=== PATIENT | male | born 1975 | race Caucasian/White ===

== ENCOUNTER 2021-01-15 10:34 | Emergency (ER) | payer MEDICAID, SELFPAY ==
--- NOTE | ~2021-01-15 | CT_ITS ---
EXAMINATION: CT ABDOMEN AND PELVIS WITH CONTRAST CLINICAL INFORMATION: Left lower quadrant abdominal pain. Bright red blood per rectum/medications he. COMPARISON: CT pelvis 08/19/2014 TECHNIQUE: Multidetector volumetric images were obtained from the superior aspect of the liver through the pubic symphysis following administration 85 mL of Omnipaque 350 intravenous contrast. Sagittal and coronal reformatted images were obtained on the technologist's workstation. Oral contrast: No This CT examination was performed using dose optimization techniques as appropriate, variously including the following: *Automated exposure control *Adjustment of mA and/or kV according to patient size (this includes techniques or standardized protocols for targeted exams where dose is matched to indication/reason for exam; i.e. extremities or head) *Use of iterative reconstruction technique DLP: 693 mGy-cm FINDINGS: LUNG BASES: Dependent atelectasis. A small subcentimeter juxtaphrenic node anteriorly on the right. LIVER, GALLBLADDER, AND BILIARY TREE: There is a subcentimeter low-density lesion in the right dome of the liver (series 3 image 8/103). This is too small to characterize further but likely represents a small cyst or hemangioma. Overall the liver is normal in size and attenuation. There is smooth minor uniform thickening of the gallbladder fundal wall. This most likely represents adenomyosis. No gallbladder wall edema. No pericholecystic fluid. Suggest nonemergent follow-up with right upper quadrant ultrasound. The intra and extra hepatic bile ducts are normal in caliber. PANCREAS: The pancreas enhances uniformly with no mass, ductal dilation or inflammation. SPLEEN: The spleen is normal in size. ADRENAL GLANDS: No adrenal mass. KIDNEYS AND URETERS: The kidneys are symmetrically functioning without mass, calculus or hydronephrosis. No perinephric collection. BLADDER: Fat infiltrates the bladder wall at the level of the ureteral insertion (image 82/103) and anatomic variant. GASTROINTESTINAL TRACT: No evidence of diverticulosis. No evidence of colitis. No bowel obstruction. No free air or free fluid. Normal appendix in the right lower quadrant. ABDOMINAL WALL: A tiny fat-containing umbilical hernia. No bowel involvement. LYMPH NODES: A 16 mm left inguinal lymph node (image 92/103) is mildly prominent with effacement of the fatty hilum. Correlation with respect to left lower quadrant symptoms is advised. Appearance is indeterminate. VASCULAR: Unremarkable. PELVIC VISCERA: Prostate and seminal vesicles are within normal limits. No pelvic free fluid OSSEOUS STRUCTURES: . Numerous pelvic bone islands. Spina bifida occulta versus prior trauma posterior elements S1 (image 62/103). No acute abnormality. CT/CT abdomen pelvis w con IMPRESSION: 1. An indeterminant mildly enlarged 16 mm left inguinal lymph node. 2. No bowel obstruction, free air or free fluid. 3. Smooth thickening of the gallbladder fundus without free fluid. Favor adenomyosis. Follow with nonurgent right upper quadrant ultrasound. Normal caliber bile ducts. 4. Indeterminate subcentimeter liver lesion in the right lobe, likely a cyst or small hemangioma in the absence of liver function abnormalities or history of malignancy. No follow-up indicated.
[2021-01-15 10:45] VITALS: BP 124/79; PULSE 93; RESP 18; TEMP 36.9; O2SAT 97; BMI 27.8
[2021-01-15 12:00] VITALS: BP 130/87; PULSE 82; RESP 18; TEMP 36.9; O2SAT 97
[2021-01-15 12:26] LABS: MANUAL DIFF FLAG NO
[2021-01-15 12:27] LABS: Basophils Percent Auto 0.4 % (0-2); Eosinophils Absolute Auto 0.1 X10*3/uL (0.0-0.4); Eosinophils Percent Auto 1.8 % (0-4); Hematocrit 47.3 % (42-52); Imm Gran Abs Auto 0.03 X10*3/uL (0.00-0.03); Imm Gran Pct Auto 0.4 % (0.0-0.4); Lymphocytes Absolute Auto 2.4 X10*3/uL (1.2-4.9); Lymphocytes Percent Auto 31.7 % (20-40); Mean Corpuscular HGB Conc 33.8 g/dl (31.0-36.0); Mean Corpuscular Hemoglobin 34.3 pg (27.0-33.0); Mean Corpuscular Volume 101.5 fL (80-98); Mean Platelet Volume 11.6 fL (9.4-12.4); Monocytes Percent Auto 12.8 % (2-11); Neutrophils Percent Auto 52.9 % (45-73); Platelet Count 163 X10*3/uL (160-400); Red Blood Count 4.66 X10*6/uL (4.60-5.80); Red Cell Distribution Width 12.8 % (11.0-16.0); White Blood Count 7.6 X10*3/uL (4.8-10.8)
[2021-01-15 12:47] LABS: Anion Gap 13 (12-20); Blood Urea Nitrogen 14 mg/dL (9-16); Calcium 9.6 mg/dL (8.4-10.2); Carbon Dioxide 20 mmol/L (22-29); Chloride 109 mmol/L (96-108); Creatinine Clr Calc Pharmacy 142.5; Estimated Glomerular Filt Rate > 60; Glucose Random 94 mg/dL (60-115); Potassium 4.3 mmol/L (3.3-5.1); Sodium 138 mmol/L (135-145)
[2021-01-15] MEDS: 0.9 % Sodium Chloride 1,000 ML 999 ML IVCONT (12:57)
[2021-01-15 12:59] LABS: Alanine Aminotransferase 158 U/L (0-40); Albumin Level 4.3 g/dL (3.5-5.0); Alkaline Phosphatase 83 U/L (39-117); Aspartate Amino Transferase 90 U/L (5-37); Bilirubin Direct 0.3 mg/dL (0.0-0.5); Lipase 32 U/L (8-78); Magnesium 2.1 mg/dL (1.6-2.6); Total Protein 8.5 g/dL (6.5-8.0)
[2021-01-15 13:03] LABS: Glucose Urine UA NEG (NEG); Leukocyte Esterase Urine NEG (NEG); Nitrite Urine NEG (NEG); Specific Gravity - Urine 1.025 (1.005-1.025); Urine Blood NEG (NEG); Urine Ketones NEG (NEG); Urine Protein NEG (NEG-TRACE)
[2021-01-15 13:04] LABS: Appearance Urine CLEAR; Color Urine YELLOW
[2021-01-15 13:04] LABS: OBS Int Ctl Valid YES; OBS1 NEGATIVE (NEGATIVE)
[2021-01-15 13:12] LABS: INTERNATIONAL NORM RATIO 1.1 (0.9-1.1); Prothrombin Time 12.3 SEC (9.9-13.0)
[2021-01-15 13:15] LABS: Partial Thromboplastin Time 35.5 SEC (24.1-38.0)
[2021-01-15 13:54] VITALS: BP 125/78; PULSE 75; RESP 17; TEMP 36.6; O2SAT 99
[2021-01-15] MEDS: iohexoL 350 MG/ML 100 ML INFUS..BTL IV (15:49)
--- NOTE | 2021-01-15 15:57 | ED_ITS ---
HPI - Abdominal Pain General Chief Complaint: Abdominal Pain Stated Complaint: BLOOD IN STOOLS DIARRHEA Time Seen by Provider: 01/15/21 12:06 Source: patient Mode of arrival: ambulatory History of Present Illness HPI narrative: 45-year-old male with no significant past medical history presenting to the ED complaining of lower abdominal pain and bright red bloody BMs x4 days. Denies taking anticoagulation. Denies nausea, vomiting, diarr hea/constipation, rectal pain, lightheadedness/dizziness, dysuria/hematuria MD elicited complaint: abdominal pain Related Data Allergies Allergy/AdvReac Type Severity Reaction Status Date / Time No Known Allergies Allergy Unverified 01/29/20 18:34 Review of Systems Review of Systems Constitutional:No Fever, No Chills, No Fatigue, No Malaise ENT/Mouth: No Ear Pain, No Nasal Congestion, No sore throat Eyes: No Eye Pain Cardiovascular: No Chest Pain, No SOB, No Palpitations Respiratory: No Cough, No Dyspnea Gastrointestinal: No Nausea, No Vomiting, No Diarrhea, No Constipation, + Abdominal pain, +bloody stools Genitourinary: No Dysuria, No Urinary Frequency, No Hematuria, No Flank Pain Musculoskeletal: No joint pain, No Myalgias, No Joint Swelling Skin: No Skin Lesions, No rash Neuro: No Weakness, No Numbness, No Dizziness, No Headache Yes all other systems are reviewed and are negative Physical Exam Vital Signs: Vital Signs: Last Vital Signs Temp 97.8 F 01/15/21 13:54 Pulse 75 01/15/21 13:54 Resp 17 01/15/21 13:54 BP 125/78 01/15/21 13:54 Pulse Ox 99 01/15/21 13:54 Body Mass Index 27.8 Const: General: cooperative and healthy appearing Orientation/consciousness: patient oriented x3 Limitations: no limitations HENMT: Head: Yes normal to inspection Ears: hearing grossly normal bilaterally General nose exam: Normal external nose present Face and sinus: Yes normal facial exam Eyes: General: appearance normal, both eyes and all related structures EOM: EOMs intact bilaterally Neck: Neck: Yes normal visual inspection Resp: Effort & Inspection: normal respiratory effort and no respiratory distress Cardio: Rate: regular rate GI: Inspection: Yes normal to inspection Palpation (GI): Soft to palpation, Tenderness to palpation present (GI) in the LLQ, no guarding and not rigid Re ctal Exam - Male: Yes visual inspection normal, Yes heme negative stool and No External hemorrhoid(s) present : General: Yes no CVA tenderness Back/Spine/Pelvis: Back: no CVA tenderness Skin: Rashes: no rashes Wounds: no wounds Neuro: General: patient oriented x3 Gait exam (Neuro): Normal gait present Extrem: General: Yes normal to inspection Course Course Course Narrative: -no leukocytosis, H&H is stable, AST/ALT elevated >> hepatitis panel added, labs otherwise unremarkable -occult stool negative, UA negative CT abdomen pelvis w con IMPRESSION: ? 1. An indeterminant mildly enlarged 16 mm left inguinal lymph node. 2. No bowel obstruction, free air or free fluid. 3. Smooth thickening of the gallbladder fundus without free fluid. Favor adenomyosis. Follow with nonurgent right upper quadrant ultrasound. Normal caliber bile ducts. 4. Indeterminate subcentimeter liver lesion in the right lobe, likely a cyst or small hemangioma in the absence of liver function abnormalities or history of malignancy. No follow-up indicated.? >> results discussed with Dr. Gooden, patient to follow up outpatient with GI. 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 He verbalized understanding feel safe for discharge home MDM - Abdominal Pain MDM Narrative Medical decision making narrative: 45-year-old male with no significant past medical history presenting to the ED complaining of lower abdominal pain and bright red bloody BMs x4 days. On exam VSS, NAD, well appearing, abdomen soft with LQ TTP, no rebound or guarding. Concern for diverticulitis/colitis vs GI bleed vs ?Hemorrhoids. Low concern for appendicitis/pancreatitis or cho lecystitis/lithiasis Plan: Labs, UA, CT, IVF, reassess, occult stool Medical Records Attestation: I reviewed the patient's medical records. Lab Data Attestation: I reviewed the patient's lab results. Result diagrams: 01/15/21 12:21 01/15/21 12:21 Labs: Lab Results 01/15/21 01/15/21 01/15/21 Range/Units 12:21 12:21 12:52 WBC 7.6 (4.8-10.8) X10*3/uL RBC 4.66 (4.60-5.80) X10*6/uL Hgb 16.0 (14.0-18.0) g/dl Hct 47.3 (42-52) % MCV 101.5 H (80-98) fL MCH 34.3 H (27.0-33.0) pg MCHC 33.8 (31.0-36.0) g/dl RDW 12.8 (11.0-16.0) % Plt Count 163 (160-400) X10*3/uL MPV 11.6 (9.4-12.4) fL Immature Gran % (Auto) 0.4 (0.0-0.4) % Neut % (Auto) 52.9 (45-73) % Lymph % (Auto) 31.7 (20-40) % Lawrence % (Auto) 12.8 H (2-11) % Eos % (Auto) 1.8 (0-4) % Baso % (Auto) 0.4 (0-2) % Lymph # (Auto) 2.4 (1.2-4.9) X10*3/uL Lawrence # (Auto) 1.0 (0.1-1.2) X10*3/uL Eos # (Auto) 0.1 (0.0-0.4) X10*3/uL Baso # (Auto) 0.0 (0.0-0.2) X10*3/uL Abs Immat Gran (auto) 0.03 (0.00-0.03) X10*3/uL Absolute Neuts (auto) 4.0 (2.0-8.3) X10*3/uL Absolute Nucleated RBC 0.000 (0.0-0.012) X10*3/uL Nucleated RBC % (auto) 0.0 (0.0-0.2) /100WBC PT 12.3 (9.9-13.0) SEC INR 1.1 (0.9-1.1) APTT 35.5 (24.1-38.0) SEC Sodium 138 (135-145) mmol/L Potassium 4.3 (3.3-5.1) mmol/L Chloride 109 H (96-108) mmol/L Carbon Dioxide 20 L (22-29) mmol/L Anion Gap 13 (12-20) BUN 14 (9-16) mg/dL Creatinine 0.77 (0.5-1.4) mg/dL Estim Creat Clear Calc 142.5 Estimated GFR > 60 Random Glucose 94 (60-115) mg/dL Calcium 9.6 (8.4-10.2) mg/dL Magnesium 2.1 (1.6-2.6) mg/dL Total Bilirubin 1.0 (0.0-1.0) mg/dL Direct Bilirubin 0.3 (0.0-0.5) mg/dL AST 90 H (5-37) U/L ALT 158 H (0-40) U/L Alkaline Phosphatase 83 (39-117) U/L Total Protein 8.5 H (6.5-8.0) g/dL Albumin 4.3 (3.5-5.0) g/dL Lipase 32 (8-78) U/L Urine Color Urine Appearance Urine pH (5.0-8.0) Ur Specific [place] (1.005-1.025) Urine Protein (NEG-TRACE) MG/DL Urine Glucose (UA) (NEG) MG/DL Urine Ketones (NEG) MG/DL Urine Blood (NEG) Urine Nitrite (NEG) Ur Leukocyte Esterase (NEG) Stool Occult Blood (NEGATIVE) 01/15/21 01/15/21 Range/Units 12:53 12:54 WBC (4.8-10.8) X10*3/uL RBC (4.60-5.80) X10*6/uL Hgb (14.0-18.0) g/dl Hct (42-52) % MCV (80-98) fL MCH (27.0-33.0) pg MCHC (31.0-36.0) g/dl RDW (11.0-16.0) % Plt Count (160-400) X10*3/uL MPV (9.4-12.4) fL Immature Gran % (Auto) (0.0-0.4) % Neut % (Auto) (45-73) % Lymph % (Auto) (20-40) % Lawrence % (Auto) (2-11) % Eos % (Auto) (0-4) % Baso % (Auto) (0-2) % Lymph # (Auto) (1.2-4.9) X10*3/uL Lawrence # (Auto) (0.1-1.2) X10*3/uL Eos # (Auto) (0.0-0.4) X10*3/uL Baso # (Auto) (0.0-0.2) X10*3/uL Abs Immat Gran (auto) (0.00-0.03) X10*3/uL Absolute Neuts (auto) (2.0-8.3) X10*3/uL Absolute Nucleated RBC (0.0-0.012) X10*3/uL Nucleated RBC % (auto) (0.0-0.2) /100WBC PT (9.9-13.0) SEC INR (0.9-1.1) APTT (24.1-38.0) SEC Sodium (135-145) mmol/L Potassium (3.3-5.1) mmol/L Chloride (96-108) mmol/L Carbon Dioxide (22-29) mmol/L Anion Gap (12-20) BUN (9-16) mg/dL Creatinine (0.5-1.4) mg/dL Estim Creat Clear Calc Estimated GFR Random Glucose (60-115) mg/dL Calcium (8.4-10.2) mg/dL Magnesium (1.6-2.6) mg/dL Total Bilirubin (0.0-1.0) mg/dL Direct Bilirubin (0.0-0.5) mg/dL AST (5-37) U/L ALT (0-40) U/L Alkaline Phosphatase (39-117) U/L Total Protein (6.5-8.0) g/dL Albumin (3.5-5.0) g/dL Lipase (8-78) U/L Urine Color YELLOW Urine Appearance CLEAR Urine pH 6.0 (5.0-8.0) Ur Specific [place] 1.025 (1.005-1.025) Urine Protein NEG (NEG-TRACE) MG/DL Urine Glucose (UA) NEG (NEG) MG/DL Urine Ketones NEG (NEG) MG/DL Urine Blood NEG (NEG) Urine Nitrite NEG (NEG) Ur Leukocyte Esterase NEG (NEG) Stool Occult Blood NEGATIVE (NEGATIVE) Discharge Plan Discharge Clinical Impression: Abnormal LFTs, History of rectal bleeding Patient Disposition: Home, Self-Care Instructions: Acute Liver Failure (DC), Rectal Bleeding (ED) Additional Instructions: Your LFTs are abnormal Your CT scan shows likely a cyst or small hemangioma in your liver. You also have a mildly enlarged left inguinal lymph node. You need to follow-up with a GI doctor Avoid alcohol, Tylenol, ibuprofen. If her bleeding persists or worsens, pain persist or worsen, you have fever, you are unable to eat or drink please return to the ED You need to follow-up with her PCP Tus LFT son anormales Espinoza tomograf?a computarizada muestra probablemente un quiste o un miles?o hemangioma en espinoza h?gado. Tambi?n tiene un ganglio linf?zaida inguinal brandy levemente agrandado. Necesita hacer un seguimiento con un m?dico gastrointestinal Evite el alcohol, Tylenol, ibuprofeno. Si el sangrado persiste o empeora, el dolor persiste o empeora, tiene fiebre, no puede comer ni beber, vuelva al servicio de urgencias. Necesita hacer un seguimiento con espinoza PCP Referrals: Jose Herrera [Physician] - 5 days Print Language: [place] [facility] Past Medical History Attestation statement: The following information was validated with the patient. Medical History (Updated 01/15/21 @ 17:24 by PERRI Montoya) No known health problems Social History Social History Alcohol intake: current Alcohol intake frequency: other Alcohol type: beer Patient Tobacco Use Status: Current everyday Tobacco user Use of substances other than those prescribed or required for medical reasons: Yes Substance Use Type: Marijuana Advance Directives: No Advance Directives Information Provided: No
[2021-01-15 16:00] VITALS: BP 119/70; PULSE 75; RESP 16; TEMP 36.6; O2SAT 99
[2021-01-18 04:15] LABS: HBc Num1 0.12 S/CO (0.00-0.79); HBsAGNum1 0.19 S/CO (0.00-0.99); Hepatitis B Core Antibody Nonreactive (Nonreactive); Hepatitis B Surface Antigen Negative (Negative); ~HepC Num1 9.09 S/CO (0.00-0.79); ~Hepatitis C Antibody Reactive (Nonreactive)
[2021-01-18 04:26] LABS: ~Hepatitis B Surface Antibody NONREACTIVE (Nonreactive)
[2021-01-19 08:33] LABS: HBS Num1 2.36 mIU/mL (0-7.99)
[2021-01-19 10:42] LABS: Hepatitis A Antibody IgM 0.28 Index (0-0.79); ~Hepatitis A Antibody IgM Nonreactive (Nonreactive)
== END 2021-01-15 17:45 | disposition home or self-care (01) ==
PROVIDERS: Physician Assistant; Emergency Provider Student in an Organized Health Care Education/Training Program
DX: R79.89 Other specified abnormal findings of blood chemistry (principal); K62.5 Hemorrhage of anus and rectum; R10.30 Lower abdominal pain, unspecified
CPT/HCPCS: 36415; 74177; 80048; 80076; 81003; 82272; 83690; 83735; 85025; 85610; 85730; 86704; 86706; 86709; 86803; 87340; 96360; 99284; Q9967

== ENCOUNTER 2021-03-08 20:02 | Emergency (ER) | payer MEDICAID, SELFPAY ==
[2021-03-08 21:27] VITALS: BP 128/86; PULSE 87; RESP 17; TEMP 36.4; O2SAT 98; BMI 30.7
--- NOTE | 2021-03-08 22:01 | ED.BACK ---
HPI - Back Pain/Injury General Chief Complaint: Back Pain/Injury Stated Complaint: lower back pain Time Seen by Provider: 03/08/21 21:44 Source: patient Mode of arrival: ambulatory Limitations: no limitations History of Present Illness MD elicited complaint: back pain and back injury Pertinent past history: prior back pain Onset (ago): minute(s) (Prior to arrival) Timing: constant and progressively worsening Severity: similar to previous episodes Similar Symptoms Previously: Yes Quality: aching Location: right lower back Radiation: right upper leg Exacerbating factors: movement Relieving factors: none 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), 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 Associated symptoms: denies other symptoms Work related injury: No Related Data Previous Rx's Medication Instructions Recorded acetaminophen 500 mg tablet 1,000 mg PO QID PRN #14 tab 03/08/21 (Tylenol Extra Strength) diazepam 5 mg tablet (Valium) 5 mg PO TID PRN #14 tab 03/08/21 ibuprofen 800 mg tablet 800 mg PO Q8H PRN #14 tab 03/08/21 oxycodone 5 mg tablet 5 mg PO Q6H PRN #14 tab 03/08/21 Allergies Allergy/AdvReac Type Severity Reaction Status Date / Time No Known Allergies Allergy Unverified 01/29/20 18:34 Review of Systems Review of Systems: Constitutional : No trauma, No Weight loss, No Fever, No Chills, ENT/Mouth : No Hearing loss, No Ear Pain, No Nasal Congestion, No Sinus Pain, No Hoarseness, No sore throat, No Rhinorrhea, No Swallowing Difficulty Cardiovascular : No Chest Pain, No SOB Respiratory : No Cough, No Dyspnea Gastrointestinal : No Nausea, No Vomiting, No Diarrhea, No abdominal Pain, No Hematochezia, No Melena Genitourinary : No Dysuria, No Urinary Frequency, No Hematuria, No Urinary or Bowel Incontinence/retention Musculoskeletal : + Back pain, No neck pain, No joint stiffness, No joint swelling Skin : No Skin Lesions, No rash or signs of infection Neuro : No Weakness, + radiation, No Numbness, No Paresthesias, No headache, no loss of bowel or bladder incontinence, no saddle anesthesia, Focal weakness, No radiation Denies history of IV drug usage. Yes all other systems are reviewed and are negative PMFSH Past Medical History Attestation statement: The following information was validated with the patient. Medical History No known health problems Social History Social History Alcohol intake: current Alcohol intake frequency: other Alcohol type: beer Patient Tobacco Use Status: Current everyday Tobacco user Substance Use Type: Marijuana Advance Directives: No Advance Directives Information Provided: Yes Physical Exam Vital Signs: Vital Signs: Last Vital Signs Temp 97.6 F 03/08/21 21: Pulse 87 03/08/21 21:27 Resp 17 03/08/21 21:27 BP 128/86 03/08/21 21: Pulse Ox 98 03/08/21 21: Body Mass Index 30.7 vital signs have been reviewed as normal and appeared to be correct. Blood pressure normal. Heart rate normal. Respiration rate normal. Temperature normal. Oxygen saturation normal. Appearance: Alert. Oriented X3. No acute distress. Head: Normal external exam. Normocephalic. Atraumatic. No Wild signs noted. No raccoon eyes noted Eyes: PERRLA. EOMI. Conjunctiva and sclera normal. Eyelids normal. ENT: EAC normal. TM's Normal. Pharynx normal. Uvula midline. Moist mucous membranes. No trismus noted. No drooling noted. No muffled voice noted. Neck: Normal inspection. Neck supple. FROM. No adenopathy. Thyroid Normal. No meningeal signs. No neck mass noted. CVS: Normal heart rate and rhythm. Heart sound normal. No murmurs noted. Pulses normal throughout. Respiratory: No respiratory distress. Painless inspiration. Breath sounds normal. No wheezes/rales/rhonchi noted. Chest nontender. No accessory muscle usage noted or decreased air movement noted. Abdomen: Soft and nontender. Bowel sounds normal in all 4 quadrants. No distention noted. No organomegaly noted. No visible injury noted. Back: No CVA tenderness. Full range of motion noted. No obvious deformities, or edema. Mild para-spinal muscular tenderness from lumbar region to coccyx. Full ROM in back and lower extremities. 5/5 strength hip extension/flexion, abduction, adduction. Mild Lumbar pain with hip flexion against resistance. Straight leg raise test negative on right; Straight leg raise test negative on left; Reflexes normal ankle and knee bilaterally; EHL motor strength normal bilaterally. No rashes/lesion/induration/fluctuance or signs infection noted. Skin: Skin warm and dry. Normal skin color. Normal skin turgor. No rashes/lesions/lacerations noted. Extremities: No lower extremity edema. Extremities exhibit normal range of motion. Extremities nontender. Neuro: Oriented X 3. No motor deficit. No sensory deficit. Reflexes normal. Patient has a normal steady gait. Course Course Course Narrative: Pt c likely muscular pain, but could be herniated disc. Neuro exam shows no deficits. Not c/w AAA/epidural abscess/dissection.No high risk Hx (Incont, fever, immunosupp, recent surgery/LP, coag, signif trauma, wt loss, puls mass, hx/o Ca, TB, or IVDU) to warrant MRI/CT today. Not c/w Pyelo/UTI/kidney stone/spinal fx. Not cauda equina syndrome. Imaging not currently indicated. DC c meds and f/u. MDM - Back Pain/Injury Medical Records Attestation: I reviewed the patient's medical records. Discharge Plan Discharge Clinical Impression: Strain of lumbar region Patient Disposition: Home, Self-Care Instructions: Low Back Strain (ED), Lower Back Exercises (ED) Prescriptions: New diazepam [Valium] 5 mg tablet 5 mg PO TID PRN (Reason: muscle spasm) Qty: 14 RF: 0 ibuprofen 800 mg tablet 800 mg PO Q8H PRN (Reason: pain) Qty: 14 RF: 0 acetaminophen [Tylenol Extra Strength] 500 mg tablet 1,000 mg PO QID PRN (Reason: fever or pain) Qty: 14 RF: 0 oxycodone 5 mg tablet 5 mg PO Q6H PRN (Reason: pain) Qty: 14 RF: 0 Referrals: Physician,None [Primary Care Provider] - 2 days (your pcp) Stand Alone Forms: Work/School Release Print Language: Welsh
[2021-03-08] MEDS: Ibuprofen 800 MG TABLET PO (22:10)
[2021-03-08] MEDS: oxyCODONE HCl Immed Release 5 MG TABLET PO (22:11)
[2021-03-08] MEDS: diazePAM 5 MG TABLET PO (22:11)
== END 2021-03-08 22:29 | disposition home or self-care (01) ==
PROVIDERS: Emergency Provider Internal Medicine
DX: S39.012A Strain of muscle, fascia and tendon of lower back, initial encounter (principal); X50.0XXA Overexertion from strenuous movement or load, initial encounter; Y93.9 Activity, unspecified; Y92.9 Unspecified place or not applicable; Y99.9 Unspecified external cause status
CPT/HCPCS: 99283

== ENCOUNTER 2021-03-10 17:52 | Emergency (ER) | payer MEDICAID, SELFPAY ==
[2021-03-10 18:09] VITALS: BP 119/72; PULSE 90; RESP 18; TEMP 36.8; O2SAT 98; BMI 30.7
[2021-03-10] MEDS: Ketorolac Tromethamine 15 MG/ML VIAL 30 MG IM (19:13)
[2021-03-10] MEDS: Lidocaine 4 % Patch ADH..PATCH 1 PATCH TRANSDERMA (19:13)
--- NOTE | 2021-03-10 19:19 | ED_ITS ---
HPI - Back Pain/Injury General Chief Complaint: Back Pain/Injury Stated Complaint: back pain Time Seen by Provider: 03/10/21 18:27 Source: patient Mode of arrival: ambulatory History of Present Illness HPI Narrative: 45-year-old male with past medical history of lumbar radiculopathy presenting to the ED complaining of right thigh cramping/tightness times a few days. Patient was seen and treated in the ED 2 days ago for back pain, reports back pain has resolved however now right thigh pain persists, has been taking medications without relief. Denies known injury/trauma or falls. Denies heavy lifting, numbness, tingling, weakness, urinary incontinence/retention, fever, chills MD elicited complaint: back pain Related Data Previous Rx's Medication Instructions Recorded acetaminophen 500 mg tablet 1,000 mg PO QID PRN #14 tab 03/08/21 (Tylenol Extra Strength) diazepam 5 mg tablet (Valium) 5 mg PO TID PRN #14 tab 03/08/21 ibuprofen 800 mg tablet 800 mg PO Q8H PRN #14 tab 03/08/21 oxycodone 5 mg tablet 5 mg PO Q6H PRN #14 tab 03/08/21 prednisone 20 mg tablet 40 mg PO DAILY 5 Days #10 tab 03/10/21 Allergies Allergy/AdvReac Type Severity Reaction Status Date / Time No Known Allergies Allergy Verified 03/10/21 18:08 Review of Systems Review of Systems: Constitutional: No Fever, No Chills ENT/Mouth: No Ear Pain, No Nasal Congestion, No Sinus Pain, No sore throat Cardiovascular: No Chest Pain, No SOB Respiratory: No Cough Gastrointestinal: No Nausea, No Vomiting, No Abdominal pain Genitourinary: No Dysuria, No Urinary Frequency, No Hematuria, No Urinary Incontinence/retention, No Flank Pain Musculoskeletal: + joint pain, No Myalgias, No Joint Swelling Skin: No Skin Lesions, No rash Neuro: No Weakness, No Numbness, No Paresthesias Yes all other systems are reviewed and are negative Neurologic: Denies Sensory deficit (Neuro) [facility] Past Medical History Attestation statement: The following information was validated with the patient. Medical History No known health problems Social History Social History Alcohol intake: current Alcohol intake frequency: other Alcohol type: beer Patient Tobacco Use Status: Current everyday Tobacco user Substance Use Type: Marijuana Advance Directives: No Advance Directives Information Provided: No Physical Exam Vital Signs: Vital Signs: Last Vital Signs Temp 98.2 F 03/10/21 18:09 Pulse 90 03/10/21 18:09 Resp 18 03/10/21 18:09 BP 119/72 03/10/21 18:09 Pulse Ox 98 03/10/21 18:09 Body Mass Index 30.7 Const: General: cooperative, healthy appearing and no acute distress Orientation/consciousness: patient oriented x3 Limitations: no limitations HENMT: Head: Yes normal to inspection and Yes atraumatic Ears: hearing lu ssly normal bilaterally General nose exam: Normal external nose present Face and sinus: Yes normal facial exam Eyes: General: appearance normal, both eyes and all related structures EOM: EOMs intact bilaterally Neck: Other: No midline cervical spinous tenderness Neck: Yes normal visual inspection Resp: Effort & Inspection: normal respiratory effort and no respiratory distress Cardio: Rate: regular rate Peripheral pulses: dorsalis pedis present GI: Inspection: Yes normal to inspection Palpation (GI): Soft to palpation, nontender, no guarding and not rigid Back/Spine/Pelvis: Other: No midline thoracic/lumbar spinous tenderness/step- off or deformity. Right-sided lumbar/buttock MSK tenderness Skin: Rashes: no rashes Wounds: no wounds Neuro: Other: No saddle anesthesia. Strength intact throughout. SILT General: patient oriented x3, gait normal, tone normal and moves all extremities Gait exam (Neuro): Normal gait present Motor exam (neuro): 5/5 motor strength present throughout Sensory Exam: No Sensory deficit (Neuro) Extrem: Other: Right thigh lateral aspect/IT band with tenderness to palpation, pain elicited with movement. Pelvis/hip nontender/stable. no calf tenderness or swelling, distal pulses intact, compartments soft, no cellulitis / ecchymosis General: Yes normal to inspection MDM - Back Pain/Injury MDM Narrative Medical decision making narrative: 45-year-old male with past medical history of lumbar radiculopathy presenting to the ED complaining of right thigh cramping/tightness x a few days. On exam vital signs stable, NAD, nontoxic appearing, no midline spinous tenderness throughout, right thigh tenderness, compartment soft. Likely MSK pain/strain or tendonitis. Low concern for compartment syndrome, cauda equina, cord compression, cellulitis Plan: Symptomatic treatment, PCP follow-up Medical Records Attestation: I reviewed the patient's medical records. Lab Data Attestation: I reviewed the patient's lab results. Discharge Plan Discharge Clinical Impression: Pain in right thigh Patient Disposition: Home, Self-Care Instructions: Musculoskeletal Pain (ED) Additional Instructions: Continue taking previously prescribed medications. In addition start taking prednisone which is an anti-inflammatory pain medication. Please follow-up with her doctor, and orthopedics as needed, call to make an appointment If her symptoms persist or worsen/, verbal return to the ED Apply heat area. Practice stretching techniques Contin?e tomando los medicamentos recetados anteriormente. Adem?s, comience a maddy prednisona, que es un analg?sico antiinflamatorio. Trevor un seguimiento con smart m?dico y ortopedia seg?n sea necesario, llame para programar timur neelam Si krupa s?ntomas persisten o empeoran /, retorno verbal al servicio de urgencias. Aplicar calor en la amari. Practica t?cnicas de estiramiento Prescriptions: New prednisone 20 mg tablet 40 mg PO DAILY 5 Days Qty: 10 RF: 0 No Action diazepam [Valium] 5 mg tablet 5 mg PO TID PRN (Reason: muscle spasm) Qty: 14 RF: 0 ibuprofen 800 mg tablet 800 mg PO Q8H PRN (Reason: pain) Qty: 14 RF: 0 acetaminophen [Tylenol Extra Strength] 500 mg tablet 1,000 mg PO QID PRN (Reason: fever or pain) Qty: 14 RF: 0 oxycodone 5 mg tablet 5 mg PO Q6H PRN (Reason: pain) Qty: 14 RF: 0 Referrals: Eddie Lund MD [Physician] - 2 days Shannon Melendrez MD [Physician] - 2 days Interventions: ED Discharge Assessment Last Done: 03/10/21 19:31 Discharge Date/Time: 03/10/21 19:35 Print Language: Bulgarian
== END 2021-03-10 19:35 | disposition home or self-care (01) ==
PROVIDERS: Emergency Provider Internal Medicine
DX: M79.651 Pain in right thigh (principal); M54.16 Radiculopathy, lumbar region; F17.200 Nicotine dependence, unspecified, uncomplicated
CPT/HCPCS: 96372; 99284; J1885

== ENCOUNTER 2021-05-26 09:16 | Outpatient (REF) | payer MEDICAID, SELFPAY ==
[2021-05-26 11:47] LABS: Binax Internal Control QC Valid; Binax Now Covid-19 Ag Negative (Negative)
== END 2021-05-26 09:17 | disposition home or self-care (01) ==
LOC: HO.LAB 09:16
PROVIDERS: Visit Provider Internal Medicine
DX: Z20.822 Contact with and (suspected) exposure to COVID-19 (principal)
CPT/HCPCS: C9803

== ENCOUNTER 2021-11-28 03:21 | Inpatient (IN) | payer MEDICAID, SELFPAY ==
[2021-11-28] VITALS (13 sets, daily range): BP systolic 115–155; BP diastolic 80–109; PULSE 91–129; RESP 11–32; TEMP 36.1–36.9; O2SAT 74–100; BMI 31.8
--- NOTE | ~2021-11-28 | IR_ITS ---
PROCEDURE: IR INSERTION OF TUNNEL CATHETER CLINICAL INFORMATION: Conversion of right temporary dialysis catheter to a tunneled Permacatheter. COMPARISON: None. TECHNIQUE: Following explaining fluoroscopy-guided conversion of right temporary dialysis catheter to a tunneled catheter procedure, benefits and risks and a written consent was obtained. Patient was placed supine on the fluoroscopy table and the right neck and the right anterior chest wall was cleaned and draped in the usual sterile manner with 2% chlorhexidine solution. 1% lidocaine was injected along the right anterior chest wall approximately 1 gauze length inferior to the right neck incision. A small incision was performed. A tunneler attached to the catheter was then bluntly tunneled subcutaneously from the anterior chest wall incision to the right neck incision. The right neck incision was widened. The dental catheter was then pulled through the right neck incision. The existent dialysis catheter was flushed with saline. A 0.035 J-wire was advanced through one of the catheter lumens and advanced under fluoroscopy into the IVC. The catheter was withdrawn and the tract dilated with 10 Malawian and 14 Malawian dilators. A dilator sheath was inserted over the guidewire and the dilator with the guidewire removed. The permacatheter free of tunneler was then inserted through the peel-away sheath. The catheter was held in position as the sheath was peeled away. Fluoroscopy confirmation was obtained with the tip of the catheter in the distal SVC. The Permacatheter was then flushed with simple saline and Heparin. Nonabsorbable sutures were placed along the anterior chest wall and the catheter was anchored to the skin. Absorbable 3-0 sutures were placed along the right anterior neck incision and this skin was sutured. Sterile dressing was applied postprocedure at both locations. Conscious sedation and patient monitoring was performed during the exam. Approximately 50 mcg of fentanyl and 2 mg of Versed was injected during the exam. Elements of maximal sterile barrier technique followed including use of cap, mask, sterile gown, sterile gloves, a sterile full body drape and hand hygiene. Also followed skin preparation with 2% chlorhexidine for cutaneous antisepsis, and sterile ultrasound preparation with sterile gel and probe cover when applicable. FINDINGS: A 14.5 Malawian, 23 cm long, tunneled, right-sided Permacatheter was placed with its tip in SVC. The temporal dialysis catheter was removed without any significant bleeding. Single image obtained reveals no abnormality involving the right hemithorax. IR/IR cvc insert central tunnel IMPRESSION: Successful conversion of right temporal dialysis catheter to a tunneled 14.5 Malawian and 23 cm long right permacatheter. The patient tolerated procedure well. The catheter is ready for use
--- NOTE | ~2021-11-28 | IR_ITS ---
EXAMINATION: REMOVAL OF TUNNEL CATHETER CLINICAL INFORMATION: Permacath no longer needed COMPARISON: None TECHNIQUE/FINDINGS: The existing permacath was removed. Manual pressure was held over the chest and hemostasis was achieved. IR/IR cvc remove any age IMPRESSION: Right internal jugular permacath removal.
--- NOTE | ~2021-11-28 | US_ITS ---
EXAMINATION: US VENOUS WITH DOPPLER UPPER EXTREMITY, RIGHT CLINICAL INFORMATION: Right arm swelling COMPARISON: None TECHNIQUE: Ultrasound of the upper extremity is performed using compression sonography and color and pulse Doppler flow with assessment of augmentation of flow. There is also imaging and Doppler assessment of the jugular and subclavian veins. Spectral analysis with color-flow imaging is performed. FINDINGS: Respiratory variation, normal compression, and augmented flow are noted throughout the upper extremity including the axillary, brachial, cubital, and radial and ulnar veins. There is normal flow in the internal jugular and subclavian veins. There is no visible deep or superficial thrombophlebitis. If the patient's symptoms progress, a followup ultrasound in 5 -7 days might be of value to exclude proximal propagation from a nonvisualized distal arm vein. US/US venous duplex UE RT IMPRESSION: No DVT demonstrated in the right upper extremity
--- NOTE | ~2021-11-28 | XR_ITS ---
EXAMINATION: XR FOREARM, RIGHT CLINICAL INFORMATION: Fall, pain COMPARISON: None TECHNIQUE: AP and lateral views of the right forearm were obtained. FINDINGS: Osseous alignment is anatomic. No acute fracture is seen. Chronic appearing calcification near the medial humeral epicondyle suggesting calcific rotator cuff tendinopathy. No significant focal soft tissue abnormality identified. XR/XR forearm RT 2V IMPRESSION: No acute findings identified.
--- NOTE | ~2021-11-28 | IR_ITS ---
PROCEDURE: IR INSERTION OF CENTRAL VENOUS CATHETER CLINICAL INFORMATION: Needs temporary dialysis. COMPARISON: None TECHNIQUE: Ultrasound and fluoroscopic guidance for right internal jugular dialysis catheter placement. All elements of maximal sterile barrier technique followed including use of cap, mask, sterile gown, sterile gloves, a sterile full body drape and hand hygiene. Also followed skin preparation with 2% chlorhexidine for cutaneous antisepsis, and sterile ultrasound preparation with sterile gel and probe cover when applicable. FINDINGS: Informed consent was obtained from the patient prior to the procedure. During this process, the procedure and potential alternatives were explained, along with the intended outcome and benefits. The risks of the procedure, as well as the risk of not doing the procedure, were discussed. The patient was given the opportunity to ask questions regarding the procedure and appeared competent to make medical decisions. A signed consent form which documents this discussion was placed in the medical record. Ultrasound examination of the neck was performed demonstrating patency of the right internal jugular vein. Hardcopy PACS image was obtained. Using ultrasound guidance the right internal jugular vein was punctured and guidewire directed into the inferior vena cava. Following this fascial dilatation was performed with dilators followed by placement of a 12 Mauritanian x 13 cm temporary dialysis catheter with its tip lying within the mid superior vena cava. Both ports aspirated and flushed freely. The ports were heparin-locked with 1 mL of heparin 1000 units of heparin to 1 mL. FLUOROSCOPY TIME: 0.3 minutes. IR/IR cvc insert non tunnel IMPRESSION: Right internal jugular central venous temporary dialysis catheter placement.
--- NOTE | ~2021-11-28 | US_ITS ---
EXAMINATION: US VENOUS WITH DOPPLER UPPER EXTREMITY, LEFT CLINICAL INFORMATION: Edema COMPARISON: None TECHNIQUE: Ultrasound of the upper extremity is performed using compression sonography and color and pulse Doppler flow with assessment of augmentation of flow. There is also imaging and Doppler assessment of the jugular and subclavian veins. Spectral analysis with color-flow imaging is performed. FINDINGS: Respiratory variation, normal compression, and augmented flow are noted throughout the upper extremity including the axillary, brachial, and radial and ulnar veins. There is normal flow in the internal jugular and subclavian veins. There is nonocclusive superficial venous thrombus in the basilic vein in the forearm with overlying soft tissue swelling. US/US venous duplex UE LT IMPRESSION: There is nonocclusive superficial venous thrombus in the basilic vein in the forearm with overlying soft tissue swelling. No deep venous thrombus demonstrated in the left upper extremity
--- NOTE | ~2021-11-28 | NM_ITS ---
EXAMINATION: NM LUNG IMAGE PERFUSION CLINICAL INDICATION: Shortness of breath. Elevated d-dimer. COMPARISON: CT chest performed earlier same date. PROCEDURE: Following the intravenous administration of 4.0 mCi technetium 99m MAA, images of the chest were again obtained in multiple projections using a gamma scintophoto camera. FINDINGS: Multiple perfusion present throughout both lungs, with generalized relative photopenia throughout the upper lobes bilaterally compared to the lower lobes. No segmental perfusion defects or other perfusion abnormalities are noted. These findings correspond to the patchy groundglass opacities present throughout both lungs on the nearly concurrent CT, with the parenchymal abnormalities most pronounced within the upper lobes. As such, these findings would classify as matched defects. NM/NM pul perfusion IMPRESSION: Pulmonary embolism absent.
--- NOTE | ~2021-11-28 | US_ITS ---
EXAMINATION: US RETROPERITONEAL LIMITED (RENAL ONLY) CLINICAL INFORMATION: NEHA. COMPARISON: None TECHNIQUE: Bilateral renal ultrasound utilizing high-frequency curvilinear transducer's. FINDINGS: RIGHT KIDNEY: 14 x 6 x 6 cm (SAG x AP x TRV). The kidney is normal in size, contour, and echogenicity. Renal cortical thickness is normal. No calculi or focal parenchymal lesions. No hydronephrosis. Trace amount of free fluid probably of no clinical significance. LEFT KIDNEY: 14 x 6 x 6 cm (SAG x AP x TRV). The kidney is normal in size, contour, and echogenicity. Renal cortical thickness is normal. No calculi or focal parenchymal lesions. No hydronephrosis. Trace amount of free fluid probably of no clinical significance. US/US renal BI IMPRESSION: Normal renal ultrasound, no evidence of obstruction, hydronephrosis or other image findings to explain patient's renal failure..
--- NOTE | ~2021-11-28 | CT_ITS ---
EXAMINATION: NONCONTRAST HEAD CT NONCONTRAST MAXILLOFACIAL CT NONCONTRAST CERVICAL SPINE CT INDICATION INFORMATION: Fall, overdose COMPARISON: 12/23/2012 TECHNIQUE: Separate noncontrast CT examinations of the head, maxillofacial bones, and cervical spine were performed. Coronal and sagittal images were created for each examination at the technologist workstation. DOSE LOWERING TECHNIQUES: This CT examination was performed using dose optimization techniques as appropriate, variously including the following: - Automated exposure control - Adjustment of mA and/or kV according to patient size (this includes techniques or standardized protocols for targeted exams were dose is matched to indication/reason for exam; i.e. extremities or head) - Use of iterative reconstruction technique DLP: 2060 mGy-cm FINDINGS: Head: Limited assessment in some regions due to motion artifact. There is no no appreciable evidence of acute intracranial hemorrhage or territorial infarction. No abnormal mass-effect or midline shift is seen. Brunner to white matter differentiation is well preserved. No extra-axial fluid collections are identified. The ventricles are normal in size. There is no abnormal attenuation within the brain parenchyma. The osseous structures and soft tissues are normal. The mastoid air cells are well aerated. Maxillofacial: No acute maxillofacial fractures are seen. Fluid level is present in the right maxillary sinus.. Mild mucosal thickening of the left maxillary sinus. There is mild mucosal thickening of the bilateral ethmoid air cells and right frontal sinus. There is mucosal thickening along the bilateral infundibula. There is leftward deviation of the nasal septum. The mandibular condyles are well-seated in the condylar fossa. The orbits demonstrate a normal appearance bilaterally. The globes are intact, and there are no suspicious findings to suggest retrobulbar hemorrhage. Cervical spine: Limited evaluation due to motion artifact. There is anatomic alignment of the vertebral bodies and posterior elements. Vertebral body heights are maintained. There is disc space narrowing at C5-C6 with associated endplate osteophytes. No evidence of acute fracture. No prevertebral soft tissue swelling. Visualized portions of the lung apices demonstrate opacities more fully assessed on accompanying chest CT. The thyroid gland is unremarkable. CT/CT cervical spine wo con IMPRESSION: 1. Head: Suboptimal assessment due to motion artifact. No acute intracranial findings identified. 2. Facial bones: No fracture identified. Paranasal sinus disease as noted above. 3. Cervical spine: Significantly limited assessment due to motion artifact. Grossly, no acute findings identified.
--- NOTE | ~2021-11-28 | XR_ITS ---
EXAMINATION: XR HIP, RIGHT CLINICAL INFORMATION: Pain, fall COMPARISON: 01/15/2021 TECHNIQUE: Two views of the right hip. FINDINGS: Alignment across the hips is anatomic, and joint spaces are maintained. No acute fracture is seen. Sacroiliac joints and pubic symphysis appear intact. Redemonstrated scattered sclerotic foci. XR/XR hip RT w [id number] IMPRESSION: No acute findings identified.
--- NOTE | ~2021-11-28 | CT_ITS ---
EXAMINATION: CT HUMERUS WITHOUT CONTRAST, RIGHT CLINICAL INFORMATION: Concern of compartment. Evaluate elbow as well. COMPARISON: None TECHNIQUE: CT scan of the left upper extremity extending from the shoulder through the elbow region. This CT examination was performed using dose optimization techniques as appropriate, variously including the following: *Automated exposure control *Adjustment of mA and/or kV according to patient size (this includes techniques or standardized protocols for targeted exams where dose is matched to indication/reason for exam; i.e. extremities or head) *Use of iterative reconstruction technique DLP: 220 mGy-cm FINDINGS: Subcutaneous soft tissues: Streaky density noted throughout the subcutaneous soft tissues throughout the upper arm. This could reflect edema, cellulitis, or combination of these. No focal fluid collection or mass. Muscles Bone There is mild arthrosis of the acromioclavicular joint. The glenohumeral joint appears normal. The elbow joint appears normal. CT/CT humerus RT wo con IMPRESSION: Findings in the subcutaneous soft tissues could reflect edema or cellulitis. No definite muscle or bone abnormality.
--- NOTE | ~2021-11-28 | CT_ITS ---
EXAMINATION: CT HIP WITHOUT CONTRAST, RIGHT CLINICAL INFORMATION: Worsening right hip pain with tenderness tenderness. COMPARISON: X-rays of the right hip October 29, 2021 TECHNIQUE: CT scan of the right hip is performed without contrast. Reconstruction imaging performed at the acquisition workstation. This CT examination was performed using dose optimization techniques as appropriate, variously including the following: *Automated exposure control *Adjustment of mA and/or kV according to patient size (this includes techniques or standardized protocols for targeted exams where dose is matched to indication/reason for exam; i.e. extremities or head) *Use of iterative reconstruction technique DLP: 292 mGy-cm FINDINGS: There is a joint effusion of the right hip joint. There is enlargement of the muscle surrounding the right hip including the obturator internus, gluteus medius and minimus, iliopsoas, and obturator internus. There is also fluid noted extending deep to the iliotibial band and juxtaposed between the tensor fascia al and the vastus muscles and deep to the gluteus vane. There is also streaky intrapelvic fluid density medial to the iliac vessels and anterior medial pelvic wall The bone and joints are intact. Mccall catheter noted. CT/CT hip RT wo con IMPRESSION: Multiple abnormalities about the right hip joint including right hip joint and enlargement of the surrounding muscles and fluid extending along multiple fascial planes as detailed above. This could reflect reactive inflammatory changes related to a right hip joint inflammatory process including early joint sepsis (no bone destruction or joint space narrowing.) Noninfectious inflammatory arthropathy could have this same appearance. Enlargement of the muscles could reflect myositis. The fluid surrounding the muscles could reflect reactive edema and/or cellulitis related to muscle infection. Alternatively this muscle appearance can be seen with intramuscular hematoma or muscle infarction with reactive surrounding inflammatory change Etiology of the small amount of intrapelvic fluid not determined but could reflect reactive inflammatory changes from the aforementioned right hip and surrounding muscle process
--- NOTE | ~2021-11-28 | CT_ITS ---
EXAMINATION: CT CHEST WITHOUT CONTRAST CLINICAL INFORMATION: Shortness of breath COMPARISON: None TECHNIQUE: Multidetector volumetric CT imaging of the chest was done. Axial MIP volume rendering provided. Sagittal and coronal reformatted images were obtained. This CT examination was performed using dose optimization techniques as appropriate, variously including the following: *Automated exposure control *Adjustment of mA and/or kV according to patient size (this includes techniques or standardized protocols for targeted exams where dose is matched to indication/reason for exam; i.e. extremities or head) *Use of iterative reconstruction technique DLP: 540 mGy-cm FINDINGS: LUNGS: Detailed parenchymal evaluation is limited due to respiratory motion artifact. There are symmetric, moderately extensive regions of consolidation and groundglass opacity with perihilar and upper lobe predominance. MEDIASTINUM: Visualized thyroid gland is unremarkable. Minimal residual thymic tissue is suspected in the anterior mediastinum. There are subcentimeter mediastinal lymph nodes within the range of normal variation. Cardiac size is within normal limits; no pericardial effusion. PLEURA: There is no pleural effusion. No pleural mass or thickening. AXILLA: No lymphadenopathy. UPPER ABDOMEN: Unremarkable. OSSEOUS STRUCTURES: Unremarkable. CT/CT chest wo con IMPRESSION: Moderately extensive, symmetric regions of consolidation and groundglass opacity bilaterally with perihilar predominance. Leading considerations include edema versus pneumonia in the proper clinical setting.
--- NOTE | ~2021-11-28 | CT_ITS ---
EXAMINATION: CT head/brain wo con CLINICAL INFORMATION: Reason for Exam headache and nosebleed COMPARISON: CT head without contrast 11/28/2021 TECHNIQUE: Contiguous axial imaging was performed from the skull base to vertex without intravenous contrast. Sagittal and coronal reformatted images were obtained. This CT examination was performed using dose optimization techniques as appropriate, variously including the following: * Automated exposure control * Adjustment of mA and/or kV according to patient size (this includes techniques or standardized protocols for targeted exams where dose is matched to indication/reason for exam; i.e. extremities or head) Use of iterative reconstruction technique DLP: 763 mGy-cm FINDINGS: No acute osseous or soft tissue abnormality. The mastoid air cells and visualized portions of the paranasal sinuses are well aerated. There is no evidence of acute intracranial hemorrhage or territorial infarction. No abnormal mass effect or midline shift is seen. Brunner to white matter differentiation is well preserved. No extra-axial fluid collections are identified. No hydrocephalus. No significant volume loss. There is no abnormal attenuation within the brain parenchyma. CT/CT head/brain wo con IMPRESSION: No acute intracranial abnormality including hemorrhage, mass effect, hydrocephalus, or acute territorial edematous infarction.
[2021-11-28 03:35] LABS: Glucose, Whole Blood 142 mg/dL (60-115)
[2021-11-28] MEDS: 0.9 % Sodium Chloride 2,000 ML 999 ML IV ×2 (04:14→07:43)
[2021-11-28 04:18] LABS: Basophils Absolute Auto 0.1 X10*3/uL (0.0-0.2); Basophils Percent Auto 0.2 % (0-2); Hemoglobin 18.6 g/dl (14.0-18.0); Imm Gran Abs Auto 0.23 X10*3/uL (0.00-0.03); Imm Gran Pct Auto 0.9 % (0.0-0.4); Lymphocytes Absolute Auto 0.8 X10*3/uL (1.2-4.9); MANUAL DIFF FLAG SCAN; Mean Corpuscular HGB Conc 33.4 g/dl (31.0-36.0); Mean Corpuscular Hemoglobin 34.1 pg (27.0-33.0); Mean Corpuscular Volume 102.2 fL (80.0-98.0); Mean Platelet Volume 11.6 fL (9.4-12.4); Monocytes Percent Auto 11.8 % (2-11); Neutrophils Absolute Auto 21.7 x10*3/uL (2.0-8.3); Neutrophils Percent Auto 84.1 % (45-73); Platelet Count 214 X10*3/uL (160-400); Red Blood Count 5.45 X10*6/uL (4.60-5.80); Red Cell Distribution Width 13.6 % (11.0-16.0); SCAN SMEAR FLAG 1; White Blood Count 25.8 X10*3/uL (4.8-10.8)
[2021-11-28 04:21] LABS: Hematocrit 55.7 % (42.0-52.0)
--- NOTE | 2021-11-28 04:25 | PC.NURSE ---
20G IV placed L AC, labs drawn, ivf running, pt O2 dropping to 74% on RA, provider notified, pt put on nasal cannula @ 4L O2, pt to CT.
[2021-11-28 04:27] LABS: Acetone, serum QL Negative (Negative)
[2021-11-28 04:35] LABS: SLIDE REVIEW VERIFIED
[2021-11-28] MEDS: Naloxone HCl Nasal 4 MG SPRAY NOSTRILALT ×2 (04:41→05:55)
[2021-11-28 04:45] LABS: Alanine Aminotransferase 256 U/L (0-40); Albumin Level 4.5 g/dL (3.5-5.0); Alkaline Phosphatase 118 U/L (39-117); Anion Gap 21 (12-20); Aspartate Amino Transferase 448 U/L (5-37); Bilirubin Total 0.5 mg/dL (0.0-1.0); Blood Urea Nitrogen 19 mg/dL (9-16); Calcium 9.3 mg/dL (8.4-10.2); Carbon Dioxide 20 mmol/L (22-29); Chloride 103 mmol/L (96-108); Creatinine Clr Calc Pharmacy 40.6; Estimated Glomerular Filt Rate 27; Ethanol < 10 mg/dL; Glucose Random 76 mg/dL (60-115); Potassium 4.2 mmol/L (3.3-5.1); Sodium 140 mmol/L (135-145); Total Protein 9.4 g/dL (6.5-8.0)
--- NOTE | 2021-11-28 04:53 | PC.NURSE ---
pt returned from CT, 4mg nasal narcan administered per provider order. monitor tech applied - sinus tach, hypertensive.
[2021-11-28 05:08] LABS: COVID-19 Test Negative (Negative)
--- NOTE | 2021-11-28 05:51 | ED_ITS ---
HPI - Overdose General Chief Complaint: Overdose Stated Complaint: od Time Seen by Provider: 11/28/21 03:52 Source: patient and EMS Mode of arrival: EMS History of Present Illness HPI Narrative: 46-year-old male brought in by EMS who states that he fell today in the shower after taking 1 bag of heroin, he was found unresponsive by EMS and was provided with 4 mg of Narcan and when patient awoke he was noted to be agitated and combative. Patient is complaining of right-sided leg pain arm pain, and right- sided facial abrasions. When patient is asked about the injuries he states that he does not know but endorses that he is in the hospital. Related Data Previous Rx's Medication Instructions Recorded acetaminophen 500 mg tablet 1,000 mg PO QID PRN fever or pain 03/08/21 (Tylenol Extra Strength) #14 tabs diazepam 5 mg tablet (Valium) 5 mg PO TID PRN muscle spasm #14 03/08/21 tabs ibuprofen 800 mg tablet 800 mg PO Q8H PRN pain #14 tabs 03/08/21 oxycodone 5 mg tablet 5 mg PO Q6H PRN pain #14 tabs 03/08/21 prednisone 20 mg tablet 40 mg PO DAILY 5 days #10 tabs 03/10/21 Allergies Allergy/AdvReac Type Severity Reaction Status Date / Time No Known Allergies Allergy Verified 11/28/21 04:16 Review of Systems Review of Systems: Pertinent positives and negatives as stated in HPI 10 point review of systems is otherwise negative. [facility] Past Medical History Source: nursing notes reviewed Medical History No known health problems Social History Social History Alcohol intake: current Alcohol intake frequency: other Alcohol type: beer Patient Tobacco Use Status: Current everyday Tobacco user Substance Use Type: Marijuana Advance Directives: No Advance Directives Information Provided: No Physical Exam Vital Signs: Vital Signs: Last Vital Signs Pulse 111 H 11/28/21 06:00 Resp 31 H 11/28/21 06:00 BP 151/109 H 11/28/21 06:00 Pulse Ox 100 11/28/21 06:00 O2 Del Method 11/28/21 06:00 O2 Flow Rate 2 11/28/21 06:00 BMI result Body Mass Index 31.8 VITAL SIGNS: Reviewed. GENERAL: Well developed, well nourished, in no acute distress. HEAD: Normocephalic/ Scalp contusion EYES: PERRLA, EOMI, bilateral pinpoint pupils EARS: Ext canals without abnormality, TMs non-bulging and non-erythematous NOSE: Nares patent bilateral OROPHARYNX: no oral lesions noted, posterior pharynx clear, dry mucosa NECK: Supple, no adenopathy LUNGS: Normal breath sounds. No adventitious sounds or accessory muscle use. SpO2<94> on 2 L via nasal cannula CARDIOVASCULAR: Regular rate and rhythm without noted murmurs, no JVD or lower extremity edema. ABDOMEN: Soft, tenderness to palpation at right flank, non-distended with bowel sounds. PELVIS: stable but tender on palpation on the right. MUSCULOSKELETAL: No tenderness, deformities, or effusions noted on gross inspection. EXTREMITIES: No cyanosis, clubbing or edema; RIGHT UPPER EXTREMITY: swelling and firmness noted at the right forearm with neurovascular intact distal but tender to palpation. SKIN: Inspection of the skin reveals no rashes NEUROLOGIC: Arousable and oriented x 3. Strength and sensation to light touch were grossly intact x 4. Course Course Course Narrative: 0551: I suspect infection, sepsis alert was called. 46-year-old male with history and clinical presentation consistent with fall, possible laying on the ground due to evidence to suggest dehydration, patient will be imaged and ended up being provided with a total of 8 mg of Narcan and requiring supplemental oxygen as well as being placed on capnography. Patient is noted be hypoxic on trial room air down to 88%. Review of all investigations consistent with likely dehydration, rhabdomyolysis with NEHA and suspect that this is all secondary to patient being down after heroin use. I discussed case with inpatient hospitalist who accepts admission. Patient is scheduled to have repeat lab work and a V/Q scan has been ordered for further investigation hypoxia with elevated D-dimer. MDM - Overdose Lab Data Result diagrams: 11/28/21 04:12 11/28/21 04:12 Labs: Lab Results 11/28/21 11/28/21 11/28/21 Range/Units 03:30 04:12 04:12 WBC 25.8 H (4.8-10.8) X10*3/uL RBC 5.45 (4.60-5.80) X10*6/uL Hgb 18.6 H (14.0-18.0) g/dl Hct 55.7 H (42.0-52.0) % MCV 102.2 H (80.0-98.0) fL MCH 34.1 H (27.0-33.0) pg MCHC 33.4 (31.0-36.0) g/dl RDW 13.6 (11.0-16.0) % Plt Count 214 (160-400) X10*3/uL MPV 11.6 (9.4-12.4) fL Immature Gran % (Auto) 0.9 H (0.0-0.4) % Neut % (Auto) 84.1 H (45-73) % Lymph % (Auto) 3.0 L (20-40) % [place] % (Auto) 11.8 H (2-11) % Eos % (Auto) 0.0 (0-4) % Baso % (Auto) 0.2 (0-2) % Lymph # (Auto) 0.8 L (1.2-4.9) X10*3/uL [place] # (Auto) 3.0 H (0.1-1.2) X10*3/uL Eos # (Auto) 0.0 (0.0-0.4) X10*3/uL Baso # (Auto) 0.1 (0.0-0.2) X10*3/uL Abs Immat Gran (auto) 0.23 H (0.00-0.03) X10*3/uL Absolute Neuts (auto) 21.7 H (2.0-8.3) x10*3/uL Absolute Nucleated RBC 0.000 (0.0-0.012) X10*3/uL Nucleated RBC % (auto) 0.0 (0.0-0.2) /100WBC Smear Tech's Comments VERIFIED PT (10.0-13.1) SEC INR (0.9-1.1) D-Dimer High Sensitivty NG/ML Sodium Cancelled Potassium Cancelled Chloride Cancelled Carbon Dioxide Cancelled Anion Gap Cancelled BUN Cancelled Creatinine Cancelled Estim Creat Clear Calc Cancelled Estimated GFR Cancelled POC Glucose 142 H (60-115) mg/dL Random Glucose Cancelled Lactic Acid (0.5-2.0) mmol/L Calcium Cancelled Total Bilirubin Cancelled AST Cancelled ALT Cancelled Alkaline Phosphatase Cancelled Total Creatine Kinase (38-174) U/L B-Natriuretic Peptide (<100) pg/mL Total Protein Cancelled Albumin Cancelled Ethyl Alcohol mg/dL Acetone, Qual Cancelled COVID-19 (TRACIE) (Negative) COVID-19 Clin Com 11/28/21 11/28/21 11/28/21 Range/Units 04:12 04:12 04:41 WBC (4.8-10.8) X10*3/uL RBC (4.60-5.80) X10*6/uL Hgb (14.0-18.0) g/dl Hct (42.0-52.0) % MCV (80.0-98.0) fL MCH (27.0-33.0) pg MCHC (31.0-36.0) g/dl RDW (11.0-16.0) % Plt Count (160-400) X10*3/uL MPV (9.4-12.4) fL Immature Gran % (Auto) (0.0-0.4) % Neut % (Auto) (45-73) % Lymph % (Auto) (20-40) % [place] % (Auto) (2-11) % Eos % (Auto) (0-4) % Baso % (Auto) (0-2) % Lymph # (Auto) (1.2-4.9) X10*3/uL [place] # (Auto) (0.1-1.2) X10*3/uL Eos # (Auto) (0.0-0.4) X10*3/uL Baso # (Auto) (0.0-0.2) X10*3/uL Abs Immat Gran (auto) (0.00-0.03) X10*3/uL Absolute Neuts (auto) (2.0-8.3) x10*3/uL Absolute Nucleated RBC (0.0-0.012) X10*3/uL Nucleated RBC % (auto) (0.0-0.2) /100WBC Smear Tech's Comments PT (10.0-13.1) SEC INR (0.9-1.1) D-Dimer High Sensitivty NG/ML Sodium 140 Potassium 4.2 Chloride 103 Carbon Dioxide 20 L Anion Gap 21 H BUN 19 H Creatinine 2.59 H Estim Creat Clear Calc 40.6 Estimated GFR 27 POC Glucose (60-115) mg/dL Random Glucose 76 Lactic Acid (0.5-2.0) mmol/L Calcium 9.3 Total Bilirubin 0.5 AST 448 H ALT 256 H Alkaline Phosphatase 118 H D Total Creatine Kinase 48254 H (38-174) U/L B-Natriuretic Peptide 66 (<100) pg/mL Total Protein 9.4 H Albumin 4.5 Ethyl Alcohol < 10 mg/dL Acetone, Qual Negative COVID-19 (TRACIE) Negative (Negative) COVID-19 Clin Com See Note 11/28/21 11/28/21 Range/Units 06:07 06:07 WBC (4.8-10.8) X10*3/uL RBC (4.60-5.80) X10*6/uL Hgb (14.0-18.0) g/dl Hct (42.0-52.0) % MCV (80.0-98.0) fL MCH (27.0-33.0) pg MCHC (31.0-36.0) g/dl RDW (11.0-16.0) % Plt Count (160-400) X10*3/uL MPV (9.4-12.4) fL Immature Gran % (Auto) (0.0-0.4) % Neut % (Auto) (45-73) % Lymph % (Auto) (20-40) % [place] % (Auto) (2-11) % Eos % (Auto) (0-4) % Baso % (Auto) (0-2) % Lymph # (Auto) (1.2-4.9) X10*3/uL [place] # (Auto) (0.1-1.2) X10*3/uL Eos # (Auto) (0.0-0.4) X10*3/uL Baso # (Auto) (0.0-0.2) X10*3/uL Abs Immat Gran (auto) (0.00-0.03) X10*3/uL Absolute Neuts (auto) (2.0-8.3) x10*3/uL Absolute Nucleated RBC (0.0-0.012) X10*3/uL Nucleated RBC % (auto) (0.0-0.2) /100WBC Smear Tech's Comments PT 13.0 (10.0-13.1) SEC INR 1.1 (0.9-1.1) D-Dimer High Sensitivty 2940 NG/ML Sodium Potassium Chloride Carbon Dioxide Anion Gap BUN Creatinine Estim Creat Clear Calc Estimated GFR POC Glucose (60-115) mg/dL Random Glucose Lactic Acid 1.8 (0.5-2.0) mmol/L Calcium Total Bilirubin AST ALT Alkaline Phosphatase Total Creatine Kinase (38-174) U/L B-Natriuretic Peptide (<100) pg/mL Total Protein Albumin Ethyl Alcohol mg/dL Acetone, Qual COVID-19 (TRACIE) (Negative) COVID-19 Clin Com Critical Care Time Critical Care Time Critical Care Time: Yes Total Critical Care Time: 30 Attestation: I personally attest to this time spent taking care of the patient. Discharge Plan Discharge Clinical Impression: Drug overdose, Pulmonary edema, Hypoxia, Rhabdomyolysis, NEHA (acute kidney injury), Elevated d-dimer Patient Disposition: Admitted As Inpatient Prescriptions: No Action diazepam [Valium] 5 mg tablet 5 mg PO TID PRN (Reason: muscle spasm) Qty: 14 0RF ibuprofen 800 mg tablet 800 mg PO Q8H PRN (Reason: pain) Qty: 14 0RF acetaminophen [Tylenol Extra Strength] 500 mg tablet 1,000 mg PO QID PRN (Reason: fever or pain) Qty: 14 0RF oxycodone 5 mg tablet 5 mg PO Q6H PRN (Reason: pain) Qty: 14 0RF prednisone 20 mg tablet 40 mg PO DAILY 5 Days Qty: 10 0RF
--- NOTE | 2021-11-28 05:56 | PC.NURSE ---
additional 4mg narcan given per provider order, increased respiratory effort.
[2021-11-28 06:04] LABS: B Type Natriuretic Peptide 66 pg/mL (<100)
[2021-11-28] MEDS: Piperacillin Sodium/Tazobactam 3.375 GM in 0.9 % Sodium Chloride 50 ML IV ×3 (06:06→18:08)
--- NOTE | 2021-11-28 06:07 | PC.NURSE ---
additional labs drawn by phlebotomy, medicated per provider order.
[2021-11-28 06:22] LABS: INTERNATIONAL NORM RATIO 1.1 (0.9-1.1)
[2021-11-28 06:24] LABS: D Dimer High Sensitivity 2940 NG/ML
[2021-11-28 06:42] LABS: Lactic Acid 1.8 mmol/L (0.5-2.0)
--- NOTE | 2021-11-28 07:34 | ECG_ITS ---
Test Reason : overdose Blood Pressure : / mmHG Vent. Rate : 111 BPM Atrial Rate : 111 BPM P-R Int : 114 ms QRS Dur : 096 ms QT Int : 352 ms P-R-T Axes : 064 058 062 degrees QTc Int : 478 ms Sinus tachycardia Otherwise normal ECG No previous ECGs available Referred By: Lillian May Electronically Signed By:Fox Larson
--- NOTE | 2021-11-28 07:37 | PC.NURSE ---
patient arousalable , alert to name and date of . lungs clear . patient breathing labored . skin pink warm and intact , patients c/o of pain 10/10 on right hip area swollen . provider aware . area has already been x-rayed . patient remains on cardiac and capnography monitoring . IV fluids continue per Sepsis protocol . patient is aware of plan of care .
--- NOTE | 2021-11-28 10:17 | PHA.MEDREC ---
Pharmacy Consult ? Medication Reconciliation Pharmacy has completed the medication reconciliation. Patient reports no medications accept PRN Advil. Patti Sun, RodrigoD
[2021-11-28 10:20] LABS: Hematocrit 48.1 % (42.0-52.0); Hemoglobin 16.2 g/dl (14.0-18.0); Mean Corpuscular HGB Conc 33.7 g/dl (31.0-36.0); Mean Corpuscular Hemoglobin 34.5 pg (27.0-33.0); Mean Corpuscular Volume 102.3 fL (80.0-98.0); Platelet Count 138 X10*3/uL (160-400); Red Cell Distribution Width 13.3 % (11.0-16.0); White Blood Count 24.6 X10*3/uL (4.8-10.8)
[2021-11-28 10:35] LABS: Alanine Aminotransferase 411 U/L (0-40); Alkaline Phosphatase 88 U/L (39-117); Anion Gap 14 (12-20); Aspartate Amino Transferase 921 U/L (5-37); Bilirubin Total 0.7 mg/dL (0.0-1.0); Blood Urea Nitrogen 26 mg/dL (9-16); Carbon Dioxide 17 mmol/L (22-29); Chloride 112 mmol/L (96-108); Creatinine Clr Calc Pharmacy 42.9; Estimated Glomerular Filt Rate 29; Glucose Random 113 mg/dL (60-115); Potassium 4.7 mmol/L (3.3-5.1); Sodium 138 mmol/L (135-145)
[2021-11-28 10:42] LABS: Albumin Level 3.4 g/dL (3.5-5.0); Calcium 7.7 mg/dL (8.4-10.2); Total Protein 6.8 g/dL (6.5-8.0)
[2021-11-28 10:51] LABS: Band Neutrophils Percent 12 % (3-5); Lymphocytes Percent Manual 8 % (20-40); Monocytes Absolute Manual 0.7 X10*3/uL (0.1-1.2); Monocytes Percent Manual 3 % (2-11); Neutrophils Absolute Manual 21.9 X10*3/uL (2.0-8.3); Neutrophils Percent Manual 77 % (45-73)
[2021-11-28 10:52] LABS: Burr Cells 1+ (0-2) /OIF; Large Platelet PRESENT; Platelet Estimate SLIGHTLY DECREASED (NORMAL); Platelet Morphology Comment NORMAL; RBC Morphology NOTED
--- NOTE | 2021-11-28 11:43 | P.HPHOSP_ITS ---
History of Present Illness Date of Service: 11/28/21 Chief Complaint: Fall, overdose A 46 years old male with PMH of smoking, alcoholism who presents to the hospital after being found altered in his shower after using heroin. The patient reports that he has been clean for almost 10 years but his daughter was killed recently and he was feeling sore about this we had to use. He does not recall much about holding but he remember that happening in his shower. Could not recall hitting the floor. When he was found by EMS he received Narcan and brought to the hospital in altered mentation and combative mood. He is reporting right hip and elbow pain. Images were negative for any acute fracture. Chest images concerning for possible aspiration, infection or CHF. He will be admitted for further evaluation and treatment. Review of Systems Review of Systems: No fever, chills but reporting feeling weak No chest pain, palpitation No shortness of breath or coughing No abdominal pain, nausea or vomiting No urinary symptoms Pain in his right hip and right elbow No any rash or wounds PMFSH Medical History No known health problems Social History Alcohol intake: current Alcohol intake frequency: other Alcohol type: beer Patient Tobacco Use Status: Current everyday Tobacco user Substance Use Type: Marijuana Advance Directives: No Advance Directives Information Provided: No Meds Allergies Allergy/AdvReac Type Severity Reaction Status Date / Time No Known Allergies Allergy Verified 11/28/21 04:16 Active Medications: Current Medications Pharmacy Consult (Consult Rx Perform Med Rec) 1 each MISCELLANE ONCE PRN PRN Reason: Consult order Home Medications Medication Instructions Recorded Confirmed Last Taken Type ibuprofen 200 mg tablet (Advil) 400 mg PO Q6H PRN Pain 11/28/21 11/28/21 Unknown History Physical Exam Vital Signs and Narrative: Vital Signs: Last Vital Signs Temp 98.2 F 11/28/21 10:16 Pulse 100 11/28/21 10:16 Resp 17 11/28/21 10:16 BP 149/100 H 11/28/21 10:16 Pulse Ox 92 11/28/21 10:16 O2 Del Method 11/28/21 10:16 O2 Flow Rate 2 07/18/22 10:16 BMI result Body Mass Index 31.8 Const: Other: Constitutional : Alert, interactive, pain with moving his leg Neck : Normal inspection, Supple Cardiovascular : RRR, no JVP, no lower extremity edema Respiratory : fair bilateral air entry, no crackles, wheezes or rhonchi Gastrointestinal: soft, lax, Normal bowel sounds, Non tender Skin : Warm, Dry Musculoskeletal: Stiffness in his right gluteal vane and right triceps muscle with tenderness, minimally decreased range of motion because of pain Neurological : Alert & oriented to self and place, No focal deficit , CN 2-12 within normal Results Labs CBC and Chem 7: 11/28/21 10:07 11/28/21 10:07 Labs: Laboratory Results - last 24 hr 11/28/21 11/28/21 11/28/21 03:30 04:12 04:12 MCV 102.2 H MCH 34.1 H MCHC 33.4 RDW 13.6 Plt Count 214 MPV 11.6 Immature Gran % (Auto) 0.9 H Neut % (Auto) 84.1 H Lymph % (Auto) 3.0 L [place] % (Auto) 11.8 H Eos % (Auto) 0.0 Baso % (Auto) 0.2 Lymph # (Auto) 0.8 L [place] # (Auto) 3.0 H Eos # (Auto) 0.0 Baso # (Auto) 0.1 Abs Immat Gran (auto) 0.23 H Absolute Neuts (auto) 21.7 H Absolute Nucleated RBC 0.000 Nucleated RBC % (auto) 0.0 Neutrophils % (Manual) Band Neutrophils % Lymphocytes % (Manual) Monocytes % (Manual) Abs Neuts (Manual) Lymphocytes # (Manual) Monocytes # (Manual) Platelet Estimate Large Platelets Plt Morphology Comment RBC Morphology [place] Cells Smear Tech's Comments VERIFIED PT INR D-Dimer High Sensitivty Anion Gap Cancelled Estim Creat Clear Calc Cancelled Estimated GFR Cancelled POC Glucose 142 H Random Glucose Cancelled Lactic Acid Calcium Cancelled Total Bilirubin Cancelled AST Cancelled ALT Cancelled Alkaline Phosphatase Cancelled Total Creatine Kinase B-Natriuretic Peptide Total Protein Cancelled Albumin Cancelled Ethyl Alcohol Acetone, Qual Cancelled COVID-19 (TRACIE) COVID-19 Clin Com 11/28/21 11/28/21 11/28/21 04:12 04:12 04:41 MCV MCH MCHC RDW Plt Count MPV Immature Gran % (Auto) Neut % (Auto) Lymph % (Auto) [place] % (Auto) Eos % (Auto) Baso % (Auto) Lymph # (Auto) [place] # (Auto) Eos # (Auto) Baso # (Auto) Abs Immat Gran (auto) Absolute Neuts (auto) Absolute Nucleated RBC Nucleated RBC % (auto) Neutrophils % (Manual) Band Neutrophils % Lymphocytes % (Manual) Monocytes % (Manual) Abs Neuts (Manual) Lymphocytes # (Manual) Monocytes # (Manual) Platelet Estimate Large Platelets Plt Morphology Comment RBC Morphology [place] Cells Smear Tech's Comments PT INR D-Dimer High Sensitivty Anion Gap 21 H Estim Creat Clear Calc 40.6 Estimated GFR 27 POC Glucose Random Glucose 76 Lactic Acid Calcium 9.3 Total Bilirubin 0.5 AST 448 H ALT 256 H Alkaline Phosphatase 118 H D Total Creatine Kinase 08661 H B-Natriuretic Peptide 66 Total Protein 9.4 H Albumin 4.5 Ethyl Alcohol < 10 Acetone, Qual Negative COVID-19 (TRACIE) Negative COVID-19 Clin Com See Note 11/28/21 11/28/21 11/28/21 06:07 06:07 10:07 MCV 102.3 H MCH 34.5 H MCHC 33.7 RDW 13.3 Plt Count 138 L D MPV 12.0 Immature Gran % (Auto) Cancelled Neut % (Auto) Cancelled Lymph % (Auto) Cancelled [place] % (Auto) Cancelled Eos % (Auto) Cancelled Baso % (Auto) Cancelled Lymph # (Auto) Cancelled [place] # (Auto) Cancelled Eos # (Auto) Cancelled Baso # (Auto) Cancelled Abs Immat Gran (auto) Cancelled Absolute Neuts (auto) Cancelled Absolute Nucleated RBC 0.000 Nucleated RBC % (auto) 0.0 Neutrophils % (Manual) 77 H Band Neutrophils % 12 H Lymphocytes % (Manual) 8 L Monocytes % (Manual) 3 Abs Neuts (Manual) 21.9 H Lymphocytes # (Manual) 2.0 Monocytes # (Manual) 0.7 Platelet Estimate SLIGHTLY DECREASED Large Platelets PRESENT Plt Morphology Comment NORMAL RBC Morphology NOTED [place] Cells 1+ (0-2) Smear Tech's Comments PT 13.0 INR 1.1 D-Dimer High Sensitivty 2940 Anion Gap Estim Creat Clear Calc Estimated GFR POC Glucose Random Glucose Lactic Acid 1.8 Calcium Total Bilirubin AST ALT Alkaline Phosphatase Total Creatine Kinase B-Natriuretic Peptide Total Protein Albumin Ethyl Alcohol Acetone, Qual COVID-19 (TRACIE) COVID-19 Pod Inns Com 11/28/21 10:07 MCV MCH MCHC RDW Plt Count MPV Immature Gran % (Auto) Neut % (Auto) Lymph % (Auto) [place] % (Auto) Eos % (Auto) Baso % (Auto) Lymph # (Auto) [place] # (Auto) Eos # (Auto) Baso # (Auto) Abs Immat Gran (auto) Absolute Neuts (auto) Absolute Nucleated RBC Nucleated RBC % (auto) Neutrophils % (Manual) Band Neutrophils % Lymphocytes % (Manual) Monocytes % (Manual) Abs Neuts (Manual) Lymphocytes # (Manual) Monocytes # (Manual) Platelet Estimate Large Platelets Plt Morphology Comment RBC Morphology [place] Cells Smear Tech's Comments PT INR D-Dimer High Sensitivty Anion Gap 14 Estim Creat Clear Calc 42.9 Estimated GFR 29 POC Glucose Random Glucose 113 D Lactic Acid Calcium 7.7 L D Total Bilirubin 0.7 AST 921 H ALT 411 H Alkaline Phosphatase 88 D Total Creatine Kinase B-Natriuretic Peptide Total Protein 6.8 D Albumin 3.4 L D Ethyl Alcohol Acetone, Qual COVID-19 (TRACIE) COVID-19 Clin Com Imaging Radiologist's Impressions: Impressions Chest CT 11/28/21 04:42 IMPRESSION: Moderately extensive, symmetric regions of consolidation and groundglass opacity bilaterally with perihilar predominance. Leading considerations include edema versus pneumonia in the proper clinical setting. Cervical Spine CT 11/28/21 04:50 IMPRESSION: 1. Head: Suboptimal assessment due to motion artifact. No acute intracranial findings identified. 2. Facial bones: No fracture identified. Paranasal sinus disease as noted above. 3. Cervical spine: Significantly limited assessment due to motion artifact. Grossly, no acute findings identified. Face CT 11/28/21 04:50 IMPRESSION: 1. Head: Suboptimal assessment due to motion artifact. No acute intracranial findings identified. 2. Facial bones: No fracture identified. Paranasal sinus disease as noted above. 3. Cervical spine: Significantly limited assessment due to motion artifact. Grossly, no acute findings identified. Head CT 11/28/21 04:50 IMPRESSION: 1. Head: Suboptimal assessment due to motion artifact. No acute intracranial findings identified. 2. Facial bones: No fracture identified. Paranasal sinus disease as noted above. 3. Cervical spine: Significantly limited assessment due to motion artifact. Grossly, no acute findings identified. Forearm X-Ray 11/28/21 05:15 IMPRESSION: No acute findings identified. Hip/Pelvis X-Ray 11/28/21 05:15 IMPRESSION: No acute findings identified. Assessment and Plan (1) Drug overdose: Status: Acute (2) Rhabdomyolysis: Status: Acute (3) NEHA (acute kidney injury): Status: Acute (4) Hypoxia: Status: Acute (5) Aspiration pneumonia: Status: Acute Plan A 46 years old male with PMH of smoking, alcoholism who presents to the hospital after being found altered in his shower after using heroin. Toxic metabolic encephalopathy, improved Secondary to heroin abuse Post Narcan Advised not to use again Addiction team to follow Acute kidney injury Secondary to rhabdomyolysis IV fluids Nephrology consult Hold nephrotoxic medications Monitor intake and output Repeat BMP and CPK Hypoxia 2/2 Aspiration pneumonia Not septic Question of possible fluid overload , low BNP Pending cultures Start IV Zosyn Wean oxygen down as tolerated Hip pain X-ray negative for any acute fracture Likely muscle injury from the fall Pain medication To start physical therapy once pain improves DVT PPX Heparin The patient will likely need 2 overnight hospital stay for treatment of acute kidney injury and hypoxia to prevent possible decompensation into renal failure or acute hypoxic respiratory failure. Quality Stroke Does the patient have a stroke diagnosis?: No VTE Prior VTE?: No VTE Risk Level:: Medical - moderate - high VTE Device Contraindication: Treatment Not Indicated VTE Drug Contraindication: N/A - Med Ordered
[2021-11-28] MEDS: Heparin Sodium,Porcine 5,000 UNIT/ML VIAL 5000 UNIT SUBCUT (14:07)
[2021-11-28] MEDS: 0.9 % Sodium Chloride Flush 3 ML SYRINGE IVFLUSH ×2 (14:09→20:08)
[2021-11-28] MEDS: 0.9 % Sodium Chloride 1,000 ML 150 ML IVCONT ×2 (14:12→21:16)
--- NOTE | 2021-11-28 14:43 | PC.NURSE ---
rossana roper ([facility]) at bedside, pt aware of plan of care for a byers cath placement.
--- NOTE | 2021-11-28 14:45 | PC.NURSE ---
Dr. White at bedside from [facility] for consult . need for catheter placement and continued monitor of kidney functions . patient aware of plan of care .
[2021-11-28] MEDS: Morphine Sulfate 4 MG/ML CARTRIDGE 2 MG IVPUSH (14:56)
[2021-11-28 15:48] LABS: Appearance Urine HAZY; Glucose Urine UA NEG (NEG); Leukocyte Esterase Urine NEG (NEG); Nitrite Urine NEG (NEG); PH 5.5 (5.0-8.0); Specific Gravity - Urine >= 1.030 (1.005-1.025); Urine Blood 3+ (NEG); Urine Ketones 5 MG/DL (NEG); Urine Protein 3+ MG/DL (NEG-TRACE)
[2021-11-28 15:50] LABS: Color Urine AMBER
[2021-11-28 15:55] LABS: Creatinine Urine 115.96 mg/dL
[2021-11-28 15:57] LABS: Amphetamine Screen Urine Not Detected (Not Detect); Barbiturates, Urine Not Detected (Not Detect); Benzodiazepines Screen Urine Not Detected (Not Detect); Cannabinoid Screen Urine POSITIVE (Not Detect); Cocaine Screen Urine POSITIVE (Not Detect); Fentanyl, urine POSITIVE (Not Detect); Opiate Screen Urine POSITIVE (Not Detect); Phencyclidine Screen Urine Not Detected (Not Detect)
[2021-11-28 16:06] LABS: Amorphous Sediment Urine 4+ /LPF; Mucus Urine TRACE /LPF; RBC Urine 0-2 /HPF (0); Renal Epithelial Cells Urine TRACE /LPF; Squamous Epithelial Cell Urine TRACE /LPF; WBC Urine 0 /HPF (0-4)
--- NOTE | 2021-11-28 17:32 | HO.ADDICTCON ---
History of Present Illness Date of Service: 11/28/2021 Chief Complaint: fall ams Reason for Consult: opioid overdose HPI Narrative: Patient seen briefly as he was in process of transferring from ED to medical floor. Medically admitted with rhabdo following opioid overdose. Patient reports he is not in any withdrawal and states his using was a one time occurrence due to depression of losing daughter one moth ago. will follow up and obtain more thorough history tomorrow morning. Review of Systems Constitutional: Reports as per HPI Diagnostics Vital Signs (24Hr): Vital Signs - 24 hr 11/28/21 04:17 11/28/21 04:55 11/28/21 05:51 Temperature Pulse Rate 129 H 119 H 119 H Respiratory Rate 30 H 30 H 32 H Blood Pressure 115/83 145/96 H 149/103 H Pulse Oximetry 74 L 94 93 Oxygen Delivery Method Room Air Nasal Cannula Room Air Oxygen Flow Rate 5 11/28/21 06:00 11/28/21 07:33 11/28/21 08:10 Temperature 98.4 F Pulse Rate 111 H 110 H 110 H Respiratory Rate 31 H 30 H 11 L Blood Pressure 151/109 H 147/102 H 153/105 H Pulse Oximetry 100 93 94 Oxygen Delivery Method Nasal Cannula Nasal Cannula Nasal Cannula Nasal Cannula with ETCO2 Oxygen Flow Rate 2 2 2 11/28/21 09:51 11/28/21 10:16 11/28/21 14:12 Temperature 98.3 F 98.2 F 97.7 F Pulse Rate 103 H 100 99 Respiratory Rate 12 17 24 H Blood Pressure 146/101 H 149/100 H 146/98 H Pulse Oximetry 94 92 95 Oxygen Delivery Method Nasal Cannula Nasal Cannula Nasal Cannula Oxygen Flow Rate 2 2 2 11/28/21 15:50 11/28/21 16:00 Temperature 98.0 F Pulse Rate 95 91 Respiratory Rate 22 H 18 Blood Pressure 155/96 H 155/102 H Pulse Oximetry 93 91 L Oxygen Delivery Method Nasal Cannula Room Air Oxygen Flow Rate 2 93 BMI result Body Mass Index 31.8 Labs Results: 11/28/21 10:07 11/28/21 10:07 Labs: Laboratory Results - last 48 hr 11/28/21 11/28/21 11/28/21 03:30 04:12 04:12 WBC 25.8 H RBC 5.45 Hgb 18.6 H Hct 55.7 H MCV 102.2 H MCH 34.1 H MCHC 33.4 RDW 13.6 Plt Count 214 MPV 11.6 Immature Gran % (Auto) 0.9 H Neut % (Auto) 84.1 H Lymph % (Auto) 3.0 L [place] % (Auto) 11.8 H Eos % (Auto) 0.0 Baso % (Auto) 0.2 Lymph # (Auto) 0.8 L [place] # (Auto) 3.0 H Eos # (Auto) 0.0 Baso # (Auto) 0.1 Abs Immat Gran (auto) 0.23 H Absolute Neuts (auto) 21.7 H Absolute Nucleated RBC 0.000 Nucleated RBC % (auto) 0.0 Neutrophils % (Manual) Band Neutrophils % Lymphocytes % (Manual) Monocytes % (Manual) Abs Neuts (Manual) Lymphocytes # (Manual) Monocytes # (Manual) Platelet Estimate Large Platelets Plt Morphology Comment RBC Morphology [place] Cells Smear Tech's Comments VERIFIED PT INR D-Dimer High Sensitivty Sodium Cancelled Potassium Cancelled Chloride Cancelled Carbon Dioxide Cancelled Anion Gap Cancelled BUN Cancelled Creatinine Cancelled Estim Creat Clear Calc Cancelled Estimated GFR Cancelled POC Glucose 142 H Random Glucose Cancelled Lactic Acid Calcium Cancelled Total Bilirubin Cancelled AST Cancelled ALT Cancelled Alkaline Phosphatase Cancelled Total Creatine Kinase B-Natriuretic Peptide Total Protein Cancelled Albumin Cancelled Urine Color Urine Appearance Urine pH Ur Specific [place] Urine Protein Urine Glucose (UA) Urine Ketones Urine Blood Urine Nitrite Ur Leukocyte Esterase Urine RBC Urine WBC Ur Squamous Epith Cells Ur Renal Epithelial Cell Amorphous Sediment Urine Bacteria Urine Mucus Ur Random Sodium Urine Creatinine Urine Opiates Screen Urine Fentanyl Screen Ur Barbiturates Screen Ur Phencyclidine Scrn Ur Amphetamines Screen U Benzodiazepines Scrn Urine Cocaine Screen U Marijuana (THC) Screen Ethyl Alcohol Acetone, Qual Cancelled COVID-19 (TRACIE) COVID-19 Clin Com 11/28/21 11/28/21 11/28/21 04:12 04:12 04:41 WBC RBC Hgb Hct MCV MCH MCHC RDW Plt Count MPV Immature Gran % (Auto) Neut % (Auto) Lymph % (Auto) [place] % (Auto) Eos % (Auto) Baso % (Auto) Lymph # (Auto) [place] # (Auto) Eos # (Auto) Baso # (Auto) Abs Immat Gran (auto) Absolute Neuts (auto) Absolute Nucleated RBC Nucleated RBC % (auto) Neutrophils % (Manual) Band Neutrophils % Lymphocytes % (Manual) Monocytes % (Manual) Abs Neuts (Manual) Lymphocytes # (Manual) Monocytes # (Manual) Platelet Estimate Large Platelets Plt Morphology Comment RBC Morphology [place] Cells Smear Tech's Comments PT INR D-Dimer High Sensitivty Sodium 140 Potassium 4.2 Chloride 103 Carbon Dioxide 20 L Anion Gap 21 H BUN 19 H Creatinine 2.59 H Estim Creat Clear Calc 40.6 Estimated GFR 27 POC Glucose Random Glucose 76 Lactic Acid Calcium 9.3 Total Bilirubin 0.5 AST 448 H ALT 256 H Alkaline Phosphatase 118 H D Total Creatine Kinase 34754 H B-Natriuretic Peptide 66 Total Protein 9.4 H Albumin 4.5 Urine Color Urine Appearance Urine pH Ur Specific [place] Urine Protein Urine Glucose (UA) Urine Ketones Urine Blood Urine Nitrite Ur Leukocyte Esterase Urine RBC Urine WBC Ur Squamous Epith Cells Ur Renal Epithelial Cell Amorphous Sediment Urine Bacteria Urine Mucus Ur Random Sodium Urine Creatinine Urine Opiates Screen Urine Fentanyl Screen Ur Barbiturates Screen Ur Phencyclidine Scrn Ur Amphetamines Screen U Benzodiazepines Scrn Urine Cocaine Screen U Marijuana (THC) Screen Ethyl Alcohol < 10 Acetone, Qual Negative COVID-19 (TRACIE) Negative COVID-19 Clin Com See Note 11/28/21 11/28/21 11/28/21 06:07 06:07 10:07 WBC 24.6 H RBC 4.70 Hgb 16.2 Hct 48.1 MCV 102.3 H MCH 34.5 H MCHC 33.7 RDW 13.3 Plt Count 138 L D MPV 12.0 Immature Gran % (Auto) Cancelled Neut % (Auto) Cancelled Lymph % (Auto) Cancelled [place] % (Auto) Cancelled Eos % (Auto) Cancelled Baso % (Auto) Cancelled Lymph # (Auto) Cancelled [place] # (Auto) Cancelled Eos # (Auto) Cancelled Baso # (Auto) Cancelled Abs Immat Gran (auto) Cancelled Absolute Neuts (auto) Cancelled Absolute Nucleated RBC 0.000 Nucleated RBC % (auto) 0.0 Neutrophils % (Manual) 77 H Band Neutrophils % 12 H Lymphocytes % (Manual) 8 L Monocytes % (Manual) 3 Abs Neuts (Manual) 21.9 H Lymphocytes # (Manual) 2.0 Monocytes # (Manual) 0.7 Platelet Estimate SLIGHTLY DECREASED Large Platelets PRESENT Plt Morphology Comment NORMAL RBC Morphology NOTED [place] Cells 1+ (0-2) Smear Tech's Comments PT 13.0 INR 1.1 D-Dimer High Sensitivty 2940 Sodium Potassium Chloride Carbon Dioxide Anion Gap BUN Creatinine Estim Creat Clear Calc Estimated GFR POC Glucose Random Glucose Lactic Acid 1.8 Calcium Total Bilirubin AST ALT Alkaline Phosphatase Total Creatine Kinase B-Natriuretic Peptide Total Protein Albumin Urine Color Urine Appearance Urine pH Ur Specific [place] Urine Protein Urine Glucose (UA) Urine Ketones Urine Blood Urine Nitrite Ur Leukocyte Esterase Urine RBC Urine WBC Ur Squamous Epith Cells Ur Renal Epithelial Cell Amorphous Sediment Urine Bacteria Urine Mucus Ur Random Sodium Urine Creatinine Urine Opiates Screen Urine Fentanyl Screen Ur Barbiturates Screen Ur Phencyclidine Scrn Ur Amphetamines Screen U Benzodiazepines Scrn Urine Cocaine Screen U Marijuana (THC) Screen Ethyl Alcohol Acetone, Qual COVID-19 (TRACIE) COVID-19 Clin Com 11/28/21 11/28/21 11/28/21 10:07 15:31 15:31 WBC RBC Hgb Hct MCV MCH MCHC RDW Plt Count MPV Immature Gran % (Auto) Neut % (Auto) Lymph % (Auto) [place] % (Auto) Eos % (Auto) Baso % (Auto) Lymph # (Auto) [place] # (Auto) Eos # (Auto) Baso # (Auto) Abs Immat Gran (auto) Absolute Neuts (auto) Absolute Nucleated RBC Nucleated RBC % (auto) Neutrophils % (Manual) Band Neutrophils % Lymphocytes % (Manual) Monocytes % (Manual) Abs Neuts (Manual) Lymphocytes # (Manual) Monocytes # (Manual) Platelet Estimate Large Platelets Plt Morphology Comment RBC Morphology [place] Cells Smear Tech's Comments PT INR D-Dimer High Sensitivty Sodium 138 Potassium 4.7 Chloride 112 H Carbon Dioxide 17 L Anion Gap 14 BUN 26 H Creatinine 2.45 H Estim Creat Clear Calc 42.9 Estimated GFR 29 POC Glucose Random Glucose 113 D Lactic Acid Calcium 7.7 L D Total Bilirubin 0.7 AST 921 H ALT 411 H Alkaline Phosphatase 88 D Total Creatine Kinase B-Natriuretic Peptide Total Protein 6.8 D Albumin 3.4 L D Urine Color LIZBETH Urine Appearance HAZY Urine pH 5.5 Ur Specific [place] >= 1.030 H Urine Protein 3+ H Urine Glucose (UA) NEG Urine Ketones 5 Urine Blood 3+ H Urine Nitrite NEG Ur Leukocyte Esterase NEG Urine RBC 0-2 Urine WBC 0 Ur Squamous Epith Cells TRACE Ur Renal Epithelial Cell TRACE Amorphous Sediment 4+ Urine Bacteria NONE Urine Mucus TRACE Ur Random Sodium 64.0 Urine Creatinine 115.96 Urine Opiates Screen Urine Fentanyl Screen Ur Barbiturates Screen Ur Phencyclidine Scrn Ur Amphetamines Screen U Benzodiazepines Scrn Urine Cocaine Screen U Marijuana (THC) Screen Ethyl Alcohol Acetone, Qual COVID-19 (TRACIE) COVID-19 Clin Com 11/28/21 15:31 WBC RBC Hgb Hct MCV MCH MCHC RDW Plt Count MPV Immature Gran % (Auto) Neut % (Auto) Lymph % (Auto) [place] % (Auto) Eos % (Auto) Baso % (Auto) Lymph # (Auto) [place] # (Auto) Eos # (Auto) Baso # (Auto) Abs Immat Gran (auto) Absolute Neuts (auto) Absolute Nucleated RBC Nucleated RBC % (auto) Neutrophils % (Manual) Band Neutrophils % Lymphocytes % (Manual) Monocytes % (Manual) Abs Neuts (Manual) Lymphocytes # (Manual) Monocytes # (Manual) Platelet Estimate Large Platelets Plt Morphology Comment RBC Morphology [place] Cells Smear Tech's Comments PT INR D-Dimer High Sensitivty Sodium Potassium Chloride Carbon Dioxide Anion Gap BUN Creatinine Estim Creat Clear Calc Estimated GFR POC Glucose Random Glucose Lactic Acid Calcium Total Bilirubin AST ALT Alkaline Phosphatase Total Creatine Kinase B-Natriuretic Peptide Total Protein Albumin Urine Color Urine Appearance Urine pH Ur Specific [place] Urine Protein Urine Glucose (UA) Urine Ketones Urine Blood Urine Nitrite Ur Leukocyte Esterase Urine RBC Urine WBC Ur Squamous Epith Cells Ur Renal Epithelial Cell Amorphous Sediment Urine Bacteria Urine Mucus Ur Random Sodium Urine Creatinine Urine Opiates Screen POSITIVE H Urine Fentanyl Screen POSITIVE H Ur Barbiturates Screen Not Detected Ur Phencyclidine Scrn Not Detected Ur Amphetamines Screen Not Detected U Benzodiazepines Scrn Not Detected Urine Cocaine Screen POSITIVE H U Marijuana (THC) Screen POSITIVE H Ethyl Alcohol Acetone, Qual COVID-19 (TRACIE) COVID-19 Clin Com Imaging Radiology Impressions: ITS Impressions Chest CT 11/28/21 04:42 IMPRESSION: Moderately extensive, symmetric regions of consolidation and groundglass opacity bilaterally with perihilar predominance. Leading considerations include edema versus pneumonia in the proper clinical setting. Cervical Spine CT 11/28/21 04:50 IMPRESSION: 1. Head: Suboptimal assessment due to motion artifact. No acute intracranial findings identified. 2. Facial bones: No fracture identified. Paranasal sinus disease as noted above. 3. Cervical spine: Significantly limited assessment due to motion artifact. Grossly, no acute findings identified. Face CT 11/28/21 04:50 IMPRESSION: 1. Head: Suboptimal assessment due to motion artifact. No acute intracranial findings identified. 2. Facial bones: No fracture identified. Paranasal sinus disease as noted above. 3. Cervical spine: Significantly limited assessment due to motion artifact. Grossly, no acute findings identified. Head CT 11/28/21 04:50 IMPRESSION: 1. Head: Suboptimal assessment due to motion artifact. No acute intracranial findings identified. 2. Facial bones: No fracture identified. Paranasal sinus disease as noted above. 3. Cervical spine: Significantly limited assessment due to motion artifact. Grossly, no acute findings identified. Forearm X-Ray 11/28/21 05:15 IMPRESSION: No acute findings identified. Hip/Pelvis X-Ray 11/28/21 05:15 IMPRESSION: No acute findings identified. Pulmonary Perfusion Imaging 11/28/21 13:20 IMPRESSION: Pulmonary embolism absent. Mental Status Exam Mental Status Exam Patient Appearance: Appropriate Level of Consciousness: Drowsy (but easily awaken to answer questions ) Medications Medications Current Medications Acetaminophen (Acetaminophen 325 Mg Tablet) 650 mg PO Q6H PRN PRN Reason: Pain, Mild (Pain Scale 1-3) Heparin Sodium (Porcine) (Heparin Sodium,Porcine 5,000 Unit/Ml Vial) 5,000 unit SUBCUT Q12H [facility] Last Admin: 11/28/21 14:07 Dose: 5,000 unit Sodium Chloride (Ns) 1,000 mls @ 150 mls/hr IVCONT .Q6H40M [facility] Last Admin: 11/28/21 14:12 Dose: 150 mls/hr Piperacillin Sod/Tazobactam (Sod 3.375 gm/ Sodium Chloride) 50 mls @ 100 mls/hr IV Q6H [facility] Last Infusion: 11/28/21 16:49 Dose: Infused Morphine Sulfate (Morphine Sulfate 4 Mg/Ml Cartridge) 2 mg IVPUSH Q4H PRN; Protocol PRN Reason: Pain, Severe (Pain Scale 7-10) Last Admin: 11/28/21 14:56 Dose: 2 mg Ondansetron HCl (Ondansetron Hcl 4 Mg/2 Ml Vial) 4 mg IVPUSH Q8H PRN PRN Reason: Nausea and Vomiting Pharmacy Consult (Consult Rx Perform Med Rec) 1 each MISCELLANE ONCE PRN PRN Reason: Consult order Sodium Chloride (0.9 % Sodium Chloride Flush 3 Ml Syringe) 3 ml IVFLUSH QSHIFT RICKY Last Admin: 11/28/21 14:09 Dose: 3 ml Allergies Allergies Allergy/AdvReac Type Severity Reaction Status Date / Time No Known Allergies Allergy Verified 11/28/21 04:16 Assessment & Plan Assessment & Plan (1) Drug overdose: Status: Acute Code(s): T50.901A - Poisoning by unspecified drugs, medicaments and biological substances, accidental (unintentional), initial encounter Assessment and Plan: will follow in AM to further assess current substance use (if any) and current supports in place I spent __15____ minutes with the patient and/or on the patient floor today, greater than?50% of which was spent counseling/coordinating care. PMFSH Past Medical History Medical History No known health problems Social History Social History Alcohol intake: current Alcohol intake frequency: other Alcohol type: beer Patient Tobacco Use Status: Current everyday Tobacco user Substance Use Type: Marijuana Advance Directives: No Advance Directives Information Provided: No
--- NOTE | 2021-11-28 19:35 | P.CONNP_ITS ---
History of Present Illness Reason for Consult Consult date: 11/28/21 Reason for consult: NEHA Chief Complaint Chief complaint: fall ams History of Present Illness Narrative: A 46 years old male with PMH of smoking, alcoholism who presents to the hospital after being found altered in his shower after using heroin. He does not recall much about holding but he remember that happening in his shower. Could not recall hitting the floor. When he was found by EMS he received Narcan and brought to the hospital in altered mentation and combative mood. Noted to have elevated CK on presentation along with NEHA, whereas he previously had normal renal function. Somnolent at time of my evaluation of ROS was otherwise difficult to ascertain. Review of Systems Constitutional: Reports as per [facility] Past Medical History Medical History No known health problems Social History Social History Household Members: Unknown / Unable to assess Housing: Unknown / Unable to assess Unable to assess alcohol history related to: Unknown Alcohol intake: current Alcohol intake frequency: other Alcohol type: beer Patient Tobacco Use Status: Tobacco use Unknown Use of substances other than those prescribed or required for medical reasons: Yes Substance Use Type: Unknown Other Past Substance Use Problem:: tox screen positive on arrival to ED Advance Directives: No Advance Directives Information Provided: No Meds Allergies Allergy/AdvReac Type Severity Reaction Status Date / Time No Known Allergies Allergy Verified 11/28/21 04:16 Active Medications: Current Medications Acetaminophen (Acetaminophen 325 Mg Tablet) 650 mg PO Q6H PRN PRN Reason: Pain, Mild (Pain Scale 1-3) Heparin Sodium (Porcine) (Heparin Sodium,Porcine 5,000 Unit/Ml Vial) 5,000 unit SUBCUT Q12H [facility] Last Admin: 11/28/21 14:07 Dose: 5,000 unit Sodium Chloride (Ns) 1,000 mls @ 150 mls/hr IVCONT .Q6H40M [facility] Last Admin: 11/28/21 18:08 Dose: Not Given Piperacillin Sod/Tazobactam (Sod 3.375 gm/ Sodium Chloride) 50 mls @ 100 mls/hr IV Q6H [facility] Last Infusion: 11/28/21 19:14 Dose: Infused Morphine Sulfate (Morphine Sulfate 4 Mg/Ml Cartridge) 2 mg IVPUSH Q4H PRN; Protocol PRN Reason: Pain, Severe (Pain Scale 7-10) Last Admin: 11/28/21 14:56 Dose: 2 mg Ondansetron HCl (Ondansetron Hcl 4 Mg/2 Ml Vial) 4 mg IVPUSH Q8H PRN PRN Reason: Nausea and Vomiting Pharmacy Consult (Consult Rx Perform Med Rec) 1 each MISCELLANE ONCE PRN PRN Reason: Consult order Sodium Chloride (0.9 % Sodium Chloride Flush 3 Ml Syringe) 3 ml IVFLUSH [facility] Last Admin: 11/28/21 14:09 Dose: 3 ml Home Medications Medication Instructions Recorded Confirmed Last Taken Type ibuprofen 200 mg tablet (Advil) 400 mg PO Q6H PRN Pain 11/28/21 11/28/21 Unknown History Physical Exam Vital Signs: Last Vital Signs Temp 98.0 F 11/28/21 16:00 Pulse 91 11/28/21 16:00 Resp 18 11/28/21 16:00 BP 155/102 H 11/28/21 16:00 Pulse Ox 91 L 11/28/21 16:00 O2 Del Method 11/28/21 16:00 O2 Flow Rate 93 11/28/21 16:00 BMI result Body Mass Index 31.8 HEENT Head: Yes normocephalic and Yes atraumatic Eyes General: appearance normal, both eyes and all related structures Resp Effort & Inspection: normal respiratory effort Cardio Jugular venous distension: no JVD Rate: regular rate Rhythm: regular rhythm GI Auscultation: normal bowel sounds Neuro General: no focal motor deficits Extrem General: Yes no clubbing, cyanosis or edema Results Lab Results Result Diagrams: 11/28/21 10:07 11/28/21 10:07 Lab results: Chemistry 11/28/21 11/28/21 11/28/21 04:12 04:12 10:07 Sodium Cancelled 140 138 Potassium Cancelled 4.2 4.7 Carbon Dioxide Cancelled 20 L 17 L BUN Cancelled 19 H 26 H Creatinine Cancelled 2.59 H 2.45 H Calcium Cancelled 9.3 7.7 L D Hematology 11/28/21 11/28/21 04:12 10:07 WBC 25.8 H 24.6 H Hgb 18.6 H 16.2 Plt Count 214 138 L D Urinalysis 11/28/21 15:31 Urine Color LIZBETH Urine Appearance HAZY Urine pH 5.5 Ur Specific [place] >= 1.030 H Urine Protein 3+ H Urine Glucose (UA) NEG Urine Ketones 5 Urine Blood 3+ H Urine Nitrite NEG Ur Leukocyte Esterase NEG Urine RBC 0-2 Urine WBC 0 Ur Squamous Epith Cells TRACE Urine Studies 11/28/21 15:31 Urine Creatinine 115.96 Assessment and Plan (1) NEHA (acute kidney injury): Status: Acute Plan #) NEHA suspected to be secondary to rhabdomyolysis UA with noted 3+ blood and few rbc's consistent with rhabdomyolysis Trend CK daily Continue with IVF's. Monitor for volume overload. Hold NS and siwtch to LR at 120 cc/hr as patient is becoming hyperchloremic. Monitor K, Phos, Ca along with renal panel I have added additional urine studies and serologies Please attain Utox Mccall catheter placed in ED for accurate I/O's 350 cc uop noted by nursing. Monitor I/O's avoidance of nsaids, acei/arb, IV contrast, renal dosing abx. Procedures Date of Service Date of Service: 11/28/21
[2021-11-29] VITALS: BP 139/73; PULSE 89; RESP 18; TEMP 37; O2SAT 95
[2021-11-29] MEDS: Heparin Sodium,Porcine 5,000 UNIT/ML VIAL 5000 UNIT SUBCUT ×2 (00:33→10:49)
[2021-11-29] MEDS: Piperacillin Sodium/Tazobactam 3.375 GM in 0.9 % Sodium Chloride 50 ML IV ×2 (00:37→06:30)
[2021-11-29 04:00] VITALS: BP 150/73; PULSE 83; RESP 17; TEMP 36.9; O2SAT 96
[2021-11-29] MEDS: 0.9 % Sodium Chloride 1,000 ML 150 ML IVCONT (04:01)
[2021-11-29] MEDS: Morphine Sulfate 4 MG/ML CARTRIDGE 2 MG IVPUSH ×2 (06:24→10:49)
[2021-11-29 07:19] LABS: Hematocrit 44.3 % (42.0-52.0); Mean Corpuscular HGB Conc 33.9 g/dl (31.0-36.0); Mean Corpuscular Hemoglobin 34.1 pg (27.0-33.0); Mean Corpuscular Volume 100.7 fL (80.0-98.0); Mean Platelet Volume 12.5 fL (9.4-12.4); Platelet Count 129 X10*3/uL (160-400); Red Cell Distribution Width 13.2 % (11.0-16.0); White Blood Count 21.3 X10*3/uL (4.8-10.8)
[2021-11-29 07:34] VITALS: BP 158/95; PULSE 92; RESP 20; TEMP 37.2; O2SAT 98
[2021-11-29 08:00] LABS: HBS Num1 1.81 mIU/mL (0-7.99); HBc Num1 0.12 S/CO (0.00-0.79); HBsAGNum1 0.18 S/CO (0.00-0.99); Hepatitis B Core Antibody Nonreactive (Nonreactive); Hepatitis B Surface Antigen Negative (Negative); ~HepC Num1 8.25 S/CO (0.00-0.79); ~Hepatitis B Surface Antibody NONREACTIVE (Nonreactive); ~Hepatitis C Antibody Reactive (Nonreactive)
[2021-11-29 09:22] LABS: Alanine Aminotransferase 448 U/L (0-40); Albumin Level 2.8 g/dL (3.5-5.0); Alkaline Phosphatase 74 U/L (39-117); Anion Gap 18 (12-20); Aspartate Amino Transferase 784 U/L (5-37); Bilirubin Direct 0.4 mg/dL (0.0-0.5); Bilirubin Total 0.8 mg/dL (0.0-1.0); Blood Urea Nitrogen 48 mg/dL (9-16); Calcium 8.1 mg/dL (8.4-10.2); Carbon Dioxide 14 mmol/L (22-29); Chloride 109 mmol/L (96-108); Creatinine Clr Calc Pharmacy 20.8; Estimated Glomerular Filt Rate 12; Glucose Random 88 mg/dL (60-115); Lactate Dehydrogenase 1144 U/L (118-273); Sodium 136 mmol/L (135-145); Total Protein 6.1 g/dL (6.5-8.0)
[2021-11-29 09:43] LABS: Creatinine Urine 38.85 mg/dL
[2021-11-29] MEDS: 0.9 % Sodium Chloride 1,000 ML 200 ML IVCONT (10:48)
[2021-11-29] MEDS: Sodium Zirconium Cyclosilicate 5 GM POWD.PACK PO (10:49)
[2021-11-29] MEDS: Sodium Bicarbonate 650 MG TABLET PO (10:50)
[2021-11-29 11:56] VITALS: BP 158/97; PULSE 83; RESP 20; TEMP 36.9; O2SAT 94
--- NOTE | 2021-11-29 12:54 | HO.PM.IMPN ---
Subjective Subjective Date of Service: 11/29/21 Interval History: Seen and evaluated this morning Complaining of worsening pain in his right elbow and right hip Denies any fever or chills Creatinine level increased to 5 Review of Systems No fever, chills but reporting feeling weak No chest pain, palpitation No shortness of breath or coughing No abdominal pain, nausea or vomiting No urinary symptoms Pain in his right hip and worsening right elbow swelling and pain No any rash or wounds Physical Exam Vital Signs: Vital Signs: Last Vital Signs Temp 98.4 F 11/29/21 11:56 Pulse 83 11/29/21 11:56 Resp 20 11/29/21 11:56 BP 158/97 H 11/29/21 11:56 Pulse Ox 94 11/29/21 11:56 O2 Del Method 11/29/21 11:56 O2 Flow Rate 2 11/29/21 04:00 BMI result Body Mass Index 31.8 Const: Other: Constitutional : Alert, interactive, pain with moving his leg Neck : Normal inspection, Supple Cardiovascular : RRR, no JVP, no lower extremity edema Respiratory : fair bilateral air entry, no crackles, wheezes or rhonchi Gastrointestinal: soft, lax, Normal bowel sounds, Non tender Skin : Warm, Dry Musculoskeletal: Stiffness in his right gluteal vane and worsening swelling in the right elbow with tenderness, minimally decreased range of motion because of pain Neurological : Alert & oriented to self and place, No focal deficit , CN 2-12 within normal, right and decreased light sensation Objective Data Active Medications Acetaminophen (Acetaminophen 325 Mg Tablet) 650 mg PO Q6H PRN PRN Reason: Pain, Mild (Pain Scale 1-3) Heparin Sodium (Porcine) (Heparin Sodium,Porcine 5,000 Unit/Ml Vial) 5,000 unit SUBCUT Q12H [facility] Last Admin: 11/29/21 10:49 Dose: 5,000 unit Documented By: OLENA Sodium Chloride (Ns) 1,000 mls @ 200 mls/hr IVCONT .Q5H [facility] Last Admin: 11/29/21 10:48 Dose: 200 mls/hr Documented By: OLENA Piperacillin Sod/Tazobactam (Sod 3.375 gm/ Sodium Chloride) 50 mls @ 100 mls/hr IV Q6H [facility] Last Infusion: 11/29/21 07:16 Dose: 0 mls/hr Documented By: OLENA Morphine Sulfate (Morphine Sulfate 4 Mg/Ml Cartridge) 2 mg IVPUSH Q4H PRN; Protocol PRN Reason: Pain, Severe (Pain Scale 7-10) Last Admin: 11/29/21 10:49 Dose: 2 mg Documented By: OLENA Ondansetron HCl (Ondansetron Hcl 4 Mg/2 Ml Vial) 4 mg IVPUSH Q8H PRN PRN Reason: Nausea and Vomiting Pharmacy Consult (Consult Rx Perform Med Rec) 1 each MISCELLANE ONCE PRN PRN Reason: Consult order Sodium Bicarbonate (Sodium Bicarbonate 650 Mg Tablet) 650 mg PO TID [facility] Last Admin: 11/29/21 10:50 Dose: 650 mg Documented By: OLENA Sodium Chloride (0.9 % Sodium Chloride Flush 3 Ml Syringe) 3 ml IVFLUSH QSHIFT [facility] Last Admin: 11/29/21 07:29 Dose: Not Given Documented By: OLENA Non-Admin Reason: IV Running Labs CBC & Chem 7: 11/29/21 07:06 11/29/21 07:06 Labs: Laboratory Results - last 24 hr 11/28/21 11/28/21 11/28/21 15:31 15:31 15:31 MCV MCH MCHC RDW Plt Count MPV Absolute Nucleated RBC Nucleated RBC % (auto) Anion Gap Estim Creat Clear Calc Estimated GFR Random Glucose Calcium Total Bilirubin Direct Bilirubin AST ALT Alkaline Phosphatase Lactate Dehydrogenase Total Creatine Kinase Total Protein Albumin Urine Color LIZBETH Urine Appearance HAZY Urine pH 5.5 Ur Specific [place] >= 1.030 H Urine Protein 3+ H Urine Glucose (UA) NEG Urine Ketones 5 Urine Blood 3+ H Urine Nitrite NEG Ur Leukocyte Esterase NEG Urine RBC 0-2 Urine WBC 0 Ur Squamous Epith Cells TRACE Ur Renal Epithelial Cell TRACE Amorphous Sediment 4+ Urine Bacteria NONE Urine Mucus TRACE Ur Random Sodium 64.0 Urine Creatinine 115.96 Urine Opiates Screen POSITIVE H Urine Fentanyl Screen POSITIVE H Ur Barbiturates Screen Not Detected Ur Phencyclidine Scrn Not Detected Ur Amphetamines Screen Not Detected U Benzodiazepines Scrn Not Detected Urine Cocaine Screen POSITIVE H U Marijuana (THC) Screen POSITIVE H Hep Bs Antigen Hep Bs Antibody Hep B Core Total Ab Hepatitis C Ab (EIA) 11/29/21 11/29/21 11/29/21 07:06 07:06 07:06 MCV 100.7 H MCH 34.1 H MCHC 33.9 RDW 13.2 Plt Count 129 L MPV 12.5 H Absolute Nucleated RBC 0.000 Nucleated RBC % (auto) 0.0 Anion Gap 18 Estim Creat Clear Calc 20.8 Estimated GFR 12 Random Glucose 88 Calcium 8.1 L Total Bilirubin 0.8 Direct Bilirubin 0.4 AST 784 H ALT 448 H Alkaline Phosphatase 74 Lactate Dehydrogenase 1144 H Total Creatine Kinase 48656 H D Total Protein 6.1 L Albumin 2.8 L Urine Color Urine Appearance Urine pH Ur Specific [place] Urine Protein Urine Glucose (UA) Urine Ketones Urine Blood Urine Nitrite Ur Leukocyte Esterase Urine RBC Urine WBC Ur Squamous Epith Cells Ur Renal Epithelial Cell Amorphous Sediment Urine Bacteria Urine Mucus Ur Random Sodium Urine Creatinine Urine Opiates Screen Urine Fentanyl Screen Ur Barbiturates Screen Ur Phencyclidine Scrn Ur Amphetamines Screen U Benzodiazepines Scrn Urine Cocaine Screen U Marijuana (THC) Screen Hep Bs Antigen Negative Hep Bs Antibody NONREACTIVE Hep B Core Total Ab Nonreactive Hepatitis C Ab (EIA) Reactive H 11/29/21 Unknown MCV MCH MCHC RDW Plt Count MPV Absolute Nucleated RBC Nucleated RBC % (auto) Anion Gap Estim Creat Clear Calc Estimated GFR Random Glucose Calcium Total Bilirubin Direct Bilirubin AST ALT Alkaline Phosphatase Lactate Dehydrogenase Total Creatine Kinase Total Protein Albumin Urine Color Urine Appearance Urine pH Ur Specific [place] Urine Protein Urine Glucose (UA) Urine Ketones Urine Blood Urine Nitrite Ur Leukocyte Esterase Urine RBC Urine WBC Ur Squamous Epith Cells Ur Renal Epithelial Cell Amorphous Sediment Urine Bacteria Urine Mucus Ur Random Sodium 88.0 Urine Creatinine 38.85 Urine Opiates Screen Urine Fentanyl Screen Ur Barbiturates Screen Ur Phencyclidine Scrn Ur Amphetamines Screen U Benzodiazepines Scrn Urine Cocaine Screen U Marijuana (THC) Screen Hep Bs Antigen Hep Bs Antibody Hep B Core Total Ab Hepatitis C Ab (EIA) Microbiology Microbiology Results: Microbiology 11/28/21 06:06 Blood Culture - Preliminary Blood - Venous No growth after 24 hours. 11/28/21 06:06 Blood Culture - Preliminary Blood - Venous No growth after 24 hours. Assessment and Plan (1) Aspiration pneumonia: Status: Acute (2) Drug overdose: Status: Acute (3) Rhabdomyolysis: Status: Acute (4) NEHA (acute kidney injury): Status: Acute (5) Hip pain, right: Status: Acute (6) Right upper limb pain: Status: Acute Plan A 46 years old male with PMH of smoking, alcoholism who presents to the hospital after being found altered in his shower after using heroin. Toxic metabolic encephalopathy, resolved Secondary to heroin abuse Post Narcan Advised not to use again Addiction team to follow RUE pain and swelling concern for possible underlying compartment syndrome Check CTHumerus and elbow Vascular, orthopedic surgery consult Acute kidney injury , metabolic acidosis Secondary to rhabdomyolysis creatinine worsened to 5 to give IV sodium bicarb, p.o. sodium bicarb increase IV fluids rate to 200 cc/hour Nephrology consult Hold nephrotoxic medications Monitor intake and output Repeat BMP and CPK Hypoxia 2/2 Aspiration pneumonia Not septic Question of possible fluid overload , low BNP Pending cultures continue IV Zosyn Wean oxygen down as tolerated Right Hip pain X-ray negative for any acute fracture Likely muscle injury from the fall check CT scan Pain medication To start physical therapy once pain improves DVT PPX Heparin The patient will likely need 2 overnight hospital stay for treatment of acute kidney injury and hypoxia to prevent possible decompensation into renal failure or acute hypoxic respiratory failure. Quality Stroke Does the patient have a stroke diagnosis?: No VTE Prior VTE?: No VTE Risk Level:: Medical - moderate - high VTE Device Contraindication: Treatment Not Indicated VTE Drug Contraindication: N/A - Med Ordered
--- NOTE | 2021-11-29 13:52 | PM.CNGS ---
History of Present Illness Consult details Consult date: 11/29/21 Reason for consult: other (Right upper extremity swelling) Narrative: 46-year-old gentleman was referred for right upper extremity pain and swelling. He was found down after use heroin. He reports that he had stopped using for while and restarted use after the of his daughter. He was found down in his shower. He has had a difficult time moving the right upper extremity and he now presents for vascular evaluation of the right upper extremity with concerns of compartment syndrome. I saw and examined this patient at 12:37 this afternoon after receiving the consult today. Review of Systems Review of Systems: Yes all other systems are reviewed and are negative Constitutional: Constitutional: Reports no additional constitutional complaints ENT: Reports Normal hearing present Cardiovascular: Cardiovascular: Denies chest pain, Denies chest pain at rest, Denies chest pain with activity and Denies pedal edema Respiratory: Respiratory: Denies cough Gastrointestinal: Gastrointestinal: Denies abdominal pain Musculoskeletal: Musculoskeletal: Denies abnormal gait, Denies muscle cramps and Denies radiating pain into limb Integumentary/Breasts: Skin/Breast: Denies skin ulcer and Denies wounds Neurologic: Reports Normal hearing present and Denies abnormal gait Psychiatric: Psychiatric: Reports no additional psychiatric complaints PMF Past Medical History Medical History No known health problems Social History Social History Household Members: Unknown / Unable to assess Housing: Unknown / Unable to assess Unable to assess alcohol history related to: Unknown Alcohol intake: current Alcohol intake frequency: other Alcohol type: beer Patient Tobacco Use Status: Tobacco use Unknown Use of substances other than those prescribed or required for medical reasons: Yes Substance Use Type: Unknown Other Past Substance Use Problem:: tox screen positive on arrival to ED Advance Directives: No Advance Directives Information Provided: No Meds Allergies Allergy/AdvReac Type Severity Reaction Status Date / Time No Known Allergies Allergy Verified 11/28/21 04:16 Active Medications: Current Medications Acetaminophen (Acetaminophen 325 Mg Tablet) 650 mg PO Q6H PRN PRN Reason: Pain, Mild (Pain Scale 1-3) Heparin Sodium (Porcine) (Heparin Sodium,Porcine 5,000 Unit/Ml Vial) 5,000 unit SUBCUT Q12H [facility] Last Admin: 11/29/21 10:49 Dose: 5,000 unit Piperacillin Sod/Tazobactam (Sod 2.25 gm/ Sodium Chloride) 50 mls @ 100 mls/hr IV Q8H [facility] Sodium Bicarbonate 150 meq/ (Dextrose) 1,000 mls @ 150 mls/hr IV .Q6H40M [facility] Morphine Sulfate (Morphine Sulfate 4 Mg/Ml Cartridge) 4 mg IVPUSH Q4H PRN; Protocol PRN Reason: Pain, Severe (Pain Scale 7-10) Ondansetron HCl (Ondansetron Hcl 4 Mg/2 Ml Vial) 4 mg IVPUSH Q8H PRN PRN Reason: Nausea and Vomiting Pharmacy Consult (Consult Rx Perform Med Rec) 1 each MISCELLANE ONCE PRN PRN Reason: Consult order Sodium Chloride (0.9 % Sodium Chloride Flush 3 Ml Syringe) 3 ml IVFLUSH QSHIFT [facility] Last Admin: 11/29/21 07:29 Dose: Not Given Home Medications Medication Instructions Recorded Confirmed Last Taken Type ibuprofen 200 mg tablet (Advil) 400 mg PO Q6H PRN Pain 11/28/21 11/28/21 Unknown History Physical Exam Vital Signs: Vital Signs: Last Vital Signs Temp 98.4 F 11/29/21 11:56 Pulse 83 11/29/21 11:56 Resp 20 11/29/21 11:56 BP 158/97 H 11/29/21 11:56 Pulse Ox 94 11/29/21 11:56 O2 Del Method 11/29/21 11:56 O2 Flow Rate 2 11/29/21 04:00 BMI result Body Mass Index 31.8 Const: General: cooperative, healthy appearing and comfortable Orientation/consciousness: oriented to person, oriented to place and oriented to time HEENT: Head: Yes normal to inspection Neck: Neck: Yes normal visual inspection Carotids: no bruits Chest: Chest palpation & inspection: normal inspection of the chest Resp: Effort & Inspection: normal respiratory effort and able to speak in complete sentences Auscultation: clear to auscultation bilaterally, no crackles, no rales, no rhonchi and no wheezes Cardio: Rate: regular rate Rhythm: regular rhythm Heart sounds: S1 normal heart sound present and S2 normal heart sound present Bruits: no carotid bruits Peripheral pulses: Peripheral pulses 2+ throughout GI: Inspection: Yes normal to inspection Skin: Wounds: no wounds Hair: normal Neuro: General: oriented to person, oriented to place and oriented to time Cranial nerves: Yes CN's II-XII intact bilaterally and Yes Normal hearing present Cognition (Neuro): normal cognition Motor exam (neuro): 5/5 motor strength present throughout Extrem: Other: Right upper extremity palpable radial and ulnar pulses motor is intact he does have some sensation at the hand. Swelling is noted at the forearm and elbow region. He does have edema of the hand as well. She he has a difficult time raising his shoulder as well. General: No clubbing, No cyanosis and No edema Psych: Appearance: grossly normal Mental Status: mental status grossly normal Speech and movement: Normal speech and movement present Results Labs Result diagrams: 11/29/21 07:06 11/29/21 07:06 Labs: Abnormal lab results 11/28/21 11/28/21 11/29/21 Range/Units 15:31 15:31 07:06 WBC (4.8-10.8) X10*3/uL RBC (4.60-5.80) X10*6/uL MCV (80.0-98.0) fL MCH (27.0-33.0) pg Plt Count (160-400) X10*3/uL MPV (9.4-12.4) fL Chloride (96-108) mmol/L Carbon Dioxide (22-29) mmol/L BUN (9-16) mg/dL Creatinine (0.5-1.4) mg/dL Calcium (8.4-10.2) mg/dL AST (5-37) U/L ALT (0-40) U/L Lactate Dehydrogenase (118-273) U/L Total Creatine Kinase (38-174) U/L Total Protein (6.5-8.0) g/dL Albumin (3.5-5.0) g/dL Ur Specific [place] >= 1.030 H (1.005-1.025) Urine Protein 3+ H (NEG-TRACE) MG/DL Urine Blood 3+ H (NEG) Urine Opiates Screen POSITIVE H (Not Detect) Urine Fentanyl Screen POSITIVE H (Not Detect) Urine Cocaine Screen POSITIVE H (Not Detect) U Marijuana (THC) Screen POSITIVE H (Not Detect) Hepatitis C Ab (EIA) Reactive H (Nonreactive) 11/29/21 11/29/21 Range/Units 07:06 07:06 WBC 21.3 H (4.8-10.8) X10*3/uL RBC 4.40 L (4.60-5.80) X10*6/uL MCV 100.7 H (80.0-98.0) fL MCH 34.1 H (27.0-33.0) pg Plt Count 129 L (160-400) X10*3/uL MPV 12.5 H (9.4-12.4) fL Chloride 109 H (96-108) mmol/L Carbon Dioxide 14 L (22-29) mmol/L BUN 48 H D (9-16) mg/dL Creatinine 5.06 H* (0.5-1.4) mg/dL Calcium 8.1 L (8.4-10.2) mg/dL AST 784 H (5-37) U/L ALT 448 H (0-40) U/L Lactate Dehydrogenase 1144 H (118-273) U/L Total Creatine Kinase 42282 H D (38-174) U/L Total Protein 6.1 L (6.5-8.0) g/dL Albumin 2.8 L (3.5-5.0) g/dL Ur Specific [place] (1.005-1.025) Urine Protein (NEG-TRACE) MG/DL Urine Blood (NEG) Urine Opiates Screen (Not Detect) Urine Fentanyl Screen (Not Detect) Urine Cocaine Screen (Not Detect) U Marijuana (THC) Screen (Not Detect) Hepatitis C Ab (EIA) (Nonreactive) Short CBC 11/29/21 Range/Units 07:06 WBC 21.3 H (4.8-10.8) X10*3/uL Hgb 15.0 (14.0-18.0) g/dl Hct 44.3 (42.0-52.0) % Plt Count 129 L (160-400) X10*3/uL BMP 11/29/21 07:06 Sodium 136 Potassium 5.0 Chloride 109 H Carbon Dioxide 14 L BUN 48 H D Creatinine 5.06 H* Calcium 8.1 L Cardiac Enzymes 11/29/21 Range/Units 07:06 Total Creatine Kinase 23479 H D (38-174) U/L Liver Function 07/19/22 Range/Units 07:06 Total Bilirubin 0.8 (0.0-1.0) mg/dL Direct Bilirubin 0.4 (0.0-0.5) mg/dL AST 784 H (5-37) U/L ALT 448 H (0-40) U/L Alkaline Phosphatase 74 (39-117) U/L Albumin 2.8 L (3.5-5.0) g/dL Urine 11/28/21 Range/Units 15:31 Urine Color LIZBETH Urine Appearance HAZY Urine pH 5.5 (5.0-8.0) Ur Specific [place] >= 1.030 H (1.005-1.025) Urine Protein 3+ H (NEG-TRACE) MG/DL Urine Glucose (UA) NEG (NEG) MG/DL All other labs normal. Assessment and Plan (1) Right upper limb pain: Status: Acute Plan In short there is concern about right upper extremity. It does not appear to be acute compartment syndrome as the compartments do feel soft although there was a fair amount of edema. He does have palpable radial and ulnar pulses. We will have to trend his CK levels. Unfortunately I do not do decompressions of the upper extremities and that would be better served by evaluation by Hand surgery. Would recommend a formal hand surgery consult. We will continue to monitor the status of this patient with you. Would trend serial CKs. Thank you for allowing us to participate in his care. Procedures Date of Service Date of Service: 11/29/21
--- NOTE | 2021-11-29 15:55 | P.CONOP_ITS ---
History of Present Illness HPI Consult date: 11/29/21 Chief complaint: fall ams Narrative: Patient reports the emergency department after being found down in his shower with altered mental status this past evening. Patient reports that he had recently done a bag of heroin after being clean for 10 years due to his daughter being killed recently. He has a past medical history significant for tobacco abuse and ETOH abuse. Patient was complaining of right upper extremity pain in which vascular was consulted for evaluation of compartment syndrome. Vascular ruled out compartment syndrome and referred to Orthopedics for further evaluation and treatment. Review of Systems Review of Systems: Yes all other systems are reviewed and are negative [facility] Past Medical History Medical History No known health problems Social History Social History Household Members: Unknown / Unable to assess Housing: Unknown / Unable to assess Unable to assess alcohol history related to: Unknown Alcohol intake: current Alcohol intake frequency: other Alcohol type: beer Patient Tobacco Use Status: Tobacco use Unknown Use of substances other than those prescribed or required for medical reasons: Yes Substance Use Type: Unknown Other Past Substance Use Problem:: tox screen positive on arrival to ED Advance Directives: No Advance Directives Information Provided: No Meds Allergies Allergy/AdvReac Type Severity Reaction Status Date / Time No Known Allergies Allergy Verified 11/28/21 04:16 Active Medications: Current Medications Acetaminophen (Acetaminophen 325 Mg Tablet) 650 mg PO Q6H PRN PRN Reason: Pain, Mild (Pain Scale 1-3) Heparin Sodium (Porcine) (Heparin Sodium,Porcine 5,000 Unit/Ml Vial) 5,000 unit SUBCUT Q12H [facility] Last Admin: 11/29/21 10:49 Dose: 5,000 unit Piperacillin Sod/Tazobactam (Sod 2.25 gm/ Sodium Chloride) 50 mls @ 100 mls/hr IV Q8H [facility] Sodium Bicarbonate 150 meq/ (Dextrose) 1,000 mls @ 150 mls/hr IV .Q6H40M [facility] Morphine Sulfate (Morphine Sulfate 4 Mg/Ml Cartridge) 4 mg IVPUSH Q4H PRN; Prot ocol PRN Reason: Pain, Severe (Pain Scale 7-10) Ondansetron HCl (Ondansetron Hcl 4 Mg/2 Ml Vial) 4 mg IVPUSH Q8H PRN PRN Reason: Nausea and Vomiting Pharmacy Consult (Consult Rx Perform Med Rec) 1 each MISCELLANE ONCE PRN PRN Reason: Consult order Sodium Chloride (0.9 % Sodium Chloride Flush 3 Ml Syringe) 3 ml IVFLUSH QSHIFT [facility] Last Admin: 11/29/21 07:29 Dose: Not Given Home Medications Medication Instructions Recorded Confirmed Last Taken Type ibuprofen 200 mg tablet (Advil) 400 mg PO Q6H PRN Pain 11/28/21 11/28/21 Unknown History Physical Exam Vital Signs: Vital Signs: Last Vital Signs Temp 98.4 F 11/29/21 11:56 Pulse 83 11/29/21 11:56 Resp 20 11/29/21 11:56 BP 158/97 H 11/29/21 11:56 Pulse Ox 94 11/29/21 11:56 O2 Del Method 11/29/21 11:56 O2 Flow Rate 2 11/29/21 04:00 BMI result Body Mass Index 31.8 Const: General: cooperative, healthy appearing and no acute distress Resp: Effort & Inspection: normal respiratory effort and able to speak in co mplete sentences Cardio: Rate: regular rate Peripheral pulses: Peripheral pulses 2+ throughout GI: Palpation (GI): Soft to palpation Skin: Lesions: no lesions Rashes: no rashes Extrem: Other: Right upper extremity normal to inspection. No lesions or abrasions. [id number] tenseness to the dorsal compartment of the right forearm. Patient is able to demonstrate wrist flexion and extension. With encouragement patient is able to bring fingers to a closed fist and full extension with pain. Reports pain has been improving. Reports sensation is not at baseline but again has been slowly improving. Biceps and triceps soft to palpation. Capillary refill is brisk. Results Labs Result Diagrams: 11/29/21 07:06 11/29/21 07:06 Labs: Abnormal lab results 11/28/21 11/29/21 11/29/21 Range/Units 15:31 07:06 07:06 WBC (4.8-10.8) X10*3/uL RBC (4.60-5.80) X10*6/uL MCV (80.0-98.0) fL MCH (27.0-33.0) pg Plt Count (160-400) X10*3/uL MPV (9.4-12.4) fL Chloride 109 H (96-108) mmol/L Carbon Dioxide 14 L (22-29) mmol/L BUN 48 H D (9-16) mg/dL Creatinine 5.06 H* (0.5-1.4) mg/dL Calcium 8.1 L (8.4-10.2) mg/dL AST 784 H (5-37) U/L ALT 448 H (0-40) U/L Lactate Dehydrogenase 1144 H (118-273) U/L Total Creatine Kinase 32259 H D (38-174) U/L Total Protein 6.1 L (6.5-8.0) g/dL Albumin 2.8 L (3.5-5.0) g/dL Urine Opiates Screen POSITIVE H (Not Detect) Urine Fentanyl Screen POSITIVE H (Not Detect) Urine Cocaine Screen POSITIVE H (Not Detect) U Marijuana (THC) Screen POSITIVE H (Not Detect) Hepatitis C Ab (EIA) Reactive H (Nonreactive) 11/29/21 Range/Units 07:06 WBC 21.3 H (4.8-10.8) X10*3/uL RBC 4.40 L (4.60-5.80) X10*6/uL MCV 100.7 H (80.0-98.0) fL MCH 34.1 H (27.0-33.0) pg Plt Count 129 L (160-400) X10*3/uL MPV 12.5 H (9.4-12.4) fL Chloride (96-108) mmol/L Carbon Dioxide (22-29) mmol/L BUN (9-16) mg/dL Creatinine (0.5-1.4) mg/dL Calcium (8.4-10.2) mg/dL AST (5-37) U/L ALT (0-40) U/L Lactate Dehydrogenase (118-273) U/L Total Creatine Kinase (38-174) U/L Total Protein (6.5-8.0) g/dL Albumin (3.5-5.0) g/dL Urine Opiates Screen (Not Detect) Urine Fentanyl Screen (Not Detect) Urine Cocaine Screen (Not Detect) U Marijuana (THC) Screen (Not Detect) Hepatitis C Ab (EIA) (Nonreactive) H & H 11/28/21 11/28/21 11/29/21 Range/Units 04:12 10:07 07:06 Hgb 18.6 H 16.2 15.0 (14.0-18.0) g/dl Hct 55.7 H 48.1 44.3 (42.0-52.0) % Coagulation 11/28/21 Range/Units 06:07 INR 1.1 (0.9-1.1) All other labs normal. Assessment and Plan (1) Rhabdomyolysis: Status: Acute (2) Right upper limb pain: Status: Acute (3) Drug overdose: Status: Acute Plan Mr. Leonel Castaneda is a 46-year-old male who presented to the emergency department after being found down in his shower with altered mental status. Upon presentation to the emergency department he had admitted to taking 1 bag of heroin as result of being in distress due to his daughter being killed recently. Patient was admitted to the medicine service with orthopedic consult for right upper extremity pain. Vascular was also consulted for evaluation of compartment syndrome which was ruled out. Patient was evaluated at bedside by Dr. Parker and myself. Patient should be continued to be monitored for possible compartment syndrome. Pain is likely due to reperfusion injury. No additional orthopedic intervention needed at this time. Procedures Date of Service Date of Service: 11/29/21
[2021-11-29 16:00] VITALS: BP 155/100; PULSE 82; RESP 18; TEMP 36.8; O2SAT 96
[2021-11-29] MEDS: Sodium Bicarbonate 8.4% 150 MEQ in Dextrose 5 % 850 ML IV (16:45)
[2021-11-29] MEDS: Piperacillin Sodium/Tazobactam 2.25 GM in 0.9 % Sodium Chloride 50 ML IV (16:45)
[2021-11-29 17:09] LABS: Anion Gap 16 (12-20); Blood Urea Nitrogen 54 mg/dL (9-16); Calcium 7.9 mg/dL (8.4-10.2); Carbon Dioxide 15 mmol/L (22-29); Chloride 109 mmol/L (96-108); Creatinine Clr Calc Pharmacy 17.7; Estimated Glomerular Filt Rate 10; Glucose Random 88 mg/dL (60-115); Sodium 135 mmol/L (135-145)
[2021-11-29] MEDS: Furosemide 100 MG/10 ML VIAL 60 MG IVPUSH (17:28)
--- NOTE | 2021-11-29 18:18 | P.PNNP_ITS ---
Subjective Subjective Date of Service: 11/29/21 Interval history: Chart Reviewed. Events noted. S-Cr continues to rise. oliguria noted. Physical Exam Vital Signs: Vital Signs: Last Vital Signs Temp 98.2 F 11/29/21 16:00 Pulse 82 11/29/21 16:00 Resp 18 11/29/21 16:00 BP 155/100 H 11/29/21 16:00 Pulse Ox 96 11/29/21 16:00 O2 Del Method 11/29/21 16:00 O2 Flow Rate 3 11/29/21 16:00 BMI result Body Mass Index 31.8 Const: General: no acute distress HEENT: Head: Yes normocephalic Neck: Neck: Yes no JVD Resp: Auscultation: clear to auscultation bilaterally Cardio: Jugular venous distension: no JVD Rate: regular rate Rhythm: regular rhythm GI: Auscultation: normal bowel sounds Neuro: General: moves all extremities Extrem: General: Yes no clubbing, cyanosis or edema Objective Data Labs CBC & Chem 7: 11/29/21 07:06 11/29/21 16:33 Labs: Laboratory Results - last 24 hr 11/29/21 11/29/21 11/29/21 07:06 07:06 07:06 WBC 21.3 H RBC 4.40 L Hgb 15.0 Hct 44.3 MCV 100.7 H MCH 34.1 H MCHC 33.9 RDW 13.2 Plt Count 129 L MPV 12.5 H Absolute Nucleated RBC 0.000 Nucleated RBC % (auto) 0.0 Sodium 136 Potassium 5.0 Chloride 109 H Carbon Dioxide 14 L Anion Gap 18 BUN 48 H D Creatinine 5.06 H* Estim Creat Clear Calc 20.8 Estimated GFR 12 Random Glucose 88 Calcium 8.1 L Total Bilirubin 0.8 Direct Bilirubin 0.4 AST 784 H ALT 448 H Alkaline Phosphatase 74 Lactate Dehydrogenase 1144 H Total Creatine Kinase 28549 H D Total Protein 6.1 L Albumin 2.8 L Ur Random Sodium Urine Creatinine Hep Bs Antigen Negative Hep Bs Antibody NONREACTIVE Hep B Core Total Ab Nonreactive Hepatitis C Ab (EIA) Reactive H 11/29/21 11/29/21 16:33 Unknown WBC RBC Hgb Hct MCV MCH MCHC RDW Plt Count MPV Absolute Nucleated RBC Nucleated RBC % (auto) Sodium 135 Potassium 5.0 Chloride 109 H Carbon Dioxide 15 L Anion Gap 16 BUN 54 H Creatinine 5.94 H* Estim Creat Clear Calc 17.7 Estimated GFR 10 Random Glucose 88 Calcium 7.9 L Total Bilirubin Direct Bilirubin AST ALT Alkaline Phosphatase Lactate Dehydrogenase Total Creatine Kinase Total Protein Albumin Ur Random Sodium 88.0 Urine Creatinine 38.85 Hep Bs Antigen Hep Bs Antibody Hep B Core Total Ab Hepatitis C Ab (EIA) Microbiology Microbiology Results: Microbiology 11/28/21 06:06 Blood - Venous Blood Culture - Preliminary No growth after 24 hours. 11/28/21 06:06 Blood - Venous Blood Culture - Preliminary No growth after 24 hours. Procedures Date of Service Date of Service: 11/29/21 Assessment & Plan Assessment and plan (1) Rhabdomyolysis: Status: Acute Assessment and Plan: Plan #) NEHA suspected to be secondary to rhabdomyolysis UA with noted 3+ blood and few rbc's consistent with rhabdomyolysis Trend CK daily Continue with IVF's. Changed to bicarbonate gtt given worsening acidosis Monitor for volume overload. Oliguric. renal US added. provide 1 x diuretic challenge with 60 mg iv lasix. Primary team help in coordinating IR temp dialysis line appreciated. If no improvement in uop/renal function by am will plan for DIGITAL MARKETING STRATEGIST via HD. Monitor K, Phos, Ca along with renal panel I have added additional urine studies and serologies Monitor I/O's avoidance of nsaids, acei/arb, IV contrast, renal dosing abx. (2) NEHA (acute kidney injury): Status: Acute Time Spent With Patient Time: Total time spent is greater than 50% in coordination of care (as documented) at patient's floor/unit and/or counseling patient: Progress Note: Quality Stroke Does the patient have a stroke diagnosis?: No
[2021-11-29 19:29] VITALS: BP 168/93; PULSE 90; RESP 18; TEMP 37.2; O2SAT 97
[2021-11-29] MEDS: Morphine Sulfate 4 MG/ML CARTRIDGE IVPUSH (22:35)
[2021-11-30] VITALS: BP 168/81; PULSE 83; RESP 17; TEMP 36.7; O2SAT 96
[2021-11-30] MEDS: Heparin Sodium,Porcine 5,000 UNIT/ML VIAL 5000 UNIT SUBCUT (01:00)
[2021-11-30] MEDS: Piperacillin Sodium/Tazobactam 2.25 GM in 0.9 % Sodium Chloride 50 ML IV ×2 (01:02→09:30)
[2021-11-30] MEDS: Sodium Bicarbonate 8.4% 150 MEQ in Dextrose 5 % 850 ML IV ×2 (01:11→09:29)
[2021-11-30 04:00] VITALS: BP 134/79; PULSE 81; RESP 18; TEMP 36.6; O2SAT 97
[2021-11-30 06:54] LABS: Hematocrit 38.2 % (42.0-52.0); Hemoglobin 13.2 g/dl (14.0-18.0); Mean Corpuscular HGB Conc 34.6 g/dl (31.0-36.0); Mean Corpuscular Volume 98.5 fL (80.0-98.0); Mean Platelet Volume 12.7 fL (9.4-12.4); Platelet Count 117 X10*3/uL (160-400); Red Blood Count 3.88 X10*6/uL (4.60-5.80); Red Cell Distribution Width 13.1 % (11.0-16.0); White Blood Count 17.1 X10*3/uL (4.8-10.8)
[2021-11-30 07:35] LABS: Anion Gap 18 (12-20); Blood Urea Nitrogen 63 mg/dL (9-16); Calcium 7.9 mg/dL (8.4-10.2); Carbon Dioxide 19 mmol/L (22-29); Chloride 104 mmol/L (96-108); Creatinine Clr Calc Pharmacy 14.6; Estimated Glomerular Filt Rate 8; Glucose Random 94 mg/dL (60-115); Potassium 4.5 mmol/L (3.3-5.1); Sodium 136 mmol/L (135-145)
[2021-11-30 07:57] VITALS: BP 184/86; PULSE 80; RESP 18; TEMP 36.7; O2SAT 97
--- NOTE | 2021-11-30 08:03 | P.PNOP_ITS ---
Subjective Subjective Date of Service: 11/30/21 Interval history: Patient resting in bed comfortably. No overnight events. Reports slow improvement of pain in the right upper extremity. No additioinal complaints. Physical Exam Vital Signs: Vital Signs: Last Vital Signs Temp 98.1 F 11/30/21 07:57 Pulse 80 11/30/21 07:57 Resp 18 11/30/21 07:57 BP 184/86 H 11/30/21 07:57 Pulse Ox 97 11/30/21 07:57 O2 Del Method 11/30/21 07:57 O2 Flow Rate 2 11/30/21 04:00 BMI result Body Mass Index 31.8 Const: General: cooperative, healthy appearing and no acute distress Resp: Effort & Inspection: normal respiratory effort and able to speak in c omplete sentences Cardio: Rate: regular rate Peripheral pulses: Peripheral pulses 2+ throughout GI: Palpation (GI): Soft to palpation Skin: Lesions: no lesions Rashes: no rashes Extrem: Other: Right upper extremity normal to inspection. No lesions or abrasions. [id number] tenseness to the dorsal compartment of the right forearm. Patient is able to demonstrate wrist flexion and extension. With encouragement patient is able to bring fingers to a closed fist and full extension with pain. Reports pain continues to improve slowly. Reports sensation is not at baseline but again has been slowly improving. Biceps and triceps soft to palpation. Capillary refill is brisk. Procedures Date of Service Date of Service: 11/30/21 Progress Note: A&P Assessment and plan (1) Right upper limb pain: Status: Acute (2) Drug overdose: Status: Acute (3) Rhabdomyolysis: Status: Acute Plan Continued to monitor for compartment syndrome. Pain is likely due to reperfusion injury and continues to imprve.? No additional orthopedic intervention needed at this time. Time Spent With Patient Time: Total time spent is greater than 50% in coordination of care (as documented) at patient's floor/unit and/or counseling patient: Quality Stroke Does the patient have a stroke diagnosis?: No VTE Prior VTE?: No VTE Risk Level:: Medical - moderate - high VTE Device Contraindication: Treatment Not Indicated VTE Drug Contraindication: N/A - Med Ordered
[2021-11-30 09:29] VITALS: RESP 18
[2021-11-30] MEDS: Morphine Sulfate 4 MG/ML CARTRIDGE IVPUSH ×3 (09:29→21:01)
--- NOTE | 2021-11-30 10:08 | MHC.CM.PN ---
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 Pt is employed, independent in community. Pt does not have a PCP, Is Not Covid vax'd. HCP completed with pt, original and copies to pt and copy uploaded to [facility] and in filed in chart. Friend (Miles) will provide transportation. D/C Plan: Community (self-care) vs STR
--- NOTE | 2021-11-30 10:55 | P.PNADD_ITS ---
Subjective Subjective Date of Service: 11/29/21 Reason For Visit: fall ams Interim History: Patient seen in follow up c/o pain in arm and leg. denies any regular substance use or alcohol use aside from overdose that brought him in Review of Systems Constitutional: Reports as per HPI Mental Status Exam Mental Status Exam Patient Appearance: Appropriate Level of Consciousness: Awake and Appropriate Patient Behavior: Cooperative Judgement: Good Diagnostics Vital Signs (24Hr): Vital Signs - 24 hr 11/29/21 11:56 11/29/21 16:00 11/29/21 19:29 Temperature 98.4 F 98.2 F 98.9 F Pulse Rate 83 82 90 Respiratory Rate 20 18 18 Blood Pressure 158/97 H 155/100 H 168/93 H Pulse Oximetry 94 96 97 Oxygen Delivery Method Room Air Nasal Cannula Nasal Cannula Oxygen Flow Rate 3 3 11/30/21 00:00 11/30/21 04:00 11/30/21 07:57 Temperature 98.1 F 97.9 F 98.1 F Pulse Rate 83 81 80 Respiratory Rate 17 18 18 Blood Pressure 168/81 H 134/79 184/86 H Pulse Oximetry 96 97 97 Oxygen Delivery Method Nasal Cannula Nasal Cannula Room Air Oxygen Flow Rate 2 2 11/30/21 09:29 Temperature Pulse Rate Respiratory Rate 18 Blood Pressure Pulse Oximetry Oxygen Delivery Method Oxygen Flow Rate BMI result Body Mass Index 31.8 Labs Results: 11/30/21 05:59 11/30/21 05:59 Labs: Laboratory Results - last 48 hr 11/28/21 11/28/21 11/28/21 15:31 15:31 15:31 WBC RBC Hgb Hct MCV MCH MCHC RDW Plt Count MPV Absolute Nucleated RBC Nucleated RBC % (auto) Sodium Potassium Chloride Carbon Dioxide Anion Gap BUN Creatinine Estim Creat Clear Calc Estimated GFR Random Glucose Calcium Total Bilirubin Direct Bilirubin AST ALT Alkaline Phosphatase Lactate Dehydrogenase Total Creatine Kinase Total Protein Albumin Urine Color LIZBETH Urine Appearance HAZY Urine pH 5.5 Ur Specific [place] >= 1.030 H Urine Protein 3+ H Urine Glucose (UA) NEG Urine Ketones 5 Urine Blood 3+ H Urine Nitrite NEG Ur Leukocyte Esterase NEG Urine RBC 0-2 Urine WBC 0 Ur Squamous Epith Cells TRACE Ur Renal Epithelial Cell TRACE Amorphous Sediment 4+ Urine Bacteria NONE Urine Mucus TRACE Ur Random Sodium 64.0 Urine Creatinine 115.96 Urine Opiates Screen POSITIVE H Urine Fentanyl Screen POSITIVE H Ur Barbiturates Screen Not Detected Ur Phencyclidine Scrn Not Detected Ur Amphetamines Screen Not Detected U Benzodiazepines Scrn Not Detected Urine Cocaine Screen POSITIVE H U Marijuana (THC) Screen POSITIVE H Hep Bs Antigen Hep Bs Antibody Hep B Core Total Ab Hepatitis C Ab (EIA) 11/29/21 11/29/21 11/29/21 07:06 07:06 07:06 WBC 21.3 H RBC 4.40 L Hgb 15.0 Hct 44.3 MCV 100.7 H MCH 34.1 H MCHC 33.9 RDW 13.2 Plt Count 129 L MPV 12.5 H Absolute Nucleated RBC 0.000 Nucleated RBC % (auto) 0.0 Sodium 136 Potassium 5.0 Chloride 109 H Carbon Dioxide 14 L Anion Gap 18 BUN 48 H D Creatinine 5.06 H* Estim Creat Clear Calc 20.8 Estimated GFR 12 Random Glucose 88 Calcium 8.1 L Total Bilirubin 0.8 Direct Bilirubin 0.4 AST 784 H ALT 448 H Alkaline Phosphatase 74 Lactate Dehydrogenase 1144 H Total Creatine Kinase 21225 H D Total Protein 6.1 L Albumin 2.8 L Urine Color Urine Appearance Urine pH Ur Specific [place] Urine Protein Urine Glucose (UA) Urine Ketones Urine Blood Urine Nitrite Ur Leukocyte Esterase Urine RBC Urine WBC Ur Squamous Epith Cells Ur Renal Epithelial Cell Amorphous Sediment Urine Bacteria Urine Mucus Ur Random Sodium Urine Creatinine Urine Opiates Screen Urine Fentanyl Screen Ur Barbiturates Screen Ur Phencyclidine Scrn Ur Amphetamines Screen U Benzodiazepines Scrn Urine Cocaine Screen U Marijuana (THC) Screen Hep Bs Antigen Negative Hep Bs Antibody NONREACTIVE Hep B Core Total Ab Nonreactive Hepatitis C Ab (EIA) Reactive H 11/29/21 11/29/21 11/30/21 16:33 Unknown 05:59 WBC 17.1 H RBC 3.88 L Hgb 13.2 L Hct 38.2 L MCV 98.5 H MCH 34.0 H MCHC 34.6 RDW 13.1 Plt Count 117 L MPV 12.7 H Absolute Nucleated RBC 0.000 Nucleated RBC % (auto) 0.0 Sodium 135 Potassium 5.0 Chloride 109 H Carbon Dioxide 15 L Anion Gap 16 BUN 54 H Creatinine 5.94 H* Estim Creat Clear Calc 17.7 Estimated GFR 10 Random Glucose 88 Calcium 7.9 L Total Bilirubin Direct Bilirubin AST ALT Alkaline Phosphatase Lactate Dehydrogenase Total Creatine Kinase Total Protein Albumin Urine Color Urine Appearance Urine pH Ur Specific [place] Urine Protein Urine Glucose (UA) Urine Ketones Urine Blood Urine Nitrite Ur Leukocyte Esterase Urine RBC Urine WBC Ur Squamous Epith Cells Ur Renal Epithelial Cell Amorphous Sediment Urine Bacteria Urine Mucus Ur Random Sodium 88.0 Urine Creatinine 38.85 Urine Opiates Screen Urine Fentanyl Screen Ur Barbiturates Screen Ur Phencyclidine Scrn Ur Amphetamines Screen U Benzodiazepines Scrn Urine Cocaine Screen U Marijuana (THC) Screen Hep Bs Antigen Hep Bs Antibody Hep B Core Total Ab Hepatitis C Ab (EIA) 11/30/21 11/30/21 05:59 05:59 WBC RBC Hgb Hct MCV MCH MCHC RDW Plt Count MPV Absolute Nucleated RBC Nucleated RBC % (auto) Sodium 136 Potassium 4.5 Chloride 104 Carbon Dioxide 19 L Anion Gap 18 BUN 63 H Creatinine 7.20 H* Estim Creat Clear Calc 14.6 Estimated GFR 8 Random Glucose 94 Calcium 7.9 L Total Bilirubin Direct Bilirubin AST ALT Alkaline Phosphatase Lactate Dehydrogenase Total Creatine Kinase 6011 H D Total Protein Albumin Urine Color Urine Appearance Urine pH Ur Specific [place] Urine Protein Urine Glucose (UA) Urine Ketones Urine Blood Urine Nitrite Ur Leukocyte Esterase Urine RBC Urine WBC Ur Squamous Epith Cells Ur Renal Epithelial Cell Amorphous Sediment Urine Bacteria Urine Mucus Ur Random Sodium Urine Creatinine Urine Opiates Screen Urine Fentanyl Screen Ur Barbiturates Screen Ur Phencyclidine Scrn Ur Amphetamines Screen U Benzodiazepines Scrn Urine Cocaine Screen U Marijuana (THC) Screen Hep Bs Antigen Hep Bs Antibody Hep B Core Total Ab Hepatitis C Ab (EIA) Imaging Radiology Impressions: ITS Impressions Chest CT 11/28/21 04:42 IMPRESSION: Moderately extensive, symmetric regions of consolidation and groundglass opacity bilaterally with perihilar predominance. Leading considerations include edema versus pneumonia in the proper clinical setting. Cervical Spine CT 11/28/21 04:50 IMPRESSION: 1. Head: Suboptimal assessment due to motion artifact. No acute intracranial findings identified. 2. Facial bones: No fracture identified. Paranasal sinus disease as noted above. 3. Cervical spine: Significantly limited assessment due to motion artifact. Grossly, no acute findings identified. Face CT 11/28/21 04:50 IMPRESSION: 1. Head: Suboptimal assessment due to motion artifact. No acute intracranial findings identified. 2. Facial bones: No fracture identified. Paranasal sinus disease as noted above. 3. Cervical spine: Significantly limited assessment due to motion artifact. Grossly, no acute findings identified. Head CT 11/28/21 04:50 IMPRESSION: 1. Head: Suboptimal assessment due to motion artifact. No acute intracranial findings identified. 2. Facial bones: No fracture identified. Paranasal sinus disease as noted above. 3. Cervical spine: Significantly limited assessment due to motion artifact. Grossly, no acute findings identified. Forearm X-Ray 11/28/21 05:15 IMPRESSION: No acute findings identified. Hip/Pelvis X-Ray 11/28/21 05:15 IMPRESSION: No acute findings identified. Pulmonary Perfusion Imaging 11/28/21 13:20 IMPRESSION: Pulmonary embolism absent. Humerus CT 11/29/21 15:09 IMPRESSION: Findings in the subcutaneous soft tissues could reflect edema or cellulitis. No definite muscle or bone abnormality. Hip CT 11/29/21 15:15 IMPRESSION: Multiple abnormalities about the right hip joint including right hip joint and enlargement of the surrounding muscles and fluid extending along multiple fascial planes as detailed above. This could reflect reactive inflammatory changes related to a right hip joint inflammatory process including early joint sepsis (no bone destruction or joint space narrowing.) Noninfectious inflammatory arthropathy could have this same appearance. Enlargement of the muscles could reflect myositis. The fluid surrounding the muscles could reflect reactive edema and/or cellulitis related to muscle infection. Alternatively this muscle appearance can be seen with intramuscular hematoma or muscle infarction with reactive surrounding inflammatory change Etiology of the small amount of intrapelvic fluid not determined but could reflect reactive inflammatory changes from the aforementioned right hip and surrounding muscle process Insertion Non-Tunneled Catheter 11/29/21 15:55 IMPRESSION: Right internal jugular central venous temporary dialysis catheter placement. Renal Ultrasound 11/29/21 16:09 IMPRESSION: Normal renal ultrasound, no evidence of obstruction, hydronephrosis or other image findings to explain patient's renal failure.. Medications Medications Current Medications Acetaminophen (Acetaminophen 325 Mg Tablet) 650 mg PO Q6H PRN PRN Reason: Pain, Mild (Pain Scale 1-3) Heparin Sodium (Porcine) (Heparin Sodium,Porcine 5,000 Unit/Ml Vial) 5,000 unit SUBCUT Q12H [facility] Last Admin: 11/30/21 01:00 Dose: 5,000 unit Sodium Bicarbonate 150 meq/ (Dextrose) 1,000 mls @ 150 mls/hr IV .Q6H40M [facility] Last Infusion: 11/30/21 10:25 Dose: 0 mls/hr Piperacillin Sod/Tazobactam (Sod 2.25 gm/ Sodium Chloride) 50 mls @ 100 mls/hr IV Q8H [facility] Last Infusion: 11/30/21 10:21 Dose: Infused Morphine Sulfate (Morphine Sulfate 4 Mg/Ml Cartridge) 4 mg IVPUSH Q4H PRN; Protocol PRN Reason: Pain, Severe (Pain Scale 7-10) Last Admin: 11/30/21 09:29 Dose: 4 mg Ondansetron HCl (Ondansetron Hcl 4 Mg/2 Ml Vial) 4 mg IVPUSH Q8H PRN PRN Reason: Nausea and Vomiting Pharmacy Consult (Consult Rx Perform Med Rec) 1 each MISCELLANE ONCE PRN PRN Reason: Consult order Sodium Chloride (0.9 % Sodium Chloride Flush 3 Ml Syringe) 3 ml IVFLUSH QSHIFT [facility] Last Admin: 11/30/21 07:22 Dose: Not Given Allergies Allergies Allergy/AdvReac Type Severity Reaction Status Date / Time No Known Allergies Allergy Verified 11/28/21 04:16 Assessment & Plan Assessment & Plan (1) Drug overdose: Status: Acute Code(s): T50.901A - Poisoning by unspecified drugs, medicaments and biological substances, accidental (unintentional), initial encounter Plan * Will follow-up prior to discharge and ensure resources are provided should he need them * Take home Narcan at discharge I spent __15____ minutes with the patient and/or on the patient floor today, greater than?50% of which was spent counseling/coordinating care.
[2021-11-30 11:36] LABS: Complement C3 86 mg/dL (82-185)
[2021-11-30] MEDS: ondansetron HCL 4 MG/2 ML VIAL IVPUSH (11:43)
--- NOTE | 2021-11-30 12:31 | HO.PM.IMPN ---
Subjective Subjective Date of Service: 11/30/21 Interval History: Seen and evaluated this morning Complaining of worsening pain in his right elbow and right hip Images showing abnormalities in the hip and arm Denies any fever or chills Creatinine level increased to 7.2, made 750cc of urine overnight Review of Systems No fever, chills but reporting feeling weak No chest pain, palpitation No shortness of breath or coughing No abdominal pain, nausea or vomiting No urinary symptoms Pain in his right hip and right elbow swelling and pain No any rash or wounds Physical Exam Vital Signs: Vital Signs: Last Vital Signs Temp 98.1 F 11/30/21 07:57 Pulse 80 11/30/21 07:57 Resp 18 11/30/21 09:29 BP 184/86 H 11/30/21 07:57 Pulse Ox 97 11/30/21 07:57 O2 Del Method 11/30/21 07:57 O2 Flow Rate 2 11/30/21 04:00 BMI result Body Mass Index 31.8 Const: Other: Constitutional : Alert, interactive, pain with moving his leg Neck : Normal inspection, Supple Cardiovascular : RRR, no JVP, no lower extremity edema Respiratory : fair bilateral air entry, no crackles, wheezes or rhonchi Gastrointestinal: soft, lax, Normal bowel sounds, Non tender Skin : Warm, Dry Musculoskeletal: Stiffness in his right gluteal vane with tenderness on exam and significant swelling in the right elbow with tenderness, minimally decreased range of motion because of pain Neurological : Alert & oriented to self and place, No focal deficit , CN 2-12 within normal, right and decreased light sensation, right lower extremity decreased sensation as well Vascular: has good pulses in right upper and right lower extremities Objective Data Active Medications Acetaminophen (Acetaminophen 325 Mg Tablet) 650 mg PO Q6H PRN PRN Reason: Pain, Mild (Pain Scale 1-3) Heparin Sodium (Porcine) (Heparin Sodium,Porcine 5,000 Unit/Ml Vial) 5,000 unit SUBCUT Q12H [facility] Last Admin: 11/30/21 11:35 Dose: Not Given Documented By: MALOU Non-Admin Reason: Off unit: Dialysis Piperacillin Sod/Tazobactam (Sod 2.25 gm/ Sodium Chloride) 50 mls @ 100 mls/hr IV Q8H [facility] Last Infusion: 11/30/21 10:21 Dose: 0 mls/hr Documented By: MALOU Morphine Sulfate (Morphine Sulfate 4 Mg/Ml Cartridge) 4 mg IVPUSH Q4H PRN; Protocol PRN Reason: Pain, Severe (Pain Scale 7-10) Last Admin: 11/30/21 09:29 Dose: 4 mg Documented By: MALOU Ondansetron HCl (Ondansetron Hcl 4 Mg/2 Ml Vial) 4 mg IVPUSH Q8H PRN PRN Reason: Nausea and Vomiting Last Admin: 11/30/21 11:43 Dose: 4 mg Documented By: MALOU Pharmacy Consult (Consult Rx Perform Med Rec) 1 each MISCELLANE ONCE PRN PRN Reason: Consult order Sodium Chloride (0.9 % Sodium Chloride Flush 3 Ml Syringe) 3 ml IVFLUSH QSHIFT [facility] Last Admin: 11/30/21 07:22 Dose: Not Given Documented By: MALOU Non-Admin Reason: IV Running Labs CBC & Chem 7: 11/30/21 05:59 11/30/21 05:59 Labs: Laboratory Results - last 24 hr 11/29/21 11/29/21 11/30/21 07:06 16:33 05:59 MCV 98.5 H MCH 34.0 H MCHC 34.6 RDW 13.1 Plt Count 117 L MPV 12.7 H Absolute Nucleated RBC 0.000 Nucleated RBC % (auto) 0.0 Anion Gap 16 Estim Creat Clear Calc 17.7 Estimated GFR 10 Random Glucose 88 Calcium 7.9 L Total Creatine Kinase Complement C3 86 Complement C4 15 11/30/21 11/30/21 05:59 05:59 MCV MCH MCHC RDW Plt Count MPV Absolute Nucleated RBC Nucleated RBC % (auto) Anion Gap 18 Estim Creat Clear Calc 14.6 Estimated GFR 8 Random Glucose 94 Calcium 7.9 L Total Creatine Kinase 6011 H D Complement C3 Complement C4 Microbiology Microbiology Results: Microbiology 11/28/21 06:06 Blood Culture - Preliminary Blood - Venous No growth after 48 hours. 11/28/21 06:06 Blood Culture - Preliminary Blood - Venous No growth after 48 hours. Assessment and Plan (1) Right upper limb pain: Status: Acute (2) Hip pain, right: Status: Acute (3) Aspiration pneumonia: Status: Acute (4) Drug overdose: Status: Acute (5) Rhabdomyolysis: Status: Acute (6) NEHA (acute kidney injury): Status: Acute Plan A 46 years old male with PMH of smoking, alcoholism who presents to the hospital after being found altered in his shower after using heroin. Acute kidney injury , metabolic acidosis Secondary to rhabdomyolysis creatinine worsened to 7 point normal renal ultrasound discontinue IVF To start dialysis today Nephrology following Monitor intake and output Repeat BMP and CPK RUE pain and swelling less likely compartment syndrome after vascular an orthopedic evaluation CT showing an evidence of subcutaneous swelling concerning for muscle injury or infection vascular and orthopedic team following Right Hip pain CT scan showing multiple abnormalities with enlargement of surrounding tissue and fluids along multiple facial plansConcerning for possible myositis, joint infection orthopedic to evaluate Get ID eval Pain medication To start physical therapy once pain improves Hypoxia 2/2 Aspiration pneumonia Not septic Question of possible fluid overload , low BNP Pending cultures continue IV Zosyn Wean oxygen down as tolerated Toxic metabolic encephalopathy, resolved Secondary to heroin abuse Post Narcan Advised not to use again Addiction team to follow DVT PPX Heparin The patient will likely need 2 overnight hospital stay for treatment of acute kidney injury and hypoxia to prevent possible decompensation into renal failure or acute hypoxic respiratory failure. Quality Stroke Does the patient have a stroke diagnosis?: No VTE Prior VTE?: No VTE Risk Level:: Medical - moderate - high VTE Device Contraindication: Treatment Not Indicated VTE Drug Contraindication: N/A - Med Ordered
--- NOTE | 2021-11-30 15:10 | PM.PNNEP ---
Subjective Subjective Date of Service: 11/30/21 Interval history: chart reviewed. Events noted. S/P HD today with 500 cc uf removal at low bfr. 750 cc uop in last 24 hours which appears to be clear yellow. Will plan on an additional HD session in am and then monitor on day-to-day basis. Remains somnolent but able to provide ROS in [place]. Physical Exam Vital Signs: Vital Signs: Last Vital Signs Temp 98.1 F 11/30/21 07:57 Pulse 80 11/30/21 07:57 Resp 18 11/30/21 09:29 BP 184/86 H 11/30/21 07:57 Pulse Ox 97 11/30/21 07:57 O2 Del Method 11/30/21 07:57 O2 Flow Rate 2 11/30/21 04:00 BMI result Body Mass Index 31.8 Const: General: no acute distress HEENT: Head: Yes normocephalic and Yes atraumatic Neck: Neck: Yes no JVD Resp: Auscultation: clear to auscultation bilaterally Cardio: Jugular venous distension: no JVD Rate: regular rate Rhythm: regular rhythm Heart sounds: S1 normal heart sound present and S2 normal heart sound present GI: Auscultation: normal bowel sounds Neuro: General: moves all extremities Extrem: Other: RUE firm on palpation but radial pulse appreciated. Patient able to move RUE and digits. General: Yes no pedal edema Objective Data Labs CBC & Chem 7: 11/30/21 05:59 11/30/21 05:59 Labs: Laboratory Results - last 24 hr 11/29/21 11/29/21 11/30/21 07:06 16:33 05:59 WBC 17.1 H RBC 3.88 L Hgb 13.2 L Hct 38.2 L MCV 98.5 H MCH 34.0 H MCHC 34.6 RDW 13.1 Plt Count 117 L MPV 12.7 H Absolute Nucleated RBC 0.000 Nucleated RBC % (auto) 0.0 Sodium 135 Potassium 5.0 Chloride 109 H Carbon Dioxide 15 L Anion Gap 16 BUN 54 H Creatinine 5.94 H* Estim Creat Clear Calc 17.7 Estimated GFR 10 Random Glucose 88 Calcium 7.9 L Total Creatine Kinase Complement C3 86 Complement C4 15 11/30/21 11/30/21 05:59 05:59 WBC RBC Hgb Hct MCV MCH MCHC RDW Plt Count MPV Absolute Nucleated RBC Nucleated RBC % (auto) Sodium 136 Potassium 4.5 Chloride 104 Carbon Dioxide 19 L Anion Gap 18 BUN 63 H Creatinine 7.20 H* Estim Creat Clear Calc 14.6 Estimated GFR 8 Random Glucose 94 Calcium 7.9 L Total Creatine Kinase 6011 H D Complement C3 Complement C4 Microbiology Microbiology Results: Microbiology 11/28/21 06:06 Blood - Venous Blood Culture - Preliminary No growth after 48 hours. 11/28/21 06:06 Blood - Venous Blood Culture - Preliminary No growth after 48 hours. Procedures Date of Service Date of Service: 11/30/21 Assessment & Plan Assessment and plan (1) NEHA (acute kidney injury): Status: Acute Assessment and Plan: #) NEHA suspected to be secondary to rhabdomyolysis UA with noted 3+ blood and few rbc's consistent with rhabdomyolysis Trend CK daily HD today and will plan on repeating again tomorrow Monitor UOP which appear to now be improving. Monitor K, Phos, Ca along with renal panel I have added additional urine studies and serologies-pending avoidance of nsaids, acei/arb, IV contrast, renal dosing abx. (2) Rhabdomyolysis: Status: Acute Time Spent With Patient Time: Total time spent is greater than 50% in coordination of care (as documented) at patient's floor/unit and/or counseling patient: Progress Note: Quality Stroke Does the patient have a stroke diagnosis?: No
--- NOTE | 2021-11-30 15:22 | HO.VASCPN ---
Subjective Subjective Date of Service: 11/30/21 Patient reports: no new complaints and feels better Interval history: 46-year-old gentleman seen examined for right upper extremity rule out compartment syndrome. He reports that his arm is doing better overnight. Some of the edema and discomfort have decreased. He has better motor and sensation of that arm. He now presents for routine follow-up. Physical Exam Vital Signs: Vital Signs: Last Vital Signs Temp 98.1 F 11/30/21 07:57 Pulse 80 11/30/21 07:57 Resp 18 11/30/21 09:29 BP 184/86 H 11/30/21 07:57 Pulse Ox 97 11/30/21 07:57 O2 Del Method 11/30/21 07:57 O2 Flow Rate 2 11/30/21 04:00 BMI result Body Mass Index 31.8 Const: General: cooperative, healthy appearing and no acute distress Orientation/consciousness: oriented to person, oriented to place and oriented to time HEENT: Head: Yes normal to inspection Neck: Carotids: no bruits Chest: Chest palpation & inspection: normal inspection of the chest Resp: Effort & Inspection: normal respiratory effort and able to speak in complete sentences Auscultation: clear to auscultation bilaterally Cardio: Rate: regular rate Heart sounds: S1 normal heart sound present and S2 normal heart sound present GI: Inspection: Yes normal to inspection Skin: General skin exam: no rashes or lesions noted Wounds: no wounds Neuro: General: oriented to person, oriented to place, oriented to time and CN's II-XI intact bilaterally Extrem: Other: Right upper extremity +1 edema better range of motion of the arm. General: Yes normal to inspection, Yes full ROM and Yes edema Psych: Appearance: grossly normal and well kempt Speech and movement: Normal speech and movement present Affect: normal affect Progress Note: A&P Assessment and plan (1) Right upper limb pain: Status: Acute Assessment and Plan: In short patient has right upper extremity appears to be doing better. Compartments appear soft today. His CK is trending down 6000. Motor and sensation have improved. Orthopedic input appreciated. Would recommend trending his right upper extremity for an additional day to see how that goes. We will continue to monitor this patient's arm with you. Thank you for allowing us to assist in his care. Time Spent With Patient Time: Total time spent is greater than 50% in coordination of care (as documented) at patient's floor/unit and/or counseling patient: Procedures Date of Service Date of Service: 11/30/21 Quality Stroke Does the patient have a stroke diagnosis?: No VTE Prior VTE?: No VTE Risk Level:: Medical - moderate - high VTE Device Contraindication: Treatment Not Indicated VTE Drug Contraindication: N/A - Med Ordered
[2021-11-30] MEDS: 0.9 % Sodium Chloride Flush 3 ML SYRINGE IVFLUSH ×2 (15:34→21:02)
--- NOTE | 2021-11-30 15:41 | W.PM.IDCN ---
History of Present Illness Data of Consult Service Date: 11/30/21 Requesting physician: Jason Razo Primary Care Provider: Unknown Physician HPI Reason for consult: leukocytosis,abnormal findings on CT right hip He presents after taking opioids and cocaine and falling in the shower. He fell on right hip and has pain. His CT scan shows myositis right hip as well as small amount fluid Review of Systems Review of Systems: Yes all other systems are reviewed and are negative [facility] Past Medical History Medical History (Updated 11/30/21 @ 15:50 by Nicole Puckett MD) Leukocytosis No known health problems Family History Family history: reviewed and not pertinent Social History Social History Household Members: Unknown / Unable to assess Housing: Unknown / Unable to assess Unable to assess alcohol history related to: Unknown Alcohol intake: current Alcohol intake frequency: other Alcohol type: beer Patient Tobacco Use Status: Tobacco use Unknown Use of substances other than those prescribed or required for medical reasons: Yes Substance Use Type: Unknown Currently Displaying Signs/Symptoms of Drug Intoxication Withdrawal: No Other Past Substance Use Problem:: tox screen positive on arrival to ED Advance Directives: No Advance Directives Information Provided: No service: No Current occupational status: employed Meds Allergies Allergy/AdvReac Type Severity Reaction Status Date / Time No Known Allergies Allergy Verified 11/28/21 04:16 Active Medications: Current Medications Acetaminophen (Acetaminophen 325 Mg Tablet) 650 mg PO Q6H PRN PRN Reason: Pain, Mild (Pain Scale 1-3) Heparin Sodium (Porcine) (Heparin Sodium,Porcine 5,000 Unit/Ml Vial) 5,000 unit SUBCUT Q12H RICKY Last Admin: 11/30/21 11:35 Dose: Not Given Piperacillin Sod/Tazobactam (Sod 2.25 gm/ Sodium Chloride) 50 mls @ 100 mls/hr IV Q8H RICKY Last Infusion: 11/30/21 10:21 Dose: Infused Morphine Sulfate (Morphine Sulfate 4 Mg/Ml Cartridge) 4 mg IVPUSH Q4H PRN; Protocol PRN Reason: Pain, Severe (Pain Scale 7-10) Last Admin: 11/30/21 15:33 Dose: 4 mg Ondansetron HCl (Ondansetron Hcl 4 Mg/2 Ml Vial) 4 mg IVPUSH Q8H PRN PRN Reason: Nausea and Vomiting Last Admin: 11/30/21 11:43 Dose: 4 mg Pharmacy Consult (Consult Rx Perform Med Rec) 1 each MISCELLANE ONCE PRN PRN Reason: Consult order Sodium Chloride (0.9 % Sodium Chloride Flush 3 Ml Syringe) 3 ml IVFLUSH QSHIFT [facility] Last Admin: 11/30/21 15:34 Dose: 3 ml Home Medications Medication Instructions Recorded Confirmed Last Taken Type ibuprofen 200 mg tablet (Advil) 400 mg PO Q6H PRN Pain 11/28/21 11/28/21 Unknown History Physical Exam Vital Signs: Vital Signs: Last Vital Signs Temp 98.1 F 11/30/21 07:57 Pulse 80 11/30/21 07:57 Resp 18 11/30/21 09:29 BP 184/86 H 11/30/21 07:57 Pulse Ox 97 11/30/21 07:57 O2 Del Method 11/30/21 07:57 O2 Flow Rate 2 11/30/21 04:00 BMI result Body Mass Index 31.8 Const: General: cooperative HEENT: Head: Yes normal to inspection Face and sinus: Yes normal facial exam Mouth: Normal oral and palatal mucosa present Teeth and gingiva: dentition normal Eyes: General: appearance normal, both eyes and all related structures Pupils: Equal, round and reactive pupils present Resp: Effort & Inspection: normal respiratory effort Cardio: Rate: regular rate Rhythm: regular rhythm GI: Palpation (GI): Soft to palpation and nontender Back/Spine/Pelvis: Other: pain right hip and leg area some swelling right arm Skin: General skin exam: no rashes or lesions noted Neuro: General: moves all extremities Cranial nerves: Yes Equal, round and reactive pupils present Extrem: General: Yes normal to inspection Psych: Appearance: grossly normal Results Labs CBC & Chem 7: 11/30/21 05:59 11/30/21 05:59 Labs: Short CBC 11/30/21 Range/Units 05:59 WBC 17.1 H (4.8-10.8) X10*3/uL Hgb 13.2 L (14.0-18.0) g/dl Hct 38.2 L (42.0-52.0) % Plt Count 117 L (160-400) X10*3/uL BMP 11/29/21 11/30/21 16:33 05:59 Sodium 135 136 Potassium 5.0 4.5 Chloride 109 H 104 Carbon Dioxide 15 L 19 L BUN 54 H 63 H Creatinine 5.94 H* 7.20 H* Calcium 7.9 L 7.9 L Cardiac Enzymes 11/30/21 Range/Units 05:59 Total Creatine Kinase 6011 H D (38-174) U/L Microbiology Microbiology Results: Microbiology 11/28/21 06:06 Blood - Venous Blood Culture - Preliminary No growth after 48 hours. 11/28/21 06:06 Blood - Venous Blood Culture - Preliminary No growth after 48 hours. Assessment and Plan (1) Rhabdomyolysis: Status: Acute (2) Right upper limb pain: Status: Acute (3) Hip pain, right: Status: Acute (4) Leukocytosis: Status: Acute Leukocytosis likely due to rhabdomyolysis He has negative blood cultures He has injury to right hip with fall as well as cocaine use leading to leukocytosis There is no fever or bacteremia so at this time cant see infection to treat ,but need to watch as can get superinfection Plan Would hold piperacillin/tazobactam and any other antibiotics for now. Recheck blood cultures if fever
[2021-11-30 15:58] VITALS: BP 150/89; PULSE 91; RESP 20; TEMP 36; O2SAT 92
[2021-11-30 16:12] LABS: Glucose, Whole Blood 103 mg/dL (60-115)
[2021-11-30 19:29] VITALS: BP 165/95; PULSE 89; RESP 20; TEMP 36.8; O2SAT 92
[2021-12-01] MEDS: ondansetron HCL 4 MG/2 ML VIAL IVPUSH (00:24)
[2021-12-01] MEDS: Heparin Sodium,Porcine 5,000 UNIT/ML VIAL 5000 UNIT SUBCUT ×3 (00:45→22:55)
[2021-12-01 04:00] VITALS: BP 160/72; PULSE 96; RESP 17; TEMP 36.4; O2SAT 96
[2021-12-01 06:55] LABS: Hematocrit 37.1 % (42.0-52.0); Hemoglobin 12.7 g/dl (14.0-18.0); Mean Corpuscular HGB Conc 34.2 g/dl (31.0-36.0); Mean Corpuscular Hemoglobin 33.9 pg (27.0-33.0); Mean Corpuscular Volume 98.9 fL (80.0-98.0); Red Blood Count 3.75 X10*6/uL (4.60-5.80); Red Cell Distribution Width 13.1 % (11.0-16.0); White Blood Count 14.9 X10*3/uL (4.8-10.8)
[2021-12-01 07:22] LABS: Anion Gap 17 (12-20); Blood Urea Nitrogen 64 mg/dL (9-16); Calcium 7.9 mg/dL (8.4-10.2); Carbon Dioxide 19 mmol/L (22-29); Chloride 104 mmol/L (96-108); Glucose Random 77 mg/dL (60-115); Potassium 4.4 mmol/L (3.3-5.1); Sodium 136 mmol/L (135-145)
[2021-12-01 07:23] LABS: Platelet Count 97 X10*3/uL (160-400)
[2021-12-01 07:24] LABS: Mean Platelet Volume 12.6 fL (9.4-12.4)
[2021-12-01 07:34] LABS: Creatinine Clr Calc Pharmacy 12.8; Estimated Glomerular Filt Rate 7
[2021-12-01 07:42] VITALS: BP 141/79; PULSE 81; RESP 16; TEMP 37.4; O2SAT 97
--- NOTE | 2021-12-01 10:01 | P.PNVS_ITS ---
Subjective Subjective Date of Service: 12/01/21 Patient reports: no new complaints and feels better Interval history: Pleasant 46-year-old gentleman presents for follow-up regarding right upper extremity swelling and concern for compartment syndrome. He reports that his arm in general appears to be doing significantly better. He does have some shoulder discomfort and difficulty raising it. 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 He does have improved motor and sensation. Swelling of the arm has decreased significantly. Physical Exam Vital Signs: Vital Signs: Last Vital Signs Temp 99.3 F 12/01/21 07:42 Pulse 81 12/01/21 07:42 Resp 16 12/01/21 07:42 BP 141/79 H 12/01/21 07:42 Pulse Ox 97 12/01/21 07:42 O2 Del Method 12/01/21 07:42 O2 Flow Rate 2 12/01/21 04:00 BMI result Body Mass Index 31.8 Const: General: cooperative, healthy appearing and no acute distress Orientation/consciousness: oriented to person, oriented to place and oriented to time HEENT: Head: Yes normal to inspection Neck: Carotids: no bruits Chest: Chest palpation & inspection: normal inspection of the chest Resp: Effort & Inspection: normal respiratory effort and able to speak in complete sentences Auscultation: clear to auscultation bilaterally Cardio: Other: Right arm has palpable DP and PT pulses. He has improved motor and sensation. Rate: regular rate Heart sounds: S1 normal heart sound present and S2 normal heart sound present GI: Inspection: Yes normal to inspection Skin: General skin exam: no rashes or lesions noted Wounds: no wounds Neuro: General: oriented to person, oriented to place, oriented to time and CN's II-XI intact bilaterally Extrem: General: Yes normal to inspection, Yes full ROM and Yes no clubbing, cyanosis or edema Psych: Appearance: grossly normal and well kempt Speech and movement: Normal speech and movement present Affect: normal affect Progress Note: A&P Assessment and plan (1) Right upper limb pain: Status: Acute Assessment and Plan: In short the patient's right upper extremity continues to improve. He CK levels continued [place] [id number] most recent study today is down to 3500. His foot arm functionally has improved throughout the last few days. I do think he is doing better and continued follow-up with orthopedics hand we will follow on an as-needed basis. Thank you for allowing us to participate in his care. (2) Rhabdomyolysis: Status: Acute Assessment and Plan: Renal function continues to deteriorate due to rhabdomyolysis. He does have Nephrology follow-up. Will need continued care regarding that. Once again arm does appear to be stable from my perspective and we will follow-up on an as- needed basis. Time Spent With Patient Time: Total time spent is greater than 50% in coordination of care (as documented) at patient's floor/unit and/or counseling patient: Procedures Date of Service Date of Service: 12/01/21 Quality Stroke Does the patient have a stroke diagnosis?: No VTE Prior VTE?: No VTE Risk Level:: Medical - moderate - high VTE Device Contraindication: Treatment Not Indicated VTE Drug Contraindication: N/A - Med Ordered
--- NOTE | 2021-12-01 13:01 | P.PNIM_ITS ---
Subjective Subjective Date of Service: 12/01/21 Interval History: seen and examined this morning while in dialysis, history obtained with the assistance of a hide dropper follow up for NEHA, rhabdo, right arm pain still having pain right hip and right arm; both pain and swelling of right arm improving reports difficulty ambulating to do right hip giving out Review of Systems Review of Systems: Yes all other systems are reviewed and are negative Constitutional Constitutional: Denies chills and Denies fever(s) Cardiovascular Cardiovascular: Denies chest pain, Denies palpitations and Denies dyspnea Respiratory Respiratory: Denies cough and Denies dyspnea Gastrointestinal Gastrointestinal: Denies abdominal pain, Denies nausea and Denies vomiting Endocrine Endocrine: Denies palpitations Physical Exam Vital Signs: Vital Signs: Last Vital Signs Temp 99.3 F 12/01/21 07:42 Pulse 81 12/01/21 07:42 Resp 16 12/01/21 07:42 BP 141/79 H 12/01/21 07:42 Pulse Ox 97 12/01/21 07:42 O2 Del Method 12/01/21 07:42 O2 Flow Rate 2 12/01/21 04:00 BMI result Body Mass Index 31.8 Const: General: cooperative, comfortable, no acute distress, alert and awake Nutritional Appearance: overweight Orientation/consciousness: patient oriented x3 Resp: Effort & Inspection: normal respiratory effort and able to speak in complete sentences Auscultation: clear to auscultation bilaterally Cardio: Rate: regular rate Heart sounds: S1 normal heart sound present and S2 normal heart sound present GI: Inspection: No distended Palpation (GI): not soft and nontender Neuro: General: patient oriented x3 Extrem: Other: right arm swelling, not tense; able to fully extend and flex wrist and fingers. able to make fist; reports pain with movements Objective Data Active Medications Acetaminophen (Acetaminophen 325 Mg Tablet) 650 mg PO Q6H PRN PRN Reason: Pain, Mild (Pain Scale 1-3) Heparin Sodium (Porcine) (Heparin Sodium,Porcine 5,000 Unit/Ml Vial) 5,000 unit SUBCUT Q12H [facility] Last Admin: 12/01/21 00:45 Dose: 5,000 unit Documented By: MELVIN Morphine Sulfate (Morphine Sulfate 4 Mg/Ml Cartridge) 4 mg IVPUSH Q4H PRN; Protocol PRN Reason: Pain, Severe (Pain Scale 7-10) Last Admin: 11/30/21 21:01 Dose: 4 mg Documented By: MELVIN Ondansetron HCl (Ondansetron Hcl 4 Mg/2 Ml Vial) 4 mg IVPUSH Q8H PRN PRN Reason: Nausea and Vomiting Last Admin: 12/01/21 00:24 Dose: 4 mg Documented By: MELVIN Pharmacy Consult (Consult Rx Perform Med Rec) 1 each MISCELLANE ONCE PRN PRN Reason: Consult order Sodium Chloride (0.9 % Sodium Chloride Flush 3 Ml Syringe) 3 ml IVFLUSH QSHIFT [facility] Last Admin: 12/01/21 09:03 Dose: Not Given Documented By: MELVIN Non-Admin Reason: Previously Administered Labs CBC & Chem 7: 12/01/21 05:50 12/01/21 05:50 Labs: Laboratory Results - last 24 hr 11/30/21 12/01/21 12/01/21 16:03 05:50 05:50 MCV 98.9 H MCH 33.9 H MCHC 34.2 RDW 13.1 Plt Count 97 L MPV 12.6 H Absolute Nucleated RBC 0.000 Nucleated RBC % (auto) 0.0 Anion Gap 17 Estim Creat Clear Calc 12.8 Estimated GFR 7 POC Glucose 103 Random Glucose 77 Calcium 7.9 L Total Creatine Kinase 3519 H D Assessment and Plan (1) NEHA (acute kidney injury): Status: Acute (2) Rhabdomyolysis: Status: Acute (3) Hip pain, right: Status: Acute Plan A 46 years old male with PMH of smoking, alcoholism who presents to the hospital after being found altered in his shower after using heroin. Acute kidney injury, metabolic acidosis Secondary to rhabdomyolysis creatinine still trending up, received HD 11/30, again today (temporary dialysis catheter placed 11/29) normal renal ultrasound Monitor intake and output CPK trending down from 33,103 to 3519 today Bicarb 19 Nephrology following Follow BMP RUE pain and swelling less likely compartment syndrome after vascular and orthopedic evaluation CT showing subcutaneous swelling concerning for muscle injury or infection pain likely from reperfusion injury per Ortho vascular and orthopedic team following Right Hip pain CT scan showing multiple abnormalities with enlargement of surrounding tissue and fluids along multiple facial planes Concerning for possible myositis, joint infection orthopedics to evaluate seen by ID, no fever to indicate infection and blood cultures negative - rec to d/c abx Pain medication physical therapy eval Hypoxia 2/2 Aspiration pneumonia Not septic Question of possible fluid overload , low BNP Blood cultures negative to date initially treated with IV zosyn Wean oxygen down as tolerated Toxic metabolic encephalopathy, resolved Secondary to heroin abuse Post Narcan Advised not to use again Addiction team to follow DVT PPX-Heparin attendin - dr. leigh patient requires ongoing inpatient hospitalization due to need for ongoing hemodialysis, close monitoring of renal function, right arm swelling/ left hip pain Quality Stroke Does the patient have a stroke diagnosis?: No VTE Prior VTE?: No VTE Risk Level:: Medical - moderate - high VTE Device Contraindication: Treatment Not Indicated VTE Drug Contraindication: N/A - Med Ordered
[2021-12-01] MEDS: Acetaminophen 325 MG TABLET 650 MG PO (13:10)
[2021-12-01 13:33] VITALS: BP 141/79; PULSE 81; O2SAT 97
--- NOTE | 2021-12-01 14:23 | MHC.CM.PN ---
PT recommending rehab. Met with patient. He reports he has been clean for 10 years. His daughter was murdered last month and he gave up his apartment to pay for costs. He moved in with his girlfriend, who has kicked him out after fight. Patient reports he had one slip, used heroin one time, which lead to hospitalization. 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 He is agreeable to rehab, prefers to stay in [place] but agreeable to any rehab who can accept him. Informed patient it is likely he will only be accepted in facility in [place], he is agreeable. Referrals with bed request sent.
--- NOTE | 2021-12-01 14:42 | PM.PNNEP ---
Subjective Subjective Date of Service: 12/01/21 Interval history: Chart Reviewed. Events noted. HD this am. Physical Exam Vital Signs: Vital Signs: Last Vital Signs Temp 99.3 F 12/01/21 07:42 Pulse 81 12/01/21 13:33 Resp 16 12/01/21 07:42 BP 141/79 H 12/01/21 13:33 Pulse Ox 97 12/01/21 13:33 O2 Del Method 12/01/21 07:42 O2 Flow Rate 2 12/01/21 04:00 BMI result Body Mass Index 31.8 Const: General: no acute distress HEENT: Head: Yes normocephalic and Yes atraumatic Neck: Neck: Yes no JVD Resp: Auscultation: clear to auscultation bilaterally Cardio: Jugular venous distension: no JVD Rate: regular rate Rhythm: regular rhythm Heart sounds: S1 normal heart sound present and S2 normal heart sound present GI: Auscultation: normal bowel sounds Neuro: General: moves all extremities Extrem: General: Yes no clubbing, cyanosis or edema Objective Data Labs CBC & Chem 7: 12/01/21 05:50 12/01/21 05:50 Labs: Laboratory Results - last 24 hr 11/30/21 12/01/21 12/01/21 16:03 05:50 05:50 WBC 14.9 H RBC 3.75 L Hgb 12.7 L Hct 37.1 L MCV 98.9 H MCH 33.9 H MCHC 34.2 RDW 13.1 Plt Count 97 L MPV 12.6 H Absolute Nucleated RBC 0.000 Nucleated RBC % (auto) 0.0 Sodium 136 Potassium 4.4 Chloride 104 Carbon Dioxide 19 L Anion Gap 17 BUN 64 H Creatinine 8.18 H* Estim Creat Clear Calc 12.8 Estimated GFR 7 POC Glucose 103 Random Glucose 77 Calcium 7.9 L Total Creatine Kinase 3519 H D Microbiology Microbiology Results: Microbiology 11/28/21 06:06 Blood - Venous Blood Culture - Preliminary No growth after 48 hours. 11/28/21 06:06 Blood - Venous Blood Culture - Preliminary No growth after 48 hours. Procedures Date of Service Date of Service: 12/01/21 Assessment & Plan Assessment and plan (1) NEHA (acute kidney injury): Status: Acute Assessment and Plan: #) NEHA suspected to be secondary to rhabdomyolysis UA with noted 3+ blood and few rbc's consistent with rhabdomyolysis Trend CK daily. Continues to downtrend. HD today and will plan on repeating again tomorrow. Continue MWF schedule. Currently has temp catheter. If no renal recovery over weekend would benefit from placement of permcath on Sunday. He has some improvement in uop however consistent with ATN. Continue to follow uop Monitor K, Phos, Ca along with renal panel I have added additional urine studies and serologies-pending avoidance of nsaids, acei/arb, IV contrast, renal dosing abx. (2) Rhabdomyolysis: Status: Acute Time Spent With Patient Time: Total time spent is greater than 50% in coordination of care (as documented) at patient's floor/unit and/or counseling patient: Progress Note: Quality Stroke Does the patient have a stroke diagnosis?: No
[2021-12-01 14:46] LABS: Haptoglobin 117 mg/dL (43-212)
[2021-12-01 15:35] VITALS: BP 153/94; PULSE 74; RESP 20; TEMP 37.3; O2SAT 100
[2021-12-01] MEDS: Morphine Sulfate 4 MG/ML CARTRIDGE IVPUSH ×2 (17:24→21:29)
[2021-12-01 17:32] LABS: Anti Glomerular Basement Memb <1.0 AI; Myeloperoxidase Antibody <1.0 AI; Proteinase 3 PR3 Antibodies <1.0 AI
[2021-12-01 19:41] VITALS: BP 152/84; PULSE 85; RESP 20; TEMP 37.8; O2SAT 98
[2021-12-01] MEDS: 0.9 % Sodium Chloride Flush 3 ML SYRINGE IVFLUSH (21:32)
[2021-12-01 23:44] VITALS: BP 165/93; PULSE 83; RESP 20; TEMP 36.4; O2SAT 97
[2021-12-02] MEDS: Acetaminophen 325 MG TABLET 650 MG PO (03:09)
[2021-12-02 03:33] VITALS: BP 159/95; PULSE 78; RESP 19; TEMP 36.7; O2SAT 97
[2021-12-02 07:53] VITALS: BP 164/97; PULSE 67; RESP 19; TEMP 36.9; O2SAT 98
[2021-12-02] MEDS: 0.9 % Sodium Chloride Flush 3 ML SYRINGE IVFLUSH ×3 (08:32→19:45)
[2021-12-02] MEDS: Morphine Sulfate 4 MG/ML CARTRIDGE IVPUSH ×3 (08:32→21:06)
[2021-12-02 09:09] LABS: Hematocrit 38.5 % (42.0-52.0); Hemoglobin 13.4 g/dl (14.0-18.0); Mean Corpuscular HGB Conc 34.8 g/dl (31.0-36.0); Mean Corpuscular Hemoglobin 34.6 pg (27.0-33.0); Mean Corpuscular Volume 99.5 fL (80.0-98.0); Mean Platelet Volume 12.3 fL (9.4-12.4); Red Blood Count 3.87 X10*6/uL (4.60-5.80); Red Cell Distribution Width 13.1 % (11.0-16.0); White Blood Count 14.6 X10*3/uL (4.8-10.8)
[2021-12-02 09:11] LABS: Platelet Count 99 X10*3/uL (160-400)
[2021-12-02 09:30] LABS: Anion Gap 17 (12-20); Blood Urea Nitrogen 64 mg/dL (9-16); Calcium 8.1 mg/dL (8.4-10.2); Carbon Dioxide 17 mmol/L (22-29); Chloride 104 mmol/L (96-108); Creatinine Clr Calc Pharmacy 11.8; Estimated Glomerular Filt Rate 7; Glucose Random 90 mg/dL (60-115); Phosphorus 6.8 mg/dL (2.7-4.5); Potassium 4.4 mmol/L (3.3-5.1); Sodium 134 mmol/L (135-145)
[2021-12-02 09:33] VITALS: BP 164/97; PULSE 67; O2SAT 98
[2021-12-02 09:33] LABS: Calcium 8.2 mg/dL (8.4-10.2)
--- NOTE | 2021-12-02 11:40 | P.PNIM_ITS ---
Subjective Subjective Date of Service: 12/02/21 Interval History: seen and examined this morning history obtained with the assistance of a paraprofessional interpreter Follow-up for NEHA, rhabdomyolysis Patient reports right hip pain and right arm pain are both improving. Still with swelling of the right upper extremity. Sensation improving, range of motion improving Review of Systems Review of Systems: Yes all other systems are reviewed and are negative Constitutional Constitutional: Denies chills and Denies fever(s) Cardiovascular Cardiovascular: Denies chest pain, Denies palpitations and Denies dyspnea Respiratory Respiratory: Denies cough and Denies dyspnea Gastrointestinal Gastrointestinal: Denies abdominal pain, Denies diarrhea, Denies nausea and Denies vomiting Endocrine Endocrine: Denies palpitations Physical Exam Vital Signs: Vital Signs: Last Vital Signs Temp 98.5 F 12/02/21 07:53 Pulse 67 12/02/21 09:33 Resp 19 12/02/21 07:53 BP 164/97 H 12/02/21 09:33 Pulse Ox 98 12/02/21 09:33 O2 Del Method 12/02/21 07:53 O2 Flow Rate 2 12/02/21 03:33 BMI result Body Mass Index 31.8 Const: General: cooperative, comfortable, no acute distress, alert and awake Nutritional Appearance: overweight Orientation/consciousness: patient o riented x3 Resp: Effort & Inspection: normal respiratory effort and able to speak in complete sentences Auscultation: clear to auscultation bilaterally Cardio: Rate: regular rate Heart sounds: S1 normal heart sound present and S2 normal heart sound present GI: Inspection: No distended Palpation (GI): not soft and nontender Neuro: General: patient oriented x3 Extrem: Other: right arm swelling, not tense; able to extend and flex wrist and fingers. able to make fist; reports pain with movement. good peripheral pulses. Objective Data Active Medications Acetaminophen (Acetaminophen 325 Mg Tablet) 650 mg PO Q6H PRN PRN Reason: Pain, Mild (Pain Scale 1-3) Last Admin: 12/02/21 03:09 Dose: 650 mg Documented By: SATHISH Heparin Sodium (Porcine) (Heparin Sodium,Porcine 5,000 Unit/Ml Vial) 5,000 unit SUBCUT Q12H RICKY Last Admin: 12/01/21 22:55 Dose: 5,000 unit Documented By: SATHISH Morphine Sulfate (Morphine Sulfate 4 Mg/Ml Cartridge) 4 mg IVPUSH Q4H PRN; Protocol PRN Reason: Pain, Severe (Pain Scale 7-10) Last Admin: 12/02/21 08:32 Dose: 4 mg Documented By: ARYAN Ondansetron HCl (Ondansetron Hcl 4 Mg/2 Ml Vial) 4 mg IVPUSH Q8H PRN PRN Reason: Nausea and Vomiting Last Admin: 12/01/21 00:24 Dose: 4 mg Documented By: MELVIN Pharmacy Consult (Consult Rx Perform Med Rec) 1 each MISCELLANE ONCE PRN PRN Reason: Consult order Sodium Chloride (0.9 % Sodium Chloride Flush 3 Ml Syringe) 3 ml IVFLUSH QSHIFT [facility] Last Admin: 12/02/21 08:32 Dose: 3 ml Documented By: ARYAN Labs CBC & Chem 7: 12/02/21 08:34 12/02/21 08:34 Labs: Laboratory Results - last 24 hr 11/29/21 11/29/21 12/02/21 07:06 07:06 08:34 MCV 99.5 H MCH 34.6 H MCHC 34.8 RDW 13.1 Plt Count 99 L MPV 12.3 Absolute Nucleated RBC 0.000 Nucleated RBC % (auto) 0.0 Haptoglobin 117 Anion Gap Estim Creat Clear Calc Estimated GFR Random Glucose Calcium Phosphorus Total Creatine Kinase Proteinase 3 (PR3) Ab <1.0 Myeloperoxidase Ab <1.0 Glomerular Base Memb Ab <1.0 12/02/21 12/02/21 08:34 08:34 MCV MCH MCHC RDW Plt Count MPV Absolute Nucleated RBC Nucleated RBC % (auto) Haptoglobin Anion Gap 17 Estim Creat Clear Calc 11.8 Estimated GFR 7 Random Glucose 90 Calcium 8.1 L 8.2 L Phosphorus 6.8 H Total Creatine Kinase 2144 H D Proteinase 3 (PR3) Ab Myeloperoxidase Ab Glomerular Base Memb Ab Assessment and Plan (1) Leukocytosis: Status: Acute (2) Right upper limb pain: Status: Acute (3) Rhabdomyolysis: Status: Acute (4) NEHA (acute kidney injury): Status: Acute Plan A 46 years old male with PMH of smoking, alcoholism who presents to the hospital after being found altered in his shower after using heroin. Acute kidney injury, metabolic acidosis Secondary to ATN/rhabdomyolysis creatinine continues to trend up, received HD 11/30, 12/01 (temporary dialysis catheter placed 11/29) - will likely need permcath Sunday normal renal ultrasound Monitor intake and output CPK trending down from 33,103 to 2144 today Bicarb down to 17 Nephrology following - making urine but not appropriately clearing urea, consistent with ATN Follow BMP RUE pain and swelling less likely compartment syndrome after vascular and orthopedic evaluation CT showing subcutaneous swelling concerning for muscle injury or infection pain likely from reperfusion injury per Ortho vascular and orthopedic team following will check US to rule out DVT although les Right Hip pain CT scan showing multiple abnormalities with enlargement of surrounding tissue and fluids along multiple facial planes Concerning for possible myositis, joint infection seen by orthopedics - could be deep contusion/ bruising from fall or possible swelling secondary to reperfusion seen by ID, no fever to indicate infection and blood cultures negative - rec to d/c abx Pain control - pain improving physical therapy eval thrombocytopenia follow CBC Hypoxia 2/2 Aspiration pneumonia Not septic Question of possible fluid overload , low BNP Blood cultures negative to date initially treated with IV zosyn Wean oxygen down as tolerated Toxic metabolic encephalopathy, resolved Secondary to heroin abuse Post Narcan Advised not to use again Addiction team to follow DVT PPX-Heparin attendin - dr. leigh patient requires ongoing inpatient hospitalization due to need for ongoing hemodialysis, close monitoring of renal function, right arm swelling/ left hip pain Quality Stroke Does the patient have a stroke diagnosis?: No VTE Prior VTE?: No VTE Risk Level:: Medical - moderate - high VTE Device Contraindication: Treatment Not Indicated VTE Drug Contraindication: N/A - Med Ordered
[2021-12-02 14:16] LABS: Anti Nuclear Antibody Screen NEGATIVE (NEGATIVE)
--- NOTE | 2021-12-02 14:17 | PM.PNNEP ---
Subjective Subjective Date of Service: 12/02/21 Interval history: seen and examined this morning on HD Making Urine Follow-up for NEHA, rhabdomyolysis Physical Exam Vital Signs: Vital Signs: Last Vital Signs Temp 98.5 F 12/02/21 07:53 Pulse 67 12/02/21 09:33 Resp 19 12/02/21 07:53 BP 164/97 H 12/02/21 09:33 Pulse Ox 98 12/02/21 09:33 O2 Del Method 12/02/21 07:53 O2 Flow Rate 2 12/02/21 03:33 BMI result Body Mass Index 31.8 Const: General: cooperative, comfortable, no acute distress, alert and awake Nutritional Appearance: overweight Orientation/consciousness: patient oriented x3 Resp: Effort & Inspection: normal respiratory effort and able to speak in complete sentences Auscultation: clear to auscultation bilaterally Cardio: Rate: regular rate Heart sounds: S1 normal heart sound present and S2 normal heart sound present GI: Inspection: No distended Palpation (GI): not soft and nontender Neuro: General: patient oriented x3 Extrem: Other: right arm swelling, not tense; able to extend and flex wrist and fingers. able to make fist; reports pain with movement. good peripheral pulses. Objective Data Labs CBC & Chem 7: 12/02/21 08:34 12/02/21 08:34 Labs: Laboratory Results - last 24 hr 11/29/21 11/29/21 11/29/21 07:06 07:06 07:06 WBC RBC Hgb Hct MCV MCH MCHC RDW Plt Count MPV Absolute Nucleated RBC Nucleated RBC % (auto) Haptoglobin 117 Sodium Potassium Chloride Carbon Dioxide Anion Gap BUN Creatinine Estim Creat Clear Calc Estimated GFR Random Glucose Calcium Phosphorus Total Creatine Kinase RUDDY Screen NEGATIVE Proteinase 3 (PR3) Ab <1.0 Myeloperoxidase Ab <1.0 Glomerular Base Memb Ab <1.0 12/02/21 12/02/21 12/02/21 08:34 08:34 08:34 WBC 14.6 H RBC 3.87 L Hgb 13.4 L Hct 38.5 L MCV 99.5 H MCH 34.6 H MCHC 34.8 RDW 13.1 Plt Count 99 L MPV 12.3 Absolute Nucleated RBC 0.000 Nucleated RBC % (auto) 0.0 Haptoglobin Sodium 134 L Potassium 4.4 Chloride 104 Carbon Dioxide 17 L Anion Gap 17 BUN 64 H Creatinine 8.87 H* Estim Creat Clear Calc 11.8 Estimated GFR 7 Random Glucose 90 Calcium 8.1 L 8.2 L Phosphorus 6.8 H Total Creatine Kinase 2144 H D RUDDY Screen Proteinase 3 (PR3) Ab Myeloperoxidase Ab Glomerular Base Memb Ab Microbiology Microbiology Results: Microbiology 11/28/21 06:06 Blood - Venous Blood Culture - Preliminary No growth after 48 hours. 11/28/21 06:06 Blood - Venous Blood Culture - Preliminary No growth after 48 hours. Procedures Date of Service Date of Service: 12/02/21 Assessment & Plan Assessment and plan (1) NEHA (acute kidney injury): Status: Acute Assessment and Plan: #) NEHA suspected to be secondary to rhabdomyolysis UA with noted 3+ blood and few rbc's consistent with rhabdomyolysis Trend CK daily. Continues to downtrend. HD today Next HDon Sunday basedon renal recovery If no renal recovery over weekend would benefit from placement of permcath on Sunday. Continue to follow uop Monitor K, Phos, Ca along with renal panel avoidance of nsaids, acei/arb, IV contrast, renal dosing abx. (2) Rhabdomyolysis: Status: Acute Time Spent With Patient Time: Total time spent is greater than 50% in coordination of care (as documented) at patient's floor/unit and/or counseling patient: Progress Note: Quality Stroke Does the patient have a stroke diagnosis?: No
--- NOTE | 2021-12-02 14:37 | MHC.CM.PN ---
NO SNF BED OFFERS REFERRAL TO [facility]
[2021-12-02 16:00] VITALS: BP 144/73; PULSE 86; RESP 18; TEMP 36.5; O2SAT 98
[2021-12-02 20:00] VITALS: BP 140/100; PULSE 78; RESP 18; TEMP 37; O2SAT 94
[2021-12-02] MEDS: Heparin Sodium,Porcine 5,000 UNIT/ML VIAL 5000 UNIT SUBCUT (23:57)
[2021-12-03] VITALS (8 sets, daily range): BP systolic 164–180; BP diastolic 75–132; PULSE 71–83; RESP 15–18; TEMP 36.3–37.4; O2SAT 95–100
[2021-12-03] MEDS: Acetaminophen 325 MG TABLET 650 MG PO ×2 (00:11→12:48)
[2021-12-03] MEDS: Morphine Sulfate 4 MG/ML CARTRIDGE IVPUSH ×3 (09:22→23:42)
[2021-12-03] MEDS: 0.9 % Sodium Chloride Flush 3 ML SYRINGE IVFLUSH ×3 (09:23→19:35)
--- NOTE | 2021-12-03 10:54 | HO.PM.IMPN ---
Subjective Subjective Date of Service: 12/03/21 <Corina Castaneda NP - Last Filed: 12/03/21 11:05> 12/14/21 <Kenton Larose MD - Last Filed: 12/14/21 18:55> Review of Systems follow-up NEHA, rhabdomyolysis, hemodialysis Feeling mildly better Still having right hip and right arm pain from fall <Corina Castaneda NP - Last Filed: 12/03/21 11:05> Physical Exam Vital Signs: Vital Signs: Last Vital Signs Temp 98.3 F 12/03/21 08:00 Pulse 82 12/03/21 08:00 Resp 15 12/03/21 08:00 BP 178/95 H 12/03/21 08:00 Pulse Ox 95 12/03/21 08:00 O2 Del Method 12/03/21 08:00 O2 Flow Rate 2 12/03/21 04:00 BMI result Body Mass Index 31.8 <Corina Castaneda NP - Last Filed: 12/03/21 11:05> Appearing in no acute distress lung sounds are clear to auscultation heart regular rate rhythm, clear S1, S2 positive bowel sounds, abdomen is soft, nontender neuro patient is alert x3, no focal deficits Right forearm edema noted <Corina Castaneda NP - Last Filed: 12/03/21 11:05> Objective Data Active Medications Acetaminophen (Acetaminophen 325 Mg Tablet) 650 mg PO Q6H PRN PRN Reason: Pain, Mild (Pain Scale 1-3) Last Admin: 12/03/21 00:11 Dose: 650 mg Documented By: MILLIE Heparin Sodium (Porcine) (Heparin Sodium,Porcine 5,000 Unit/Ml Vial) 5,000 unit SUBCUT Q12H RICKY Last Admin: 12/02/21 23:57 Dose: 5,000 unit Documented By: MILLIE Morphine Sulfate (Morphine Sulfate 4 Mg/Ml Cartridge) 4 mg IVPUSH Q4H PRN; Protocol PRN Reason: Pain, Severe (Pain Scale 7-10) Last Admin: 12/03/21 09:22 Dose: 4 mg Documented By: ALETHEA Ondansetron HCl (Ondansetron Hcl 4 Mg/2 Ml Vial) 4 mg IVPUSH Q8H PRN PRN Reason: Nausea and Vomiting Last Admin: 12/01/21 00:24 Dose: 4 mg Documented By: MELVIN Pharmacy Consult (Consult Rx Perform Med Rec) 1 each MISCELLANE ONCE PRN PRN Reason: Consult order Sodium Chloride (0.9 % Sodium Chloride Flush 3 Ml Syringe) 3 ml IVFLUSH QSHIFT [facility] Last Admin: 12/03/21 09:23 Dose: 3 ml Documented By: ALETHEA <Corina Castaneda NP - Last Filed: 12/03/21 11:05> Labs CBC & Chem 7: : 12/14/21 06:20 12/14/21 06:20 <Corina Castaneda NP - Last Filed: 12/03/21 11:05> Labs: Laboratory Results - last 24 hr 11/29/21 07:06 RUDDY Screen NEGATIVE <Corina Castaneda NP - Last Filed: 12/03/21 11:05> Microbiology Microbiology Results: Microbiology 11/28/21 06:06 Blood Culture - Final Blood - Venous No growth after 5 days. 11/28/21 06:06 Blood Culture - Final Blood - Venous No growth after 5 days. <Corina Castaneda NP - Last Filed: 12/03/21 11:05> Assessment and Plan (1) Leukocytosis: Status: Acute <Corina Castaneda NP - Last Filed: 12/03/21 11:05> (2) Right upper limb pain: Status: Acute <Corina Castaneda NP - Last Filed: 12/03/21 11:05> (3) Rhabdomyolysis: Status: Acute <Corina Castaneda NP - Last Filed: 12/03/21 11:05> (4) NEHA (acute kidney injury): Status: Acute <Corina Castaneda NP - Last Filed: 12/03/21 11:05> Assessment and Plan: 46 years old male with PMH of smoking, alcoholism who presents to the hospital after being found altered in his shower after using heroin. Acute kidney injury, metabolic acidosis Secondary to ATN/rhabdomyolysis creatinine continues to trend up, received HD 11/30, 12/01 (temporary dialysis catheter placed 11/29) - will likely need permcath Sunday normal renal ultrasound Monitor intake and output CPK trending down Bicarb down to 17 Nephrology following>making urine but not appropriately clearing urea, consistent with ATN Follow BMP RUE pain and swelling less likely compartment syndrome after vascular and orthopedic evaluation CT showing subcutaneous swelling concerning for muscle injury or infection pain likely from reperfusion injury per Ortho vascular and orthopedic team following will check US to rule out DVT although les Right Hip pain CT scan showing multiple abnormalities with enlargement of surrounding tissue and fluids along multiple facial planes Concerning for possible myositis, joint infection seen by orthopedics - could be deep contusion/ bruising from fall or possible swelling secondary to reperfusion seen by ID, no fever to indicate infection and blood cultures negative - rec to d/c abx Pain control - pain improving physical therapy eval thrombocytopenia follow CBC Hypoxia 2/2 Aspiration pneumonia Not septic Question of possible fluid overload , low BNP Blood cultures negative to date initially treated with IV zosyn Wean oxygen down as tolerated Toxic metabolic encephalopathy, resolved Secondary to heroin abuse Post Narcan Advised not to use again Addiction team to follow DVT PPX-Heparin attendin - Dr. Larose patient requires ongoing inpatient hospitalization due to need for ongoing hemodialysis, close monitoring of renal function, right arm swelling/ left hip pain <Corina Castaneda NP - Last Filed: 12/03/21 11:05> Quality Stroke Does the patient have a stroke diagnosis?: No <Corina Castaneda NP - Last Filed: 12/03/21 11:05> VTE Prior VTE?: No <Corina Castaneda NP - Last Filed: 12/03/21 11:05> VTE Risk Level:: Medical - moderate - high <Corina Castaneda NP - Last Filed: 12/03/21 11:05> VTE Device Contraindication: Treatment Not Indicated <Corina Castaneda NP - Last Filed: 12/03/21 11:05> VTE Drug Contraindication: N/A - Med Ordered <Corina Castaneda NP - Last Filed: 12/03/21 11:05>
[2021-12-03 11:09] LABS: Anion Gap 18 (12-20); Blood Urea Nitrogen 69 mg/dL (9-16); Calcium 8.3 mg/dL (8.4-10.2); Carbon Dioxide 18 mmol/L (22-29); Chloride 100 mmol/L (96-108); Creatinine Clr Calc Pharmacy 11.4; Estimated Glomerular Filt Rate 6; Glucose Random 140 mg/dL (60-115); Potassium 4.4 mmol/L (3.3-5.1); Sodium 132 mmol/L (135-145)
[2021-12-03] MEDS: Heparin Sodium,Porcine 5,000 UNIT/ML VIAL 5000 UNIT SUBCUT ×2 (12:46→23:41)
[2021-12-03] MEDS: ondansetron HCL 4 MG/2 ML VIAL IVPUSH (19:34)
--- NOTE | 2021-12-03 22:52 | PM.PNNEP ---
Subjective Subjective Date of Service: 12/03/21 Interval history: seen and examined this morning Making Urine Follow-up for NEHA, rhabdomyolysis Physical Exam Vital Signs: Vital Signs: Last Vital Signs Temp 98.5 F 12/03/21 19:15 Pulse 80 12/03/21 19:15 Resp 18 12/03/21 19:15 BP 180/98 H 12/03/21 19:15 Pulse Ox 97 12/03/21 19:15 O2 Del Method 12/03/21 19:15 O2 Flow Rate 2 12/03/21 04:00 BMI result Body Mass Index 31.8 Appearing in no acute distress lung sounds are clear to auscultation heart regular rate rhythm, clear S1, S2 positive bowel sounds, abdomen is soft, nontender neuro patient is alert x3, no focal deficits Right forearm edema noted Objective Data Labs CBC & Chem 7: 12/02/21 08:34 12/03/21 09:51 Labs: Laboratory Results - last 24 hr 11/29/21 12/03/21 07:06 09:51 Sodium 132 L Potassium 4.4 Chloride 100 Carbon Dioxide 18 L Anion Gap 18 BUN 69 H Creatinine 9.21 H* Estim Creat Clear Calc 11.4 Estimated GFR 6 Random Glucose 140 H D Calcium 8.3 L Total Creatine Kinase 1546 H RUDDY Titer TNP RUDDY Titer 2 TNP RUDDY Titer 3 TNP RUDDY Pattern TNP RUDDY Pattern 2 TNP RUDDY Pattern 3 TNP Microbiology Microbiology Results: Microbiology 11/28/21 06:06 Blood - Venous Blood Culture - Final No growth after 5 days. 11/28/21 06:06 Blood - Venous Blood Culture - Final No growth after 5 days. Procedures Date of Service Date of Service: 12/03/21 Assessment & Plan Assessment and plan (1) NEHA (acute kidney injury): Status: Acute Assessment and Plan: #) NEHA suspected to be secondary to rhabdomyolysis UA with noted 3+ blood and few rbc's consistent with rhabdomyolysis Trend CK daily. Continues to downtrend. Next HDon Sunday basedon renal recovery - no recovery yet If no renal recovery over weekend would benefit from placement of permcath on Sunday. Continue to follow uop Monitor K, Phos, Ca along with renal panel Added Amlodipien 5 mg daily avoidance of nsaids, acei/arb, IV contrast, renal dosing abx. (2) Rhabdomyolysis: Status: Acute Time Spent With Patient Time: Total time spent is greater than 50% in coordination of care (as documented) at patient's floor/unit and/or counseling patient: Progress Note: Quality Stroke Does the patient have a stroke diagnosis?: No
--- NOTE | 2021-12-04 | ECG_ITS ---
Test Reason : cp Blood Pressure : / mmHG Vent. Rate : 081 BPM Atrial Rate : 081 BPM P-R Int : 114 ms QRS Dur : 086 ms QT Int : 370 ms P-R-T Axes : 056 049 049 degrees QTc Int : 429 ms Normal sinus rhythm Normal ECG When compared with ECG of 28-NOV-2021 08:08, Change in QRS polarity anteroseptal leads Referred By: Mickey Barragan Electronically Signed By:SHAHZAD NIX
[2021-12-04 04:00] VITALS: BP 176/91; PULSE 79; RESP 18; TEMP 36.3; O2SAT 97
[2021-12-04] MEDS: Morphine Sulfate 4 MG/ML CARTRIDGE IVPUSH (04:24)
--- NOTE | 2021-12-04 04:29 | ECG_ITS ---
Test Reason : cp Blood Pressure : / mmHG Vent. Rate : 078 BPM Atrial Rate : 078 BPM P-R Int : 112 ms QRS Dur : 088 ms QT Int : 360 ms P-R-T Axes : 056 052 047 degrees QTc Int : 410 ms Normal sinus rhythm Normal EKG When compared with ECG of 04-DEC-2021 04:32, No significant change was found Referred By: Mickey Barragan Electronically Signed By:SHAHZAD NIX
[2021-12-04 05:10] LABS: Troponin-I High Sensitivity 39.4 ng/L (<3.5-35.0)
[2021-12-04 05:13] LABS: Anion Gap 19 (12-20); Blood Urea Nitrogen 90 mg/dL (9-16); Calcium 8.3 mg/dL (8.4-10.2); Carbon Dioxide 16 mmol/L (22-29); Chloride 100 mmol/L (96-108); Estimated Glomerular Filt Rate 5; Glucose Random 96 mg/dL (60-115); Potassium 4.9 mmol/L (3.3-5.1); Sodium 130 mmol/L (135-145)
--- NOTE | 2021-12-04 05:20 | PC.NURSE ---
0400 pt c/o of mid sternal chest pain 11/20 . notified.ordered stat EKG and troponin.also ordered to give morphine 4mg iv given at 0425.troponin 39.4 to have repeat drawn at 0700.pt is sound asleep at present time.
--- NOTE | 2021-12-04 05:46 | PM.EVENT ---
Event Note Date of Service: 12/04/21 Event Note: Chest pain: EKG non ischemic Initiali trop 39, repeat at 7AM. Pain improved.
[2021-12-04 08:00] VITALS: BP 160/108; PULSE 87; RESP 15; TEMP 36.7; O2SAT 97
[2021-12-04 08:39] LABS: Troponin-I High Sensitivity 39.5 ng/L (<3.5-35.0)
[2021-12-04] MEDS: amLODIPine Besylate 5 MG TABLET PO (08:39)
[2021-12-04] MEDS: 0.9 % Sodium Chloride Flush 3 ML SYRINGE IVFLUSH ×4 (08:40→23:10)
--- NOTE | 2021-12-04 09:36 | P.PNIM_ITS ---
Subjective Subjective Date of Service: 12/04/21 <Corina Castaneda NP - Last Filed: 12/04/21 09:46> 12/14/21 <Kenton Larose MD - Last Filed: 12/14/21 18:55> Review of Systems Follow-up NEHA, rhabdomyolysis, hemodialysis Feeling mildly better Still having right hip and right arm pain from fall <Corina Castaneda NP - Last Filed: 12/04/21 09:46> Physical Exam Vital Signs: Vital Signs: Last Vital Signs Temp 98.1 F 12/04/21 08:00 Pulse 87 12/04/21 08:00 Resp 15 12/04/21 08:00 BP 160/108 H 12/04/21 08:00 Pulse Ox 97 12/04/21 08:00 O2 Del Method 12/04/21 08:00 O2 Flow Rate 2 12/04/21 04:00 BMI result Body Mass Index 31.8 <Corina Castaneda NP - Last Filed: 12/04/21 09:46> Appearing in no acute distress lung sounds are clear to auscultation heart regular rate rhythm, clear S1, S2 positive bowel sounds, abdomen is soft, nontender neuro patient is alert x3, no focal deficits <Corina Castaneda NP - Last Filed: 12/04/21 09:46> Objective Data Active Medications Acetaminophen (Acetaminophen 325 Mg Tablet) 650 mg PO Q6H PRN PRN Reason: Pain, Mild (Pain Scale 1-3) Last Admin: 12/03/21 12:48 Dose: 650 mg Documented By: ALETHEA Amlodipine Besylate (Amlodipine Besylate 5 Mg Tablet) 5 mg PO DAILY [facility]; Protocol Last Admin: 12/04/21 08:39 Dose: 5 mg Documented By: ALETHEA Heparin Sodium (Porcine) (Heparin Sodium,Porcine 5,000 Unit/Ml Vial) 5,000 unit SUBCUT Q12H RICKY Last Admin: 12/03/21 23:41 Dose: 5,000 unit Documented By: MILLIE Morphine Sulfate (Morphine Sulfate 4 Mg/Ml Cartridge) 4 mg IVPUSH Q4H PRN; Protocol PRN Reason: Pain, Severe (Pain Scale 7-10) Last Admin: 12/04/21 04:24 Dose: 4 mg Documented By: MILLIE Ondansetron HCl (Ondansetron Hcl 4 Mg/2 Ml Vial) 4 mg IVPUSH Q8H PRN PRN Reason: Nausea and Vomiting Last Admin: 12/03/21 19:34 Dose: 4 mg Documented By: MILLIE Pharmacy Consult (Consult Rx Perform Med Rec) 1 each MISCELLANE ONCE PRN PRN Reason: Consult order Sodium Chloride (0.9 % Sodium Chloride Flush 3 Ml Syringe) 3 ml IVFLUSH Q[facility] Last Admin: 12/04/21 08:40 Dose: 3 ml Documented By: ALETHEA <Corina Castaneda NP - Last Filed: 12/04/21 09:46> Labs CBC & Chem 7: : 12/14/21 06:20 12/14/21 06:20 <Corina Castaneda NP - Last Filed: 12/04/21 09:46> Labs: Laboratory Results - last 24 hr 11/29/21 12/03/21 12/04/21 07:06 09:51 04:43 Anion Gap 18 19 Estim Creat Clear Calc 11.4 10.0 Estimated GFR 6 5 Random Glucose 140 H D 96 Calcium 8.3 L 8.3 L Total Creatine Kinase 1546 H Troponin I High Sens RUDDY Titer TNP RUDDY Titer 2 TNP RUDDY Titer 3 TNP RUDDY Pattern TNP RUDDY Pattern 2 TNP RUDDY Pattern 3 TNP 12/04/21 12/04/21 04:43 07:58 Anion Gap Estim Creat Clear Calc Estimated GFR Random Glucose Calcium Total Creatine Kinase Troponin I High Sens 39.4 H 39.5 H RUDDY Titer RUDDY Titer 2 RUDDY Titer 3 RUDDY Pattern RUDDY Pattern 2 RUDDY Pattern 3 <Corina Castaneda NP - Last Filed: 12/04/21 09:46> Microbiology Microbiology Results: Microbiology 11/28/21 06:06 Blood Culture - Final Blood - Venous No growth after 5 days. 11/28/21 06:06 Blood Culture - Final Blood - Venous No growth after 5 days. <Corina Castaneda NP - Last Filed: 12/04/21 09:46> Assessment and Plan (1) Leukocytosis: Status: Acute <Corina Castaneda NP - Last Filed: 12/04/21 09:46> (2) Right upper limb pain: Status: Acute <Corina Castaneda NP - Last Filed: 12/04/21 09:46> (3) Rhabdomyolysis: Status: Acute <Corina Castaenda NP - Last Filed: 12/04/21 09:46> (4) NEHA (acute kidney injury): Status: Acute <Corina Castaneda NP - Last Filed: 12/04/21 09:46> Assessment and Plan: 46 years old male with PMH of smoking, alcoholism who presents to the hospital after being found altered in his shower after using heroin. Acute kidney injury, metabolic acidosis Secondary to ATN/rhabdomyolysis normal renal ultrasound CPK trending down Nephrology following>making urine but not appropriately clearing urea, consi stent with ATN permacath ordered for am Follow BMP RUE pain and swelling No compartment syndrome after vascular and orthopedic evaluation CT showing subcutaneous swelling concerning for muscle injury or infection pain likely from reperfusion injury per Ortho vascular and orthopedic team following US neg for DVT Right Hip pain CT scan showing multiple abnormalities with enlargement of surrounding tissue and fluids along multiple facial planes Concerning for possible myositis, joint infection seen by orthopedics - could be deep contusion/ bruising from fall or possible swelling secondary to reperfusion seen by ID, no fever to indicate infection and blood cultures negative - rec to d/c abx Pain control - pain improving physical therapy eval thrombocytopenia follow CBC Hypoxia 2/2 Aspiration pneumonia Not septic Question of possible fluid overload , low BNP Blood cultures negative to date initially treated with IV zosyn Wean oxygen down as tolerated Toxic metabolic encephalopathy, resolved Secondary to heroin abuse Post Narcan Advised not to use again Addiction team to follow DVT PPX-Heparin attendin - Dr. Larose patient requires ongoing inpatient hospitalization due to need for ongoing hemodialysis, close monitoring of renal function, right arm swelling/ left hip pain <Corina Castaneda NP - Last Filed: 12/04/21 09:46> Quality Stroke Does the patient have a stroke diagnosis?: No <Corina Castaneda NP - Last Filed: 12/04/21 09:46> VTE Prior VTE?: No <Corina Castaneda NP - Last Filed: 12/04/21 09:46> VTE Risk Level:: Medical - moderate - high <Corina Castaneda NP - Last Filed: 12/04/21 09:46> VTE Device Contraindication: Treatment Not Indicated <MAXINE Oleary Last Filed: 12/04/21 09:46> VTE Drug Contraindication: N/A - Med Ordered <Corina Castaneda NP - Last Filed: 12/04/21 09:46>
[2021-12-04 11:41] VITALS: BP 188/86; PULSE 88; RESP 16; TEMP 36.8; O2SAT 98
[2021-12-04] MEDS: Heparin Sodium,Porcine 5,000 UNIT/ML VIAL 5000 UNIT SUBCUT ×2 (11:43→23:09)
[2021-12-04 15:28] VITALS: BP 173/98; PULSE 82; RESP 14; TEMP 37.7; O2SAT 99
[2021-12-04] MEDS: Acetaminophen 325 MG TABLET 650 MG PO (15:45)
[2021-12-04] MEDS: hydrALAZINE HCl 25 MG TABLET PO ×2 (15:45→21:36)
[2021-12-04] MEDS: Morphine Sulfate 2 MG/ML CARTRIDGE IVPUSH ×2 (15:59→21:36)
--- NOTE | 2021-12-04 16:31 | PC.NURSE ---
pt complaining of 7/10 pain in chest. Corina Castaneda made aware. IV morphine 2mg given. EKG ordered. Vitals BP 173/98 Pulse 82 Resp 14 and O2 sat 99 on room air. Will continue to monitor.
[2021-12-04 19:38] VITALS: BP 184/101; PULSE 84; RESP 14; TEMP 37.4; O2SAT 99
--- NOTE | 2021-12-04 21:14 | PM.PNNEP ---
Subjective Subjective Date of Service: 12/04/21 Interval history: seen and examined this morning Making Urine Follow-up for NEHA, rhabdomyolysis Physical Exam Vital Signs: Vital Signs: Last Vital Signs Temp 99.4 F 12/04/21 19:38 Pulse 84 12/04/21 19:38 Resp 14 12/04/21 19:38 BP 184/101 H 12/04/21 19:38 Pulse Ox 99 12/04/21 19:38 O2 Del Method 12/04/21 19:38 O2 Flow Rate 2 12/04/21 04:00 BMI result Body Mass Index 31.8 Appearing in no acute distress lung sounds are clear to auscultation heart regular rate rhythm, clear S1, S2 positive bowel sounds, abdomen is soft, nontender neuro patient is alert x3, no focal deficits Objective Data Labs CBC & Chem 7: 12/02/21 08:34 12/04/21 04:43 Labs: Laboratory Results - last 24 hr 12/04/21 12/04/21 12/04/21 04:43 04:43 07:58 Sodium 130 L Potassium 4.9 Chloride 100 Carbon Dioxide 16 L Anion Gap 19 BUN 90 H D Creatinine 10.52 H* Estim Creat Clear Calc 10.0 Estimated GFR 5 Random Glucose 96 Calcium 8.3 L Troponin I High Sens 39.4 H 39.5 H Microbiology Microbiology Results: Microbiology 11/28/21 06:06 Blood - Venous Blood Culture - Final No growth after 5 days. 11/28/21 06:06 Blood - Venous Blood Culture - Final No growth after 5 days. Procedures Date of Service Date of Service: 12/04/21 Assessment & Plan Assessment and plan (1) NEHA (acute kidney injury): Status: Acute Assessment and Plan: #) NEHA suspected to be secondary to rhabdomyolysis UA with noted 3+ blood and few rbc's consistent with rhabdomyolysis Trend CK daily. Continues to downtrend. Next HD on Sunday- no recovery yet Keep pt NPO for placement of permcath on Sunday. Arranged by the medical team Continue to follow uop Monitor K, Phos, Ca along with renal panel Added Hydralazine for HTN Contineu Amlodipien 5 mg daily avoidance of nsaids, acei/arb, IV contrast, renal dosing abx. (2) Rhabdomyolysis: Status: Acute Time Spent With Patient Time: Total time spent is greater than 50% in coordination of care (as documented) at patient's floor/unit and/or counseling patient: Progress Note: Quality Stroke Does the patient have a stroke diagnosis?: No
[2021-12-05] VITALS (11 sets, daily range): BP systolic 131–197; BP diastolic 98–110; PULSE 80–128; RESP 17–20; TEMP 36.1–37.2; O2SAT 96–100
--- NOTE | 2021-12-05 | ECG_ITS ---
Test Reason : cp Blood Pressure : / mmHG Vent. Rate : 088 BPM Atrial Rate : 088 BPM P-R Int : 106 ms QRS Dur : 078 ms QT Int : 362 ms P-R-T Axes : 051 045 043 degrees QTc Int : 438 ms Artifact in tracing Sinus rhythm with short CO Otherwise normal ECG No significant changes when compared with the previous EKG of 04 december 2021 Referred By: Mickey Barragan Electronically Signed By:SHAHZAD NIX
[2021-12-05] MEDS: Nitroglycerin 0.4 MG TAB.SUBL SUBLINGUAL (00:47)
[2021-12-05] MEDS: Acetaminophen 325 MG TABLET 650 MG PO ×3 (00:56→18:17)
[2021-12-05] MEDS: Morphine Sulfate 2 MG/ML CARTRIDGE IVPUSH ×4 (00:56→20:49)
--- NOTE | 2021-12-05 01:11 | MHC.PIE ---
p; pt c/o ch pain. note this is the 3rd c/o ch pain in the last few days i; dr shah notified; ekg, trop, give prn morphine early now, give nitr now e; ekg wnl, pt now c/o h/a, prn tylenol given will cont to lexie
[2021-12-05 01:45] LABS: Troponin-I High Sensitivity 47.2 ng/L (<3.5-35.0)
[2021-12-05 06:54] LABS: Troponin-I High Sensitivity 44.1 ng/L (<3.5-35.0)
--- NOTE | 2021-12-05 07:06 | PC.NURSE ---
Patient blood pressure 178/107- Per Floor BERNARD Butler that has been patient's baseline during hospital stay. Cindi Osborn aware of BP & than no BP meds are due until 9am. AC IV dressing changed - was partially removed & soiled. R temp dialysis cath dressing coming loose, CINDI Osborn aware.
[2021-12-05 08:12] LABS: Anion Gap 22 (12-20); Blood Urea Nitrogen 117 mg/dL (9-16); Calcium 8.1 mg/dL (8.4-10.2); Carbon Dioxide 14 mmol/L (22-29); Chloride 96 mmol/L (96-108); Creatinine Clr Calc Pharmacy 8.6; Estimated Glomerular Filt Rate 5; Glucose Random 93 mg/dL (60-115); Potassium 5.4 mmol/L (3.3-5.1); Sodium 127 mmol/L (135-145)
--- NOTE | 2021-12-05 08:38 | P.PNIM_ITS ---
Subjective Subjective Date of Service: 12/05/21 Review of Systems Follow-up NEHA, rhabdomyolysis, hemodialysis Feeling mildly better Still having right hip and right arm pain from fall Physical Exam Vital Signs: Vital Signs: Last Vital Signs Temp 98.4 F 12/05/21 04:00 Pulse 84 12/05/21 04:00 Resp 18 12/05/21 04:00 BP 181/101 H 12/05/21 04:00 Pulse Ox 97 12/05/21 04:00 O2 Del Method 12/05/21 08:00 O2 Flow Rate 2 12/04/21 04:00 BMI result Body Mass Index 31.8 Appearing in no acute distress lung sounds are clear to auscultation heart regular rate rhythm, clear S1, S2 positive bowel sounds, abdomen is soft, nontender neuro patient is alert x3, no focal deficits Objective Data Active Medications Acetaminophen (Acetaminophen 325 Mg Tablet) 650 mg PO Q6H PRN PRN Reason: Pain, Mild (Pain Scale 1-3) Last Admin: 12/05/21 00:56 Dose: 650 mg Documented By: SATHISH Amlodipine Besylate (Amlodipine Besylate 5 Mg Tablet) 5 mg PO DAILY [facility]; Protocol Last Admin: 12/04/21 08:39 Dose: 5 mg Documented By: ALETHEA Heparin Sodium (Porcine) (Heparin Sodium,Porcine 5,000 Unit/Ml Vial) 5,000 unit SUBCUT Q12H [facility] Last Admin: 12/04/21 23:09 Dose: 5,000 unit Documented By: SATHISH Hydralazine HCl (Hydralazine Hcl 25 Mg Tablet) 25 mg PO TID [facility]; Protocol Last Admin: 12/04/21 21:36 Dose: 25 mg Documented By: SATHISH Morphine Sulfate (Morphine Sulfate 2 Mg/Ml Cartridge) 2 mg IVPUSH Q4H PRN; Protocol PRN Reason: Pain, Mild (Pain Scale 1-3) Last Admin: 12/05/21 00:56 Dose: 2 mg Documented By: SATHISH Comments: early dose md order Nitroglycerin (Nitroglycerin 0.4 Mg Tab.Subl) 0.4 mg SUBLINGUAL Q5MX3 PRN PRN Reason: Chest Pain Last Admin: 12/05/21 00:47 Dose: 0.4 mg Documented By: SATHISH Comments: ch pain Ondansetron HCl (Ondansetron Hcl 4 Mg/2 Ml Vial) 4 mg IVPUSH Q8H PRN PRN Reason: Nausea and Vomiting Last Admin: 12/03/21 19:34 Dose: 4 mg Documented By: MILLIE Pharmacy Consult (Consult Rx Perform Med Rec) 1 each MISCELLANE ONCE PRN PRN Reason: Consult order Sodium Chloride (0.9 % Sodium Chloride Flush 3 Ml Syringe) 3 ml IVFLUSH QSHIFT RICKY Last Admin: 12/04/21 21:37 Dose: 3 ml Documented By: SATHISH Labs CBC & Chem 7: 12/02/21 08:34 12/05/21 05:34 Labs: Laboratory Results - last 24 hr 12/04/21 12/05/21 12/05/21 07:58 01:03 05:34 Anion Gap Estim Creat Clear Calc Estimated GFR Random Glucose Calcium Troponin I High Sens 39.5 H 47.2 H 44.1 H 12/05/21 05:34 Anion Gap 22 H Estim Creat Clear Calc 8.6 Estimated GFR 5 Random Glucose 93 Calcium 8.1 L Troponin I High Sens Assessment and Plan (1) Leukocytosis: Status: Acute (2) Right upper limb pain: Status: Acute (3) Rhabdomyolysis: Status: Acute (4) NEHA (acute kidney injury): Status: Acute Plan 46 years old male with PMH of smoking, alcoholism who presents to the hospital after being found altered in his shower after using heroin. Acute kidney injury, metabolic acidosis Secondary to ATN/rhabdomyolysis normal renal ultrasound CPK trending down, but creat trending up Nephrology following>making urine but not appropriately clearing urea, consistent with ATN permacath placed Follow BMP HYponatremia likely from fluid, dialysis today follow BMP Hyperkalemia Lokelema follow BMP RUE pain and swelling. Improving No compartment syndrome after vascular and orthopedic evaluation CT showing subcutaneous swelling concerning for muscle injury or infection pain likely from reperfusion injury per Ortho vascular and orthopedic team following US neg for DVT Right Hip pain. Improving CT scan showing multiple abnormalities with enlargement of surrounding tissue and fluids along multiple facial planes Concerning for possible myositis, joint infection seen by orthopedics seen by ID, no fever to indicate infection and blood cultures negative - rec to d/c abx Pain control - pain improving physical therapy following thrombocytopenia follow CBC Hypoxia 2/2 Aspiration pneumonia Not septic Question of possible fluid overload , low BNP Blood cultures negative to date initially treated with IV zosyn Wean oxygen down as tolerated Toxic metabolic encephalopathy, resolved Secondary to heroin abuse Post Narcan Advised not to use again Addiction team to follow DVT PPX-Heparin attendin - Dr. Vickers patient requires ongoing inpatient hospitalization due to need for ongoing hemodialysis, close monitoring of renal function, right arm swelling/ left hip pain Quality Stroke Does the patient have a stroke diagnosis?: No VTE Prior VTE?: No VTE Risk Level:: Medical - moderate - high VTE Device Contraindication: Treatment Not Indicated VTE Drug Contraindication: N/A - Med Ordered
[2021-12-05] MEDS: Lidocaine HCl 1 % MPF 5 ML VIAL SUBCUT (09:14)
[2021-12-05] MEDS: 0.9 % Sodium Chloride Flush 3 ML SYRINGE IVFLUSH ×4 (09:40→23:24)
--- NOTE | 2021-12-05 10:32 | MHC.CLN ---
NUTRITION PERMACATH PLACED 12/05 FOR HEMODIALYSIS. CURRENTLY NPO. WHEN DIET RESUMES, RECOMMEND DIET PER DIALYSIS PARAMETERS: 2 GRAM SODIUM, LOW POTASSIUM, LOW PHOSPHOROUS.
--- NOTE | 2021-12-05 14:50 | PC.NURSE ---
Addendum entered by Lanette Partida, RN 12/05/21 16:10: Per Corina Castaneda, BP meds given Original Note: Pt c/o headache and muscle pain while in dialysis. Tylenol and morphine IV given with some effect\. Returned to unit c/o mild headache and dizziness BP 131/110. Corina Thomas notified and instructed this RN to hold BP meds for now. Will monitor pt
[2021-12-05] MEDS: Sodium Zirconium Cyclosilicate 5 GM POWD.PACK PO (15:58)
[2021-12-05] MEDS: amLODIPine Besylate 5 MG TABLET PO ×2 (15:58→16:49)
[2021-12-05] MEDS: hydrALAZINE HCl 25 MG TABLET PO ×2 (15:58→20:49)
--- NOTE | 2021-12-05 16:19 | PM.PNNEP ---
Subjective Subjective Date of Service: 12/05/21 Interval history: Seen and examined, events noted Physical Exam Vital Signs: Vital Signs: Last Vital Signs Temp 98 F 12/05/21 15:23 Pulse 107 H 12/05/21 15:23 Resp 20 12/05/21 15:23 BP 176/106 H 12/05/21 15:23 Pulse Ox 97 12/05/21 15:23 O2 Del Method 12/05/21 15:23 O2 Flow Rate 2 12/04/21 04:00 BMI result Body Mass Index 31.8 Const: General: cooperative, comfortable, no acute distress, alert and awake Nutritional Appearance: overweight Orientation/consciousness: patient oriented x3 HEENT: Head: Yes normocephalic and Yes atraumatic Eyes: General: appearance normal, both eyes and all related structures Neck: Neck: Yes no JVD Resp: Effort & Inspection: normal respiratory effort and able to speak in complete sentences Auscultation: clear to auscultation bilaterally Cardio: Jugular venous distension: no JVD Rate: regular rate Rhythm: regular rhythm Heart sounds: S1 normal heart sound present and S2 normal heart sound present GI: Inspection: No distended Palpation (GI): not soft and nontender Auscultation: normal bowel sounds Neuro: General: patient oriented x3, moves all extremities and no focal motor deficits Extrem: Other: right arm swelling, not tense; able to extend and flex wrist and fingers. able to make fist; reports pain with movement. good peripheral pulses. General: Yes no clubbing, cyanosis or edema and Yes no pedal edema Objective Data Labs CBC & Chem 7: 12/02/21 08:34 12/05/21 05:34 Labs: Laboratory Results - last 24 hr 12/05/21 12/05/21 12/05/21 01:03 05:34 05:34 Sodium 127 L Potassium 5.4 H Chloride 96 Carbon Dioxide 14 L Anion Gap 22 H BUN 117 H D Creatinine 12.20 H* Estim Creat Clear Calc 8.6 Estimated GFR 5 Random Glucose 93 Calcium 8.1 L Troponin I High Sens 47.2 H 44.1 H Microbiology Microbiology Results: Microbiology 11/28/21 06:06 Blood - Venous Blood Culture - Final No growth after 5 days. 11/28/21 06:06 Blood - Venous Blood Culture - Final No growth after 5 days. Procedures Date of Service Date of Service: 12/05/21 Assessment & Plan Assessment and plan (1) NEHA (acute kidney injury): Status: Acute Assessment and Plan: 1. NEHA: c/wrhabdo and dense ATN and delayed recovery and remains HD dependent for now 2. Hemoaccess: Pcath placed 3. HTN Still remain hopful that he will ultimatley revoery renal func as is oftne the case in rhabdo ATN REC incr norvasc 10 qd; track BP; protect non-dominat arm; check PTH/phos level; outpt HD spot being arranged (2) Rhabdomyolysis: Status: Acute Time Spent With Patient Time: Total time spent is greater than 50% in coordination of care (as documented) at patient's floor/unit and/or counseling patient: Progress Note: Quality Stroke Does the patient have a stroke diagnosis?: No
[2021-12-05] MEDS: Heparin Sodium,Porcine 5,000 UNIT/ML VIAL 5000 UNIT SUBCUT (23:22)
[2021-12-06] VITALS (7 sets, daily range): BP systolic 141–176; BP diastolic 84–104; PULSE 62–106; RESP 18–20; TEMP 36.4–37.2; O2SAT 98–99
[2021-12-06 07:12] LABS: Anion Gap 23 (12-20); Blood Urea Nitrogen 84 mg/dL (9-16); Calcium 8.4 mg/dL (8.4-10.2); Carbon Dioxide 15 mmol/L (22-29); Chloride 98 mmol/L (96-108); Creatinine Clr Calc Pharmacy 11.1; Estimated Glomerular Filt Rate 6; Glucose Random 102 mg/dL (60-115); Potassium 5.8 mmol/L (3.3-5.1); Sodium 130 mmol/L (135-145)
[2021-12-06] MEDS: amLODIPine Besylate 10 MG TABLET PO (07:57)
[2021-12-06] MEDS: hydrALAZINE HCl 25 MG TABLET PO ×3 (07:57→20:07)
[2021-12-06] MEDS: 0.9 % Sodium Chloride Flush 3 ML SYRINGE IVFLUSH ×2 (07:58→15:59)
[2021-12-06] MEDS: Sodium Zirconium Cyclosilicate 10 GM POWD.PACK PO ×2 (07:58→18:18)
[2021-12-06] MEDS: Morphine Sulfate 2 MG/ML CARTRIDGE IVPUSH ×3 (07:58→20:07)
--- NOTE | 2021-12-06 08:19 | P.PNIM_ITS ---
Subjective Subjective Date of Service: 12/06/21 Review of Systems Follow-up NEHA, rhabdomyolysis, hemodialysis Feeling mildly better Still having right hip and right arm pain from fall Physical Exam Vital Signs: Vital Signs: Last Vital Signs Temp 98.1 F 12/06/21 07:31 Pulse 90 12/06/21 07:31 Resp 20 12/06/21 07:31 BP 176/104 H 12/06/21 07:31 Pulse Ox 99 12/06/21 07:31 O2 Del Method 12/06/21 07:31 O2 Flow Rate 2 12/04/21 04:00 BMI result Body Mass Index 31.8 Appearing in no acute distress lung sounds are clear to auscultation heart regular rate rhythm, clear S1, S2 positive bowel sounds, abdomen is soft, nontender neuro patient is alert x3, no focal deficits Right chest permacath Objective Data Active Medications Acetaminophen (Acetaminophen 325 Mg Tablet) 650 mg PO Q6H PRN PRN Reason: Pain, Mild (Pain Scale 1-3) Last Admin: 12/05/21 18:17 Dose: 650 mg Documented By: DAMIAN Amlodipine Besylate (Amlodipine Besylate 10 Mg Tablet) 10 mg PO DAILY [facility]; Protocol Last Admin: 12/06/21 07:57 Dose: 10 mg Documented By: OSVALDO Heparin Sodium (Porcine) (Heparin Sodium,Porcine 5,000 Unit/Ml Vial) 5,000 unit SUBCUT Q12H [facility] Last Admin: 12/05/21 23:22 Dose: 5,000 unit Documented By: SATHISH Hydralazine HCl (Hydralazine Hcl 25 Mg Tablet) 25 mg PO TID [facility]; Protocol Last Admin: 12/06/21 07:57 Dose: 25 mg Documented By: OSVALDO Morphine Sulfate (Morphine Sulfate 2 Mg/Ml Cartridge) 2 mg IVPUSH Q4H PRN; Protocol PRN Reason: Pain, Mild (Pain Scale 1-3) Last Admin: 12/06/21 07:58 Dose: 2 mg Documented By: OSVALDO Nitroglycerin (Nitroglycerin 0.4 Mg Tab.Subl) 0.4 mg SUBLINGUAL Q5MX3 PRN PRN Reason: Chest Pain Last Admin: 12/05/21 00:47 Dose: 0.4 mg Documented By: SATHISH Comments: ch pain Ondansetron HCl (Ondansetron Hcl 4 Mg/2 Ml Vial) 4 mg IVPUSH Q8H PRN PRN Reason: Nausea and Vomiting Last Admin: 12/03/21 19:34 Dose: 4 mg Documented By: MILLIE Pharmacy Consult (Consult Rx Perform Med Rec) 1 each MISCELLANE ONCE PRN PRN Reason: Consult order Sodium Chloride (0.9 % Sodium Chloride Flush 3 Ml Syringe) 3 ml IVFLUSH QSHIFT [facility] Last Admin: 12/06/21 07:58 Dose: 3 ml Documented By: OSVALDO Sodium Zirconium Cyclosilicate (Sodium Zirconium Cyclosilicate 10 Gm Powd.Pack) 10 gm PO DAILY [facility] Last Admin: 12/06/21 07:58 Dose: 10 gm Documented By: OSVALDO Labs CBC & Chem 7: 12/02/21 08:34 12/06/21 06:06 Labs: Laboratory Results - last 24 hr 12/06/21 06:06 Anion Gap 23 H Estim Creat Clear Calc 11.1 Estimated GFR 6 Random Glucose 102 Calcium 8.4 Assessment and Plan (1) Leukocytosis: Status: Acute (2) Right upper limb pain: Status: Acute (3) Rhabdomyolysis: Status: Acute (4) NEHA (acute kidney injury): Status: Acute Plan 46 years old male with PMH of smoking, alcoholism who presents to the hospital after being found altered in his shower after using heroin. Acute kidney injury, metabolic acidosis Secondary to ATN/rhabdomyolysis normal renal ultrasound CPK trending down, but creat trending up>better after dialysis Nephrology following>making urine but not appropriately clearing urea, consistent with ATN permacath placed Follow BMP HYponatremia likely from fluid,better after dialysis follow BMP Hyperkalemia Lokelema follow BMP RUE pain and swelling. Improving No compartment syndrome after vascular and orthopedic evaluation CT showing subcutaneous swelling concerning for muscle injury or infection pain likely from reperfusion injury per Ortho vascular and orthopedic team following US neg for DVT Right Hip pain. Improving CT scan showing multiple abnormalities with enlargement of surrounding tissue and fluids along multiple facial planes Concerning for possible myositis, joint infection seen by orthopedics seen by ID, no fever to indicate infection and blood cultures negative - rec to d/c abx Pain control - pain improving physical therapy following thrombocytopenia follow CBC Hypoxia 2/2 Aspiration pneumonia Not septic Question of possible fluid overload , low BNP Blood cultures negative to date initially treated with IV zosyn Wean oxygen down as tolerated Toxic metabolic encephalopathy, resolved Secondary to heroin abuse Post Narcan Advised not to use again Addiction team to follow DVT PPX-Heparin attendin - Dr. Vickers DISPO plan for rehab with dialysis patient requires ongoing inpatient hospitalization due to need for ongoing hemodialysis, close monitoring of renal function, right arm swelling/ left hip pain, pending safe rehab placement Quality Stroke Does the patient have a stroke diagnosis?: No VTE Prior VTE?: No VTE Risk Level:: Medical - moderate - high VTE Device Contraindication: Treatment Not Indicated VTE Drug Contraindication: N/A - Med Ordered
[2021-12-06] MEDS: Heparin Sodium,Porcine 5,000 UNIT/ML VIAL 5000 UNIT SUBCUT ×2 (12:03→23:50)
--- NOTE | 2021-12-06 15:32 | PC.NURSE ---
byers cath removed at 113o 100mls
--- NOTE | 2021-12-06 17:23 | PM.PNNEP ---
Subjective Subjective Date of Service: 12/06/21 Interval history: Seen and examined, events noted Banana and OJon bedisde table!! K this am 5.8 despite HD yesterday Physical Exam Vital Signs: Vital Signs: Last Vital Signs Temp 98.4 F 12/06/21 16:00 Pulse 62 12/06/21 16:00 Resp 18 12/06/21 16:00 BP 170/90 H 12/06/21 16:00 Pulse Ox 98 12/06/21 16:00 O2 Del Method 12/06/21 16:00 O2 Flow Rate 2 12/04/21 04:00 BMI result Body Mass Index 31.8 Const: General: cooperative, comfortable, no acute distress, alert and awake Nutritional Appearance: overweight Orientation/consciousness: patient oriented x3 HEENT: Head: Yes normocephalic and Yes atraumatic Eyes: General: appearance normal, both eyes and all related structures Neck: Neck: Yes no JVD Resp: Effort & Inspection: normal respiratory effort and able to speak in complete sentences Auscultation: clear to auscultation bilaterally Cardio: Jugular venous distension: no JVD Rate: regular rate Rhythm: regular rhythm Heart sounds: S1 normal heart sound present and S2 normal heart sound present GI: Inspection: No distended Palpation (GI): not soft and nontender Auscultation: normal bowel sounds Neuro: General: patient oriented x3, moves all extremities and no focal motor deficits Extrem: Other: right arm swelling, not tense; able to extend and flex wrist and fingers. able to make fist; reports pain with movement. good peripheral pulses. General: Yes no clubbing, cyanosis or edema and Yes no pedal edema Objective Data Labs CBC & Chem 7: 12/02/21 08:34 12/06/21 06:06 Labs: Laboratory Results - last 24 hr 12/06/21 06:06 Sodium 130 L Potassium 5.8 H Chloride 98 Carbon Dioxide 15 L Anion Gap 23 H BUN 84 H D Creatinine 9.42 H* Estim Creat Clear Calc 11.1 Estimated GFR 6 Random Glucose 102 Calcium 8.4 Microbiology Microbiology Results: Microbiology 11/28/21 06:06 Blood - Venous Blood Culture - Final No growth after 5 days. 11/28/21 06:06 Blood - Venous Blood Culture - Final No growth after 5 days. Procedures Date of Service Date of Service: 12/06/21 Assessment & Plan Assessment and plan (1) NEHA (acute kidney injury): Status: Acute Assessment and Plan: 1. NEHA: c/wrhabdo and dense ATN and delayed recovery and remains HD dependent for now 2. Hemoaccess: Pcath placed 3. HTN 4. HyperK 5.NAGMA Still remain hopful that he will ultimatley revoery renal func as is oftne the case in rhabdo ATN RE: enforce 2 gm K restriction --no bananas, OJ, poatotoes; lokelma q 6 hrs x 3; NaHCO3 650 tid; HD in am; add clonidine 0.1bid; d/c planning protect non-dominat arm; check PTH/phos level; outpt HD spot being arrangedbut may be snafu d/t insurance issues (2) Rhabdomyolysis: Status: Acute Time Spent With Patient Time: Total time spent is greater than 50% in coordination of care (as documented) at patient's floor/unit and/or counseling patient: Progress Note: Quality Stroke Does the patient have a stroke diagnosis?: No
[2021-12-06] MEDS: Sodium Bicarbonate 650 MG TABLET PO ×2 (18:18→20:07)
[2021-12-06 21:43] LABS: Anion Gap 20 (12-20); Carbon Dioxide 16 mmol/L (22-29); Chloride 98 mmol/L (96-108); Potassium 5.3 mmol/L (3.3-5.1); Sodium 129 mmol/L (135-145)
[2021-12-07] VITALS (7 sets, daily range): BP systolic 145–185; BP diastolic 75–100; PULSE 88–104; RESP 12–20; TEMP 36.5–38.4; O2SAT 98–100
[2021-12-07] MEDS: 0.9 % Sodium Chloride Flush 3 ML SYRINGE IVFLUSH ×4 (01:14→20:02)
[2021-12-07] MEDS: Acetaminophen 325 MG TABLET 650 MG PO ×2 (03:40→23:36)
[2021-12-07] MEDS: Sodium Bicarbonate 650 MG TABLET PO ×4 (08:07→20:02)
[2021-12-07] MEDS: Sodium Zirconium Cyclosilicate 10 GM POWD.PACK PO (08:08)
[2021-12-07] MEDS: hydrALAZINE HCl 25 MG TABLET PO ×3 (08:08→20:02)
[2021-12-07] MEDS: amLODIPine Besylate 10 MG TABLET PO (08:08)
[2021-12-07 09:24] LABS: Anion Gap 22 (12-20); Blood Urea Nitrogen 114 mg/dL (9-16); Carbon Dioxide 15 mmol/L (22-29); Chloride 99 mmol/L (96-108); Creatinine Clr Calc Pharmacy 9.3; Estimated Glomerular Filt Rate 5; Glucose Random 95 mg/dL (60-115); Potassium 5.8 mmol/L (3.3-5.1); Sodium 130 mmol/L (135-145)
[2021-12-07] MEDS: Morphine Sulfate 2 MG/ML CARTRIDGE IVPUSH ×2 (12:42→20:02)
--- NOTE | 2021-12-07 13:42 | MHC.CM.PN ---
[facility] DENIED A BED OFFER [facility] REFERRAL EXTENDED TO [facility], [facility], AND [facility].
--- NOTE | 2021-12-07 14:05 | HO.PM.IMPN ---
Subjective Subjective Date of Service: 12/07/21 Interval History: Seen and evaluated in the assess unit this morning Swelling and pain decreased in his right upper extremity and hip Potassium still elevated at 5.8 No reported other complaints Review of Systems No fever, chills but has generalized weakness No chest pain, palpitation No shortness of breath or coughing No abdominal pain, nausea or vomiting No urinary symptoms No any rash or wounds Having pain his right elbow which has improved, improved pain in the right hip Physical Exam Vital Signs: Vital Signs: Last Vital Signs Temp 98.7 F 12/07/21 07:41 Pulse 88 12/07/21 07:41 Resp 14 12/07/21 07:41 BP 145/89 H 12/07/21 07:41 Pulse Ox 98 12/07/21 07:41 O2 Del Method 12/07/21 07:41 O2 Flow Rate 2 12/04/21 04:00 BMI result Body Mass Index 31.8 Const: Other: Constitutional : Alert, interactive Neck : Normal inspection, Supple Cardiovascular : RRR, no JVP, no lower extremity edema Respiratory : fair bilateral air entry, no crackles, wheezes or rhonchi Gastrointestinal: soft, lax, Normal bowel sounds, Non tender Skin : Warm, Dry, PermCath in place Musculoskeletal: Decreased Stiffness and pain in right hip with improved swelling in the right elbow with mild tenderness, significantly improved range of motion Neurological : Alert & oriented to self and place, No focal deficit , CN 2-12 within normal Vascular: has good pulses in right upper and right lower extremities Objective Data Active Medications Acetaminophen (Acetaminophen 325 Mg Tablet) 650 mg PO Q6H PRN PRN Reason: Pain, Mild (Pain Scale 1-3) Last Admin: 12/07/21 03:40 Dose: 650 mg Documented By: BENJAMIN Amlodipine Besylate (Amlodipine Besylate 10 Mg Tablet) 10 mg PO DAILY [facility]; Protocol Last Admin: 12/07/21 08:08 Dose: 10 mg Documented By: HILARY Heparin Sodium (Porcine) (Heparin Sodium,Porcine 5,000 Unit/Ml Vial) 5,000 unit SUBCUT Q12H [facility] Last Admin: 12/07/21 10:41 Dose: Not Given Documented By: MEDARDO Non-Admin Reason: Off unit: Dialysis Hydralazine HCl (Hydralazine Hcl 25 Mg Tablet) 25 mg PO TID [facility]; Protocol Last Admin: 12/07/21 08:08 Dose: 25 mg Documented By: HILARY Morphine Sulfate (Morphine Sulfate 2 Mg/Ml Cartridge) 2 mg IVPUSH Q4H PRN; Protocol PRN Reason: Pain, Mild (Pain Scale 1-3) Last Admin: 12/07/21 12:42 Dose: 2 mg Documented By: HILARY Nitroglycerin (Nitroglycerin 0.4 Mg Tab.Subl) 0.4 mg SUBLINGUAL Q5MX3 PRN PRN Reason: Chest Pain Last Admin: 12/05/21 00:47 Dose: 0.4 mg Documented By: SATHISH Comments: ch pain Ondansetron HCl (Ondansetron Hcl 4 Mg/2 Ml Vial) 4 mg IVPUSH Q8H PRN PRN Reason: Nausea and Vomiting Last Admin: 12/03/21 19:34 Dose: 4 mg Documented By: MILLIE Pharmacy Consult (Consult Rx Perform Med Rec) 1 each MISCELLANE ONCE PRN PRN Reason: Consult order Sodium Bicarbonate (Sodium Bicarbonate 650 Mg Tablet) 650 mg PO QID [facility] Last Admin: 12/07/21 12:42 Dose: 650 mg Documented By: HILARY Sodium Chloride (0.9 % Sodium Chloride Flush 3 Ml Syringe) 3 ml IVFLUSH QSHIFT [facility] Last Admin: 12/07/21 08:11 Dose: 3 ml Documented By: HILARY Sodium Zirconium Cyclosilicate (Sodium Zirconium Cyclosilicate 10 Gm Powd.Pack) 10 gm PO DAILY [facility] Last Admin: 12/07/21 08:08 Dose: 10 gm Documented By: HILARY Labs CBC & Chem 7: 12/02/21 08:34 12/07/21 08:24 Labs: Laboratory Results - last 24 hr 12/06/21 12/07/21 21:25 08:24 Anion Gap 20 22 H Estim Creat Clear Calc 9.3 Estimated GFR 5 Random Glucose 95 Calcium 8.0 L Assessment and Plan (1) Right upper limb pain: Status: Acute (2) Hip pain, right: Status: Acute (3) NEHA (acute kidney injury): Status: Acute (4) Rhabdomyolysis: Status: Acute Plan 46 years old male with PMH of smoking, alcoholism who presents to the hospital after being found altered in his shower after using heroin. Acute renal failure requiring dialysis, metabolic acidosis Secondary to ATN/rhabdomyolysis normal renal ultrasound CPK trending down, but creat trending up>better after dialysis Nephrology following> not appropriately clearing urea, consistent with ATN Continue sodium bicarb permacath placed , Continue with dialysis Follow BMP HYponatremia likely from fluid,better after dialysis follow BMP Hyperkalemia Potassium 5.8 Lokelema, Kayexalate follow BMP RUE pain and swelling. Improving No compartment syndrome after vascular and orthopedic evaluation CT showing subcutaneous swelling concerning for muscle injury or infection pain likely from reperfusion injury per Ortho vascular and orthopedic team following US neg for DVT Right Hip pain. Improving CT scan showing multiple abnormalities with enlargement of surrounding tissue and fluids along multiple facial planes Concerning for possible myositis, joint infection seen by orthopedics seen by ID, no fever to indicate infection and blood cultures negative - rec to d/c abx Pain control - pain improving physical therapy following thrombocytopenia follow CBC Hypertension Started on amlodipine and hydralazine Monitor response Hypoxia 2/2 Aspiration pneumonia Not septic Question of possible fluid overload , low BNP Blood cultures negative to date initially treated with IV zosyn Wean oxygen down as tolerated Toxic metabolic encephalopathy, resolved Secondary to heroin abuse Post Narcan Advised not to use again Addiction team to follow DVT PPX-Heparin attendin - Dr. Vikcers DISPO plan for rehab with dialysis patient requires ongoing inpatient hospitalization due to need for ongoing hemodialysis, close monitoring of renal function, right arm swelling/ left hip pain, pending safe rehab placement Quality Stroke Does the patient have a stroke diagnosis?: No VTE Prior VTE?: No VTE Risk Level:: Medical - moderate - high VTE Device Contraindication: Treatment Not Indicated VTE Drug Contraindication: N/A - Med Ordered
[2021-12-07] MEDS: Sodium Polystyrene Sulfon/Sorb 15 GM/60 ML ORAL.SUSP 30 GM PO (14:22)
--- NOTE | 2021-12-07 17:52 | PM.PNNEP ---
Subjective Subjective Date of Service: 12/07/21 Interval history: Seen and examined Currenlty on HD Physical Exam Vital Signs: Vital Signs: Last Vital Signs Temp 98.8 F 12/07/21 15:36 Pulse 94 12/07/21 15:36 Resp 20 12/07/21 15:36 BP 184/91 H 12/07/21 15:36 Pulse Ox 100 12/07/21 15:36 O2 Del Method 12/07/21 15:36 O2 Flow Rate 2 12/04/21 04:00 BMI result Body Mass Index 31.8 Const: General: cooperative, comfortable, no acute distress, alert and awake Nutritional Appearance: overweight Orientation/consciousness: patient oriented x3 HEENT: Head: Yes normocephalic and Yes atraumatic Eyes: General: appearance normal, both eyes and all related structures Neck: Neck: Yes no JVD Resp: Effort & Inspection: normal respiratory effort and able to speak in complete sentences Auscultation: clear to auscultation bilaterally Cardio: Jugular venous distension: no JVD Rate: regular rate Rhythm: regular rhythm Heart sounds: S1 normal heart sound present and S2 normal heart sound present GI: Inspection: No distended Palpation (GI): not soft and nontender Auscultation: normal bowel sounds Neuro: General: patient oriented x3, moves all extremities and no focal motor deficits Extrem: Other: right arm swelling, not tense; able to extend and flex wrist and fingers. able to make fist; reports pain with movement. good peripheral pulses. General: Yes no clubbing, cyanosis or edema and Yes no pedal edema Objective Data Labs CBC & Chem 7: 12/02/21 08:34 12/07/21 08:24 Labs: Laboratory Results - last 24 hr 12/06/21 12/07/21 21:25 08:24 Sodium 129 L 130 L Potassium 5.3 H 5.8 H Chloride 98 99 Carbon Dioxide 16 L 15 L Anion Gap 20 22 H BUN 114 H D Creatinine 11.30 H* Estim Creat Clear Calc 9.3 Estimated GFR 5 Random Glucose 95 Calcium 8.0 L Microbiology Microbiology Results: Microbiology 11/28/21 06:06 Blood - Venous Blood Culture - Final No growth after 5 days. 11/28/21 06:06 Blood - Venous Blood Culture - Final No growth after 5 days. Procedures Date of Service Date of Service: 12/07/21 Assessment & Plan Assessment and plan (1) NEHA (acute kidney injury): Status: Acute Assessment and Plan: 1. NEHA: c/wrhabdo and dense ATN and delayed recovery and remains HD dependent for now 2. Hemoaccess: Pcath placed 3. HTN 4. HyperK 5.NAGMA Still remain hopful that he will ultimatley revoery renal func as is oftne the case in rhabdo ATN RE: enforce 2 gm K restriction --no bananas, OJ, poatotoes; lokelma as needed; NaHCO3 650 tid; HD mwf; add clonidine 0.1bid; d/c planning protect non-dominat arm; check PTH/phos level; outpt HD spot being arranged but a snafu d/t insurance issues--exploring all options (2) Rhabdomyolysis: Status: Acute Time Spent With Patient Time: Total time spent is greater than 50% in coordination of care (as documented) at patient's floor/unit and/or counseling patient: Progress Note: Quality Stroke Does the patient have a stroke diagnosis?: No
[2021-12-07 20:26] LABS: Anion Gap 15 (12-20); Blood Urea Nitrogen 53 mg/dL (9-16); Calcium 7.6 mg/dL (8.4-10.2); Carbon Dioxide 22 mmol/L (22-29); Chloride 101 mmol/L (96-108); Creatinine Clr Calc Pharmacy 15.5; Estimated Glomerular Filt Rate 9; Glucose Random 136 mg/dL (60-115); Potassium 4.2 mmol/L (3.3-5.1); Sodium 134 mmol/L (135-145)
[2021-12-07] MEDS: Heparin Sodium,Porcine 5,000 UNIT/ML VIAL 5000 UNIT SUBCUT (23:36)
[2021-12-08 04:00] VITALS: BP 163/96; PULSE 92; RESP 17; TEMP 36.6; O2SAT 91
[2021-12-08 05:40] LABS: Hematocrit 29.5 % (42.0-52.0); Hemoglobin 10.3 g/dl (14.0-18.0); Mean Corpuscular HGB Conc 34.9 g/dl (31.0-36.0); Mean Corpuscular Hemoglobin 33.9 pg (27.0-33.0); Mean Platelet Volume 10.9 fL (9.4-12.4); Platelet Count 209 X10*3/uL (160-400); Red Blood Count 3.04 X10*6/uL (4.60-5.80); Red Cell Distribution Width 13.1 % (11.0-16.0)
[2021-12-08 06:16] LABS: Anion Gap 17 (12-20); Blood Urea Nitrogen 61 mg/dL (9-16); Calcium 7.9 mg/dL (8.4-10.2); Carbon Dioxide 20 mmol/L (22-29); Chloride 99 mmol/L (96-108); Estimated Glomerular Filt Rate 8; Glucose Random 90 mg/dL (60-115); Potassium 4.3 mmol/L (3.3-5.1); Sodium 132 mmol/L (135-145)
[2021-12-08 07:43] VITALS: BP 169/95; PULSE 93; RESP 17; TEMP 37; O2SAT 97
[2021-12-08] MEDS: Sodium Bicarbonate 650 MG TABLET PO ×4 (07:52→20:42)
[2021-12-08] MEDS: hydrALAZINE HCl 25 MG TABLET PO ×3 (07:52→20:43)
[2021-12-08] MEDS: amLODIPine Besylate 10 MG TABLET PO (07:52)
[2021-12-08] MEDS: Sodium Zirconium Cyclosilicate 10 GM POWD.PACK PO (07:52)
[2021-12-08] MEDS: 0.9 % Sodium Chloride Flush 3 ML SYRINGE IVFLUSH ×3 (07:53→20:43)
[2021-12-08 07:58] LABS: Iron 73 mcg/dL (45-160); Percent Iron Saturation 26 % (15-50); Total Iron Binding Capacity 282 mcg/dL (228-428); Unsaturated Iron Binding 209 ug/dL
--- NOTE | 2021-12-08 11:01 | P.PNIM_ITS ---
Subjective Subjective Date of Service: 12/08/21 Interval History: Seen and evaluated in the assess unit this morning Swelling and pain decreased in his right upper extremity and hip Potassium improved to 4.3 No reported other complaints Review of Systems No fever, chills but has generalized weakness No chest pain, palpitation No shortness of breath or coughing No abdominal pain, nausea or vomiting No urinary symptoms No any rash or wounds Having pain his right elbow which has improved, improved pain in the right hip Physical Exam Vital Signs: Vital Signs: Last Vital Signs Temp 98.6 F 12/08/21 07:43 Pulse 93 12/08/21 07:43 Resp 17 12/08/21 07:43 BP 169/95 H 12/08/21 07:43 Pulse Ox 97 12/08/21 07:43 O2 Del Method 12/08/21 07:43 O2 Flow Rate 2 12/04/21 04:00 BMI result Body Mass Index 31.8 Const: Other: Constitutional : Alert, interactive Neck : Normal inspection, Supple Cardiovascular : RRR, no JVP, no lower extremity edema Respiratory : fair bilateral air entry, no crackles, wheezes or rhonchi Gastrointestinal: soft, lax, Normal bowel sounds, Non tender Skin : Warm, Dry, PermCath in place Musculoskeletal: Decreased Stiffness and pain in right hip with improved swelling in the right elbow with mild tenderness, significantly improved range of motion Neurological : Alert & oriented to self and place, No focal deficit , CN 2-12 within normal Vascular: has good pulses in right upper and right lower extremities Objective Data Active Medications Acetaminophen (Acetaminophen 325 Mg Tablet) 650 mg PO Q6H PRN PRN Reason: Pain, Mild (Pain Scale 1-3) Last Admin: 12/07/21 23:36 Dose: 650 mg Documented By: XIOMARA Amlodipine Besylate (Amlodipine Besylate 10 Mg Tablet) 10 mg PO DAILY [facility]; Protocol Last Admin: 12/08/21 07:52 Dose: 10 mg Documented By: HILARY Heparin Sodium (Porcine) (Heparin Sodium,Porcine 5,000 Unit/Ml Vial) 5,000 unit SUBCUT Q12H [facility] Last Admin: 12/07/21 23:36 Dose: 5,000 unit Documented By: XIOMARA Hydralazine HCl (Hydralazine Hcl 25 Mg Tablet) 25 mg PO TID [facility]; Protocol Last Admin: 12/08/21 07:52 Dose: 25 mg Documented By: HILARY Morphine Sulfate (Morphine Sulfate 2 Mg/Ml Cartridge) 2 mg IVPUSH Q4H PRN; Protocol PRN Reason: Pain, Mild (Pain Scale 1-3) Last Admin: 12/07/21 20:02 Dose: 2 mg Documented By: XIOMARA Nitroglycerin (Nitroglycerin 0.4 Mg Tab.Subl) 0.4 mg SUBLINGUAL Q5MX3 PRN PRN Reason: Chest Pain Last Admin: 12/05/21 00:47 Dose: 0.4 mg Documented By: SATHISH Comments: ch pain Ondansetron HCl (Ondansetron Hcl 4 Mg/2 Ml Vial) 4 mg IVPUSH Q8H PRN PRN Reason: Nausea and Vomiting Last Admin: 12/03/21 19:34 Dose: 4 mg Documented By: MILLIE Pharmacy Consult (Consult Rx Perform Med Rec) 1 each MISCELLANE ONCE PRN PRN Reason: Consult order Sodium Bicarbonate (Sodium Bicarbonate 650 Mg Tablet) 650 mg PO QID [facility] Last Admin: 12/08/21 07:52 Dose: 650 mg Documented By: HILARY Sodium Chloride (0.9 % Sodium Chloride Flush 3 Ml Syringe) 3 ml IVFLUSH QSHIFT [facility] Last Admin: 12/08/21 07:53 Dose: 3 ml Documented By: HILARY Sodium Zirconium Cyclosilicate (Sodium Zirconium Cyclosilicate 10 Gm Powd.Pack) 10 gm PO DAILY [facility] Last Admin: 12/08/21 07:52 Dose: 10 gm Documented By: HILARY Labs CBC & Chem 7: 12/08/21 05:21 12/08/21 05:21 Labs: Laboratory Results - last 24 hr 12/07/21 12/08/21 12/08/21 20:04 05:21 05:21 MCV 97.0 MCH 33.9 H MCHC 34.9 RDW 13.1 Plt Count 209 D MPV 10.9 Absolute Nucleated RBC 0.000 Nucleated RBC % (auto) 0.0 Anion Gap 15 17 Estim Creat Clear Calc 15.5 14.0 Estimated GFR 9 8 Random Glucose 136 H D 90 Calcium 7.6 L 7.9 L Iron 73 TIBC 282 % Saturation 26 Unsat Iron Binding 209 Assessment and Plan (1) NEHA (acute kidney injury): Status: Acute (2) Rhabdomyolysis: Status: Acute Plan 46 years old male with PMH of smoking, alcoholism who presents to the hospital after being found altered in his shower after using heroin. Acute renal failure requiring dialysis, metabolic acidosis Secondary to ATN/rhabdomyolysis normal renal ultrasound Nephrology following> not appropriately clearing urea, consistent with ATN, continue dialysis Continue sodium bicarb permacath placed , Continue with dialysis Follow BMP Unable to find an outpatient dialysis center yet to accept him, will continue dialysis during inpatient stay HYponatremia likely from fluid,better after dialysis follow BMP Hyperkalemia Improved Lokelema follow BMP RUE pain and swelling. Improving No compartment syndrome after vascular and orthopedic evaluation CT showing subcutaneous swelling concerning for muscle injury or infection pain likely from reperfusion injury per Ortho vascular and orthopedic team following US neg for DVT Right Hip pain. Improving CT scan showing multiple abnormalities with enlargement of surrounding tissue and fluids along multiple facial planes Concerning for possible myositis, joint infection seen by orthopedics seen by ID, no fever to indicate infection and blood cultures negative - rec to d/c abx Pain control - pain improving physical therapy following thrombocytopenia follow CBC Hypertension Started on amlodipine and hydralazine Monitor response Hypoxia 2/2 Aspiration pneumonia Not septic Question of possible fluid overload , low BNP Blood cultures negative to date initially treated with IV zosyn Wean oxygen down as tolerated Toxic metabolic encephalopathy, resolved Secondary to heroin abuse Post Narcan Advised not to use again Addiction team to follow DVT PPX-Heparin attendin - Dr. Vickers DISPO plan for rehab with dialysis patient requires ongoing inpatient hospitalization due to need for ongoing hemodialysis, close monitoring of renal function, right arm swelling/ left hip pain, pending safe rehab placement Quality Stroke Does the patient have a stroke diagnosis?: No VTE Prior VTE?: No VTE Risk Level:: Medical - moderate - high VTE Device Contraindication: Treatment Not Indicated VTE Drug Contraindication: N/A - Med Ordered
[2021-12-08 11:04] LABS: OBS Int Ctl Valid YES; OBS1 NEGATIVE (NEGATIVE)
[2021-12-08 11:12] VITALS: BP 169/95; PULSE 93; O2SAT 97
[2021-12-08 11:30] VITALS: BP 170/93; PULSE 107; RESP 16; TEMP 37.8; O2SAT 98
[2021-12-08] MEDS: Heparin Sodium,Porcine 5,000 UNIT/ML VIAL 5000 UNIT SUBCUT (13:25)
[2021-12-08] MEDS: Morphine Sulfate 2 MG/ML CARTRIDGE IVPUSH ×2 (14:50→20:42)
[2021-12-08 15:32] VITALS: BP 157/77; PULSE 106; RESP 19; TEMP 37.5; O2SAT 99
[2021-12-08 16:47] LABS: Cryoglobulin, Qual NONE DETECTED ((NDT))
--- NOTE | 2021-12-08 18:41 | PM.PNNEP ---
Subjective Subjective Date of Service: 12/08/21 Interval history: Seen and examined, events note Physical Exam Vital Signs: Vital Signs: Last Vital Signs Temp 99.5 F 12/08/21 15:32 Pulse 106 H 12/08/21 15:32 Resp 19 12/08/21 15:32 BP 157/77 H 12/08/21 15:32 Pulse Ox 99 12/08/21 15:32 O2 Del Method 12/08/21 15:32 O2 Flow Rate 2 12/04/21 04:00 BMI result Body Mass Index 31.8 Const: General: cooperative, comfortable, no acute distress, alert and awake Nutritional Appearance: overweight Orientation/consciousness: patient oriented x3 HEENT: Head: Yes normocephalic and Yes atraumatic Eyes: General: appearance normal, both eyes and all related structures Neck: Neck: Yes no JVD Resp: Effort & Inspection: normal respiratory effort and able to speak in complete sentences Auscultation: clear to auscultation bilaterally Cardio: Jugular venous distension: no JVD Rate: regular rate Rhythm: regular rhythm Heart sounds: S1 normal heart sound present and S2 normal heart sound present GI: Inspection: No distended Palpation (GI): not soft and nontender Auscultation: normal bowel sounds Neuro: General: patient oriented x3, moves all extremities and no focal motor deficits Extrem: Other: right arm swelling, not tense; able to extend and flex wrist and fingers. able to make fist; reports pain with movement. good peripheral pulses. General: Yes no clubbing, cyanosis or edema and Yes no pedal edema Objective Data Labs CBC & Chem 7: 12/08/21 05:21 12/08/21 05:21 Labs: Laboratory Results - last 24 hr 11/29/21 12/07/21 12/08/21 07:06 20:04 05:21 WBC 16.0 H RBC 3.04 L D Hgb 10.3 L D Hct 29.5 L D MCV 97.0 MCH 33.9 H MCHC 34.9 RDW 13.1 Plt Count 209 D MPV 10.9 Absolute Nucleated RBC 0.000 Nucleated RBC % (auto) 0.0 Sodium 134 L Potassium 4.2 D Chloride 101 Carbon Dioxide 22 Anion Gap 15 BUN 53 H D Creatinine 6.77 H* Estim Creat Clear Calc 15.5 Estimated GFR 9 Random Glucose 136 H D Calcium 7.6 L Iron TIBC % Saturation Unsat Iron Binding Stool Occult Blood Cryoglobulin NONE DETECTED 12/08/21 12/08/21 05:21 10:50 WBC RBC Hgb Hct MCV MCH MCHC RDW Plt Count MPV Absolute Nucleated RBC Nucleated RBC % (auto) Sodium 132 L Potassium 4.3 Chloride 99 Carbon Dioxide 20 L Anion Gap 17 BUN 61 H Creatinine 7.49 H* Estim Creat Clear Calc 14.0 Estimated GFR 8 Random Glucose 90 Calcium 7.9 L Iron 73 TIBC 282 % Saturation 26 Unsat Iron Binding 209 Stool Occult Blood NEGATIVE Cryoglobulin Microbiology Microbiology Results: Microbiology 11/28/21 06:06 Blood - Venous Blood Culture - Final No growth after 5 days. 11/28/21 06:06 Blood - Venous Blood Culture - Final No growth after 5 days. Procedures Date of Service Date of Service: 12/08/21 Assessment & Plan Assessment and plan (1) NEHA (acute kidney injury): Status: Acute Assessment and Plan: 1. NEHA: c/wrhabdo and dense ATN and delayed recovery and remains HD dependent for now 2. Hemoaccess: Pcath placed 3. HTN 4. HyperK 5.NAGMA Still remain hopful that he will ultimatley revoery renal func as is oftne the case in rhabdo ATN; UOP trending up RE: enforce 2 gm K restriction --no bananas, OJ, poatotoes; lokelma as needed; NaHCO3 650 tid; HD mwf; cont clonidine 0.1bid; d/c planning protect non-dominat arm; check PTH/phos level; outpt HD spot being arranged but a snafu d/t insurance issues--exploring all options (2) Rhabdomyolysis: Status: Acute Time Spent With Patient Time: Total time spent is greater than 50% in coordination of care (as documented) at patient's floor/unit and/or counseling patient: Progress Note: Quality Stroke Does the patient have a stroke diagnosis?: No
[2021-12-08 19:35] VITALS: BP 167/98; PULSE 100; RESP 18; TEMP 37.2; O2SAT 100
[2021-12-09] VITALS: BP 145/88; PULSE 103; RESP 18; TEMP 37.4; O2SAT 97
[2021-12-09] MEDS: Morphine Sulfate 2 MG/ML CARTRIDGE IVPUSH (00:41)
[2021-12-09] MEDS: Heparin Sodium,Porcine 5,000 UNIT/ML VIAL 5000 UNIT SUBCUT ×2 (00:42→22:55)
[2021-12-09 04:00] VITALS: BP 161/90; PULSE 103; RESP 18; TEMP 37.2; O2SAT 97
[2021-12-09 06:18] LABS: Hematocrit 27.6 % (42.0-52.0); Hemoglobin 9.7 g/dl (14.0-18.0); Mean Corpuscular HGB Conc 35.1 g/dl (31.0-36.0); Mean Corpuscular Hemoglobin 33.9 pg (27.0-33.0); Mean Corpuscular Volume 96.5 fL (80.0-98.0); Mean Platelet Volume 10.3 fL (9.4-12.4); Platelet Count 230 X10*3/uL (160-400); Red Blood Count 2.86 X10*6/uL (4.60-5.80); Red Cell Distribution Width 12.8 % (11.0-16.0); White Blood Count 19.1 X10*3/uL (4.8-10.8)
[2021-12-09 07:36] VITALS: BP 158/93; PULSE 100; RESP 20; TEMP 37.4; O2SAT 99
[2021-12-09 08:21] LABS: Immature Retic Fraction 15.9 % (2.3-13.4); Retic HGB Equivalent 37.8 pg (30.0-35.0); Reticulocyte Percent 2.8 % (0.5-1.8); Reticulocytes Absolute 0.078 X10*6/uL (0.026-0.095)
[2021-12-09 08:40] LABS: Bilirubin Direct 0.3 mg/dL (0.0-0.5); Bilirubin Total 0.5 mg/dL (0.0-1.0); Lactate Dehydrogenase 403 U/L (118-273)
[2021-12-09] MEDS: 0.9 % Sodium Chloride Flush 3 ML SYRINGE IVFLUSH ×2 (08:49→17:25)
[2021-12-09] MEDS: Acetaminophen 325 MG TABLET 650 MG PO ×2 (09:14→14:27)
--- NOTE | 2021-12-09 11:04 | P.PNNP_ITS ---
Subjective Subjective Date of Service: 12/09/21 Interval history: Seen on HD this morning, Events noted. D/W HD RN Physical Exam Vital Signs: Vital Signs: Last Vital Signs Temp 99.3 F 12/09/21 07:36 Pulse 100 12/09/21 07:36 Resp 20 12/09/21 07:36 BP 158/93 H 12/09/21 07:36 Pulse Ox 99 12/09/21 07:36 O2 Del Method 12/09/21 07:36 O2 Flow Rate 2 12/04/21 04:00 BMI result Body Mass Index 31.8 Const: General: no acute distress Orientation/consciousness: patient o riented x3 Eyes: EOM: EOMs intact bilaterally Resp: Auscultation: diminished lung sounds Cardio: Rate: regular rate GI: Palpation (GI): Soft to palpation Neuro: General: patient oriented x3 and moves all extremities Objective Data Labs CBC & Chem 7: 12/09/21 06:06 12/08/21 05:21 Labs: Laboratory Results - last 24 hr 11/29/21 12/08/21 12/08/21 07:06 05:21 10:50 WBC RBC Hgb Hct MCV MCH MCHC RDW Plt Count MPV Absolute Nucleated RBC Nucleated RBC % (auto) Smear Path Review Absolute Retic Percent Retic Immature Retic Fraction Retic Hgb Equivalent Total Bilirubin 0.5 Direct Bilirubin 0.3 Lactate Dehydrogenase 403 H Stool Occult Blood NEGATIVE Cryoglobulin NONE DETECTED Cryoglobulin Cryocrit TNP 12/09/21 06:06 WBC 19.1 H RBC 2.86 L Hgb 9.7 L Hct 27.6 L MCV 96.5 MCH 33.9 H MCHC 35.1 RDW 12.8 Plt Count 230 MPV 10.3 Absolute Nucleated RBC 0.000 Nucleated RBC % (auto) 0.0 Smear Path Review SEE NOTE Absolute Retic 0.078 Percent Retic 2.8 H Immature Retic Fraction 15.9 H Retic Hgb Equivalent 37.8 H Total Bilirubin Direct Bilirubin Lactate Dehydrogenase Stool Occult Blood Cryoglobulin Cryoglobulin Cryocrit Microbiology Microbiology Results: Microbiology 11/28/21 06:06 Blood - Venous Blood Culture - Final No growth after 5 days. 11/28/21 06:06 Blood - Venous Blood Culture - Final No growth after 5 days. Procedures Date of Service Date of Service: 12/09/21 Assessment & Plan Assessment and plan (1) NEHA (acute kidney injury): Status: Acute Assessment and Plan: Acute Kidney Injury consistent with rhabdomyolysis and dense ATN with delayed r ecovery Remains HD dependent for now; Seen on HD this AM. Tolerating HD; Hemodynamics stable on HD Has a Pcath which is functioning well; Feels UO is marginally better Blood pressure needs to be maintained at goal; C/W rest of current management Time Spent With Patient Time: Total time spent is greater than 50% in coordination of care (as documented) at patient's floor/unit and/or counseling patient: Progress Note: Quality Stroke Does the patient have a stroke diagnosis?: No
--- NOTE | 2021-12-09 13:14 | P.PNIM_ITS ---
Subjective Subjective Date of Service: 12/09/21 Interval History: Seen and evaluated in the assess unit this morning Swelling and pain decreased in his right upper extremity and hip Plan for dialysis today No reported other complaints Review of Systems No fever, chills but has generalized weakness No chest pain, palpitation No shortness of breath or coughing No abdominal pain, nausea or vomiting No urinary symptoms No any rash or wounds Having pain his right elbow which has improved, improved pain in the right hip Physical Exam Vital Signs: Vital Signs: Last Vital Signs Temp 99.3 F 12/09/21 07:36 Pulse 100 12/09/21 07:36 Resp 20 12/09/21 07:36 BP 158/93 H 12/09/21 07:36 Pulse Ox 99 12/09/21 07:36 O2 Del Method 12/09/21 07:36 O2 Flow Rate 2 12/04/21 04:00 BMI result Body Mass Index 31.8 Const: Other: Constitutional : Alert, interactive Neck : Normal inspection, Supple Cardiovascular : RRR, no JVP, no lower extremity edema Respiratory : fair bilateral air entry, no crackles, wheezes or rhonchi Gastrointestinal: soft, lax, Normal bowel sounds, Non tender Skin : Warm, Dry, PermCath in place Musculoskeletal: Decreased Stiffness and pain in right hip with improved swelling in the right elbow with mild tenderness, significantly improved range of motion Neurological : Alert & oriented to self and place, No focal deficit , CN 2-12 within normal Vascular: has good pulses in right upper and right lower extremities Objective Data Active Medications Acetaminophen (Acetaminophen 325 Mg Tablet) 650 mg PO Q6H PRN PRN Reason: Pain, Mild (Pain Scale 1-3) Last Admin: 12/09/21 09:14 Dose: 650 mg Documented By: AMINTA Amlodipine Besylate (Amlodipine Besylate 10 Mg Tablet) 10 mg PO DAILY [facility]; Protocol Last Admin: 12/08/21 07:52 Dose: 10 mg Documented By: HILARY Heparin Sodium (Porcine) (Heparin Sodium,Porcine 5,000 Unit/Ml Vial) 5,000 unit SUBCUT Q12H [facility] Last Admin: 12/09/21 00:42 Dose: 5,000 unit Documented By: NOEMY Hydralazine HCl (Hydralazine Hcl 25 Mg Tablet) 25 mg PO TID [facility]; Protocol Last Admin: 12/08/21 20:43 Dose: 25 mg Documented By: SRINIVAS Morphine Sulfate (Morphine Sulfate 2 Mg/Ml Cartridge) 2 mg IVPUSH Q4H PRN; Protocol PRN Reason: Pain, Mild (Pain Scale 1-3) Last Admin: 12/09/21 00:41 Dose: 2 mg Documented By: NOEMY Nitroglycerin (Nitroglycerin 0.4 Mg Tab.Subl) 0.4 mg SUBLINGUAL Q5MX3 PRN PRN Reason: Chest Pain Last Admin: 12/05/21 00:47 Dose: 0.4 mg Documented By: SATHISH Comments: ch pain Ondansetron HCl (Ondansetron Hcl 4 Mg/2 Ml Vial) 4 mg IVPUSH Q8H PRN PRN Reason: Nausea and Vomiting Last Admin: 12/03/21 19:34 Dose: 4 mg Documented By: MILLIE Pharmacy Consult (Consult Rx Perform Med Rec) 1 each MISCELLANE ONCE PRN PRN Reason: Consult order Sodium Bicarbonate (Sodium Bicarbonate 650 Mg Tablet) 650 mg PO QID [facility] Last Admin: 12/08/21 20:42 Dose: 650 mg Documented By: SRINIVAS Sodium Chloride (0.9 % Sodium Chloride Flush 3 Ml Syringe) 3 ml IVFLUSH QSHIFT [facility] Last Admin: 12/09/21 08:49 Dose: 3 ml Documented By: AMINTA Sodium Zirconium Cyclosilicate (Sodium Zirconium Cyclosilicate 10 Gm Powd.Pack) 10 gm PO DAILY [facility] Last Admin: 12/08/21 07:52 Dose: 10 gm Documented By: HILARY Labs CBC & Chem 7: 12/09/21 06:06 12/08/21 05:21 Labs: Laboratory Results - last 24 hr 11/29/21 12/08/21 12/09/21 07:06 05:21 06:06 MCV 96.5 MCH 33.9 H MCHC 35.1 RDW 12.8 Plt Count 230 MPV 10.3 Absolute Nucleated RBC 0.000 Nucleated RBC % (auto) 0.0 Smear Path Review SEE NOTE Absolute Retic 0.078 Percent Retic 2.8 H Immature Retic Fraction 15.9 H Retic Hgb Equivalent 37.8 H Total Bilirubin 0.5 Direct Bilirubin 0.3 Lactate Dehydrogenase 403 H Cryoglobulin NONE DETECTED Cryoglobulin Cryocrit TNP Assessment and Plan (1) NEHA (acute kidney injury): Status: Acute (2) Rhabdomyolysis: Status: Acute Plan 46 years old male with PMH of smoking, alcoholism who presents to the hospital after being found altered in his shower after using heroin. Acute renal failure requiring dialysis, metabolic acidosis Secondary to ATN/rhabdomyolysis normal renal ultrasound Nephrology following> not appropriately clearing urea, consistent with dense ATN, continue dialysis Continue sodium bicarb permacath placed , Continue with dialysis Follow BMP Unable to find an outpatient dialysis center yet to accept him, will continue dialysis during inpatient stay Acute on chronic anemia Hemoglobin dropped to 9.7 No clear source of bleeding identified It LDH trended down from previously but still elevated at 400 As elevated retic count, could be secondary to EPO Check occult blood Iron stores within normal Monitor CBC HYponatremia likely from fluid,better after dialysis follow BMP Hyperkalemia Improved Lokelema follow BMP RUE pain and swelling. Improving CT showing subcutaneous swelling concerning for muscle injury or infection pain likely from reperfusion injury per Ortho US neg for DVT Right Hip pain. Improving CT scan showing multiple abnormalities with enlargement of surrounding tissue and fluids along multiple facial planes Concerning for possible myositis, joint infection seen by orthopedics seen by ID, no fever to indicate infection and blood cultures negative - rec to d/c abx Pain control - pain improving physical therapy following Hypertension Started on amlodipine and hydralazine Monitor response Aspiration pneumonia Finish treatment with IV zosyn On room air Toxic metabolic encephalopathy, resolved Secondary to heroin abuse Addiction team following DVT PPX-Heparin DISPO plan for rehab with dialysis patient requires ongoing inpatient hospitalization due to need for ongoing hemodialysis, close monitoring of renal function, right arm swelling/ left hip pain, pending safe rehab placement Quality Stroke Does the patient have a stroke diagnosis?: No VTE Prior VTE?: No VTE Risk Level:: Medical - moderate - high VTE Device Contraindication: Treatment Not Indicated VTE Drug Contraindication: N/A - Med Ordered
[2021-12-09] MEDS: amLODIPine Besylate 10 MG TABLET PO (14:26)
[2021-12-09] MEDS: hydrALAZINE HCl 25 MG TABLET PO ×2 (14:27→20:04)
[2021-12-09] MEDS: Sodium Bicarbonate 650 MG TABLET PO ×3 (14:27→20:04)
[2021-12-09 16:00] VITALS: BP 158/85; PULSE 90; RESP 18; TEMP 37.1; O2SAT 100
[2021-12-09 18:08] LABS: OBS Int Ctl Valid YES; OBS1 POSITIVE (NEGATIVE)
[2021-12-09 19:13] VITALS: BP 166/91; PULSE 102; RESP 18; TEMP 37.6; O2SAT 100
[2021-12-09] MEDS: oxyCODONE HCl Immed Release 5 MG TABLET PO (22:54)
[2021-12-09 23:42] VITALS: BP 160/85; PULSE 91; RESP 17; TEMP 37.2; O2SAT 98
[2021-12-10] VITALS (7 sets, daily range): BP systolic 154–179; BP diastolic 87–95; PULSE 100–114; RESP 16–20; TEMP 36.1–38; O2SAT 93–99
[2021-12-10] MEDS: 0.9 % Sodium Chloride Flush 3 ML SYRINGE IVFLUSH ×4 (01:22→20:47)
[2021-12-10 05:30] LABS: Hematocrit 29.5 % (42.0-52.0); Hemoglobin 10.3 g/dl (14.0-18.0); Mean Corpuscular HGB Conc 34.9 g/dl (31.0-36.0); Mean Corpuscular Hemoglobin 34.3 pg (27.0-33.0); Mean Corpuscular Volume 98.3 fL (80.0-98.0); Mean Platelet Volume 10.7 fL (9.4-12.4); Platelet Count 296 X10*3/uL (160-400); Red Cell Distribution Width 13.1 % (11.0-16.0); White Blood Count 17.6 X10*3/uL (4.8-10.8)
[2021-12-10 05:56] LABS: Anion Gap 20 (12-20); Blood Urea Nitrogen 54 mg/dL (9-16); Calcium 8.5 mg/dL (8.4-10.2); Carbon Dioxide 22 mmol/L (22-29); Chloride 99 mmol/L (96-108); Estimated Glomerular Filt Rate 9; Glucose Random 93 mg/dL (60-115); Potassium 4.7 mmol/L (3.3-5.1); Sodium 136 mmol/L (135-145)
[2021-12-10] MEDS: Sodium Bicarbonate 650 MG TABLET PO ×4 (08:34→20:47)
[2021-12-10] MEDS: amLODIPine Besylate 10 MG TABLET PO (08:34)
[2021-12-10] MEDS: Sodium Zirconium Cyclosilicate 10 GM POWD.PACK PO (08:34)
[2021-12-10] MEDS: hydrALAZINE HCl 25 MG TABLET PO ×3 (08:34→20:47)
[2021-12-10] MEDS: Heparin Sodium,Porcine 5,000 UNIT/ML VIAL 5000 UNIT SUBCUT ×2 (10:43→23:54)
[2021-12-10] MEDS: Cyclobenzaprine HCl 5 MG TABLET PO (10:43)
--- NOTE | 2021-12-10 14:52 | P.PNIM_ITS ---
Subjective Subjective Date of Service: 12/10/21 Interval History: Seen and evaluated in the assess unit this morning Swelling and pain improving in his right upper extremity and hip Dialysis per Nephrology team Having muscle stiffness No reported other complaints Review of Systems No fever, chills but has generalized weakness No chest pain, palpitation No shortness of breath or coughing No abdominal pain, nausea or vomiting No urinary symptoms No any rash or wounds Having pain his right elbow which has improved, improved pain in the right hip Physical Exam Vital Signs: Vital Signs: Last Vital Signs Temp 98.6 F 12/10/21 12:00 Pulse 112 H 12/10/21 14:43 Resp 16 12/10/21 12:00 BP 164/94 H 12/10/21 14:43 Pulse Ox 98 12/10/21 14:43 O2 Del Method 12/10/21 14:43 O2 Flow Rate 2 12/04/21 04:00 BMI result Body Mass Index 31.8 Const: Other: Constitutional : Alert, interactive Neck : Normal inspection, Supple Cardiovascular : RRR, no JVP, no lower extremity edema Respiratory : fair bilateral air entry, no crackles, wheezes or rhonchi Gastrointestinal: soft, lax, Normal bowel sounds, Non tender Skin : Warm, Dry, PermCath in place Musculoskeletal: Decreased Stiffness and pain in right hip with improved swelling in the right elbow with mild tenderness, significantly improved range of motion Neurological : Alert & oriented to self and place, No focal deficit , CN 2-12 within normal Vascular: has good pulses in right upper and right lower extremities Objective Data Active Medications Acetaminophen (Acetaminophen 325 Mg Tablet) 650 mg PO Q6H PRN PRN Reason: Pain, Mild (Pain Scale 1-3) Last Admin: 12/09/21 14:27 Dose: 650 mg Documented By: AMINTA Amlodipine Besylate (Amlodipine Besylate 10 Mg Tablet) 10 mg PO DAILY [facility]; Protocol Last Admin: 12/10/21 08:34 Dose: 10 mg Documented By: RAMONE Heparin Sodium (Porcine) (Heparin Sodium,Porcine 5,000 Unit/Ml Vial) 5,000 unit SUBCUT Q12H [facility] Last Admin: 12/10/21 10:43 Dose: 5,000 unit Documented By: RAMONE Hydralazine HCl (Hydralazine Hcl 25 Mg Tablet) 25 mg PO TID [facility]; Protocol Last Admin: 12/10/21 13:36 Dose: 25 mg Documented By: RAMONE Nitroglycerin (Nitroglycerin 0.4 Mg Tab.Subl) 0.4 mg SUBLINGUAL Q5MX3 PRN PRN Reason: Chest Pain Last Admin: 12/05/21 00:47 Dose: 0.4 mg Documented By: SATHISH Comments: ch pain Ondansetron HCl (Ondansetron Hcl 4 Mg/2 Ml Vial) 4 mg IVPUSH Q8H PRN PRN Reason: Nausea and Vomiting Last Admin: 12/03/21 19:34 Dose: 4 mg Documented By: MILLIE Pharmacy Consult (Consult Rx Perform Med Rec) 1 each MISCELLANE ONCE PRN PRN Reason: Consult order Sodium Bicarbonate (Sodium Bicarbonate 650 Mg Tablet) 650 mg PO QID [facility] Last Admin: 12/10/21 13:36 Dose: 650 mg Documented By: RAMONE Sodium Chloride (0.9 % Sodium Chloride Flush 3 Ml Syringe) 3 ml IVFLUSH QSHIFT [facility] Last Admin: 12/10/21 08:35 Dose: 3 ml Documented By: RAMONE Sodium Zirconium Cyclosilicate (Sodium Zirconium Cyclosilicate 10 Gm Powd.Pack) 10 gm PO DAILY [facility] Last Admin: 12/10/21 08:34 Dose: 10 gm Documented By: RAMONE Labs CBC & Chem 7: 12/10/21 05:13 12/10/21 05:13 Labs: Laboratory Results - last 24 hr 12/09/21 12/10/21 12/10/21 17:33 05:13 05:13 MCV 98.3 H MCH 34.3 H MCHC 34.9 RDW 13.1 Plt Count 296 D MPV 10.7 Absolute Nucleated RBC 0.000 Nucleated RBC % (auto) 0.0 Anion Gap 20 Estim Creat Clear Calc 16.0 Estimated GFR 9 Random Glucose 93 Calcium 8.5 D Stool Occult Blood POSITIVE Assessment and Plan (1) Leukocytosis: Status: Acute (2) Right upper limb pain: Status: Acute (3) Hip pain, right: Status: Acute (4) NEHA (acute kidney injury): Status: Acute Plan 46 years old male with PMH of smoking, alcoholism who presents to the hospital after being found altered in his shower after using heroin. Acute renal failure requiring dialysis, metabolic acidosis Secondary to ATN/rhabdomyolysis normal renal ultrasound Nephrology following> not appropriately clearing urea, consistent with dense ATN, continue dialysis Continue sodium bicarb permacath placed , Continue with dialysis Follow BMP Unable to find an outpatient dialysis center yet to accept him, will continue dialysis during inpatient stay Acute on chronic anemia Hemoglobin stable at 10.3 No clear source of bleeding identified LDH trended down from previously but still elevated at 400 elevated retic count, could be secondary to EPO Iron stores within normal Less likely to be hemolysis Monitor CBC HYponatremia Resolved follow BMP Hyperkalemia Improved Lokelema follow BMP RUE pain and swelling. Improving CT showing subcutaneous swelling concerning for muscle injury or infection pain likely from reperfusion injury per Ortho US neg for DVT Right Hip pain. Improving CT scan showing multiple abnormalities with enlargement of surrounding tissue and fluids along multiple facial planes Concerning for possible myositis, joint infection seen by orthopedics seen by ID, no fever to indicate infection and blood cultures negative - rec to d/c abx Pain control - pain improving physical therapy following Hypertension Started on amlodipine and hydralazine Monitor response Aspiration pneumonia Finish treatment with IV zosyn On room air Toxic metabolic encephalopathy, resolved Secondary to heroin abuse Addiction team following DVT PPX-Heparin DISPO plan for rehab with dialysis patient requires ongoing inpatient hospitalization due to need for ongoing hemodialysis, close monitoring of renal function, right arm swelling/ left hip pain, pending safe rehab placement Quality Stroke Does the patient have a stroke diagnosis?: No VTE Prior VTE?: No VTE Risk Level:: Medical - moderate - high VTE Device Contraindication: Treatment Not Indicated VTE Drug Contraindication: N/A - Med Ordered
--- NOTE | 2021-12-10 15:44 | PM.PNNEP ---
Subjective Subjective Date of Service: 12/10/21 Interval history: Events noted. All recent data reviewed Physical Exam Vital Signs: Vital Signs: Last Vital Signs Temp 100.4 F 12/10/21 15:38 Pulse 114 H 12/10/21 15:38 Resp 20 12/10/21 15:38 BP 168/95 H 12/10/21 15:38 Pulse Ox 98 12/10/21 15:38 O2 Del Method 12/10/21 15:38 O2 Flow Rate 2 12/04/21 04:00 BMI result Body Mass Index 31.8 Const: General: no acute distress Orientation/consciousness: patient oriented x3 Eyes: EOM: EOMs intact bilaterally Neck: Neck: Yes supple Resp: Auscultation: diminished lung sounds Cardio: Rate: regular rate GI: Palpation (GI): Soft to palpation Neuro: General: patient oriented x3 and moves all extremities Objective Data Labs CBC & Chem 7: 12/10/21 05:13 12/10/21 05:13 Labs: Laboratory Results - last 24 hr 12/09/21 12/10/21 12/10/21 17:33 05:13 05:13 WBC 17.6 H RBC 3.00 L Hgb 10.3 L Hct 29.5 L MCV 98.3 H MCH 34.3 H MCHC 34.9 RDW 13.1 Plt Count 296 D MPV 10.7 Absolute Nucleated RBC 0.000 Nucleated RBC % (auto) 0.0 Sodium 136 Potassium 4.7 Chloride 99 Carbon Dioxide 22 Anion Gap 20 BUN 54 H Creatinine 6.56 H* Estim Creat Clear Calc 16.0 Estimated GFR 9 Random Glucose 93 Calcium 8.5 D Stool Occult Blood POSITIVE Microbiology Microbiology Results: Microbiology 11/28/21 06:06 Blood - Venous Blood Culture - Final No growth after 5 days. 11/28/21 06:06 Blood - Venous Blood Culture - Final No growth after 5 days. Procedures Date of Service Date of Service: 12/10/21 Assessment & Plan Assessment and plan (1) NEHA (acute kidney injury): Status: Acute Assessment and Plan: Acute Kidney Injury consistent with rhabdomyolysis and dense ATN with delayed recovery Remains HD dependent for now; Tolerating HD; Hemodynamics stable on HD Has a Pcath which is functioning well; Feels UO is marginally better Blood pressure needs to be maintained at goal; C/W rest of current management Time Spent With Patient Time: Total time spent is greater than 50% in coordination of care (as documented) at patient's floor/unit and/or counseling patient: Progress Note: Quality Stroke Does the patient have a stroke diagnosis?: No
[2021-12-10] MEDS: oxyCODONE HCl Immed Release 5 MG TABLET PO (23:53)
[2021-12-11 03:20] VITALS: BP 160/92; PULSE 100; RESP 18; TEMP 37.2; O2SAT 94
[2021-12-11 06:59] VITALS: BP 155/92; PULSE 105; RESP 20; TEMP 36.9; O2SAT 100
[2021-12-11] MEDS: amLODIPine Besylate 10 MG TABLET PO (07:18)
[2021-12-11] MEDS: Sodium Bicarbonate 650 MG TABLET PO ×4 (07:18→20:40)
[2021-12-11] MEDS: 0.9 % Sodium Chloride Flush 3 ML SYRINGE IVFLUSH ×3 (07:19→20:40)
[2021-12-11] MEDS: hydrALAZINE HCl 25 MG TABLET PO ×3 (07:19→20:39)
[2021-12-11] MEDS: Sodium Zirconium Cyclosilicate 10 GM POWD.PACK PO (07:19)
[2021-12-11] MEDS: Acetaminophen 325 MG TABLET 650 MG PO ×2 (07:25→20:40)
[2021-12-11 07:27] LABS: Anion Gap 19 (12-20); Blood Urea Nitrogen 68 mg/dL (9-16); Calcium 8.4 mg/dL (8.4-10.2); Carbon Dioxide 20 mmol/L (22-29); Chloride 99 mmol/L (96-108); Creatinine Clr Calc Pharmacy 13.5; Estimated Glomerular Filt Rate 8; Glucose Random 85 mg/dL (60-115); Potassium 4.3 mmol/L (3.3-5.1); Sodium 134 mmol/L (135-145)
[2021-12-11 11:15] VITALS: BP 142/74; PULSE 68; RESP 18; TEMP 36.6; O2SAT 96
--- NOTE | 2021-12-11 11:46 | P.PNIM_ITS ---
Subjective Subjective Date of Service: 12/11/21 Interval History: Seen and evaluated this morning Feels better, making more urine Having muscle stiffness No reported other complaints Review of Systems No fever, chills but has generalized weakness No chest pain, palpitation No shortness of breath or coughing No abdominal pain, nausea or vomiting No urinary symptoms No any rash or wounds Having pain his right elbow which has improved, improved pain in the right hip Physical Exam Vital Signs: Vital Signs: Last Vital Signs Temp 98 F 12/11/21 11:15 Pulse 68 12/11/21 11:15 Resp 18 12/11/21 11:15 BP 142/74 H 12/11/21 11:15 Pulse Ox 96 12/11/21 11:15 O2 Del Method 12/11/21 11:15 O2 Flow Rate 2 12/04/21 04:00 BMI result Body Mass Index 31.8 Const: Other: Constitutional : Alert, interactive Neck : Normal inspection, Supple Cardiovascular : RRR, no JVP, no lower extremity edema Respiratory : fair bilateral air entry, no crackles, wheezes or rhonchi Gastrointestinal: soft, lax, Normal bowel sounds, Non tender Skin : Warm, Dry, PermCath in place Musculoskeletal: Decreased Stiffness and pain in right hip with improved swelling in the right elbow with mild tenderness, significantly improved range of motion Neurological : Alert & oriented to self and place, No focal deficit , CN 2-12 within normal Vascular: has good pulses in right upper and right lower extremities Objective Data Active Medications Acetaminophen (Acetaminophen 325 Mg Tablet) 650 mg PO Q6H PRN PRN Reason: Pain, Mild (Pain Scale 1-3) Last Admin: 12/11/21 07:25 Dose: 650 mg Documented By: RAMONE Amlodipine Besylate (Amlodipine Besylate 10 Mg Tablet) 10 mg PO DAILY [facility]; Protocol Last Admin: 12/11/21 07:18 Dose: 10 mg Documented By: RAMONE Heparin Sodium (Porcine) (Heparin Sodium,Porcine 5,000 Unit/Ml Vial) 5,000 unit SUBCUT Q12H [facility] Last Admin: 12/10/21 23:54 Dose: 5,000 unit Documented By: ANNI Hydralazine HCl (Hydralazine Hcl 25 Mg Tablet) 25 mg PO TID [facility]; Protocol Last Admin: 12/11/21 07:19 Dose: 25 mg Documented By: RAMONE Nitroglycerin (Nitroglycerin 0.4 Mg Tab.Subl) 0.4 mg SUBLINGUAL Q5MX3 PRN PRN Reason: Chest Pain Last Admin: 12/05/21 00:47 Dose: 0.4 mg Documented By: SATHISH Comments: ch pain Ondansetron HCl (Ondansetron Hcl 4 Mg/2 Ml Vial) 4 mg IVPUSH Q8H PRN PRN Reason: Nausea and Vomiting Last Admin: 12/03/21 19:34 Dose: 4 mg Documented By: MILLIE Pharmacy Consult (Consult Rx Perform Med Rec) 1 each MISCELLANE ONCE PRN PRN Reason: Consult order Sodium Bicarbonate (Sodium Bicarbonate 650 Mg Tablet) 650 mg PO QID [facility] Last Admin: 12/11/21 07:18 Dose: 650 mg Documented By: RAMONE Sodium Chloride (0.9 % Sodium Chloride Flush 3 Ml Syringe) 3 ml IVFLUSH QSHIFT [facility] Last Admin: 12/11/21 07:19 Dose: 3 ml Documented By: RAMONE Sodium Zirconium Cyclosilicate (Sodium Zirconium Cyclosilicate 10 Gm Powd.Pack) 10 gm PO DAILY [facility] Last Admin: 12/11/21 07:19 Dose: 10 gm Documented By: RAMONE Labs CBC & Chem 7: 12/10/21 05:13 12/11/21 05:50 Labs: Laboratory Results - last 24 hr 12/11/21 05:50 Anion Gap 19 Estim Creat Clear Calc 13.5 Estimated GFR 8 Random Glucose 85 Calcium 8.4 Assessment and Plan (1) NEHA (acute kidney injury): Status: Acute Plan 46 years old male with PMH of smoking, alcoholism who presents to the hospital after being found altered in his shower after using heroin. Acute renal failure requiring dialysis, metabolic acidosis Secondary to ATN/rhabdomyolysis normal renal ultrasound Nephrology following, consistent with dense ATN, continue dialysis Continue sodium bicarb permacath placed , Continue with dialysis Follow BMP Unable to find an outpatient dialysis center yet to accept him, will continue dialysis during inpatient stay Acute on chronic anemia Hemoglobin stable No clear source of bleeding identified , likely from renal failure LDH trended down from previously but still elevated at 400 elevated retic count, could be secondary to EPO Iron stores within normal Less likely to be hemolysis Monitor CBC HYponatremia Resolved follow BMP Hyperkalemia Improved Lokelema follow BMP RUE pain and swelling. Improving CT showing subcutaneous swelling concerning for muscle injury or infection pain likely from reperfusion injury per Ortho US neg for DVT Right Hip pain. Improving CT scan showing multiple abnormalities with enlargement of surrounding tissue and fluids along multiple facial planes Concerning for possible myositis, joint infection seen by orthopedics seen by ID, no fever to indicate infection and blood cultures negative - rec to d/c abx Pain control - pain improving physical therapy following Hypertension Started on amlodipine and hydralazine Monitor response Aspiration pneumonia Finish treatment with IV zosyn On room air Toxic metabolic encephalopathy, resolved Secondary to heroin abuse Addiction team following DVT PPX-Heparin DISPO plan for rehab with dialysis patient requires ongoing inpatient hospitalization due to need for ongoing hemodialysis, close monitoring of renal function, pending safe rehab placement Quality Stroke Does the patient have a stroke diagnosis?: No VTE Prior VTE?: No VTE Risk Level:: Medical - moderate - high VTE Device Contraindication: Treatment Not Indicated VTE Drug Contraindication: N/A - Med Ordered
[2021-12-11] MEDS: Heparin Sodium,Porcine 5,000 UNIT/ML VIAL 5000 UNIT SUBCUT (13:38)
--- NOTE | 2021-12-11 15:21 | PM.PNNEP ---
Subjective Subjective Date of Service: 12/11/21 Interval history: Feels better, making more urine Physical Exam Vital Signs: Vital Signs: Last Vital Signs Temp 98 F 12/11/21 11:15 Pulse 68 12/11/21 11:15 Resp 18 12/11/21 11:15 BP 142/74 H 12/11/21 11:15 Pulse Ox 96 12/11/21 11:15 O2 Del Method 12/11/21 11:15 O2 Flow Rate 2 12/04/21 04:00 BMI result Body Mass Index 31.8 Const: General: no acute distress Orientation/consciousness: patient oriented x3 Eyes: EOM: EOMs intact bilaterally Neck: Neck: Yes supple Resp: Auscultation: diminished lung sounds Cardio: Rate: regular rate GI: Palpation (GI): Soft to palpation Neuro: General: patient oriented x3 and moves all extremities Objective Data Labs CBC & Chem 7: 12/10/21 05:13 12/11/21 05:50 Labs: Laboratory Results - last 24 hr 12/11/21 05:50 Sodium 134 L Potassium 4.3 Chloride 99 Carbon Dioxide 20 L Anion Gap 19 BUN 68 H Creatinine 7.78 H* Estim Creat Clear Calc 13.5 Estimated GFR 8 Random Glucose 85 Calcium 8.4 Microbiology Microbiology Results: Microbiology 11/28/21 06:06 Blood - Venous Blood Culture - Final No growth after 5 days. 11/28/21 06:06 Blood - Venous Blood Culture - Final No growth after 5 days. Procedures Date of Service Date of Service: 12/11/21 Assessment & Plan Assessment and plan (1) NEHA (acute kidney injury): Status: Acute Assessment and Plan: Acute Kidney Injury consistent with rhabdomyolysis and dense ATN with delayed recovery Remains HD dependent for now; Tolerating HD; Hemodynamics stable on HD Has a Pcath which is functioning well; Feels UO is marginally better Blood pressure needs to be maintained at goal; C/W rest of current management Time Spent With Patient Time: Total time spent is greater than 50% in coordination of care (as documented) at patient's floor/unit and/or counseling patient: Progress Note: Quality Stroke Does the patient have a stroke diagnosis?: No
[2021-12-11 16:00] VITALS: BP 175/98; RESP 18; TEMP 37.2; O2SAT 104
[2021-12-11 20:37] VITALS: BP 173/101; PULSE 107; RESP 16; TEMP 36.8; O2SAT 98
[2021-12-11 23:05] VITALS: BP 139/79; PULSE 105; RESP 18; TEMP 36.9; O2SAT 96
[2021-12-12] MEDS: Heparin Sodium,Porcine 5,000 UNIT/ML VIAL 5000 UNIT SUBCUT (00:08)
[2021-12-12 03:56] VITALS: BP 144/94; PULSE 103; RESP 16; TEMP 36.8; O2SAT 93
[2021-12-12 06:11] LABS: Anion Gap 23 (12-20); Blood Urea Nitrogen 85 mg/dL (9-16); Calcium 8.6 mg/dL (8.4-10.2); Carbon Dioxide 20 mmol/L (22-29); Chloride 98 mmol/L (96-108); Creatinine Clr Calc Pharmacy 12.3; Estimated Glomerular Filt Rate 7; Glucose Random 89 mg/dL (60-115); Potassium 4.5 mmol/L (3.3-5.1); Sodium 136 mmol/L (135-145)
[2021-12-12] MEDS: hydrALAZINE HCl 25 MG TABLET PO ×3 (07:37→20:16)
[2021-12-12] MEDS: Sodium Bicarbonate 650 MG TABLET PO ×4 (07:37→20:16)
[2021-12-12] MEDS: amLODIPine Besylate 10 MG TABLET PO (07:37)
[2021-12-12] MEDS: Sodium Zirconium Cyclosilicate 10 GM POWD.PACK PO (07:38)
[2021-12-12] MEDS: 0.9 % Sodium Chloride Flush 3 ML SYRINGE IVFLUSH ×3 (07:38→20:16)
[2021-12-12 07:43] VITALS: BP 161/98; PULSE 104; RESP 16; TEMP 36.6; O2SAT 98
[2021-12-12 09:25] VITALS: BP 161/98; PULSE 104; O2SAT 98
--- NOTE | 2021-12-12 11:49 | MHC.CM.PN ---
PT is recommending STR. Patient continues to require HD QD to QOD, which appears to be the barrier to dc. CM will continue to follow.
--- NOTE | 2021-12-12 12:08 | P.PNIM_ITS ---
Subjective Subjective Date of Service: 12/12/21 Interval History: Seen and evaluated this morning Feels better, making more urine No reported other complaints Review of Systems No fever, chills but has generalized weakness No chest pain, palpitation No shortness of breath or coughing No abdominal pain, nausea or vomiting No urinary symptoms No any rash or wounds Pain in right elbow which has improved, improved pain in the right hip Physical Exam Vital Signs: Vital Signs: Last Vital Signs Temp 97.9 F 12/12/21 07:43 Pulse 104 H 12/12/21 09:25 Resp 16 12/12/21 07:43 BP 161/98 H 12/12/21 09:25 Pulse Ox 98 12/12/21 09:25 O2 Del Method 12/12/21 07:43 O2 Flow Rate 2 12/04/21 04:00 BMI result Body Mass Index 31.8 Const: Other: Constitutional : Alert, interactive Neck : Normal inspection, Supple Cardiovascular : RRR, no JVP, no lower extremity edema Respiratory : fair bilateral air entry, no crackles, wheezes or rhonchi Gastrointestinal: soft, lax, Normal bowel sounds, Non tender Skin : Warm, Dry, PermCath in place Musculoskeletal: Decreased Stiffness and pain in right hip with improved swelling in the right elbow with mild tenderness, significantly improved range of motion Neurological : Alert & oriented to self and place, No focal deficit , CN 2-12 within normal Vascular: has good pulses in right upper and right lower extremities Objective Data Active Medications Acetaminophen (Acetaminophen 325 Mg Tablet) 650 mg PO Q6H PRN PRN Reason: Pain, Mild (Pain Scale 1-3) Last Admin: 12/11/21 20:40 Dose: 650 mg Documented By: MELVIN Amlodipine Besylate (Amlodipine Besylate 10 Mg Tablet) 10 mg PO DAILY [facility]; Protocol Last Admin: 12/12/21 07:37 Dose: 10 mg Documented By: RAMONE Hydralazine HCl (Hydralazine Hcl 25 Mg Tablet) 25 mg PO TID [facility]; Protocol Last Admin: 12/12/21 07:37 Dose: 25 mg Documented By: RAMONE Nitroglycerin (Nitroglycerin 0.4 Mg Tab.Subl) 0.4 mg SUBLINGUAL Q5MX3 PRN PRN Reason: Chest Pain Last Admin: 12/05/21 00:47 Dose: 0.4 mg Documented By: SATHISH Comments: ch pain Ondansetron HCl (Ondansetron Hcl 4 Mg/2 Ml Vial) 4 mg IVPUSH Q8H PRN PRN Reason: Nausea and Vomiting Last Admin: 12/03/21 19:34 Dose: 4 mg Documented By: MILLIE Pharmacy Consult (Consult Rx Perform Med Rec) 1 each MISCELLANE ONCE PRN PRN Reason: Consult order Sodium Bicarbonate (Sodium Bicarbonate 650 Mg Tablet) 650 mg PO QID [facility] Last Admin: 12/12/21 07:37 Dose: 650 mg Documented By: RAMONE Sodium Chloride (0.9 % Sodium Chloride Flush 3 Ml Syringe) 3 ml IVFLUSH QSHIFT [facility] Last Admin: 12/12/21 07:38 Dose: 3 ml Documented By: RAMONE Sodium Zirconium Cyclosilicate (Sodium Zirconium Cyclosilicate 10 Gm Powd.Pack) 10 gm PO DAILY [facility] Last Admin: 12/12/21 07:38 Dose: 10 gm Documented By: RAMONE Labs CBC & Chem 7: 12/10/21 05:13 12/12/21 05:35 Labs: Laboratory Results - last 24 hr 12/12/21 05:35 Anion Gap 23 H Estim Creat Clear Calc 12.3 Estimated GFR 7 Random Glucose 89 Calcium 8.6 Assessment and Plan (1) NEHA (acute kidney injury): Status: Acute Plan 46 years old male with PMH of smoking, alcoholism who presents to the hospital after being found altered in his shower after using heroin. Acute renal failure requiring dialysis, metabolic acidosis Secondary to ATN/rhabdomyolysis Nephrology following, consistent with dense ATN, continue dialysis Continue sodium bicarb Continue with dialysis while id patient Follow BMP Unable to find an outpatient dialysis center yet to accept him, will continue dialysis during inpatient stay Acute on chronic anemia Hemoglobin stable positive occult blood LDH trended down from previously but still elevated at 400 elevated retic count Iron stores within normal pending GI evaluation Monitor CBC HYponatremia Resolved follow BMP Hyperkalemia Improved Lokelema follow BMP RUE pain and swelling. Improving CT showing subcutaneous swelling concerning for muscle injury or infection pain likely from reperfusion injury per Ortho US neg for DVT Right Hip pain. Improving CT scan showing multiple abnormalities with enlargement of surrounding tissue and fluids along multiple facial planes Concerning for possible myositis, joint infection seen by orthopedics seen by ID, no fever to indicate infection and blood cultures negative - rec to d/c abx Pain control - pain improving physical therapy following Hypertension Started on amlodipine and hydralazine Monitor response Aspiration pneumonia Finish treatment with IV zosyn On room air Toxic metabolic encephalopathy, resolved Secondary to heroin abuse Addiction team following DVT PPX-Heparin DISPO plan for rehab with dialysis patient requires ongoing inpatient hospitalization due to need for ongoing hemodialysis, close monitoring of renal function, pending safe rehab placement Quality Stroke Does the patient have a stroke diagnosis?: No VTE Prior VTE?: No VTE Risk Level:: Medical - moderate - high VTE Device Contraindication: Treatment Not Indicated VTE Drug Contraindication: N/A - Med Ordered
[2021-12-12] MEDS: Acetaminophen 325 MG TABLET 650 MG PO ×2 (14:10→20:16)
[2021-12-12 15:46] VITALS: BP 169/98; PULSE 107; RESP 18; TEMP 36.9; O2SAT 99
--- NOTE | 2021-12-12 18:09 | PM.PNNEP ---
Subjective Subjective Date of Service: 12/12/21 Interval history: Seen and examined, events noted Physical Exam Vital Signs: Vital Signs: Last Vital Signs Temp 98.4 F 12/12/21 15:46 Pulse 107 H 12/12/21 15:46 Resp 18 12/12/21 15:46 BP 169/98 H 12/12/21 15:46 Pulse Ox 99 12/12/21 15:46 O2 Del Method 12/12/21 15:46 O2 Flow Rate 2 12/04/21 04:00 BMI result Body Mass Index 31.8 Const: General: cooperative, comfortable, no acute distress, alert and awake Nutritional Appearance: overweight Orientation/consciousness: patient oriented x3 HEENT: Head: Yes normocephalic and Yes atraumatic Eyes: General: appearance normal, both eyes and all related structures Neck: Neck: Yes no JVD Resp: Effort & Inspection: normal respiratory effort and able to speak in complete sentences Auscultation: clear to auscultation bilaterally Cardio: Jugular venous distension: no JVD Rate: regular rate Rhythm: regular rhythm Heart sounds: S1 normal heart sound present and S2 normal heart sound present GI: Inspection: No distended Palpation (GI): not soft and nontender Auscultation: normal bowel sounds Neuro: General: patient oriented x3, moves all extremities and no focal motor deficits Extrem: Other: right arm swelling, not tense; able to extend and flex wrist and fingers. able to make fist; reports pain with movement. good peripheral pulses. General: Yes no clubbing, cyanosis or edema and Yes no pedal edema Objective Data Labs CBC & Chem 7: 12/10/21 05:13 12/12/21 05:35 Labs: Laboratory Results - last 24 hr 12/12/21 05:35 Sodium 136 Potassium 4.5 Chloride 98 Carbon Dioxide 20 L Anion Gap 23 H BUN 85 H D Creatinine 8.55 H* Estim Creat Clear Calc 12.3 Estimated GFR 7 Random Glucose 89 Calcium 8.6 Microbiology Microbiology Results: Microbiology 11/28/21 06:06 Blood - Venous Blood Culture - Final No growth after 5 days. 11/28/21 06:06 Blood - Venous Blood Culture - Final No growth after 5 days. Procedures Date of Service Date of Service: 12/12/21 Assessment & Plan Assessment and plan (1) NEHA (acute kidney injury): Status: Acute Assessment and Plan: 1. NEHA: c/wrhabdo and dense ATN and delayed recovery and remains HD dependent for now 2. Hemoaccess: Pcath placed 3. HTN 4. HyperK 5.NAGMA Still remain hopeful that he will ultimatley revoery renal func as is oftne the case in rhabdo ATN; UOP trending up RE: cont enforce 2 gm K restriction --no bananas, OJ, poatotoes; lokelma as needed; NaHCO3 650 tid; HD mwf; cont clonidine 0.1bid; d/c planning protect non-dominat arm; check PTH/phos level; outpt HD spot being arranged but a snafu d/t insurance issues--exploring all options (2) Rhabdomyolysis: Status: Acute Time Spent With Patient Time: Total time spent is greater than 50% in coordination of care (as documented) at patient's floor/unit and/or counseling patient: Progress Note: Quality Stroke Does the patient have a stroke diagnosis?: No
[2021-12-12 20:00] VITALS: BP 163/94; PULSE 107; RESP 18; TEMP 37.8; O2SAT 98
[2021-12-12 23:50] VITALS: BP 166/93; PULSE 109; RESP 18; TEMP 37.4; O2SAT 96
[2021-12-13] VITALS (7 sets, daily range): BP systolic 144–171; BP diastolic 90–99; PULSE 100–114; RESP 16–20; TEMP 36.7–37.3; O2SAT 94–99
--- NOTE | 2021-12-13 02:53 | CONS_ITS ---
DATE OF SERVICE: 12/12/2021 REFERRING PHYSICIAN: Jason Razo MD REASON FOR CONSULTATION: Anemia and hemoccult-positive stools. HISTORY OF PRESENT ILLNESS: The patient is a 46-year-old man, who was admitted to the hospital on November 28 with altered mental status after using heroin. He has developed kidney failure and is currently on dialysis. During this hospitalization, he was noted to have anemia with a hematocrit today of 29.5 and stool occult blood testing is positive. The patient states he has had previous episodes of hematochezia and was evaluated in the Emergency Department in January, but has not had any bleeding since. He has never undergone colonoscopy. He has had no signs of GI bleeding in the hospital during this admission. PAST MEDICAL HISTORY: 1. Substance abuse. 2. Rhabdomyolysis with kidney failure as above. CURRENT MEDICATIONS: List reviewed in the chart. ALLERGIES: THERE ARE NONE REPORTED. FAMILY HISTORY: This is reviewed with the patient and is negative for GI malignancy. SOCIAL HISTORY: He does smoke and does have a history of substance abuse. REVIEW OF SYSTEMS: SKIN: No pruritus. HEENT: Negative. CARDIOPULMONARY: No shortness of breath or chest pain. GASTROINTESTINAL: As above. GENITOURINARY: Negative. NEUROPSYCHIATRIC: Negative. PHYSICAL EXAMINATION: GENERAL: Shows a pleasant male, lying comfortably in bed. VITAL SIGNS: Reviewed in electronic medical record and are stable SKIN: Anicteric. HEENT: Shows no scleral icterus. NECK: Without lymphadenopathy or thyromegaly. LUNGS: Clear. HEART: Shows regular rate and rhythm. S1, S2. No murmur. ABDOMEN: Soft without focal masses or tenderness. Bowel sounds are present. No organomegaly is noted. EXTREMITIES: Without edema. LABORATORY DATA: Reviewed. IMPRESSION: Anemia with hemoccult-positive stools. At this time, he does not show any signs of acute gastrointestinal bleeding and it is likely that his anemia is related to dilutional issues from his IV fluids and his acute kidney failure. I did recommend outpatient elective colonoscopy at some point after his renal issues have resolved. Thanks for asking me to see him. I will follow him in the hospital with you. MD ANA Dash/ANTONIO / [id number]
[2021-12-13 08:00] LABS: Anion Gap 21 (12-20); Blood Urea Nitrogen 53 mg/dL (9-16); Calcium 8.5 mg/dL (8.4-10.2); Carbon Dioxide 17 mmol/L (22-29); Chloride 103 mmol/L (96-108); Creatinine Clr Calc Pharmacy 18.5; Estimated Glomerular Filt Rate 11; Glucose Random 99 mg/dL (60-115); Potassium 4.5 mmol/L (3.3-5.1); Sodium 136 mmol/L (135-145)
[2021-12-13] MEDS: hydrALAZINE HCl 25 MG TABLET PO ×3 (08:43→20:08)
[2021-12-13] MEDS: Sodium Bicarbonate 650 MG TABLET PO ×4 (08:43→20:08)
[2021-12-13] MEDS: amLODIPine Besylate 10 MG TABLET PO (08:44)
[2021-12-13] MEDS: 0.9 % Sodium Chloride Flush 3 ML SYRINGE IVFLUSH ×2 (08:44→14:36)
[2021-12-13] MEDS: Sodium Zirconium Cyclosilicate 10 GM POWD.PACK PO (08:44)
[2021-12-13] MEDS: Acetaminophen 325 MG TABLET 650 MG PO ×2 (08:53→19:42)
--- NOTE | 2021-12-13 13:34 | HO.PM.IMPN ---
Subjective Subjective Date of Service: 12/13/21 Interval History: Seen and evaluated this morning Feels better, no reported urine output for the last 24 hours but he sing his making good amount of urine No reported other complaints Review of Systems No fever, chills but has generalized weakness No chest pain, palpitation No shortness of breath or coughing No abdominal pain, nausea or vomiting No urinary symptoms No any rash or wounds improved pain in the right hip and right elbow Physical Exam Vital Signs: Vital Signs: Last Vital Signs Temp 99.2 F 12/13/21 11:17 Pulse 105 H 12/13/21 11:17 Resp 16 12/13/21 11:17 BP 160/91 H 12/13/21 11:17 Pulse Ox 99 12/13/21 11:17 O2 Del Method 12/13/21 11:17 O2 Flow Rate 2 12/04/21 04:00 BMI result Body Mass Index 31.8 Const: Other: Constitutional : Alert, interactive Neck : Normal inspection, Supple Cardiovascular : RRR, no JVP, no lower extremity edema Respiratory : fair bilateral air entry, no crackles, wheezes or rhonchi Gastrointestinal: soft, lax, Normal bowel sounds, Non tender Skin : Warm, Dry, PermCath in place Musculoskeletal: Decreased Stiffness and pain in right hip with improved swelling in the right elbow with mild tenderness, significantly improved range of motion Neurological : Alert & oriented to self and place, No focal deficit , CN 2-12 within normal Vascular: has good pulses in right upper and right lower extremities Objective Data Active Medications Acetaminophen (Acetaminophen 325 Mg Tablet) 650 mg PO Q6H PRN PRN Reason: Pain, Mild (Pain Scale 1-3) Last Admin: 12/13/21 08:53 Dose: 650 mg Documented By: SRINIVAS Amlodipine Besylate (Amlodipine Besylate 10 Mg Tablet) 10 mg PO DAILY [facility]; Protocol Last Admin: 12/13/21 08:44 Dose: 10 mg Documented By: SRINIVAS Hydralazine HCl (Hydralazine Hcl 25 Mg Tablet) 25 mg PO TID [facility]; Protocol Last Admin: 12/13/21 08:43 Dose: 25 mg Documented By: SRINIVAS Neomycin/Polymyxin/Bacitracin (Neomy/Polymyx/Bacit/Ointment 14 Gm Tube) 1 gm TOPICAL DAILY [facility]; Protocol Last Admin: 12/13/21 10:52 Dose: Not Given Documented By: SRINIVAS Non-Admin Reason: for dialysis Nitroglycerin (Nitroglycerin 0.4 Mg Tab.Subl) 0.4 mg SUBLINGUAL Q5MX3 PRN PRN Reason: Chest Pain Last Admin: 12/05/21 00:47 Dose: 0.4 mg Documented By: SATHISH Comments: ch pain Ondansetron HCl (Ondansetron Hcl 4 Mg/2 Ml Vial) 4 mg IVPUSH Q8H PRN PRN Reason: Nausea and Vomiting Last Admin: 12/03/21 19:34 Dose: 4 mg Documented By: MILLIE Pharmacy Consult (Consult Rx Perform Med Rec) 1 each MISCELLANE ONCE PRN PRN Reason: Consult order Sodium Bicarbonate (Sodium Bicarbonate 650 Mg Tablet) 650 mg PO QID [facility] Last Admin: 12/13/21 08:43 Dose: 650 mg Documented By: SRINIVAS Sodium Chloride (0.9 % Sodium Chloride Flush 3 Ml Syringe) 3 ml IVFLUSH QSHIFT [facility] Last Admin: 12/13/21 08:44 Dose: 3 ml Documented By: SRINIVAS Sodium Zirconium Cyclosilicate (Sodium Zirconium Cyclosilicate 10 Gm Powd.Pack) 10 gm PO DAILY [facility] Last Admin: 12/13/21 08:44 Dose: 10 gm Documented By: SRINIVAS Labs CBC & Chem 7: 12/10/21 05:13 12/13/21 06:00 Labs: Laboratory Results - last 24 hr 12/13/21 06:00 Anion Gap 21 H Estim Creat Clear Calc 18.5 Estimated GFR 11 Random Glucose 99 Calcium 8.5 Assessment and Plan (1) Acute renal failure due to rhabdomyolysis: Status: Acute Plan 46 years old male with PMH of smoking, alcoholism who presents to the hospital after being found altered in his shower after using heroin. Acute renal failure requiring dialysis, metabolic acidosis Secondary to ATN/rhabdomyolysis Nephrology following, consistent with dense ATN, continue dialysis MWF Continue sodium bicarb Continue with dialysis while id patient Follow BMP Unable to find an outpatient dialysis center yet to accept him, will continue dialysis during inpatient stay Acute on chronic anemia Hemoglobin stable positive occult blood LDH trended down from previously but still elevated at 400 elevated retic count Iron stores within normal GI input appreciated, no need for intervention at this point, can be followed as outpatient elective colonoscopy Monitor CBC HYponatremia Resolved follow BMP Hyperkalemia Lokelema follow BMP RUE pain and swelling. Improving CT showing subcutaneous swelling concerning for muscle injury or infection pain likely from reperfusion injury per Ortho US neg for DVT Right Hip pain. Improving CT scan showing multiple abnormalities with enlargement of surrounding tissue and fluids along multiple facial planes Concerning for possible myositis, joint infection seen by orthopedics seen by ID, no fever to indicate infection and blood cultures negative - rec to d/c abx Pain control - pain improving physical therapy following Hypertension Started on amlodipine and hydralazine Monitor response Aspiration pneumonia Finish treatment with IV zosyn On room air Toxic metabolic encephalopathy, resolved Secondary to heroin abuse Addiction team following DVT PPX-Heparin DISPO plan for rehab with dialysis patient requires ongoing inpatient hospitalization due to need for ongoing hemodialysis, close monitoring of renal function, pending safe rehab placement Quality Stroke Does the patient have a stroke diagnosis?: No VTE Prior VTE?: No VTE Risk Level:: Medical - moderate - high VTE Device Contraindication: Treatment Not Indicated VTE Drug Contraindication: N/A - Med Ordered
--- NOTE | 2021-12-13 19:22 | PM.PNNEP ---
Subjective Subjective Date of Service: 12/13/21 Interval history: No reported other complaints Physical Exam Vital Signs: Vital Signs: Last Vital Signs Temp 99.2 F 12/13/21 15:16 Pulse 111 H 12/13/21 15:16 Resp 20 12/13/21 15:16 BP 171/99 H 12/13/21 15:16 Pulse Ox 98 12/13/21 15:16 O2 Del Method 12/13/21 15:16 O2 Flow Rate 2 12/04/21 04:00 BMI result Body Mass Index 31.8 Const: General: comfortable Orientation/consciousness: patient oriented x3 Eyes: EOM: EOMs intact bilaterally Neck: Neck: Yes supple Resp: Auscultation: diminished lung sounds Cardio: Rate: regular rate GI: Palpation (GI): Soft to palpation Neuro: General: patient oriented x3 and moves all extremities Objective Data Labs CBC & Chem 7: 12/10/21 05:13 12/13/21 06:00 Labs: Laboratory Results - last 24 hr 12/13/21 06:00 Sodium 136 Potassium 4.5 Chloride 103 Carbon Dioxide 17 L Anion Gap 21 H BUN 53 H Creatinine 5.67 H* Estim Creat Clear Calc 18.5 Estimated GFR 11 Random Glucose 99 Calcium 8.5 Microbiology Microbiology Results: Microbiology 11/28/21 06:06 Blood - Venous Blood Culture - Final No growth after 5 days. 11/28/21 06:06 Blood - Venous Blood Culture - Final No growth after 5 days. Procedures Date of Service Date of Service: 12/13/21 Assessment & Plan Assessment and plan (1) NEHA (acute kidney injury): Status: Acute Assessment and Plan: Acute Kidney Injury consistent with rhabdomyolysis and dense ATN with delayed recovery Remains HD dependent for now; Tolerating HD; Hemodynamics stable on HD Has a Pcath which is functioning well;Will need a renal biopsy for prognostication if not recovering Blood pressure needs to be maintained at goal; C/W rest of current management Time Spent With Patient Time: Total time spent is greater than 50% in coordination of care (as documented) at patient's floor/unit and/or counseling patient: Progress Note: Quality Stroke Does the patient have a stroke diagnosis?: No
[2021-12-14] MEDS: 0.9 % Sodium Chloride Flush 3 ML SYRINGE IVFLUSH ×3 (00:50→14:36)
[2021-12-14 03:38] VITALS: BP 145/93; PULSE 109; RESP 18; TEMP 37.1; O2SAT 98
[2021-12-14] MEDS: ondansetron HCL 4 MG/2 ML VIAL IVPUSH (06:37)
[2021-12-14 06:44] LABS: Basophils Absolute Auto 0.1 X10*3/uL (0.0-0.2); Basophils Percent Auto 0.4 % (0-2); Eosinophils Absolute Auto 0.2 X10*3/uL (0.0-0.4); Eosinophils Percent Auto 1.6 % (0-4); Hematocrit 28.8 % (42.0-52.0); Hemoglobin 9.7 g/dl (14.0-18.0); Imm Gran Pct Auto 0.7 % (0.0-0.4); Lymphocytes Absolute Auto 2.3 X10*3/uL (1.2-4.9); Lymphocytes Percent Auto 16.7 % (20-40); Mean Corpuscular HGB Conc 33.7 g/dl (31.0-36.0); Mean Corpuscular Hemoglobin 33.3 pg (27.0-33.0); Mean Platelet Volume 10.2 fL (9.4-12.4); Monocytes Absolute Auto 1.9 X10*3/uL (0.1-1.2); Monocytes Percent Auto 13.9 % (2-11); Neutrophils Absolute Auto 9.1 x10*3/uL (2.0-8.3); Neutrophils Percent Auto 66.7 % (45-73); Platelet Count 300 X10*3/uL (160-400); Red Blood Count 2.91 X10*6/uL (4.60-5.80); Red Cell Distribution Width 12.8 % (11.0-16.0); SCAN SMEAR FLAG 1; White Blood Count 13.6 X10*3/uL (4.8-10.8)
[2021-12-14 06:50] LABS: MANUAL DIFF FLAG SCAN
[2021-12-14 07:05] LABS: SLIDE REVIEW VERIFIED
[2021-12-14 07:21] LABS: Anion Gap 18 (12-20); Blood Urea Nitrogen 68 mg/dL (9-16); Calcium 8.7 mg/dL (8.4-10.2); Carbon Dioxide 17 mmol/L (22-29); Chloride 105 mmol/L (96-108); Creatinine Clr Calc Pharmacy 18.1; Estimated Glomerular Filt Rate 11; Glucose Random 83 mg/dL (60-115); Potassium 4.4 mmol/L (3.3-5.1); Sodium 136 mmol/L (135-145)
[2021-12-14 07:31] VITALS: BP 166/109; PULSE 104; RESP 14; TEMP 37.4; O2SAT 96
[2021-12-14] MEDS: Sodium Bicarbonate 650 MG TABLET PO ×4 (08:17→21:49)
[2021-12-14] MEDS: Acetaminophen 325 MG TABLET 650 MG PO ×2 (08:17→12:42)
--- NOTE | 2021-12-14 12:10 | P.PNIM_ITS ---
Subjective Subjective Date of Service: 12/14/21 Interval History: Seen and evaluated this morning making more wound urine Reported epistaxis this morning and mild headache No reported other complaints Review of Systems No fever, chills but has generalized weakness No chest pain, palpitation No shortness of breath or coughing No abdominal pain, nausea or vomiting No urinary symptoms No any rash or wounds improved pain in the right hip and right elbow Physical Exam Vital Signs: Vital Signs: Last Vital Signs Temp 99.4 F 12/14/21 07:31 Pulse 104 H 12/14/21 07:31 Resp 14 12/14/21 07:31 BP 166/109 H 12/14/21 07:31 Pulse Ox 96 12/14/21 07:31 O2 Del Method 12/14/21 07:31 O2 Flow Rate 2 12/04/21 04:00 BMI result Body Mass Index 31.8 Const: Other: Constitutional : Alert, interactive Neck : Normal inspection, Supple Cardiovascular : RRR, no JVP, no lower extremity edema Respiratory : fair bilateral air entry, no crackles, wheezes or rhonchi Gastrointestinal: soft, lax, Normal bowel sounds, Non tender Skin : Warm, Dry, PermCath in place Musculoskeletal: Decreased Stiffness and pain in right hip with improved swelling in the right elbow with mild tenderness, significantly improved range of motion Neurological : Alert & oriented to self and place, No focal deficit , CN 2-12 within normal Vascular: has good pulses in right upper and right lower extremities Objective Data Active Medications Acetaminophen (Acetaminophen 325 Mg Tablet) 650 mg PO Q6H PRN PRN Reason: Pain, Mild (Pain Scale 1-3) Last Admin: 12/14/21 08:17 Dose: 650 mg Documented By: SRINIVAS Amlodipine Besylate (Amlodipine Besylate 10 Mg Tablet) 10 mg PO DAILY [facility]; Protocol Last Admin: 12/14/21 10:59 Dose: Not Given Documented By: SRINIVAS Non-Admin Reason: Off unit: Dialysis Hydralazine HCl (Hydralazine Hcl 25 Mg Tablet) 25 mg PO TID [facility]; Protocol Last Admin: 12/14/21 10:59 Dose: Not Given Documented By: SRINIVAS Non-Admin Reason: Off Unit: Surgery Neomycin/Polymyxin/Bacitracin (Neomy/Polymyx/Bacit/Ointment 14 Gm Tube) 1 gm TOPICAL DAILY [facility]; Protocol Last Admin: 12/14/21 10:57 Dose: Not Given Documented By: SRINIVAS Non-Admin Reason: Given in Dialysis Nitroglycerin (Nitroglycerin 0.4 Mg Tab.Subl) 0.4 mg SUBLINGUAL Q5MX3 PRN PRN Reason: Chest Pain Last Admin: 12/05/21 00:47 Dose: 0.4 mg Documented By: SATHISH Comments: ch pain Ondansetron HCl (Ondansetron Hcl 4 Mg/2 Ml Vial) 4 mg IVPUSH Q8H PRN PRN Reason: Nausea and Vomiting Last Admin: 12/14/21 06:37 Dose: 4 mg Documented By: BRUCE Pharmacy Consult (Consult Rx Perform Med Rec) 1 each MISCELLANE ONCE PRN PRN Reason: Consult order Sodium Bicarbonate (Sodium Bicarbonate 650 Mg Tablet) 650 mg PO QID [facility] Last Admin: 12/14/21 08:17 Dose: 650 mg Documented By: SRINIVAS Sodium Chloride (0.9 % Sodium Chloride Flush 3 Ml Syringe) 3 ml IVFLUSH QSHIFT [facility] Last Admin: 12/14/21 08:17 Dose: 3 ml Documented By: SRINIVAS Sodium Zirconium Cyclosilicate (Sodium Zirconium Cyclosilicate 10 Gm Powd.Pack) 10 gm PO DAILY [facility] Last Admin: 12/14/21 10:59 Dose: Not Given Documented By: SRINIVAS Non-Admin Reason: Off Unit: Surgery Labs CBC & Chem 7: 12/14/21 06:20 12/14/21 06:20 Labs: Laboratory Results - last 24 hr 12/14/21 12/14/21 06:20 06:20 MCV 99.0 H MCH 33.3 H MCHC 33.7 RDW 12.8 Plt Count 300 MPV 10.2 Immature Gran % (Auto) 0.7 H Neut % (Auto) 66.7 Lymph % (Auto) 16.7 L [place] % (Auto) 13.9 H Eos % (Auto) 1.6 Baso % (Auto) 0.4 Lymph # (Auto) 2.3 [place] # (Auto) 1.9 H Eos # (Auto) 0.2 Baso # (Auto) 0.1 Abs Immat Gran (auto) 0.10 H Absolute Neuts (auto) 9.1 H Absolute Nucleated RBC 0.000 Nucleated RBC % (auto) 0.0 Smear Tech's Comments VERIFIED Anion Gap 18 Estim Creat Clear Calc 18.1 Estimated GFR 11 Random Glucose 83 Calcium 8.7 Assessment and Plan (1) Acute renal failure due to rhabdomyolysis: Status: Acute Plan 46 years old male with PMH of smoking, alcoholism who presents to the hospital after being found altered in his shower after using heroin. Acute renal failure requiring dialysis, metabolic acidosis Secondary to ATN/rhabdomyolysis Nephrology following, consistent with dense ATN, continue dialysis MWF Continue sodium bicarb Continue with dialysis while id patient Follow BMP Unable to find an outpatient dialysis center yet to accept him, will continue dialysis during inpatient stay Acute on chronic anemia Hemoglobin stable positive occult blood Iron stores within normal GI input appreciated, no need for intervention at this point, can be followed as outpatient elective colonoscopy Monitor CBC HYponatremia Resolved follow BMP Hyperkalemia Lokelema follow BMP RUE pain and swelling. Improving CT showing subcutaneous swelling concerning for muscle injury or infection pain likely from reperfusion injury per Ortho US neg for DVT Right Hip pain. Improving CT scan showing multiple abnormalities with enlargement of surrounding tissue and fluids along multiple facial planes Concerning for possible myositis, joint infection seen by orthopedics seen by ID, no fever to indicate infection and blood cultures negative - rec to d/c abx Pain control - pain improving physical therapy following Hypertension Started on amlodipine and hydralazine Monitor response Aspiration pneumonia Finish treatment with IV zosyn On room air Toxic metabolic encephalopathy, resolved Secondary to heroin abuse Addiction team following DVT PPX SCDs for drop in hemoglobin and epistaxis DISPO plan for rehab with dialysis patient requires ongoing inpatient hospitalization due to need for ongoing h emodialysis, close monitoring of renal function, pending safe rehab placement Quality Stroke Does the patient have a stroke diagnosis?: No VTE Prior VTE?: No VTE Risk Level:: Medical - moderate - high VTE Device Contraindication: Treatment Not Indicated VTE Drug Contraindication: N/A - Med Ordered
[2021-12-14 13:24] VITALS: BP 162/103; PULSE 100; RESP 20; TEMP 36.2; O2SAT 98
[2021-12-14] MEDS: hydrALAZINE HCl 25 MG TABLET PO ×2 (13:56→21:49)
[2021-12-14] MEDS: Morphine Sulfate 2 MG/ML CARTRIDGE IVPUSH (14:32)
[2021-12-14] MEDS: Butalb/Acetamin/Caff 50/325/40 TABLET 1 TAB PO (14:33)
--- NOTE | 2021-12-14 15:34 | PM.PNNEP ---
Subjective Subjective Date of Service: 12/14/21 Interval history: Seen and evaluated this morning UOP improved. Physical Exam Vital Signs: Vital Signs: Last Vital Signs Temp 97.2 F 12/14/21 13:24 Pulse 100 12/14/21 13:24 Resp 20 12/14/21 13:24 BP 162/103 H 12/14/21 13:24 Pulse Ox 98 12/14/21 13:24 O2 Del Method 12/14/21 13:24 O2 Flow Rate 2 12/04/21 04:00 BMI result Body Mass Index 31.8 Const: General: no acute distress HEENT: Head: Yes normocephalic and Yes atraumatic Neck: Neck: Yes no JVD Resp: Auscultation: clear to auscultation bilaterally Cardio: Jugular venous distension: no JVD Rate: regular rate Rhythm: regular rhythm Heart sounds: S1 normal heart sound present and S2 normal heart sound present GI: Auscultation: normal bowel sounds Neuro: General: moves all extremities Extrem: General: Yes no clubbing, cyanosis or edema Objective Data Labs CBC & Chem 7: 12/14/21 06:20 12/14/21 06:20 Labs: Laboratory Results - last 24 hr 12/14/21 12/14/21 06:20 06:20 WBC 13.6 H RBC 2.91 L Hgb 9.7 L Hct 28.8 L MCV 99.0 H MCH 33.3 H MCHC 33.7 RDW 12.8 Plt Count 300 MPV 10.2 Immature Gran % (Auto) 0.7 H Neut % (Auto) 66.7 Lymph % (Auto) 16.7 L Collier % (Auto) 13.9 H Eos % (Auto) 1.6 Baso % (Auto) 0.4 Lymph # (Auto) 2.3 Collier # (Auto) 1.9 H Eos # (Auto) 0.2 Baso # (Auto) 0.1 Abs Immat Gran (auto) 0.10 H Absolute Neuts (auto) 9.1 H Absolute Nucleated RBC 0.000 Nucleated RBC % (auto) 0.0 Smear Tech's Comments VERIFIED Sodium 136 Potassium 4.4 Chloride 105 Carbon Dioxide 17 L Anion Gap 18 BUN 68 H Creatinine 5.81 H* Estim Creat Clear Calc 18.1 Estimated GFR 11 Random Glucose 83 Calcium 8.7 Microbiology Microbiology Results: Microbiology 11/28/21 06:06 Blood - Venous Blood Culture - Final No growth after 5 days. 11/28/21 06:06 Blood - Venous Blood Culture - Final No growth after 5 days. Procedures Date of Service Date of Service: 12/14/21 Assessment & Plan Assessment and plan (1) NEHA (acute kidney injury): Status: Acute Plan #) NEHA, with anuria now non-oliguric Acute Kidney Injury consistent with rhabdomyolysis and dense ATN with delayed recovery Remains HD dependent for now; Tolerating HD; Hemodynamics stable on HD Has a Pcath which is functioning well; Will continue to revisit need for renal biopsy if not recovering Blood pressure needs to be maintained at goal; Can consider increasing hydralazine to 50 mg tid for now. C/W rest of current management Time Spent With Patient Time: Total time spent is greater than 50% in coordination of care (as documented) at patient's floor/unit and/or counseling patient: Progress Note: Quality Stroke Does the patient have a stroke diagnosis?: No
[2021-12-14 15:45] VITALS: BP 142/92; PULSE 100; RESP 16; TEMP 36.6; O2SAT 98
[2021-12-14] MEDS: amLODIPine Besylate 10 MG TABLET PO (18:28)
--- NOTE | 2021-12-14 18:54 | PM.EVENT ---
Event Note Date of Service: 12/14/21 Event Note: mild nose bleed after blowing nose. PISANO, elevatged BP after dialysis didn't take norvasc today, no bleeding when I saw him, will get head CT to get Norvasc now and if BP persistently high IV Labetalol
[2021-12-14 20:00] VITALS: BP 145/91; PULSE 98; RESP 16; TEMP 36.5; O2SAT 98
[2021-12-15] VITALS (8 sets, daily range): BP systolic 130–160; BP diastolic 85–100; PULSE 93–115; RESP 16–18; TEMP 36.5–37.1; O2SAT 96–99
[2021-12-15] MEDS: 0.9 % Sodium Chloride Flush 3 ML SYRINGE IVFLUSH ×4 (00:55→20:30)
[2021-12-15 06:13] LABS: Anion Gap 18 (12-20); Blood Urea Nitrogen 44 mg/dL (9-16); Carbon Dioxide 21 mmol/L (22-29); Chloride 103 mmol/L (96-108); Creatinine Clr Calc Pharmacy 26.5; Estimated Glomerular Filt Rate 17; Glucose Random 87 mg/dL (60-115); Potassium 4.6 mmol/L (3.3-5.1); Sodium 137 mmol/L (135-145)
--- NOTE | 2021-12-15 09:52 | HO.PM.IMPN ---
Subjective Subjective Date of Service: 12/15/21 Interval History: seen and examined this morning. history obtained with the assistance of a animal laboratory helper Follow-up for NEHA, still requiring hemodialysis No further epistaxis Reporting headache. States he has a history of migraines but cannot recall what medication he used to take Review of Systems Review of Systems: Yes all other systems are reviewed and are negative Constitutional Constitutional: Denies chills and Denies fever(s) Cardiovascular Cardiovascular: Denies chest pain, Denies palpitations and Denies dyspnea Respiratory Respiratory: Denies cough and Denies dyspnea Gastrointestinal Gastrointestinal: Denies abdominal pain Endocrine Endocrine: Denies palpitations Physical Exam Vital Signs: Vital Signs: Last Vital Signs Temp 98.6 F 12/15/21 07:12 Pulse 100 12/15/21 07:12 Resp 18 12/15/21 07:12 BP 156/96 H 12/15/21 07:12 Pulse Ox 96 12/15/21 07:12 O2 Del Method 12/15/21 07:12 O2 Flow Rate 2 12/04/21 04:00 BMI result Body Mass Index 31.8 Const: General: cooperative, comfortable, no acute distress, alert and awake Nutritional Appearance: average body habitus Orientation/consciousness: patient oriented x3 Resp: Effort & Inspection: normal respiratory effort and able to speak in complete sentences Auscultation: clear to auscultation bilaterally Cardio: Rate: regular rate Heart sounds: S1 normal heart sound present and S2 normal heart sound present GI: Inspection: No distended Palpation (GI): Soft to palpation and nontender Neuro: General: patient oriented x3 and CN's II-XI intact bilaterally Extrem: General: Yes no pedal edema Objective Data Active Medications Acetaminophen (Acetaminophen 325 Mg Tablet) 650 mg PO Q6H PRN PRN Reason: Pain, Mild (Pain Scale 1-3) Last Admin: 12/14/21 12:42 Dose: 650 mg Documented By: SRINIVAS Amlodipine Besylate (Amlodipine Besylate 10 Mg Tablet) 10 mg PO DAILY [facility]; Protocol Last Admin: 12/14/21 18:28 Dose: 10 mg Documented By: SRINIVAS Hydralazine HCl (Hydralazine Hcl 25 Mg Tablet) 25 mg PO TID [facility]; Protocol Last Admin: 12/14/21 21:49 Dose: 25 mg Documented By: TREASURE Neomycin/Polymyxin/Bacitracin (Neomy/Polymyx/Bacit/Ointment 14 Gm Tube) 1 gm TOPICAL DAILY [facility]; Protocol Last Admin: 12/14/21 10:57 Dose: Not Given Documented By: SRINIVAS Non-Admin Reason: Given in Dialysis Nitroglycerin (Nitroglycerin 0.4 Mg Tab.Subl) 0.4 mg SUBLINGUAL Q5MX3 PRN PRN Reason: Chest Pain Last Admin: 12/05/21 00:47 Dose: 0.4 mg Documented By: SATHISH Comments: ch pain Ondansetron HCl (Ondansetron Hcl 4 Mg/2 Ml Vial) 4 mg IVPUSH Q8H PRN PRN Reason: Nausea and Vomiting Last Admin: 12/14/21 06:37 Dose: 4 mg Documented By: BRUCE Pharmacy Consult (Consult Rx Perform Med Rec) 1 each MISCELLANE ONCE PRN PRN Reason: Consult order Sodium Bicarbonate (Sodium Bicarbonate 650 Mg Tablet) 650 mg PO QID [facility] Last Admin: 12/14/21 21:49 Dose: 650 mg Documented By: TREASURE Sodium Chloride (0.9 % Sodium Chloride Flush 3 Ml Syringe) 3 ml IVFLUSH QSHIFT [facility] Last Admin: 12/15/21 00:55 Dose: 3 ml Documented By: BRUCE Sodium Zirconium Cyclosilicate (Sodium Zirconium Cyclosilicate 10 Gm Powd.Pack) 10 gm PO DAILY [facility] Last Admin: 12/14/21 10:59 Dose: Not Given Documented By: SRINIVAS Non-Admin Reason: Off Unit: Surgery Labs CBC & Chem 7: 12/14/21 06:20 12/15/21 05:21 Labs: Laboratory Results - last 24 hr 12/15/21 05:21 Anion Gap 18 Estim Creat Clear Calc 26.5 Estimated GFR 17 Random Glucose 87 Calcium 9.0 Assessment and Plan (1) Acute renal failure due to rhabdomyolysis: Status: Acute Plan 46 years old male with PMH of smoking, alcoholism who presents to the hospital after being found altered in his shower after using heroin.? Acute renal failure requiring dialysis, metabolic acidosis Secondary to ATN/rhabdomyolysis Nephrology following, consistent with dense ATN, continue dialysis MWF Continue sodium bicarb Has been getting dialysis while inpatient- if creatinine improved in a.m. may take a break from dialysis tomorrow ?Follow BMP Unable to find an outpatient dialysis center yet to accept him, will continue dialysis during inpatient stay Migraine prn fioricet Acute on chronic anemia Hemoglobin stable ?positive occult blood Iron stores within normal ?GI input appreciated, no need for intervention at this point, can be followed as outpatient elective colonoscopy Monitor CBC HYponatremia Resolved follow BMP Hyperkalemia Daily Lokelema ?follow BMP RUE pain and swelling. Improving CT showing subcutaneous swelling concerning for muscle injury or infection pain likely from reperfusion injury per Ortho US neg for DVT Right Hip pain. Improving CT scan showing multiple abnormalities with enlargement of surrounding tissue and fluids along multiple facial planes Concerning for possible myositis, joint infection seen by orthopedics seen by ID, no fever to indicate infection and blood cultures negative - rec to d/c abx Pain control - pain improving physical therapy following Hypertension Started on amlodipine and hydralazine Monitor response Aspiration pneumonia Finished treatment with IV zosyn On room air Toxic metabolic encephalopathy, resolved Secondary to heroin abuse Addiction team following DVT PPX ?SCDs for drop in hemoglobin and epistaxis DISPO plan for rehab with dialysis ?patient requires ongoing inpatient hospitalization due to need for ongoing hemodialysis, close monitoring of renal function, pending safe rehab placement Quality Stroke Does the patient have a stroke diagnosis?: No VTE Prior VTE?: No VTE Risk Level:: Medical - moderate - high VTE Device Contraindication: Treatment Not Indicated VTE Drug Contraindication: N/A - Med Ordered
[2021-12-15] MEDS: Sodium Zirconium Cyclosilicate 10 GM POWD.PACK PO (11:11)
[2021-12-15] MEDS: Sodium Bicarbonate 650 MG TABLET PO ×4 (11:11→20:27)
[2021-12-15] MEDS: hydrALAZINE HCl 25 MG TABLET PO ×3 (11:11→20:27)
[2021-12-15] MEDS: amLODIPine Besylate 10 MG TABLET PO (11:11)
[2021-12-15] MEDS: Butalb/Acetamin/Caff 50/325/40 TABLET 1 TAB PO ×2 (11:14→20:27)
--- NOTE | 2021-12-15 11:33 | MHC.CM.PN ---
PER PHYSICIAN ROUNDS, POSSIBLE HD BREAK ON Sunday12/16/21 IF CREATININE IS WDL.
--- NOTE | 2021-12-15 12:38 | P.PNNP_ITS ---
Subjective Subjective Date of Service: 12/15/21 Interval history: Chart Reviewed. Events noted. Physical Exam Vital Signs: Vital Signs: Last Vital Signs Temp 98.3 F 12/15/21 11:24 Pulse 97 12/15/21 11:24 Resp 18 12/15/21 11:24 BP 160/100 H 12/15/21 11:24 Pulse Ox 98 12/15/21 11:24 O2 Del Method 12/15/21 11:24 O2 Flow Rate 2 12/04/21 04:00 BMI result Body Mass Index 31.8 Const: General: comfortable and no acute distress HEENT: Head: Yes normocephalic and Yes atraumatic Neck: Neck: Yes no JVD Resp: Effort & Inspection: normal respiratory effort Auscultation: clear to auscultation bilaterally Cardio: Jugular venous distension: no JVD Rate: regular rate Rhythm: regular rhythm Heart sounds: S1 normal heart sound present and S2 normal heart sound present GI: Auscultation: normal bowel sounds Neuro: General: moves all extremities Extrem: General: Yes no clubbing, cyanosis or edema Objective Data Labs CBC & Chem 7: 12/14/21 06:20 12/15/21 05:21 Labs: Laboratory Results - last 24 hr 12/15/21 05:21 Sodium 137 Potassium 4.6 Chloride 103 Carbon Dioxide 21 L Anion Gap 18 BUN 44 H Creatinine 3.97 H Estim Creat Clear Calc 26.5 Estimated GFR 17 Random Glucose 87 Calcium 9.0 Microbiology Microbiology Results: Microbiology 11/28/21 06:06 Blood - Venous Blood Culture - Final No growth after 5 days. 11/28/21 06:06 Blood - Venous Blood Culture - Final No growth after 5 days. Procedures Date of Service Date of Service: 12/15/21 Assessment & Plan Assessment and plan (1) Acute renal failure due to rhabdomyolysis: Status: Acute Plan #) NEHA, with anuria now non-oliguric Acute Kidney Injury consistent with rhabdomyolysis and dense ATN with delayed recovery Remains HD dependent for now; Currently on HD per MWF schedule. 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 Review labs and assess for renal recovery. If improving with preserved uop we may hold off on HD. Avoid hypotension on HD as this may induce a superimposed neha. Has a Pcath which is functioning well; Will continue to revisit need for renal biopsy if not recovering Blood pressure needs to be maintained at goal; Can consider increasing hydralazine to 50 mg tid for now. C/W rest of current management Time Spent With Patient Time: Total time spent is greater than 50% in coordination of care (as documented) at patient's floor/unit and/or counseling patient: Progress Note: Quality Stroke Does the patient have a stroke diagnosis?: No
[2021-12-16 03:57] VITALS: BP 144/85; PULSE 95; RESP 17; TEMP 36.6; O2SAT 99
[2021-12-16 06:52] LABS: Hematocrit 30.2 % (42.0-52.0); Hemoglobin 10.2 g/dl (14.0-18.0); Mean Corpuscular HGB Conc 33.8 g/dl (31.0-36.0); Mean Corpuscular Hemoglobin 33.3 pg (27.0-33.0); Mean Corpuscular Volume 98.7 fL (80.0-98.0); Platelet Count 291 X10*3/uL (160-400); Red Blood Count 3.06 X10*6/uL (4.60-5.80); Red Cell Distribution Width 12.7 % (11.0-16.0); White Blood Count 13.2 X10*3/uL (4.8-10.8)
[2021-12-16 07:38] VITALS: BP 135/88; PULSE 101; RESP 18; TEMP 36.1; O2SAT 98
[2021-12-16 07:42] LABS: Anion Gap 18 (12-20); Blood Urea Nitrogen 63 mg/dL (9-16); Calcium 9.1 mg/dL (8.4-10.2); Carbon Dioxide 20 mmol/L (22-29); Chloride 105 mmol/L (96-108); Glucose Random 77 mg/dL (60-115); Potassium 4.4 mmol/L (3.3-5.1); Sodium 139 mmol/L (135-145)
[2021-12-16 07:51] LABS: Estimated Glomerular Filt Rate 15
[2021-12-16] MEDS: 0.9 % Sodium Chloride Flush 3 ML SYRINGE IVFLUSH ×3 (07:53→22:02)
--- NOTE | 2021-12-16 10:16 | PM.PNNEP ---
Subjective Subjective Date of Service: 12/16/21 Interval history: Chart Reviewed. Events noted. Physical Exam Vital Signs: Vital Signs: Last Vital Signs Temp 97 F 12/16/21 07:38 Pulse 101 H 12/16/21 07:38 Resp 18 12/16/21 07:38 BP 135/88 12/16/21 07:38 Pulse Ox 98 12/16/21 07:38 O2 Del Method 12/16/21 07:38 O2 Flow Rate 2 12/16/21 03:57 BMI result Body Mass Index 31.8 Const: General: comfortable and no acute distress HEENT: Head: Yes normocephalic and Yes atraumatic Neck: Neck: Yes no JVD Resp: Auscultation: clear to auscultation bilaterally Cardio: Jugular venous distension: no JVD Rate: regular rate Rhythm: regular rhythm Heart sounds: S1 normal heart sound present and S2 normal heart sound present GI: Auscultation: normal bowel sounds Neuro: General: moves all extremities Extrem: General: Yes no clubbing, cyanosis or edema Objective Data Labs CBC & Chem 7: 12/16/21 06:02 12/16/21 06:02 Labs: Laboratory Results - last 24 hr 12/16/21 12/16/21 06:02 06:02 WBC 13.2 H RBC 3.06 L Hgb 10.2 L Hct 30.2 L MCV 98.7 H MCH 33.3 H MCHC 33.8 RDW 12.7 Plt Count 291 MPV 10.0 Absolute Nucleated RBC 0.000 Nucleated RBC % (auto) 0.0 Sodium 139 Potassium 4.4 Chloride 105 Carbon Dioxide 20 L Anion Gap 18 BUN 63 H Creatinine 4.20 H* Estim Creat Clear Calc 25.0 Estimated GFR 15 Random Glucose 77 Calcium 9.1 Microbiology Microbiology Results: Microbiology 11/28/21 06:06 Blood - Venous Blood Culture - Final No growth after 5 days. 11/28/21 06:06 Blood - Venous Blood Culture - Final No growth after 5 days. Procedures Date of Service Date of Service: 12/16/21 Assessment & Plan Assessment and plan (1) Acute renal failure due to rhabdomyolysis: Status: Acute Assessment and Plan: #) NEHA, with anuria now non-oliguric Acute Kidney Injury consistent with rhabdomyolysis and dense ATN with delayed recovery Remains HD dependent for now; Currently on HD per MWF schedule. Low K diet Monitor over weekend for renal recovery. Avoid hypotension on HD as this may induce a superimposed neha. Has a Pcath which is functioning well; Will continue to revisit need for renal biopsy if not recovering Blood pressure needs to be maintained at goal;? C/W rest of current management (2) Rhabdomyolysis: Status: Acute Time Spent With Patient Time: Total time spent is greater than 50% in coordination of care (as documented) at patient's floor/unit and/or counseling patient: Progress Note: Quality Stroke Does the patient have a stroke diagnosis?: No
--- NOTE | 2021-12-16 11:07 | MHC.CM.PN ---
PT STILL REQUIRING HD. STILL UNABLE TO BE SET UP WITH OUTPATIENT HD DUE TO INSURANCE PLAN CONTINUES TO BE HOME ONCE CLEARED FROM HD NEEDS OR SET UP WITH OP HD
[2021-12-16 12:00] VITALS: BP 148/98; PULSE 105; RESP 18; TEMP 36.6; O2SAT 96
--- NOTE | 2021-12-16 14:03 | P.PNIM_ITS ---
Subjective Subjective Date of Service: 12/16/21 Interval History: seen and examined this morning, history obtained through the use of a chief security and safety officer patient reports feeling sad and depressed this morning, not only about hospitalization but he also states that his daughter 1 month ago. He denies SI No chest pain, SOB or abdominal pain Review of Systems Review of Systems: Yes all other systems are reviewed and are negative Constitutional Constitutional: Denies chills and Denies fever(s) Cardiovascular Cardiovascular: Denies chest pain, Denies palpitations and Denies dyspnea Respiratory Respiratory: Denies cough and Denies dyspnea Gastrointestinal Gastrointestinal: Denies abdominal pain Endocrine Endocrine: Denies palpitations Physical Exam Vital Signs: Vital Signs: Last Vital Signs Temp 97 F 12/16/21 07:38 Pulse 101 H 12/16/21 07:38 Resp 18 12/16/21 07:38 BP 135/88 12/16/21 07:38 Pulse Ox 98 12/16/21 07:38 O2 Del Method 12/16/21 07:38 O2 Flow Rate 2 12/16/21 03:57 BMI result Body Mass Index 31.8 Const: General: cooperative, comfortable, no acute distress, alert and awake Nutritional Appearance: average body habitus Orientation/consciousness: patient oriented x3 Resp: Effort & Inspection: normal respiratory effort and able to speak in complete sentences Auscultation: clear to auscultation bilaterally Cardio: Rate: regular rate Heart sounds: S1 normal heart sound present and S2 normal heart sound present GI: Inspection: No distended Palpation (GI): Soft to palpation and nontender Neuro: General: patient oriented x3 and CN's II-XI intact bilaterally Objective Data Active Medications Acetaminophen (Acetaminophen 325 Mg Tablet) 650 mg PO Q8H PRN PRN Reason: Pain, Mild (Pain Scale 1-3) Acetaminophen/Butalbital/Caffeine (Butalb/Acetamin/Caff 50/325/40 Tablet) 1 tab PO BID PRN PRN Reason: Headache Last Admin: 12/15/21 20:27 Dose: 1 tab Documented By: SATHISH Amlodipine Besylate (Amlodipine Besylate 10 Mg Tablet) 10 mg PO DAILY [facility]; Protocol Last Admin: 12/16/21 07:54 Dose: Not Given Documented By: OLENA Non-Admin Reason: Off unit: Dialysis Hydralazine HCl (Hydralazine Hcl 25 Mg Tablet) 25 mg PO TID [facility]; Protocol Last Admin: 12/16/21 07:54 Dose: Not Given Documented By: OLENA Non-Admin Reason: Off unit: Dialysis Neomycin/Polymyxin/Bacitracin (Neomy/Polymyx/Bacit/Ointment 14 Gm Tube) 1 gm TOPICAL DAILY [facility]; Protocol Last Admin: 12/16/21 07:55 Dose: Not Given Documented By: OLENA Non-Admin Reason: Off unit: Dialysis Nitroglycerin (Nitroglycerin 0.4 Mg Tab.Subl) 0.4 mg SUBLINGUAL Q5MX3 PRN PRN Reason: Chest Pain Last Admin: 12/05/21 00:47 Dose: 0.4 mg Documented By: SATHISH Comments: ch pain Ondansetron HCl (Ondansetron Hcl 4 Mg/2 Ml Vial) 4 mg IVPUSH Q8H PRN PRN Reason: Nausea and Vomiting Last Admin: 12/14/21 06:37 Dose: 4 mg Documented By: BRUCE Pharmacy Consult (Consult Rx Perform Med Rec) 1 each MISCELLANE ONCE PRN PRN Reason: Consult order Sodium Bicarbonate (Sodium Bicarbonate 650 Mg Tablet) 650 mg PO QID [facility] Last Admin: 12/16/21 07:55 Dose: Not Given Documented By: OLENA Non-Admin Reason: Off unit: Dialysis Sodium Chloride (0.9 % Sodium Chloride Flush 3 Ml Syringe) 3 ml IVFLUSH QSHIFT [facility] Last Admin: 12/16/21 07:53 Dose: 3 ml Documented By: OLENA Sodium Zirconium Cyclosilicate (Sodium Zirconium Cyclosilicate 10 Gm Powd.Pack) 10 gm PO DAILY [facility] Last Admin: 12/16/21 07:55 Dose: Not Given Documented By: OLENA Non-Admin Reason: Off unit: Dialysis Labs CBC & Chem 7: 12/16/21 06:02 12/16/21 06:02 Labs: Laboratory Results - last 24 hr 12/16/21 12/16/21 06:02 06:02 MCV 98.7 H MCH 33.3 H MCHC 33.8 RDW 12.7 Plt Count 291 MPV 10.0 Absolute Nucleated RBC 0.000 Nucleated RBC % (auto) 0.0 Anion Gap 18 Estim Creat Clear Calc 25.0 Estimated GFR 15 Random Glucose 77 Calcium 9.1 Assessment and Plan (1) Acute renal failure due to rhabdomyolysis: Status: Acute Plan 46 years old male with PMH of smoking, alcoholism who presents to the hospital after being found altered in his shower after using heroin.? Acute renal failure requiring dialysis, metabolic acidosis Secondary to ATN/rhabdomyolysis with delayed recovery Nephrology following, continue dialysis MWF Continue sodium bicarb Follow BMP Unable to find an outpatient dialysis center yet to accept him, will continue dialysis during inpatient stay Migraine prn fioricet Depression psych consult pending Acute on chronic anemia Hemoglobin stable positive occult blood Iron stores within normal GI input appreciated, no need for intervention at this point, can be followed as outpatient elective colonoscopy Monitor CBC Epistaxis resolved Hyponatremia Resolved follow BMP Hyperkalemia Resolved Daily Lokelema follow BMP RUE pain and swelling. Improved CT showing subcutaneous swelling concerning for muscle injury or infection pain likely from reperfusion injury per Ortho US neg for DVT Right Hip pain. Improving CT scan showing multiple abnormalities with enlargement of surrounding tissue and fluids along multiple facial planes Concerning for possible myositis, joint infection seen by orthopedics seen by ID, no fever to indicate infection and blood cultures negative - rec to d/c abx Pain control - pain improving physical therapy following Hypertension Started on amlodipine and hydralazine Monitor response Aspiration pneumonia Finished treatment with IV zosyn On room air Toxic metabolic encephalopathy, resolved Secondary to heroin abuse Addiction team following DVT PPX - SCDs for drop in hemoglobin and epistaxis DISPO plan for rehab with dialysis Attending - Dr. Vickers patient requires ongoing inpatient hospitalization due to need for ongoing hemodialysis, close monitoring of renal function, pending safe rehab placement Quality Stroke Does the patient have a stroke diagnosis?: No VTE Prior VTE?: No VTE Risk Level:: Medical - moderate - high VTE Device Contraindication: Treatment Not Indicated VTE Drug Contraindication: N/A - Med Ordered
[2021-12-16] MEDS: Sodium Bicarbonate 650 MG TABLET PO ×3 (14:37→20:47)
[2021-12-16] MEDS: hydrALAZINE HCl 25 MG TABLET PO ×2 (14:37→20:47)
[2021-12-16] MEDS: Butalb/Acetamin/Caff 50/325/40 TABLET 1 TAB PO (14:40)
[2021-12-16 15:58] VITALS: BP 155/70; PULSE 103; RESP 18; TEMP 37.1; O2SAT 98
--- NOTE | 2021-12-16 17:13 | P.CNPS_ITS ---
History of Present Illness Date of Service: 12/16/2021 Chief Complaint: fall ams Reason for Consult: Medication and Dispo Requesting physician: Hazel Morfin Discussed with referring provider: Yes Sources of Information: patient interviewed, chart reviewed and crisis/core team assessment reviewed HPI Narrative: Ángel is a 46 y.o. male with PMH of smoking, alcoholism who arrived to [facility] ED on 11/28/2021 after falling in his shower after using heroin. Pt sober x 10 years but relapsed after his finding out his 20 y.o. daughter was killed by her bf in [place]. Pt was found by EMS and received Narcan, once in the ED he presented with AMS and combative mood. He was [place] [facility] [place], as his chest CT was concerning for aspiration pneumonia, and found to have toxic metabolic encephalopathy. Pt was found to be in acute renal failure requiring dialysis, in metabolic acidosis. Followed by nephrology. Awaiting referral for OP dialysis center, will continue dialysis during inpatient stay. Pt has chronic anemia, HTN.? I evaluated the pt this evening with title clerk and upon interview he acknowledges that he is ?depressed.? He denies hx of taking medication for depression. Denies hx of depressive episodes. Says since his daughter , he hasnt been able to sleep well, he is tearful, and dysphoric. He is grieving. Has anxiety prior to sleep. Appetite is low. Says he spoke to her on the phone the day she . Denies A/VH, however has perceptual disturbance as he hears his daughter?s voice calling him. Protective factors include he has two more kids and a grandson. Denies SI/SIB/HI.? [facility] Medical History (Updated 12/18/21 @ 21:14 by Yi Antonio NP) Leukocytosis No known health problems Diagnostics Vital Signs (24Hr): Vital Signs - 24 hr 12/15/21 19:52 12/15/21 23:56 12/16/21 03:57 Temperature 98.7 F 97.7 F 97.9 F Pulse Rate 115 H 95 95 Respiratory Rate 16 17 17 Blood Pressure 157/98 H 142/85 H 144/85 H Pulse Oximetry 98 99 99 Oxygen Delivery Method Room Air Nasal Cannula Nasal Cannula Oxygen Flow Rate 2 2 12/16/21 07:38 12/16/21 12:00 12/16/21 15:58 Temperature 97 F 98 F 98.7 F Pulse Rate 101 H 105 H 103 H Respiratory Rate 18 18 18 Blood Pressure 135/88 148/98 H 155/70 H Pulse Oximetry 98 96 98 Oxygen Delivery Method Room Air Room Air Room Air Oxygen Flow Rate BMI result Body Mass Index 31.8 Labs Results: 12/16/21 06:02 12/16/21 06:02 Labs: Laboratory Results - last 48 hr 12/15/21 12/16/21 12/16/21 05:21 06:02 06:02 WBC 13.2 H RBC 3.06 L Hgb 10.2 L Hct 30.2 L MCV 98.7 H MCH 33.3 H MCHC 33.8 RDW 12.7 Plt Count 291 MPV 10.0 Absolute Nucleated RBC 0.000 Nucleated RBC % (auto) 0.0 Sodium 137 139 Potassium 4.6 4.4 Chloride 103 105 Carbon Dioxide 21 L 20 L Anion Gap 18 18 BUN 44 H 63 H Creatinine 3.97 H 4.20 H* Estim Creat Clear Calc 26.5 25.0 Estimated GFR 17 15 Random Glucose 87 77 Calcium 9.0 9.1 Imaging Radiology Impressions: ITS Impressions Chest CT 11/28/21 04:42 IMPRESSION: Moderately extensive, symmetric regions of consolidation and groundglass opacity bilaterally with perihilar predominance. Leading considerations include edema versus pneumonia in the proper clinical setting. Cervical Spine CT 11/28/21 04:50 IMPRESSION: 1. Head: Suboptimal assessment due to motion artifact. No acute intracranial findings identified. 2. Facial bones: No fracture identified. Paranasal sinus disease as noted above. 3. Cervical spine: Significantly limited assessment due to motion artifact. Grossly, no acute findings identified. Face CT 11/28/21 04:50 IMPRESSION: 1. Head: Suboptimal assessment due to motion artifact. No acute intracranial findings identified. 2. Facial bones: No fracture identified. Paranasal sinus disease as noted above. 3. Cervical spine: Significantly limited assessment due to motion artifact. Grossly, no acute findings identified. Head CT 11/28/21 04:50 IMPRESSION: 1. Head: Suboptimal assessment due to motion artifact. No acute intracranial findings identified. 2. Facial bones: No fracture identified. Paranasal sinus disease as noted above. 3. Cervical spine: Significantly limited assessment due to motion artifact. Grossly, no acute findings identified. Forearm X-Ray 11/28/21 05:15 IMPRESSION: No acute findings identified. Hip/Pelvis X-Ray 11/28/21 05:15 IMPRESSION: No acute findings identified. Pulmonary Perfusion Imaging 11/28/21 13:20 IMPRESSION: Pulmonary embolism absent. Humerus CT 11/29/21 15:09 IMPRESSION: Findings in the subcutaneous soft tissues could reflect edema or cellulitis. No definite muscle or bone abnormality. Hip CT 11/29/21 15:15 IMPRESSION: Multiple abnormalities about the right hip joint including right hip joint and enlargement of the surrounding muscles and fluid extending along multiple fascial planes as detailed above. This could reflect reactive inflammatory changes related to a right hip joint inflammatory process including early joint sepsis (no bone destruction or joint space narrowing.) Noninfectious inflammatory arthropathy could have this same appearance. Enlargement of the muscles could reflect myositis. The fluid surrounding the muscles could reflect reactive edema and/or cellulitis related to muscle infection. Alternatively this muscle appearance can be seen with intramuscular hematoma or muscle infarction with reactive surrounding inflammatory change Etiology of the small amount of intrapelvic fluid not determined but could reflect reactive inflammatory changes from the aforementioned right hip and surrounding muscle process Insertion Non-Tunneled Catheter 11/29/21 15:55 IMPRESSION: Right internal jugular central venous temporary dialysis catheter placement. Renal Ultrasound 11/29/21 16:09 IMPRESSION: Normal renal ultrasound, no evidence of obstruction, hydronephrosis or other image findings to explain patient's renal failure.. Venous Duplex 12/02/21 20:55 IMPRESSION: No DVT demonstrated in the right upper extremity Insertion Tunneled Catheter 12/05/21 09:18 IMPRESSION: Successful conversion of right temporal dialysis catheter to a tunneled 14.5 Wolof and 23 cm long right permacatheter. The patient tolerated procedure well. The catheter is ready for use Head CT 12/14/21 20:09 IMPRESSION: No acute intracranial abnormality including hemorrhage, mass effect, hydrocephalus, or acute territorial edematous infarction. Mental Status Exam Mental Status Exam Narrative: A&O. In hospital attire, in his room, lights off, dark in daytime, overweight. Poor eye contact, attentive. No Tics or Tremors. No abnormal involuntary movements. Cooperative but not overly engaged. Non-pressured speech, spontaneous with regular rate and rhythm, normal volume and prosody. No prolonged speech latency or dysarthria. Mood is ?depressed,? affect is tearful, dysphoric. Denies SI/SIB/HI upon inquiry. Denies A/VH or delusional thought content. Thoughts are ruminative. No known cognitive or memory impairment. Insight/ Judgment fair and adequate. Medications Medications Current Medications Acetaminophen (Acetaminophen 325 Mg Tablet) 650 mg PO Q8H PRN PRN Reason: Pain, Mild (Pain Scale 1-3) Acetaminophen/Butalbital/Caffeine (Butalb/Acetamin/Caff 50/325/40 Tablet) 1 tab PO BID PRN PRN Reason: Headache Last Admin: 12/16/21 14:40 Dose: 1 tab Amlodipine Besylate (Amlodipine Besylate 10 Mg Tablet) 10 mg PO DAILY [facility]; Protocol Last Admin: 12/16/21 07:54 Dose: Not Given Hydralazine HCl (Hydralazine Hcl 25 Mg Tablet) 25 mg PO TID [facility]; Protocol Last Admin: 12/16/21 14:37 Dose: 25 mg Neomycin/Polymyxin/Bacitracin (Neomy/Polymyx/Bacit/Ointment 14 Gm Tube) 1 gm TOPICAL DAILY [facility]; Protocol Last Admin: 12/16/21 07:55 Dose: Not Given Nitroglycerin (Nitroglycerin 0.4 Mg Tab.Subl) 0.4 mg SUBLINGUAL Q5MX3 PRN PRN Reason: Chest Pain Last Admin: 12/05/21 00:47 Dose: 0.4 mg Ondansetron HCl (Ondansetron Hcl 4 Mg/2 Ml Vial) 4 mg IVPUSH Q8H PRN PRN Reason: Nausea and Vomiting Last Admin: 12/14/21 06:37 Dose: 4 mg Pharmacy Consult (Consult Rx Perform Med Rec) 1 each MISCELLANE ONCE PRN PRN Reason: Consult order Sodium Bicarbonate (Sodium Bicarbonate 650 Mg Tablet) 650 mg PO QID [facility] Last Admin: 12/16/21 14:37 Dose: 650 mg Sodium Chloride (0.9 % Sodium Chloride Flush 3 Ml Syringe) 3 ml IVFLUSH QSHIFT [facility] Last Admin: 12/16/21 14:37 Dose: 3 ml Sodium Zirconium Cyclosilicate (Sodium Zirconium Cyclosilicate 10 Gm Powd.Pack) 10 gm PO DAILY [facility] Last Admin: 12/16/21 07:55 Dose: Not Given Allergies Allergies Allergy/AdvReac Type Severity Reaction Status Date / Time No Known Allergies Allergy Verified 11/28/21 04:16 Assessment & Plan Assessment & Plan (1) Acute renal failure due to rhabdomyolysis: Status: Acute Code(s): N17.9 - Acute kidney failure, unspecified; M62.82 - Rhabdomyolysis (2) Aspiration pneumonia: Status: Acute Code(s): J69.0 - Pneumonitis due to inhalation of food and vomit (3) NEHA (acute kidney injury): Status: Acute Code(s): N17.9 - Acute kidney failure, unspecified (4) MDD (major depressive disorder), recurrent episode, moderate: Status: Acute Code(s): F33.1 - Major depressive disorder, recurrent, moderate (5) Complicated bereavement: Status: Acute Code(s): F43.21 - Adjustment disorder with depressed mood Plan Ángel is a 46 y.o. male with PMH of smoking, alcoholism who arrived to [facility] ED on 11/28/2021 after falling in his shower after using heroin. He carries a dx of severe depressed episode in context of complicated bereavement, opiate use disorder. Plan: -Will start remeron 15 mg QHS for poor sleep, depression, and anxiety -Consult to CARE team upon medical clearance for dispo, as pt is severely depressed and although he denies SI/SIB, he says he does not feel safe and he would benefit from re-evaluation. I have shared this with Hazel Morfin Thank you for this consultation. If you have any questions or concerns, please do not hesitate to contact psychiatry service. I spent minutes with the patient and/or on the patient floor today, greater than?50% of which was spent counseling/coordinating care. Patient educated on: diagnosis, medication risk/benefits and therapeutic strategies
[2021-12-16 20:00] VITALS: BP 164/93; PULSE 104; RESP 18; TEMP 37.7; O2SAT 99
[2021-12-16] MEDS: Mirtazapine 15 MG TABLET PO (20:48)
[2021-12-16] MEDS: Acetaminophen 325 MG TABLET 650 MG PO (22:01)
[2021-12-17] VITALS (8 sets, daily range): BP systolic 136–166; BP diastolic 94–107; PULSE 99–116; RESP 16–18; TEMP 36.5–37.2; O2SAT 97–99
[2021-12-17] MEDS: 0.9 % Sodium Chloride Flush 3 ML SYRINGE IVFLUSH ×3 (09:04→20:08)
[2021-12-17] MEDS: hydrALAZINE HCl 25 MG TABLET PO ×3 (09:05→20:08)
[2021-12-17] MEDS: Sodium Bicarbonate 650 MG TABLET PO ×4 (09:05→20:08)
[2021-12-17] MEDS: amLODIPine Besylate 10 MG TABLET PO (09:05)
[2021-12-17] MEDS: Sodium Zirconium Cyclosilicate 10 GM POWD.PACK PO (09:05)
--- NOTE | 2021-12-17 09:35 | HO.PM.IMPN ---
Subjective Subjective Date of Service: 12/17/21 Interval History: f/u on renal failure that has resulted in dialysis he is waiting on outpatient dialysis to open up, he's been feeling sad from of daughter 1 month ago and being in hospital Review of Systems no fever no PISANO No sob No SI/HI Physical Exam Vital Signs: Vital Signs: Last Vital Signs Temp 97.7 F 12/17/21 07:18 Pulse 110 H 12/17/21 07:18 Resp 16 12/17/21 07:18 BP 166/107 H 12/17/21 07:18 Pulse Ox 98 12/17/21 07:18 O2 Del Method 12/17/21 07:18 O2 Flow Rate 2 12/16/21 03:57 BMI result Body Mass Index 31.8 Const: Other: Constitutional : Alert, interactive Neck : Normal inspection, Supple Cardiovascular : RRR, no JVP, no lower extremity edema Respiratory : fair bilateral air entry, no crackles, wheezes or rhonchi Gastrointestinal: soft, lax, Normal bowel sounds, Non tender Skin : Warm, Dry, PermCath in place Musculoskeletal: Decreased Stiffness and pain in right hip with improved swelling in the right elbow with mild tenderness, significantly improved range of motion Neurological : Alert & oriented to self and place, No focal deficit , CN 2-12 within normal Vascular: has good pulses in right upper and right lower extremities Objective Data Active Medications Acetaminophen (Acetaminophen 325 Mg Tablet) 650 mg PO Q8H PRN PRN Reason: Pain, Mild (Pain Scale 1-3) Last Admin: 12/16/21 22:01 Dose: 650 mg Documented By: KYA Acetaminophen/Butalbital/Caffeine (Butalb/Acetamin/Caff 50/325/40 Tablet) 1 tab PO BID PRN PRN Reason: Headache Last Admin: 12/16/21 14:40 Dose: 1 tab Documented By: OLENA Amlodipine Besylate (Amlodipine Besylate 10 Mg Tablet) 10 mg PO DAILY [facility]; Protocol Last Admin: 12/17/21 09:05 Dose: 10 mg Documented By: OLENA Hydralazine HCl (Hydralazine Hcl 25 Mg Tablet) 25 mg PO TID [facility]; Protocol Last Admin: 12/17/21 09:05 Dose: 25 mg Documented By: OLENA Mirtazapine (Mirtazapine 15 Mg Tablet) 15 mg PO BEDTIME [facility] Last Admin: 12/16/21 20:48 Dose: 15 mg Documented By: NOEMY Neomycin/Polymyxin/Bacitracin (Neomy/Polymyx/Bacit/Ointment 14 Gm Tube) 1 gm TOPICAL DAILY [facility]; Protocol Last Admin: 12/17/21 09:12 Dose: Not Given Documented By: OLENA Non-Admin Reason: given in dialysis Nitroglycerin (Nitroglycerin 0.4 Mg Tab.Subl) 0.4 mg SUBLINGUAL Q5MX3 PRN PRN Reason: Chest Pain Last Admin: 12/05/21 00:47 Dose: 0.4 mg Documented By: SATHISH Comments: ch pain Ondansetron HCl (Ondansetron Hcl 4 Mg/2 Ml Vial) 4 mg IVPUSH Q8H PRN PRN Reason: Nausea and Vomiting Last Admin: 12/14/21 06:37 Dose: 4 mg Documented By: BRUCE Pharmacy Consult (Consult Rx Perform Med Rec) 1 each MISCELLANE ONCE PRN PRN Reason: Consult order Sodium Bicarbonate (Sodium Bicarbonate 650 Mg Tablet) 650 mg PO QID [facility] Last Admin: 12/17/21 09:05 Dose: 650 mg Documented By: OLENA Sodium Chloride (0.9 % Sodium Chloride Flush 3 Ml Syringe) 3 ml IVFLUSH QSHIFT [facility] Last Admin: 12/17/21 09:04 Dose: 3 ml Documented By: OLENA Sodium Zirconium Cyclosilicate (Sodium Zirconium Cyclosilicate 10 Gm Powd.Pack) 10 gm PO DAILY [facility] Last Admin: 12/17/21 09:05 Dose: 10 gm Documented By: OLENA Labs CBC & Chem 7: 12/16/21 06:02 12/16/21 06:02 Assessment and Plan (1) Acute renal failure due to rhabdomyolysis: Status: Acute Plan 46 years old male with PMH of smoking, alcoholism who presents to the hospital after being found altered in his shower after using heroin.? Acute renal failure requiring dialysis, metabolic acidosis Secondary to ATN/rhabdomyolysis with delayed recovery Nephrology following, continue dialysis MWF Continue sodium bicarb Follow BMP Unable to find an outpatient dialysis center yet to accept him, will continue dialysis during inpatient stay Migraine prn fioricet Depression psych consult pending Acute on chronic anemia Hemoglobin stable positive occult blood Iron stores within normal GI input appreciated, no need for intervention at this point, can be followed as outpatient elective colonoscopy Monitor CBC Epistaxis resolved Hyponatremia Resolved follow BMP Hyperkalemia Resolved Daily Lokelema follow BMP RUE pain and swelling. Improved CT showing subcutaneous swelling concerning for muscle injury or infection pain likely from reperfusion injury per Ortho US neg for DVT Right Hip pain. Improving CT scan showing multiple abnormalities with enlargement of surrounding tissue and fluids along multiple facial planes Concerning for possible myositis, joint infection seen by orthopedics seen by ID, no fever to indicate infection and blood cultures negative - rec to d/c abx Pain control - pain improving physical therapy following Hypertension Started on amlodipine and hydralazine BP remains high with tachycardia, add Metoprolol Aspiration pneumonia Finished treatment with IV zosyn On room air Toxic metabolic encephalopathy, resolved Secondary to heroin abuse Addiction team following DVT PPX - SCDs for drop in hemoglobin and epistaxis DISPO plan for rehab with dialysis Attending - Dr. Vickesr patient requires ongoing inpatient hospitalization due to need for ongoing hemodialysis, close monitoring of renal function, pending safe rehab placement Quality Stroke Does the patient have a stroke diagnosis?: No VTE Prior VTE?: No VTE Risk Level:: Medical - moderate - high VTE Device Contraindication: Treatment Not Indicated VTE Drug Contraindication: N/A - Med Ordered
[2021-12-17] MEDS: Metoprolol Tartrate 25 MG TABLET PO ×2 (10:55→20:08)
--- NOTE | 2021-12-17 19:54 | PM.PNNEP ---
Subjective Subjective Date of Service: 12/17/21 Interval history: CHart Reviewed. Events noted. Physical Exam Vital Signs: Vital Signs: Last Vital Signs Temp 98.4 F 12/17/21 19:51 Pulse 104 H 12/17/21 19:51 Resp 18 12/17/21 19:51 BP 158/98 H 12/17/21 19:51 Pulse Ox 99 12/17/21 19:51 O2 Del Method 12/17/21 19:51 O2 Flow Rate 2 12/16/21 03:57 BMI result Body Mass Index 31.8 Const: General: comfortable and no acute distress HEENT: Head: Yes normocephalic and Yes atraumatic Neck: Neck: Yes no JVD Resp: Auscultation: clear to auscultation bilaterally Cardio: Jugular venous distension: no JVD Rate: regular rate Rhythm: regular rhythm GI: Auscultation: normal bowel sounds Neuro: General: moves all extremities Extrem: General: Yes no clubbing, cyanosis or edema Objective Data Labs CBC & Chem 7: 12/16/21 06:02 12/16/21 06:02 Microbiology Microbiology Results: Microbiology 11/28/21 06:06 Blood - Venous Blood Culture - Final No growth after 5 days. 11/28/21 06:06 Blood - Venous Blood Culture - Final No growth after 5 days. Procedures Date of Service Date of Service: 12/17/21 Assessment & Plan Assessment and plan (1) Acute renal failure due to rhabdomyolysis: Status: Acute Plan #) NEHA, with anuria now non-oliguric Acute Kidney Injury consistent with rhabdomyolysis and dense ATN with delayed recovery Remains HD dependent for now; Currently on HD per MWF schedule. Low K diet Monitor over weekend for renal recovery. Avoid hypotension on HD as this may induce a superimposed neha. Has a Pcath which is functioning well; Will continue to revisit need for renal biopsy if not recovering Blood pressure needs to be maintained at goal;? C/W rest of current management Time Spent With Patient Time: Total time spent is greater than 50% in coordination of care (as documented) at patient's floor/unit and/or counseling patient: Progress Note: Quality Stroke Does the patient have a stroke diagnosis?: No
[2021-12-17] MEDS: Mirtazapine 15 MG TABLET PO (20:08)
[2021-12-17] MEDS: Acetaminophen 325 MG TABLET 650 MG PO (20:10)
[2021-12-18] VITALS (7 sets, daily range): BP systolic 141–173; BP diastolic 77–103; PULSE 75–102; RESP 18–20; TEMP 36.8–37.2; O2SAT 94–99
[2021-12-18] MEDS: Metoprolol Tartrate 25 MG TABLET PO ×2 (09:00→20:19)
[2021-12-18] MEDS: hydrALAZINE HCl 25 MG TABLET PO ×3 (09:00→20:19)
[2021-12-18] MEDS: Sodium Bicarbonate 650 MG TABLET PO ×4 (09:00→20:18)
[2021-12-18] MEDS: amLODIPine Besylate 10 MG TABLET PO (09:00)
[2021-12-18] MEDS: Sodium Zirconium Cyclosilicate 10 GM POWD.PACK PO (09:00)
[2021-12-18] MEDS: 0.9 % Sodium Chloride Flush 3 ML SYRINGE IVFLUSH ×3 (09:01→20:19)
--- NOTE | 2021-12-18 09:55 | HO.PM.IMPN ---
Subjective Subjective Date of Service: 12/18/21 Interval History: f/u on renal failure that has resulted in dialysis he is waiting on outpatient dialysis to open up, he's been feeling sad from of daughter 1 month ago and being in hospital, has migraine headache Review of Systems no fever no PISANO No sob No SI/HI Physical Exam Vital Signs: Vital Signs: Last Vital Signs Temp 98.8 F 12/18/21 07:40 Pulse 100 12/18/21 07:40 Resp 18 12/18/21 07:40 BP 153/103 H 12/18/21 07:40 Pulse Ox 94 12/18/21 07:40 O2 Del Method 12/18/21 07:40 O2 Flow Rate 2 12/16/21 03:57 BMI result Body Mass Index 31.8 Const: Other: Constitutional : Alert, interactive Neck : Normal inspection, Supple Cardiovascular : RRR, no JVP, no lower extremity edema Respiratory : fair bilateral air entry, no crackles, wheezes or rhonchi Gastrointestinal: soft, lax, Normal bowel sounds, Non tender Skin : Warm, Dry, PermCath in place Musculoskeletal: Decreased Stiffness and pain in right hip with improved swelling in the right elbow with mild tenderness, significantly improved range of motion Neurological : Alert & oriented to self and place, No focal deficit , CN 2-12 within normal Vascular: has good pulses in right upper and right lower extremities Objective Data Active Medications Acetaminophen (Acetaminophen 325 Mg Tablet) 650 mg PO Q8H PRN PRN Reason: Pain, Mild (Pain Scale 1-3) Last Admin: 12/17/21 20:10 Dose: 650 mg Documented By: NOEMY Acetaminophen/Butalbital/Caffeine (Butalb/Acetamin/Caff 50/325/40 Tablet) 1 tab PO BID PRN PRN Reason: Headache Last Admin: 12/16/21 14:40 Dose: 1 tab Documented By: OLENA Amlodipine Besylate (Amlodipine Besylate 10 Mg Tablet) 10 mg PO DAILY [facility]; Protocol Last Admin: 12/18/21 09:00 Dose: 10 mg Documented By: JAMES Hydralazine HCl (Hydralazine Hcl 25 Mg Tablet) 25 mg PO TID [facility]; Protocol Last Admin: 12/18/21 09:00 Dose: 25 mg Documented By: JAMES Metoprolol Tartrate (Metoprolol Tartrate 25 Mg Tablet) 25 mg PO BID [facility]; Protocol Last Admin: 12/18/21 09:00 Dose: 25 mg Documented By: JAMES Mirtazapine (Mirtazapine 15 Mg Tablet) 15 mg PO BEDTIME [facility] Last Admin: 12/17/21 20:08 Dose: 15 mg Documented By: NOEMY Neomycin/Polymyxin/Bacitracin (Neomy/Polymyx/Bacit/Ointment 14 Gm Tube) 1 gm TOPICAL DAILY [facility]; Protocol Last Admin: 12/17/21 09:12 Dose: Not Given Documented By: OLENA Non-Admin Reason: given in dialysis Nitroglycerin (Nitroglycerin 0.4 Mg Tab.Subl) 0.4 mg SUBLINGUAL Q5MX3 PRN PRN Reason: Chest Pain Last Admin: 12/05/21 00:47 Dose: 0.4 mg Documented By: SATHISH Comments: ch pain Ondansetron HCl (Ondansetron Hcl 4 Mg/2 Ml Vial) 4 mg IVPUSH Q8H PRN PRN Reason: Nausea and Vomiting Last Admin: 12/14/21 06:37 Dose: 4 mg Documented By: BRUCE Pharmacy Consult (Consult Rx Perform Med Rec) 1 each MISCELLANE ONCE PRN PRN Reason: Consult order Sodium Bicarbonate (Sodium Bicarbonate 650 Mg Tablet) 650 mg PO QID [facility] Last Admin: 12/18/21 09:00 Dose: 650 mg Documented By: JAMES Sodium Chloride (0.9 % Sodium Chloride Flush 3 Ml Syringe) 3 ml IVFLUSH QSHIFT [facility] Last Admin: 12/18/21 09:01 Dose: 3 ml Documented By: JAMES Sodium Zirconium Cyclosilicate (Sodium Zirconium Cyclosilicate 10 Gm Powd.Pack) 10 gm PO DAILY [facility] Last Admin: 12/18/21 09:00 Dose: 10 gm Documented By: JAMES Labs CBC & Chem 7: 12/16/21 06:02 12/16/21 06:02 Assessment and Plan (1) Acute renal failure due to rhabdomyolysis: Status: Acute Plan 46 years old male with PMH of smoking, alcoholism who presents to the hospital after being found altered in his shower after using heroin.? Acute renal failure requiring dialysis, metabolic acidosis Secondary to ATN/rhabdomyolysis with delayed recovery Nephrology following, continue dialysis MWF Continue sodium bicarb Follow BMP Unable to find an outpatient dialysis center yet to accept him, will continue dialysis during inpatient stay Migraine prn fioricet Depression psych consult pending Acute on chronic anemia Hemoglobin stable positive occult blood Iron stores within normal GI input appreciated, no need for intervention at this point, can be followed as outpatient elective colonoscopy Monitor CBC Epistaxis resolved Hyponatremia Resolved follow BMP Hyperkalemia Resolved Daily Lokelema follow BMP RUE pain and swelling. Improved CT showing subcutaneous swelling concerning for muscle injury or infection pain likely from reperfusion injury per Ortho US neg for DVT Right Hip pain. Improving CT scan showing multiple abnormalities with enlargement of surrounding tissue and fluids along multiple facial planes Concerning for possible myositis, joint infection seen by orthopedics seen by ID, no fever to indicate infection and blood cultures negative - rec to d/c abx Pain control - pain improving physical therapy following Hypertension Started on amlodipine and hydralazine, and metoprolol and overall better Aspiration pneumonia Finished treatment with IV zosyn On room air Toxic metabolic encephalopathy, resolved Secondary to heroin abuse Addiction team following DVT PPX - SCDs for drop in hemoglobin and epistaxis DISPO plan for rehab with dialysis patient requires ongoing inpatient hospitalization due to need for ongoing hemodialysis, close monitoring of renal function, pending safe rehab placement Quality Stroke Does the patient have a stroke diagnosis?: No VTE Prior VTE?: No VTE Risk Level:: Medical - moderate - high VTE Device Contraindication: Treatment Not Indicated VTE Drug Contraindication: N/A - Med Ordered
[2021-12-18] MEDS: Butalb/Acetamin/Caff 50/325/40 TABLET 1 TAB PO (11:32)
[2021-12-18] MEDS: NeoMY/Polymyx/Bacit/Ointment 14 GM Tube TOPICAL (11:33)
--- NOTE | 2021-12-18 17:08 | PM.PNNEP ---
Subjective Subjective Date of Service: 12/18/21 Interval history: f/u on renal failure that has resulted in dialysis he is waiting on outpatient dialysis to open up, he's been feeling sad from of daughter 1 month ago and being in hospital, has migraine headache Physical Exam Vital Signs: Vital Signs: Last Vital Signs Temp 98.4 F 12/18/21 15:56 Pulse 94 12/18/21 15:56 Resp 20 12/18/21 15:56 BP 149/77 H 12/18/21 15:56 Pulse Ox 98 12/18/21 15:56 O2 Del Method 12/18/21 15:56 O2 Flow Rate 2 12/16/21 03:57 BMI result Body Mass Index 31.8 Const: General: no acute distress HEENT: Head: Yes normocephalic and Yes atraumatic Neck: Neck: Yes no JVD Resp: Auscultation: clear to auscultation bilaterally Cardio: Jugular venous distension: no JVD Rate: regular rate Rhythm: regular rhythm GI: Auscultation: normal bowel sounds Neuro: General: moves all extremities Extrem: General: Yes no clubbing, cyanosis or edema Objective Data Labs CBC & Chem 7: 12/16/21 06:02 12/16/21 06:02 Microbiology Microbiology Results: Microbiology 11/28/21 06:06 Blood - Venous Blood Culture - Final No growth after 5 days. 11/28/21 06:06 Blood - Venous Blood Culture - Final No growth after 5 days. Procedures Date of Service Date of Service: 12/18/21 Assessment & Plan Assessment and plan (1) Acute renal failure due to rhabdomyolysis: Status: Acute Plan #) NEHA, with anuria now non-oliguric Acute Kidney Injury consistent with rhabdomyolysis and dense ATN with delayed recovery Remains HD dependent for now; Currently on HD per MWF schedule. Awaiting outpatient HD placement Avoid hypotension on HD as this may induce a superimposed neha. Has a Pcath which is functioning well; Will continue to revisit need for renal biopsy if not recovering Blood pressure needs to be maintained at goal;? C/W rest of current management Time Spent With Patient Time: Total time spent is greater than 50% in coordination of care (as documented) at patient's floor/unit and/or counseling patient: Progress Note: Quality Stroke Does the patient have a stroke diagnosis?: No
[2021-12-18] MEDS: Mirtazapine 15 MG TABLET PO (20:19)
[2021-12-19 03:23] VITALS: BP 135/86; PULSE 98; RESP 18; TEMP 37; O2SAT 98
[2021-12-19] MEDS: 0.9 % Sodium Chloride Flush 3 ML SYRINGE IVFLUSH ×2 (06:45→19:46)
[2021-12-19 08:00] VITALS: BP 162/98; PULSE 100; RESP 18; TEMP 37.2; O2SAT 98
--- NOTE | 2021-12-19 10:07 | P.PNNP_ITS ---
Subjective Subjective Date of Service: 12/19/21 Interval history: Events noted c/o right sided headache Physical Exam Vital Signs: Vital Signs: Last Vital Signs Temp 99 F 12/19/21 08:00 Pulse 100 12/19/21 08:00 Resp 18 12/19/21 08:00 BP 162/98 H 12/19/21 08:00 Pulse Ox 98 12/19/21 08:00 O2 Del Method 12/19/21 08:00 O2 Flow Rate 2 12/16/21 03:57 BMI result Body Mass Index 31.8 Const: General: cooperative, no acute distress, alert and awake Orientation/consciousness: patient oriented x3 Eyes: General: appearance normal, both eyes and all related structures EOM: EOMs intact bilaterally Neck: Neck: Yes supple and Yes no JVD Resp: Effort & Inspection: normal respiratory effort and able to speak in complete sentences Auscultation: clear to auscultation bilaterally and diminished lung sounds Cardio: Jugular venous distension: no JVD Rate: regular rate Rhythm: regular rhythm Heart sounds: S1 normal heart sound present and S2 normal heart sound present GI: Inspection: No distended Palpation (GI): Soft to palpation and no ntender Auscultation: normal bowel sounds Neuro: General: patient oriented x3, moves all extremities and no focal motor deficits Extrem: General: Yes no pedal edema Objective Data Labs CBC & Chem 7: 12/16/21 06:02 12/19/21 10:34 Microbiology Microbiology Results: Microbiology 11/28/21 06:06 Blood - Venous Blood Culture - Final No growth after 5 days. 11/28/21 06:06 Blood - Venous Blood Culture - Final No growth after 5 days. Procedures Date of Service Date of Service: 12/19/21 Assessment & Plan Assessment and plan (1) Acute renal failure due to rhabdomyolysis: Status: Acute Plan #) NEHA, with anuria now non-oliguric Acute Kidney Injury consistent with rhabdomyolysis and dense ATN with delayed recovery Remains HD dependent for now; Currently on HD per MWF schedule. No labs since 12/16 Will check BMP before HD today Awaiting outpatient HD placement Avoid hypotension on HD as this may induce a superimposed neha. Has a Pcath which is functioning well; Will continue to revisit need for renal biopsy if not recovering Blood pressure needs to be maintained at goal;? C/W rest of current management Time Spent With Patient Time: Total time spent is greater than 50% in coordination of care (as documented) at patient's floor/unit and/or counseling patient: Progress Note: Quality Stroke Does the patient have a stroke diagnosis?: No
[2021-12-19] MEDS: Sodium Bicarbonate 650 MG TABLET PO ×4 (10:09→19:46)
[2021-12-19] MEDS: hydrALAZINE HCl 25 MG TABLET PO ×3 (10:09→19:46)
[2021-12-19] MEDS: amLODIPine Besylate 10 MG TABLET PO (10:09)
[2021-12-19] MEDS: Sodium Zirconium Cyclosilicate 10 GM POWD.PACK PO (10:09)
[2021-12-19] MEDS: Metoprolol Tartrate 25 MG TABLET PO ×2 (10:09→19:46)
[2021-12-19] MEDS: Butalb/Acetamin/Caff 50/325/40 TABLET 1 TAB PO ×2 (10:15→17:43)
--- NOTE | 2021-12-19 10:32 | HO.PM.IMPN ---
Subjective Subjective Date of Service: 12/19/21 Interval History: f/u on renal failure that has resulted in dialysis he is waiting on outpatient dialysis to open up, he's been feeling sad from of daughter 1 month ago and being in hospital, has migraine headache at 7 Review of Systems no fever no PISANO No sob No SI/HI Physical Exam Vital Signs: Vital Signs: Last Vital Signs Temp 99 F 12/19/21 08:00 Pulse 100 12/19/21 08:00 Resp 18 12/19/21 08:00 BP 162/98 H 12/19/21 08:00 Pulse Ox 98 12/19/21 08:00 O2 Del Method 12/19/21 08:00 O2 Flow Rate 2 12/16/21 03:57 BMI result Body Mass Index 31.8 Const: Other: Constitutional : Alert, interactive Neck : Normal inspection, Supple Cardiovascular : RRR, no JVP, no lower extremity edema Respiratory : fair bilateral air entry, no crackles, wheezes or rhonchi Gastrointestinal: soft, lax, Normal bowel sounds, Non tender Skin : Warm, Dry, PermCath in place Musculoskeletal: Decreased Stiffness and pain in right hip with improved swelling in the right elbow with mild tenderness, significantly improved range of motion Neurological : Alert & oriented to self and place, No focal deficit , CN 2-12 within normal Vascular: has good pulses in right upper and right lower extremities Objective Data Active Medications Acetaminophen (Acetaminophen 325 Mg Tablet) 650 mg PO Q8H PRN PRN Reason: Pain, Mild (Pain Scale 1-3) Last Admin: 12/17/21 20:10 Dose: 650 mg Documented By: NOEMY Acetaminophen/Butalbital/Caffeine (Butalb/Acetamin/Caff 50/325/40 Tablet) 1 tab PO BID PRN PRN Reason: Headache Last Admin: 12/19/21 10:15 Dose: 1 tab Documented By: SHRUTHI Acetaminophen/Butalbital/Caffeine (Butalb/Acetamin/Caff 50/325/40 Tablet) 1 tab PO Q6H PRN PRN Reason: Migraine Headache Amlodipine Besylate (Amlodipine Besylate 10 Mg Tablet) 10 mg PO DAILY RICKY; Protocol Last Admin: 12/19/21 10:09 Dose: 10 mg Documented By: SHRUTHI Hydralazine HCl (Hydralazine Hcl 25 Mg Tablet) 25 mg PO TID [facility]; Protocol Last Admin: 12/19/21 10:09 Dose: 25 mg Documented By: SHRUTHI Metoprolol Tartrate (Metoprolol Tartrate 25 Mg Tablet) 25 mg PO BID [facility]; Protocol Last Admin: 12/19/21 10:09 Dose: 25 mg Documented By: SHRUTHI Mirtazapine (Mirtazapine 15 Mg Tablet) 15 mg PO BEDTIME [facility] Last Admin: 12/18/21 20:19 Dose: 15 mg Documented By: ANNI Neomycin/Polymyxin/Bacitracin (Neomy/Polymyx/Bacit/Ointment 14 Gm Tube) 1 gm TOPICAL DAILY [facility]; Protocol Last Admin: 12/19/21 10:30 Dose: Not Given Documented By: SHRUTHI Non-Admin Reason: Headache Nitroglycerin (Nitroglycerin 0.4 Mg Tab.Subl) 0.4 mg SUBLINGUAL Q5MX3 PRN PRN Reason: Chest Pain Last Admin: 12/05/21 00:47 Dose: 0.4 mg Documented By: SATHISH Comments: ch pain Ondansetron HCl (Ondansetron Hcl 4 Mg/2 Ml Vial) 4 mg IVPUSH Q8H PRN PRN Reason: Nausea and Vomiting Last Admin: 12/14/21 06:37 Dose: 4 mg Documented By: BRUCE Pharmacy Consult (Consult Rx Perform Med Rec) 1 each MISCELLANE ONCE PRN PRN Reason: Consult order Sodium Bicarbonate (Sodium Bicarbonate 650 Mg Tablet) 650 mg PO QID [facility] Last Admin: 12/19/21 10:09 Dose: 650 mg Documented By: SHRUTHI Sodium Chloride (0.9 % Sodium Chloride Flush 3 Ml Syringe) 3 ml IVFLUSH QSHIFT [facility] Last Admin: 12/19/21 09:59 Dose: Not Given Documented By: SHRUTHI Non-Admin Reason: assessed Sodium Zirconium Cyclosilicate (Sodium Zirconium Cyclosilicate 10 Gm Powd.Pack) 10 gm PO DAILY [facility] Last Admin: 12/19/21 10:09 Dose: 10 gm Documented By: SHRUTHI Labs CBC & Chem 7: 12/16/21 06:02 12/16/21 06:02 Assessment and Plan (1) Acute renal failure due to rhabdomyolysis: Status: Acute Plan 46 years old male with PMH of smoking, alcoholism who presents to the hospital after being found altered in his shower after using heroin.? Acute renal failure requiring dialysis, Secondary to ATN/rhabdomyolysis with delayed recovery and possibly ? ESRD Nephrology following, continue dialysis MWF Continue sodium bicarb for acisosis Unable to find an outpatient dialysis center yet to accept him, will continue dialysis during inpatient stay Migraine prn fioricet Depression, no SI, seen by Psych 12/16, started on Remron Acute on chronic anemia Hemoglobin stable positive occult blood Iron stores within normal GI input appreciated, no need for intervention at this point, can be followed as outpatient elective colonoscopy Monitor CBC Epistaxis resolved Hyponatremia Resolved follow BMP Hyperkalemia Resolved Daily Lokelema follow BMP RUE pain and swelling. Improved CT showing subcutaneous swelling concerning for muscle injury or infection pain likely from reperfusion injury per Ortho US neg for DVT Right Hip pain. Improving CT scan showing multiple abnormalities with enlargement of surrounding tissue and fluids along multiple facial planes Concerning for possible myositis, joint infection seen by orthopedics seen by ID, no fever to indicate infection and blood cultures negative - rec to d/c abx Pain control - pain improving physical therapy following Hypertension Started on amlodipine and hydralazine, and metoprolol and overall better Aspiration pneumonia Finished treatment with IV zosyn On room air Toxic metabolic encephalopathy, resolved Secondary to heroin abuse Addiction team following DVT PPX - SCDs for drop in hemoglobin and epistaxis DISPO plan for rehab with dialysis patient requires ongoing inpatient hospitalization due to need for ongoing hemodialysis, close monitoring of renal function, pending safe rehab placement Quality Stroke Does the patient have a stroke diagnosis?: No VTE Prior VTE?: No VTE Risk Level:: Medical - moderate - high VTE Device Contraindication: Treatment Not Indicated VTE Drug Contraindication: N/A - Med Ordered
[2021-12-19 11:29] LABS: Anion Gap 18 (12-20); Blood Urea Nitrogen 56 mg/dL (9-16); Calcium 9.6 mg/dL (8.4-10.2); Carbon Dioxide 23 mmol/L (22-29); Chloride 102 mmol/L (96-108); Estimated Glomerular Filt Rate 26; Glucose Random 88 mg/dL (60-115); Potassium 3.7 mmol/L (3.3-5.1); Sodium 139 mmol/L (135-145)
[2021-12-19 11:31] VITALS: BP 144/92; PULSE 91; RESP 18; TEMP 37.2; O2SAT 97
[2021-12-19 15:37] VITALS: BP 136/91; PULSE 98; RESP 18; TEMP 37.2; O2SAT 98
--- NOTE | 2021-12-19 18:57 | PC.NURSE ---
Filler Operator utilized for assessment, med pass and care. prn pain meds administered for headache w/ + effect. Pt BP elevated this AM, responded well post scheduled med administration. visitors at bedside throughout the day. safety and fall precautions maintained. call song within reach. pt updated by this RN, stated he needs manager sustainability when other staff members assess and speak to pt, board updated.
[2021-12-19 19:44] VITALS: BP 144/92; PULSE 103; RESP 18; TEMP 37.3; O2SAT 98
[2021-12-19] MEDS: Acetaminophen 325 MG TABLET 650 MG PO (19:45)
[2021-12-19] MEDS: Mirtazapine 15 MG TABLET PO (19:46)
[2021-12-19 23:43] VITALS: BP 126/81; PULSE 98; RESP 18; TEMP 37.3; O2SAT 97
[2021-12-20 06:49] VITALS: BP 159/90; PULSE 94; RESP 18; TEMP 36.6; O2SAT 97
[2021-12-20] MEDS: Metoprolol Tartrate 25 MG TABLET PO ×2 (08:10→20:14)
[2021-12-20] MEDS: Sodium Bicarbonate 650 MG TABLET PO ×4 (08:10→20:14)
[2021-12-20] MEDS: 0.9 % Sodium Chloride Flush 3 ML SYRINGE IVFLUSH ×3 (08:10→20:14)
[2021-12-20] MEDS: amLODIPine Besylate 10 MG TABLET PO (08:11)
[2021-12-20] MEDS: hydrALAZINE HCl 25 MG TABLET PO ×3 (08:11→20:14)
[2021-12-20 08:45] LABS: Anion Gap 18 (12-20); Blood Urea Nitrogen 55 mg/dL (9-16); Calcium 9.8 mg/dL (8.4-10.2); Carbon Dioxide 22 mmol/L (22-29); Chloride 103 mmol/L (96-108); Creatinine Clr Calc Pharmacy 45.9; Estimated Glomerular Filt Rate 31; Glucose Random 94 mg/dL (60-115); Potassium 3.8 mmol/L (3.3-5.1); Sodium 139 mmol/L (135-145)
[2021-12-20] MEDS: NeoMY/Polymyx/Bacit/Ointment 14 GM Tube TOPICAL (09:34)
--- NOTE | 2021-12-20 09:45 | PM.PNNEP ---
Subjective Subjective Date of Service: 12/21/21 Interval history: Events noted Cr trending down Physical Exam Vital Signs: Vital Signs: Last Vital Signs Temp 97.9 F 12/20/21 06:49 Pulse 94 12/20/21 06:49 Resp 18 12/20/21 06:49 BP 159/90 H 12/20/21 06:49 Pulse Ox 97 12/20/21 06:49 O2 Del Method 12/20/21 06:49 O2 Flow Rate 2 12/16/21 03:57 BMI result Body Mass Index 31.8 Const: General: cooperative, no acute distress, alert and awake Orientation/consciousness: patient oriented x3 Eyes: General: appearance normal, both eyes and all related structures EOM: EOMs intact bilaterally Neck: Neck: Yes supple and Yes no JVD Resp: Effort & Inspection: normal respiratory effort and able to speak in complete sentences Auscultation: clear to auscultation bilaterally and diminished lung sounds Cardio: Jugular venous distension: no JVD Rate: regular rate Rhythm: regular rhythm Heart sounds: S1 normal heart sound present and S2 normal heart sound present GI: Inspection: No distended Palpation (GI): Soft to palpation and nontender Auscultation: normal bowel sounds Neuro: General: patient oriented x3, moves all extremities and no focal motor deficits Extrem: General: Yes no pedal edema Objective Data Labs CBC & Chem 7: 12/16/21 06:02 12/21/21 08:05 Labs: Laboratory Results - last 24 hr 12/19/21 12/20/21 10:34 07:56 Sodium 139 139 Potassium 3.7 3.8 Chloride 102 103 Carbon Dioxide 23 22 Anion Gap 18 18 BUN 56 H 55 H Creatinine 2.70 H 2.29 H Estim Creat Clear Calc 39.0 45.9 Estimated GFR 26 31 Random Glucose 88 94 Calcium 9.6 9.8 Microbiology Microbiology Results: Microbiology 11/28/21 06:06 Blood - Venous Blood Culture - Final No growth after 5 days. 11/28/21 06:06 Blood - Venous Blood Culture - Final No growth after 5 days. Procedures Date of Service Date of Service: 12/20/21 Assessment & Plan Assessment and plan (1) Acute renal failure due to rhabdomyolysis: Status: Acute Plan #) NEHA, with anuria now non-oliguric Acute Kidney Injury consistent with rhabdomyolysis and dense ATN with delayed recovery Remains HD dependent for now; Currently on HD per MWF schedule. Cr trending down No need for HD now If cr continues to improve, would DC permcath Blood pressure needs to be maintained at goal;? C/W rest of current management Time Spent With Patient Time: Total time spent is greater than 50% in coordination of care (as documented) at patient's floor/unit and/or counseling patient: Progress Note: Quality Stroke Does the patient have a stroke diagnosis?: No
[2021-12-20 10:13] VITALS: BP 159/90; PULSE 94; O2SAT 97
--- NOTE | 2021-12-20 11:05 | HO.PM.IMPN ---
Subjective Subjective Date of Service: 12/20/21 Interval History: F/u on renal failure Interval history: Cr continues to trend down, PISANO is beter Review of Systems no fever no PISANO No sob No SI/HI Physical Exam Vital Signs: Vital Signs: Last Vital Signs Temp 97.9 F 12/20/21 06:49 Pulse 94 12/20/21 10:13 Resp 18 12/20/21 06:49 BP 159/90 H 12/20/21 10:13 Pulse Ox 97 12/20/21 10:13 O2 Del Method 12/20/21 06:49 O2 Flow Rate 2 12/16/21 03:57 BMI result Body Mass Index 31.8 Const: Other: Constitutional : Alert, interactive Neck : Normal inspection, Supple Cardiovascular : RRR, no JVP, no lower extremity edema Respiratory : fair bilateral air entry, no crackles, wheezes or rhonchi Gastrointestinal: soft, lax, Normal bowel sounds, Non tender Skin : Warm, Dry, PermCath in place Musculoskeletal: Decreased Stiffness and pain in right hip with improved swelling in the right elbow with mild tenderness, significantly improved range of motion Neurological : Alert & oriented to self and place, No focal deficit , CN 2-12 within normal Vascular: has good pulses in right upper and right lower extremities Objective Data Active Medications Acetaminophen (Acetaminophen 325 Mg Tablet) 650 mg PO Q8H PRN PRN Reason: Pain, Mild (Pain Scale 1-3) Last Admin: 12/19/21 19:45 Dose: 650 mg Documented By: SATHISH Acetaminophen/Butalbital/Caffeine (Butalb/Acetamin/Caff 50/325/40 Tablet) 1 tab PO BID PRN PRN Reason: Headache Last Admin: 12/19/21 10:15 Dose: 1 tab Documented By: SHRUTHI Acetaminophen/Butalbital/Caffeine (Butalb/Acetamin/Caff 50/325/40 Tablet) 1 tab PO Q6H PRN PRN Reason: Migraine Headache Last Admin: 12/19/21 17:43 Dose: 1 tab Documented By: SHRUTHI Amlodipine Besylate (Amlodipine Besylate 10 Mg Tablet) 10 mg PO DAILY RICKY; Protocol Last Admin: 12/20/21 08:11 Dose: 10 mg Documented By: AMINTA Hydralazine HCl (Hydralazine Hcl 25 Mg Tablet) 25 mg PO TID [facility]; Protocol Last Admin: 12/20/21 08:11 Dose: 25 mg Documented By: AMINTA Metoprolol Tartrate (Metoprolol Tartrate 25 Mg Tablet) 25 mg PO BID [facility]; Protocol Last Admin: 12/20/21 08:10 Dose: 25 mg Documented By: AMINTA Mirtazapine (Mirtazapine 15 Mg Tablet) 15 mg PO BEDTIME [facility] Last Admin: 12/19/21 19:46 Dose: 15 mg Documented By: SATHISH Neomycin/Polymyxin/Bacitracin (Neomy/Polymyx/Bacit/Ointment 14 Gm Tube) 1 gm TOPICAL DAILY [facility]; Protocol Last Admin: 12/20/21 09:34 Dose: 1 gm Documented By: AMINTA Nitroglycerin (Nitroglycerin 0.4 Mg Tab.Subl) 0.4 mg SUBLINGUAL Q5MX3 PRN PRN Reason: Chest Pain Last Admin: 12/05/21 00:47 Dose: 0.4 mg Documented By: SATHISH Comments: ch pain Ondansetron HCl (Ondansetron Hcl 4 Mg/2 Ml Vial) 4 mg IVPUSH Q8H PRN PRN Reason: Nausea and Vomiting Last Admin: 12/14/21 06:37 Dose: 4 mg Documented By: BRUCE Pharmacy Consult (Consult Rx Perform Med Rec) 1 each MISCELLANE ONCE PRN PRN Reason: Consult order Sodium Bicarbonate (Sodium Bicarbonate 650 Mg Tablet) 650 mg PO QID [facility] Last Admin: 12/20/21 08:10 Dose: 650 mg Documented By: AMINTA Sodium Chloride (0.9 % Sodium Chloride Flush 3 Ml Syringe) 3 ml IVFLUSH QSHIFT [facility] Last Admin: 12/20/21 08:10 Dose: 3 ml Documented By: AMINTA Sodium Zirconium Cyclosilicate (Sodium Zirconium Cyclosilicate 10 Gm Powd.Pack) 10 gm PO DAILY [facility] Last Admin: 12/20/21 08:12 Dose: Not Given Documented By: AMINTA Non-Admin Reason: Physician Held Med Labs CBC & Chem 7: 12/16/21 06:02 12/20/21 07:56 Labs: Laboratory Results - last 24 hr 12/19/21 12/20/21 10:34 07:56 Anion Gap 18 18 Estim Creat Clear Calc 39.0 45.9 Estimated GFR 26 31 Random Glucose 88 94 Calcium 9.6 9.8 Assessment and Plan (1) Acute renal failure due to rhabdomyolysis: Status: Acute Plan 46 years old male with PMH of smoking, alcoholism who presents to the hospital after being found altered in his shower after using heroin.? NEHA d/t ATN from rhabdom--and required short term dialysis, Cr is down to 2.29 which is not far from his baseline. At this point I don't think he needs dialysis anymore Migraine prn fioricet Depression, no SI, seen by Psych 12/16, started on Remron Acute on chronic anemia Hemoglobin stable positive occult blood Iron stores within normal GI input appreciated, no need for intervention at this point, can be followed as outpatient elective colonoscopy Monitor CBC Epistaxis resolved Hyponatremia Resolved follow BMP Hyperkalemia Resolved Daily Lokelema PRN follow BMP RUE pain and swelling. Improved CT showing subcutaneous swelling concerning for muscle injury or infection pain likely from reperfusion injury per Ortho US neg for DVT Right Hip pain. Improving CT scan showing multiple abnormalities with enlargement of surrounding tissue and fluids along multiple facial planes Concerning for possible myositis, joint infection seen by orthopedics seen by ID, no fever to indicate infection and blood cultures negative - rec to d/c abx Pain control - pain improving physical therapy following Hypertension Started on amlodipine and hydralazine, and metoprolol and overall better Aspiration pneumonia Finished treatment with IV zosyn On room air Toxic metabolic encephalopathy, resolved Secondary to heroin abuse Addiction team following DVT PPX - SCDs for drop in hemoglobin and epistaxis DISPO plan for rehab with dialysis Need for inpatient : NEHA needing dialysis, waiting on outpatient dialysis spot but might no longer need this, to be determined by renal Discharge when cleared by renal Quality Stroke Does the patient have a stroke diagnosis?: No VTE Prior VTE?: No VTE Risk Level:: Medical - moderate - high VTE Device Contraindication: Treatment Not Indicated VTE Drug Contraindication: N/A - Med Ordered
[2021-12-20 11:06] VITALS: BP 140/80; PULSE 96; RESP 16; TEMP 36.6; O2SAT 99
--- NOTE | 2021-12-20 14:26 | MHC.CM.PN ---
Per RN, Patient will no longer require HD and per PT, STR/SNF without HD is no longer the recommendation. Patient is homeless but with the assist of Bulgarian translation, Patient has indicated that he is working on getting assist with financing (a friend may be able to pay for a hotel for Patient).CM has also provided Patient with a, Homeless Shelters & Housing Assistance, pamphlet. CM will follow.
[2021-12-20 15:06] VITALS: BP 136/76; PULSE 94; RESP 18; TEMP 36.8; O2SAT 99
--- NOTE | 2021-12-20 15:07 | MHC.CM.PN ---
CM met with Patient again, at bedside. Patient has reached out to the [facility] at [phone], who is now requesting that CM phone the [facility]. CM has left a detailed message at the aforementioned phone #/[facility] and await a return call. CM will follow.
[2021-12-20 19:26] VITALS: BP 138/90; PULSE 100; RESP 17; TEMP 37.5; O2SAT 99
[2021-12-20] MEDS: Acetaminophen 325 MG TABLET 650 MG PO (20:13)
[2021-12-20] MEDS: Mirtazapine 15 MG TABLET PO (20:14)
[2021-12-20 23:25] VITALS: BP 142/85; PULSE 94; RESP 18; TEMP 36.6; O2SAT 98
[2021-12-21 03:28] VITALS: BP 119/86; PULSE 81; RESP 18; TEMP 36.3; O2SAT 100
[2021-12-21 07:01] VITALS: BP 139/94; PULSE 95; RESP 16; TEMP 36.3; O2SAT 99
[2021-12-21] MEDS: amLODIPine Besylate 10 MG TABLET PO (08:19)
[2021-12-21] MEDS: Metoprolol Tartrate 25 MG TABLET PO ×2 (08:19→21:08)
[2021-12-21] MEDS: hydrALAZINE HCl 25 MG TABLET PO ×3 (08:19→21:09)
[2021-12-21] MEDS: Sodium Bicarbonate 650 MG TABLET PO ×4 (08:19→21:08)
[2021-12-21] MEDS: 0.9 % Sodium Chloride Flush 3 ML SYRINGE IVFLUSH ×3 (08:19→21:09)
[2021-12-21 09:03] LABS: Anion Gap 16 (12-20); Blood Urea Nitrogen 45 mg/dL (9-16); Calcium 9.9 mg/dL (8.4-10.2); Carbon Dioxide 24 mmol/L (22-29); Chloride 104 mmol/L (96-108); Creatinine Clr Calc Pharmacy 51.6; Estimated Glomerular Filt Rate 36; Glucose Random 91 mg/dL (60-115); Potassium 4.2 mmol/L (3.3-5.1); Sodium 140 mmol/L (135-145)
--- NOTE | 2021-12-21 09:56 | MHC.CM.PN ---
CM has still not yet received a return call from the messages X2 left for Nursing/Intake @ [facility]. Per RN, Patient has indicated that his case is being reviewed by the [facility] today at 11AM. BUN 45 and Creatinine 2.04 today;,CM will continue to follow.
--- NOTE | 2021-12-21 10:02 | PM.PNNEP ---
Subjective Subjective Date of Service: 12/21/21 Interval history: F/u on renal failure Interval history: Cr continues to trend down, Physical Exam Vital Signs: Vital Signs: Last Vital Signs Temp 97.4 F 12/21/21 07:01 Pulse 95 12/21/21 07:01 Resp 16 12/21/21 07:01 BP 139/94 H 12/21/21 07:01 Pulse Ox 99 12/21/21 07:01 O2 Del Method 12/21/21 07:01 O2 Flow Rate 2 12/16/21 03:57 BMI result Body Mass Index 31.8 Const: General: cooperative, no acute distress, alert and awake Orientation/consciousness: patient oriented x3 Eyes: General: appearance normal, both eyes and all related structures EOM: EOMs intact bilaterally Neck: Neck: Yes supple and Yes no JVD Resp: Effort & Inspection: normal respiratory effort and able to speak in complete sentences Auscultation: clear to auscultation bilaterally and diminished lung sounds Cardio: Jugular venous distension: no JVD Rate: regular rate Rhythm: regular rhythm Heart sounds: S1 normal heart sound present and S2 normal heart sound present GI: Inspection: No distended Palpation (GI): Soft to palpation and nontender Auscultation: normal bowel sounds Neuro: General: patient oriented x3, moves all extremities and no focal motor deficits Extrem: General: Yes no pedal edema Objective Data Labs CBC & Chem 7: 12/16/21 06:02 12/21/21 08:05 Labs: Laboratory Results - last 24 hr 12/21/21 08:05 Sodium 140 Potassium 4.2 Chloride 104 Carbon Dioxide 24 Anion Gap 16 BUN 45 H Creatinine 2.04 H Estim Creat Clear Calc 51.6 Estimated GFR 36 Random Glucose 91 Calcium 9.9 Microbiology Microbiology Results: Microbiology 11/28/21 06:06 Blood - Venous Blood Culture - Final No growth after 5 days. 11/28/21 06:06 Blood - Venous Blood Culture - Final No growth after 5 days. Procedures Date of Service Date of Service: 12/21/21 Assessment & Plan Assessment and plan (1) Acute renal failure due to rhabdomyolysis: Status: Acute Plan #) NEHA, with anuria now non-oliguric Acute Kidney Injury consistent with rhabdomyolysis and dense ATN with delayed recovery Remains HD dependent for now; Currently on HD per MWF schedule. Cr trending down No need for HD now If cr continues to improve- permcath removed Blood pressure needs to be maintained at goal;? C/W rest of current management Time Spent With Patient Time: Total time spent is greater than 50% in coordination of care (as documented) at patient's floor/unit and/or counseling patient: Progress Note: Quality Stroke Does the patient have a stroke diagnosis?: No
--- NOTE | 2021-12-21 10:20 | MHC.CM.PN ---
Patient is active with [facility].
--- NOTE | 2021-12-21 10:46 | P.EN_ITS ---
Event Note Date of Service: 12/21/21 Event Note: Patient seen and examined, no new issues, coult not leave yesterday due to skilled nursing availability. He is well today, Vitals ok, exam unchanged as of yesterday SCre hector to 2, permacath removed yesterday, no indication for dialysis, advised to avoid illicit substance one more time. To be discharge to day per yesterday's plan
[2021-12-21 10:56] VITALS: BP 139/94; PULSE 95; O2SAT 99
[2021-12-21 11:03] VITALS: BP 135/84; PULSE 88; RESP 18; TEMP 36.6; O2SAT 100
--- NOTE | 2021-12-21 11:06 | MHC.CM.PN ---
CM received a return call from [facility]/SANDY, who provided CM with the criteria for admission to the [facility]:Must be able to ambulate 350 feet independently(Per PT, Patient would be able to do this with a walker), Get in and out of a second level bunk bed (per PT, Patient would NOT be able to do this), patient must be aware that a warrant check are done, Patient must come with meds in hand/not scripts. Per PT recommendation, a SNF/STR bed search will be continued and expanded. CM will follow.
--- NOTE | 2021-12-21 11:28 | MHC.CM.PN ---
CM met with Patient with the assist of Kosovan translation. Patient is agreeable to a broad SNF search; CM will follow.
[2021-12-21 15:41] VITALS: BP 160/97; PULSE 93; RESP 94; TEMP 36.7; O2SAT 94
[2021-12-21] MEDS: Mirtazapine 15 MG TABLET PO (21:09)
[2021-12-21 23:52] VITALS: BP 145/99; PULSE 110; RESP 18; TEMP 37; O2SAT 97
[2021-12-22] VITALS (7 sets, daily range): BP systolic 108–151; BP diastolic 69–98; PULSE 65–115; RESP 17–20; TEMP 36.3–37.2; O2SAT 97–100
[2021-12-22] MEDS: hydrALAZINE HCl 25 MG TABLET PO ×3 (08:23→20:31)
[2021-12-22] MEDS: 0.9 % Sodium Chloride Flush 3 ML SYRINGE IVFLUSH ×3 (08:23→20:30)
[2021-12-22] MEDS: Sodium Zirconium Cyclosilicate 10 GM POWD.PACK PO (08:23)
[2021-12-22] MEDS: Metoprolol Tartrate 25 MG TABLET PO ×2 (08:23→20:30)
[2021-12-22] MEDS: Sodium Bicarbonate 650 MG TABLET PO ×2 (08:23→14:14)
[2021-12-22] MEDS: amLODIPine Besylate 10 MG TABLET PO (08:27)
--- NOTE | 2021-12-22 10:14 | PM.PNNEP ---
Subjective Subjective Date of Service: 12/24/21 Interval history: F/u on renal failure Interval history: Cr continues to trend down, Physical Exam Vital Signs: Vital Signs: Last Vital Signs Temp 97.6 F 12/22/21 08:00 Pulse 95 12/22/21 08:00 Resp 17 12/22/21 08:00 BP 133/95 H 12/22/21 08:00 Pulse Ox 99 12/22/21 08:00 O2 Del Method 12/22/21 08:00 O2 Flow Rate 99 12/21/21 15:41 BMI result Body Mass Index 31.8 Const: General: cooperative, no acute distress, alert and awake Orientation/consciousness: patient oriented x3 Eyes: General: appearance normal, both eyes and all related structures EOM: EOMs intact bilaterally Neck: Neck: Yes supple and Yes no JVD Resp: Effort & Inspection: normal respiratory effort and able to speak in complete sentences Auscultation: clear to auscultation bilaterally and diminished lung sounds Cardio: Jugular venous distension: no JVD Rate: regular rate Rhythm: regular rhythm Heart sounds: S1 normal heart sound present and S2 normal heart sound present GI: Inspection: No distended Palpation (GI): Soft to palpation and nontender Auscultation: normal bowel sounds Neuro: General: patient oriented x3, moves all extremities and no focal motor deficits Extrem: General: Yes no pedal edema Objective Data Labs CBC & Chem 7: 12/16/21 06:02 12/24/21 05:38 Microbiology Microbiology Results: Microbiology 11/28/21 06:06 Blood - Venous Blood Culture - Final No growth after 5 days. 11/28/21 06:06 Blood - Venous Blood Culture - Final No growth after 5 days. Procedures Date of Service Date of Service: 12/22/21 Assessment & Plan Assessment and plan (1) Acute renal failure due to rhabdomyolysis: Status: Acute Plan #) NEHA, with anuria now non-oliguric Acute Kidney Injury consistent with rhabdomyolysis and dense ATN with delayed recovery Remains HD dependent for now; Currently on HD per MWF schedule. Cr trending down No need for HD now If cr continues to improve- permcath removed Blood pressure needs to be maintained at goal;? C/W rest of current management Time Spent With Patient Time: Total time spent is greater than 50% in coordination of care (as documented) at patient's floor/unit and/or counseling patient: Progress Note: Quality Stroke Does the patient have a stroke diagnosis?: No
--- NOTE | 2021-12-22 15:22 | HO.PM.IMPN ---
Subjective Subjective Date of Service: 12/22/21 Interval History: seen and examined this morning Follow-up for renal failure, rhabdo Off hemodialysis patient still reporting right hip pain otherwise no complaints Review of Systems Review of Systems: Yes all other systems are reviewed and are negative Constitutional Constitutional: Denies chills and Denies fever(s) Cardiovascular Cardiovascular: Denies dyspnea Respiratory Respiratory: Denies cough and Denies dyspnea Gastrointestinal Gastrointestinal: Denies abdominal pain Physical Exam Vital Signs: Vital Signs: Last Vital Signs Temp 98.6 F 12/22/21 15:15 Pulse 96 12/22/21 15:15 Resp 18 12/22/21 15:15 BP 151/93 H 12/22/21 15:15 Pulse Ox 99 12/22/21 15:15 O2 Del Method 12/22/21 15:15 O2 Flow Rate 99 12/21/21 15:41 BMI result Body Mass Index 31.8 Const: General: cooperative, comfortable, alert and awake Nutritional Appearance: average body habitus Orientation/consciousness: patient oriented x3 Resp: Effort & Inspection: normal respiratory effort and able to speak in complete sentences Cardio: Rate: regular rate GI: Inspection: No distended Palpation (GI): Soft to palpation and nontender Neuro: General: patient oriented x3 and CN's II-XI intact bilaterally Extrem: General: Yes no pedal edema Objective Data Active Medications Acetaminophen (Acetaminophen 325 Mg Tablet) 650 mg PO Q8H PRN PRN Reason: Pain, Mild (Pain Scale 1-3) Last Admin: 12/20/21 20:13 Dose: 650 mg Documented By: SATHISH Acetaminophen/Butalbital/Caffeine (Butalb/Acetamin/Caff 50/325/40 Tablet) 1 tab PO BID PRN PRN Reason: Headache Last Admin: 12/19/21 10:15 Dose: 1 tab Documented By: UMANG-VANESSA Acetaminophen/Butalbital/Caffeine (Butalb/Acetamin/Caff 50/325/40 Tablet) 1 tab PO Q6H PRN PRN Reason: Migraine Headache Last Admin: 12/19/21 17:43 Dose: 1 tab Documented By: SHRUTHI Amlodipine Besylate (Amlodipine Besylate 10 Mg Tablet) 10 mg PO DAILY [facility]; Protocol Last Admin: 12/22/21 08:27 Dose: 10 mg Documented By: HO.NGENOAL Hydralazine HCl (Hydralazine Hcl 25 Mg Tablet) 25 mg PO TID [facility]; Protocol Last Admin: 12/22/21 14:15 Dose: 25 mg Documented By: TL Metoprolol Tartrate (Metoprolol Tartrate 25 Mg Tablet) 25 mg PO BID [facility]; Protocol Last Admin: 12/22/21 08:23 Dose: 25 mg Documented By: JAMES Mirtazapine (Mirtazapine 15 Mg Tablet) 15 mg PO BEDTIME [facility] Last Admin: 12/21/21 21:09 Dose: 15 mg Documented By: NIRU Neomycin/Polymyxin/Bacitracin (Neomy/Polymyx/Bacit/Ointment 14 Gm Tube) 1 gm TOPICAL DAILY [facility]; Protocol Last Admin: 12/22/21 08:31 Dose: Not Given Documented By: JAMES Non-Admin Reason: Treatment completed Nitroglycerin (Nitroglycerin 0.4 Mg Tab.Subl) 0.4 mg SUBLINGUAL Q5MX3 PRN PRN Reason: Chest Pain Last Admin: 12/05/21 00:47 Dose: 0.4 mg Documented By: SATHISH Comments: ch pain Ondansetron HCl (Ondansetron Hcl 4 Mg/2 Ml Vial) 4 mg IVPUSH Q8H PRN PRN Reason: Nausea and Vomiting Last Admin: 12/14/21 06:37 Dose: 4 mg Documented By: BRUCE Pharmacy Consult (Consult Rx Perform Med Rec) 1 each MISCELLANE ONCE PRN PRN Reason: Consult order Sodium Bicarbonate (Sodium Bicarbonate 650 Mg Tablet) 650 mg PO QID [facility] Last Admin: 12/22/21 14:14 Dose: 650 mg Documented By: TL Sodium Chloride (0.9 % Sodium Chloride Flush 3 Ml Syringe) 3 ml IVFLUSH QSHIFT [facility] Last Admin: 12/22/21 08:23 Dose: 3 ml Documented By: JAMES Sodium Zirconium Cyclosilicate (Sodium Zirconium Cyclosilicate 10 Gm Powd.Pack) 10 gm PO DAILY [facility] Last Admin: 12/22/21 08:23 Dose: 10 gm Documented By: JAMES Labs CBC & Chem 7: 12/16/21 06:02 12/21/21 08:05 Assessment and Plan (1) Hip pain, right: Status: Acute Plan 46 years old male with PMH of smoking, alcoholism who presents to the hospital after being found altered in his shower after using heroin.? NEHA d/t ATN from rhabdom--and required short term dialysis, Cr is down to 2.29 which is not far from his baseline PermCath removed d/c sodium bicarb Migraine prn fioricet Depression, no SI, seen by Psych 12/16, started on Remron Acute on chronic anemia Hemoglobin stable positive occult blood Iron stores within normal GI input appreciated, no need for intervention at this point, can be followed as outpatient elective colonoscopy Monitor CBC Epistaxis resolved Hyponatremia Resolved follow BMP Hyperkalemia Resolved will d/c daily lokelma follow BMP RUE pain and swelling. Improved CT showing subcutaneous swelling concerning for muscle injury or infection pain likely from reperfusion injury per Ortho US neg for DVT Right Hip pain. Initial CT scan showing multiple abnormalities with enlargement of surrounding tissue and fluids along multiple facial planes Concerning for possible myositis, joint infection seen by orthopedics - will reconsult for follow up due to persistent pain seen by ID, no fever to indicate infection and blood cultures negative - rec to d/c abx physical therapy following Hypertension Started on amlodipine and hydralazine, and metoprolol and overall better Aspiration pneumonia Finished treatment with IV zosyn On room air Toxic metabolic encephalopathy, resolved Secondary to heroin abuse Addiction team following DVT PPX - SCDs for drop in hemoglobin and epistaxis DISPO plan for rehab with dialysis Need for inpatient : physical therapy recommending STR. bed search for SNF Discharge when cleared by renal Quality Stroke Does the patient have a stroke diagnosis?: No VTE Prior VTE?: No VTE Risk Level:: Medical - moderate - high VTE Device Contraindication: Treatment Not Indicated VTE Drug Contraindication: N/A - Med Ordered
[2021-12-22] MEDS: Mirtazapine 15 MG TABLET PO (20:31)
[2021-12-23] VITALS: BP 135/90; PULSE 111; RESP 18; TEMP 37.4; O2SAT 98
[2021-12-23 03:53] VITALS: BP 131/79; PULSE 102; RESP 18; TEMP 37.2; O2SAT 98
[2021-12-23 06:40] LABS: Anion Gap 18 (12-20); Blood Urea Nitrogen 28 mg/dL (9-16); Calcium 9.1 mg/dL (8.4-10.2); Carbon Dioxide 21 mmol/L (22-29); Chloride 105 mmol/L (96-108); Creatinine Clr Calc Pharmacy 68.8; Estimated Glomerular Filt Rate 50; Glucose Random 93 mg/dL (60-115); Potassium 3.7 mmol/L (3.3-5.1); Sodium 140 mmol/L (135-145)
[2021-12-23 07:28] VITALS: BP 141/94; PULSE 94; RESP 18; TEMP 37.6; O2SAT 98
[2021-12-23] MEDS: hydrALAZINE HCl 25 MG TABLET PO ×3 (08:00→21:22)
[2021-12-23] MEDS: Metoprolol Tartrate 25 MG TABLET PO ×2 (08:00→21:22)
[2021-12-23] MEDS: amLODIPine Besylate 10 MG TABLET PO (08:00)
[2021-12-23] MEDS: 0.9 % Sodium Chloride Flush 3 ML SYRINGE IVFLUSH ×3 (08:00→21:23)
[2021-12-23] MEDS: Acetaminophen 325 MG TABLET 650 MG PO (08:03)
[2021-12-23] MEDS: NeoMY/Polymyx/Bacit/Ointment 14 GM Tube TOPICAL (08:03)
[2021-12-23 10:14] VITALS: BP 141/94; PULSE 94; O2SAT 98
[2021-12-23 11:26] VITALS: BP 142/78; PULSE 100; RESP 18; TEMP 37.3; O2SAT 99
--- NOTE | 2021-12-23 12:21 | PM.PNNEP ---
Subjective Subjective Date of Service: 12/24/21 Interval history: events noted Physical Exam Vital Signs: Vital Signs: Last Vital Signs Temp 99.1 F 12/23/21 11:26 Pulse 100 12/23/21 11:26 Resp 18 12/23/21 11:26 BP 142/78 H 12/23/21 11:26 Pulse Ox 99 12/23/21 11:26 O2 Del Method 12/23/21 11:26 O2 Flow Rate 99 12/21/21 15:41 BMI result Body Mass Index 31.8 Const: General: cooperative, no acute distress, alert and awake Orientation/consciousness: patient oriented x3 Eyes: General: appearance normal, both eyes and all related structures EOM: EOMs intact bilaterally Neck: Neck: Yes supple and Yes no JVD Resp: Effort & Inspection: normal respiratory effort and able to speak in complete sentences Auscultation: clear to auscultation bilaterally and diminished lung sounds Cardio: Jugular venous distension: no JVD Rate: regular rate Rhythm: regular rhythm Heart sounds: S1 normal heart sound present and S2 normal heart sound present GI: Inspection: No distended Palpation (GI): Soft to palpation and nontender Auscultation: normal bowel sounds Neuro: General: patient oriented x3, moves all extremities and no focal motor deficits Extrem: General: Yes no pedal edema Objective Data Labs CBC & Chem 7: 12/16/21 06:02 12/24/21 05:38 Labs: Laboratory Results - last 24 hr 12/23/21 05:14 Sodium 140 Potassium 3.7 Chloride 105 Carbon Dioxide 21 L Anion Gap 18 BUN 28 H Creatinine 1.53 H Estim Creat Clear Calc 68.8 Estimated GFR 50 Random Glucose 93 Calcium 9.1 D Microbiology Microbiology Results: Microbiology 11/28/21 06:06 Blood - Venous Blood Culture - Final No growth after 5 days. 11/28/21 06:06 Blood - Venous Blood Culture - Final No growth after 5 days. Procedures Date of Service Date of Service: 12/23/21 Assessment & Plan Assessment and plan (1) Acute renal failure due to rhabdomyolysis: Status: Acute Plan #) NEHA, with anuria now non-oliguric Acute Kidney Injury consistent with rhabdomyolysis and dense ATN with delayed recovery Remains HD dependent for now; Currently on HD per MWF schedule. Cr trending down No need for HD now If cr continues to improve- permcath removed Blood pressure needs to be maintained at goal;? C/W rest of current management Time Spent With Patient Time: Total time spent is greater than 50% in coordination of care (as documented) at patient's floor/unit and/or counseling patient: Progress Note: Quality Stroke Does the patient have a stroke diagnosis?: No
--- NOTE | 2021-12-23 16:22 | HO.PM.IMPN ---
Subjective Subjective Date of Service: 12/23/21 Interval History: seen and examined this morning Follow-up for NEHA, rhabdo renal function continues to improve still reporting right hip pain, otherwise doing well Review of Systems Review of Systems: Yes all other systems are reviewed and are negative Constitutional Constitutional: Denies chills and Denies fever(s) Cardiovascular Cardiovascular: Denies chest pain, Denies palpitations and Denies dyspnea Respiratory Respiratory: Denies cough and Denies dyspnea Gastrointestinal Gastrointestinal: Denies abdominal pain Endocrine Endocrine: Denies palpitations Physical Exam Vital Signs: Vital Signs: Last Vital Signs Temp 99.1 F 12/23/21 11:26 Pulse 100 12/23/21 11:26 Resp 18 12/23/21 11:26 BP 142/78 H 12/23/21 11:26 Pulse Ox 99 12/23/21 11:26 O2 Del Method 12/23/21 11:26 O2 Flow Rate 99 12/21/21 15:41 BMI result Body Mass Index 31.8 Const: General: cooperative, comfortable, alert and awake Nutritional Appearance: average body habitus and overweight Orientation/consciousness: patient oriented x3 Resp: Effort & Inspection: normal respiratory effort and able to speak in complete sentences Auscultation: clear to auscultation bilaterally Cardio: Rate: regular rate Heart sounds: S1 normal heart sound present and S2 normal heart sound present GI: Inspection: No distended Palpation (GI): Soft to palpation and nontender Neuro: General: patient oriented x3 and CN's II-XI intact bilaterally Objective Data Active Medications Acetaminophen (Acetaminophen 325 Mg Tablet) 650 mg PO Q8H PRN PRN Reason: Pain, Mild (Pain Scale 1-3) Last Admin: 12/23/21 08:03 Dose: 650 mg Documented By: NGENOAL Acetaminophen/Butalbital/Caffeine (Butalb/Acetamin/Caff 50/325/40 Tablet) 1 tab PO BID PRN PRN Reason: Headache Last Admin: 12/19/21 10:15 Dose: 1 tab Documented By: UMANG-SOFFA Acetaminophen/Butalbital/Caffeine (Butalb/Acetamin/Caff 50/325/40 Tablet) 1 tab PO Q6H PRN PRN Reason: Migraine Headache Last Admin: 12/19/21 17:43 Dose: 1 tab Documented By: HO.N-SOFFA Amlodipine Besylate (Amlodipine Besylate 10 Mg Tablet) 10 mg PO DAILY [facility]; Protocol Last Admin: 12/23/21 08:00 Dose: 10 mg Documented By: JAMES Hydralazine HCl (Hydralazine Hcl 25 Mg Tablet) 25 mg PO TID [facility]; Protocol Last Admin: 12/23/21 14:32 Dose: 25 mg Documented By: TL Metoprolol Tartrate (Metoprolol Tartrate 25 Mg Tablet) 25 mg PO BID [facility]; Protocol Last Admin: 12/23/21 08:00 Dose: 25 mg Documented By: JAMES Mirtazapine (Mirtazapine 15 Mg Tablet) 15 mg PO BEDTIME [facility] Last Admin: 12/22/21 20:31 Dose: 15 mg Documented By: MILLIE Neomycin/Polymyxin/Bacitracin (Neomy/Polymyx/Bacit/Ointment 14 Gm Tube) 1 gm TOPICAL DAILY [facility]; Protocol Last Admin: 12/23/21 08:03 Dose: 1 gm Documented By: JAMES Nitroglycerin (Nitroglycerin 0.4 Mg Tab.Subl) 0.4 mg SUBLINGUAL Q5MX3 PRN PRN Reason: Chest Pain Last Admin: 12/05/21 00:47 Dose: 0.4 mg Documented By: SATHISH Comments: ch pain Ondansetron HCl (Ondansetron Hcl 4 Mg/2 Ml Vial) 4 mg IVPUSH Q8H PRN PRN Reason: Nausea and Vomiting Last Admin: 12/14/21 06:37 Dose: 4 mg Documented By: BRUCE Pharmacy Consult (Consult Rx Perform Med Rec) 1 each MISCELLANE ONCE PRN PRN Reason: Consult order Sodium Chloride (0.9 % Sodium Chloride Flush 3 Ml Syringe) 3 ml IVFLUSH QSHIFT [facility] Last Admin: 12/23/21 14:32 Dose: 3 ml Documented By: TL Labs CBC & Chem 7: 12/16/21 06:02 12/23/21 05:14 Labs: Laboratory Results - last 24 hr 12/23/21 05:14 Anion Gap 18 Estim Creat Clear Calc 68.8 Estimated GFR 50 Random Glucose 93 Calcium 9.1 D Assessment and Plan (1) Acute renal failure due to rhabdomyolysis: Status: Acute (2) Hip pain, right: Status: Acute Plan 46 years old male with PMH of smoking, alcoholism who presents to the hospital after being found altered in his shower after using heroin.? NEHA d/t ATN from rhabdo--and required short term dialysis, Cr is down to 2.29 which is not far from his baseline PermCath removed d/c sodium bicarb Right Hip pain. Initial CT scan showing multiple abnormalities with enlargement of surrounding tissue and fluids along multiple facial planes Concerning for possible myositis, joint infection seen by orthopedics - will reconsult for follow up due to persistent pain ? need for repeat imaging seen by ID, no fever to indicate infection and blood cultures negative - rec to d/c abx physical therapy following Migraine prn fioricet Depression, no SI, seen by Psych 12/16, started on Remron Acute on chronic anemia Hemoglobin stable positive occult blood Iron stores within normal GI input appreciated, no need for intervention at this point, can be followed as outpatient elective colonoscopy Monitor CBC Epistaxis resolved Hyponatremia Resolved follow BMP Hyperkalemia Resolved will d/c daily lokelma follow BMP RUE pain and swelling. Improved CT initially showing subcutaneous swelling concerning for muscle injury or infection pain likely from reperfusion injury per Ortho US neg for DVT Hypertension Started on amlodipine and hydralazine, and metoprolol and overall better Aspiration pneumonia Finished treatment with IV zosyn On room air Toxic metabolic encephalopathy, resolved Secondary to heroin abuse Addiction team following DVT PPX - SCDs attending - dr. leigh Need for inpatient : physical therapy recommending STR. bed search for SNF Quality Stroke Does the patient have a stroke diagnosis?: No VTE Prior VTE?: No VTE Risk Level:: Medical - moderate - high VTE Device Contraindication: Treatment Not Indicated VTE Drug Contraindication: N/A - Med Ordered
[2021-12-23 19:24] VITALS: BP 140/90; PULSE 106; RESP 17; TEMP 37.2; O2SAT 99
[2021-12-23] MEDS: Mirtazapine 15 MG TABLET PO (21:22)
[2021-12-24] VITALS (7 sets, daily range): BP systolic 132–147; BP diastolic 70–85; PULSE 90–103; RESP 17–18; TEMP 36.1–37.5; O2SAT 95–100
[2021-12-24 06:46] LABS: Anion Gap 15 (12-20); Blood Urea Nitrogen 21 mg/dL (9-16); Calcium 9.6 mg/dL (8.4-10.2); Carbon Dioxide 23 mmol/L (22-29); Chloride 105 mmol/L (96-108); Creatinine Clr Calc Pharmacy 72.6; Estimated Glomerular Filt Rate 53; Glucose Random 96 mg/dL (60-115); Potassium 4.1 mmol/L (3.3-5.1); Sodium 139 mmol/L (135-145)
[2021-12-24] MEDS: amLODIPine Besylate 10 MG TABLET PO (10:05)
[2021-12-24] MEDS: Metoprolol Tartrate 25 MG TABLET PO ×2 (10:05→20:25)
[2021-12-24] MEDS: 0.9 % Sodium Chloride Flush 3 ML SYRINGE IVFLUSH ×3 (10:05→20:26)
[2021-12-24] MEDS: hydrALAZINE HCl 25 MG TABLET PO ×3 (10:05→20:24)
[2021-12-24] MEDS: NeoMY/Polymyx/Bacit/Ointment 14 GM Tube TOPICAL (10:07)
--- NOTE | 2021-12-24 12:01 | HO.PM.IMPN ---
Subjective Subjective Date of Service: 12/24/21 Interval History: seen and examined this morning Follow-up for NEHA Still reporting right leg pain, primarily posterior thigh. Has been working with physical therapy No other specific complaints Review of Systems Review of Systems: Yes all other systems are reviewed and are negative Constitutional Constitutional: Denies chills and Denies fever(s) Cardiovascular Cardiovascular: Denies chest pain, Denies palpitations and Denies dyspnea Respiratory Respiratory: Denies cough and Denies dyspnea Gastrointestinal Gastrointestinal: Denies abdominal pain, Denies nausea and Denies vomiting Endocrine Endocrine: Denies palpitations Physical Exam Vital Signs: Vital Signs: Last Vital Signs Temp 98.3 F 12/24/21 11:16 Pulse 93 12/24/21 11:16 Resp 18 12/24/21 11:16 BP 140/82 H 12/24/21 11:16 Pulse Ox 99 12/24/21 11:16 O2 Del Method 12/24/21 11:16 O2 Flow Rate 99 12/21/21 15:41 BMI result Body Mass Index 31.8 Const: General: cooperative, comfortable, no acute distress, alert and awake Nutritional Appearance: average body habitus Orientation/consciousness: patient oriented x3 Resp: Effort & Inspection: normal respiratory effort and able to speak in complete sentences Auscultation: clear to auscultation bilaterally Cardio: Rate: regular rate Heart sounds: S1 normal heart sound present and S2 normal heart sound present GI: Inspection: No distended Palpation (GI): Soft to palpation and nontender Neuro: General: patient oriented x3 and CN's II-XI intact bilaterally Extrem: General: Yes no pedal edema Objective Data Active Medications Acetaminophen (Acetaminophen 325 Mg Tablet) 650 mg PO Q8H PRN PRN Reason: Pain, Mild (Pain Scale 1-3) Last Admin: 12/23/21 08:03 Dose: 650 mg Documented By: MARIEENOSALLY Acetaminophen/Butalbital/Caffeine (Butalb/Acetamin/Caff 50/325/40 Tablet) 1 tab PO BID PRN PRN Reason: Headache Last Admin: 12/19/21 10:15 Dose: 1 tab Documented By: N-SOFFA Acetaminophen/Butalbital/Caffeine (Butalb/Acetamin/Caff 50/325/40 Tablet) 1 tab PO Q6H PRN PRN Reason: Migraine Headache Last Admin: 12/19/21 17:43 Dose: 1 tab Documented By: UMANG-SOFFA Amlodipine Besylate (Amlodipine Besylate 10 Mg Tablet) 10 mg PO DAILY [facility]; Protocol Last Admin: 12/24/21 10:05 Dose: 10 mg Documented By: SRINIVAS Hydralazine HCl (Hydralazine Hcl 25 Mg Tablet) 25 mg PO TID [facility]; Protocol Last Admin: 12/24/21 10:05 Dose: 25 mg Documented By: SRINIVAS Metoprolol Tartrate (Metoprolol Tartrate 25 Mg Tablet) 25 mg PO BID [facility]; Protocol Last Admin: 12/24/21 10:05 Dose: 25 mg Documented By: SRINIVAS Mirtazapine (Mirtazapine 15 Mg Tablet) 15 mg PO BEDTIME [facility] Last Admin: 12/23/21 21:22 Dose: 15 mg Documented By: CASTILM Neomycin/Polymyxin/Bacitracin (Neomy/Polymyx/Bacit/Ointment 14 Gm Tube) 1 gm TOPICAL DAILY [facility]; Protocol Last Admin: 12/24/21 10:07 Dose: 1 gm Documented By: SRINIVAS Nitroglycerin (Nitroglycerin 0.4 Mg Tab.Subl) 0.4 mg SUBLINGUAL Q5MX3 PRN PRN Reason: Chest Pain Last Admin: 12/05/21 00:47 Dose: 0.4 mg Documented By: SATHISH Comments: ch pain Ondansetron HCl (Ondansetron Hcl 4 Mg/2 Ml Vial) 4 mg IVPUSH Q8H PRN PRN Reason: Nausea and Vomiting Last Admin: 12/14/21 06:37 Dose: 4 mg Documented By: BRUCE Pharmacy Consult (Consult Rx Perform Med Rec) 1 each MISCELLANE ONCE PRN PRN Reason: Consult order Sodium Chloride (0.9 % Sodium Chloride Flush 3 Ml Syringe) 3 ml IVFLUSH QSHIFT [facility] Last Admin: 12/24/21 10:05 Dose: 3 ml Documented By: SRINIVAS Labs CBC & Chem 7: 12/16/21 06:02 12/24/21 05:38 Labs: Laboratory Results - last 24 hr 12/24/21 05:38 Anion Gap 15 Estim Creat Clear Calc 72.6 Estimated GFR 53 Random Glucose 96 Calcium 9.6 Assessment and Plan (1) Acute renal failure due to rhabdomyolysis: Status: Acute (2) Hip pain, right: Status: Acute Plan 46 years old male with PMH of smoking, alcoholism who presents to the hospital after being found altered in his shower after using heroin.? NEHA d/t ATN from rhabdo--and required short term dialysis, Cr is down to 2.29 which is not far from his baseline PermCath removed d/c sodium bicarb Right Hip/leg pain Initial CT scan showing multiple abnormalities with enlargement of surrounding tissue and fluids along multiple facial planes Concerning for possible myositis, joint infection seen by orthopedics - re-eval yesterday, no official note written but they report pain likely result of myositis/idiopathic inflammation of the posterior thigh and no further imaging is necessary at this time seen by ID, no fever to indicate infection and blood cultures negative - rec to d/c abx physical therapy following Migraine prn fioricet Depression, no SI seen by Psych 12/16, started on Remron Acute on chronic anemia Hemoglobin stable positive occult blood Iron stores within normal GI input appreciated, no need for intervention at this point, can be followed as outpatient elective colonoscopy Monitor CBC Epistaxis resolved Hyponatremia Resolved follow BMP Hyperkalemia Resolved will d/c daily lokelma follow BMP RUE pain and swelling. Improved CT initially showing subcutaneous swelling concerning for muscle injury or infection pain likely from reperfusion injury per Ortho US neg for DVT Hypertension Started on amlodipine and hydralazine, and metoprolol and overall better Aspiration pneumonia Finished treatment with IV zosyn On room air Toxic metabolic encephalopathy, resolved Secondary to heroin abuse Addiction team following DVT PPX - SCDs attending - dr. Snyder Need for inpatient : physical therapy recommending STR. bed search for SNF Quality Stroke Does the patient have a stroke diagnosis?: No VTE Prior VTE?: No VTE Risk Level:: Medical - moderate - high VTE Device Contraindication: Treatment Not Indicated VTE Drug Contraindication: N/A - Med Ordered
--- NOTE | 2021-12-24 12:19 | PM.PNNEP ---
Subjective Subjective Date of Service: 12/24/21 Interval history: seen and examined this morning Follow-up for NEHA Still reporting right leg pain, primarily posterior thigh. Has been working with physical therapy No other specific complaints Physical Exam Vital Signs: Vital Signs: Last Vital Signs Temp 98.3 F 12/24/21 11:16 Pulse 93 12/24/21 11:16 Resp 18 12/24/21 11:16 BP 140/82 H 12/24/21 11:16 Pulse Ox 99 12/24/21 11:16 O2 Del Method 12/24/21 11:16 O2 Flow Rate 99 12/21/21 15:41 BMI result Body Mass Index 31.8 Const: General: cooperative, no acute distress, alert and awake Orientation/consciousness: patient oriented x3 Eyes: General: appearance normal, both eyes and all related structures EOM: EOMs intact bilaterally Neck: Neck: Yes supple and Yes no JVD Resp: Effort & Inspection: normal respiratory effort and able to speak in complete sentences Auscultation: clear to auscultation bilaterally and diminished lung sounds Cardio: Jugular venous distension: no JVD Rate: regular rate Rhythm: regular rhythm Heart sounds: S1 normal heart sound present and S2 normal heart sound present GI: Inspection: No distended Palpation (GI): Soft to palpation and nontender Auscultation: normal bowel sounds Neuro: General: patient oriented x3, moves all extremities and no focal motor deficits Extrem: General: Yes no pedal edema Objective Data Labs CBC & Chem 7: 12/16/21 06:02 12/24/21 05:38 Labs: Laboratory Results - last 24 hr 12/24/21 05:38 Sodium 139 Potassium 4.1 Chloride 105 Carbon Dioxide 23 Anion Gap 15 BUN 21 H Creatinine 1.45 H Estim Creat Clear Calc 72.6 Estimated GFR 53 Random Glucose 96 Calcium 9.6 Microbiology Microbiology Results: Microbiology 11/28/21 06:06 Blood - Venous Blood Culture - Final No growth after 5 days. 11/28/21 06:06 Blood - Venous Blood Culture - Final No growth after 5 days. Procedures Date of Service Date of Service: 12/24/21 Assessment & Plan Assessment and plan (1) Acute renal failure due to rhabdomyolysis: Status: Acute Plan #) NEHA, with anuria now non-oliguric Acute Kidney Injury consistent with rhabdomyolysis and dense ATN with delayed recovery Remains HD dependent for now; Currently on HD per MWF schedule. Cr trending down No need for HD now If cr continues to improve- permcath removed Blood pressure needs to be maintained at goal;? C/W rest of current management Time Spent With Patient Time: Total time spent is greater than 50% in coordination of care (as documented) at patient's floor/unit and/or counseling patient: Progress Note: Quality Stroke Does the patient have a stroke diagnosis?: No
[2021-12-24] MEDS: Mirtazapine 15 MG TABLET PO (20:25)
[2021-12-24] MEDS: Acetaminophen 325 MG TABLET 650 MG PO (20:25)
[2021-12-25 03:14] VITALS: BP 134/75; PULSE 80; RESP 17; TEMP 36.4; O2SAT 100
[2021-12-25 06:12] LABS: Hematocrit 31.6 % (42.0-52.0); Hemoglobin 10.8 g/dl (14.0-18.0); Mean Corpuscular HGB Conc 34.2 g/dl (31.0-36.0); Mean Corpuscular Hemoglobin 33.3 pg (27.0-33.0); Mean Corpuscular Volume 97.5 fL (80.0-98.0); Mean Platelet Volume 10.7 fL (9.4-12.4); Platelet Count 341 X10*3/uL (160-400); Red Blood Count 3.24 X10*6/uL (4.60-5.80); Red Cell Distribution Width 12.6 % (11.0-16.0); White Blood Count 10.6 X10*3/uL (4.8-10.8)
[2021-12-25 06:41] LABS: Anion Gap 15 (12-20); Blood Urea Nitrogen 23 mg/dL (9-16); Calcium 9.4 mg/dL (8.4-10.2); Carbon Dioxide 23 mmol/L (22-29); Chloride 107 mmol/L (96-108); Creatinine Clr Calc Pharmacy 78.6; Estimated Glomerular Filt Rate 58; Glucose Random 109 mg/dL (60-115); Potassium 4.1 mmol/L (3.3-5.1); Sodium 141 mmol/L (135-145)
[2021-12-25 07:54] VITALS: BP 142/85; PULSE 93; RESP 18; TEMP 37.1; O2SAT 98
[2021-12-25] MEDS: Metoprolol Tartrate 25 MG TABLET PO ×2 (08:57→20:19)
[2021-12-25] MEDS: hydrALAZINE HCl 25 MG TABLET PO ×3 (08:57→20:19)
[2021-12-25] MEDS: amLODIPine Besylate 10 MG TABLET PO (08:58)
[2021-12-25] MEDS: 0.9 % Sodium Chloride Flush 3 ML SYRINGE IVFLUSH ×3 (08:58→20:20)
[2021-12-25] MEDS: Acetaminophen 325 MG TABLET 650 MG PO (08:59)
[2021-12-25 11:46] VITALS: BP 128/75; PULSE 94; RESP 20; TEMP 36.9; O2SAT 97
--- NOTE | 2021-12-25 12:29 | PM.PNNEP ---
Subjective Subjective Date of Service: 12/26/21 Interval history: Events noted Physical Exam Vital Signs: Vital Signs: Last Vital Signs Temp 98.5 F 12/25/21 11:46 Pulse 94 12/25/21 11:46 Resp 20 12/25/21 11:46 BP 128/75 12/25/21 11:46 Pulse Ox 97 12/25/21 11:46 O2 Del Method 12/25/21 11:46 O2 Flow Rate 99 12/21/21 15:41 BMI result Body Mass Index 31.8 Const: General: cooperative, no acute distress, alert and awake Orientation/consciousness: patient oriented x3 Eyes: General: appearance normal, both eyes and all related structures EOM: EOMs intact bilaterally Neck: Neck: Yes supple and Yes no JVD Resp: Effort & Inspection: normal respiratory effort and able to speak in complete sentences Auscultation: clear to auscultation bilaterally and diminished lung sounds Cardio: Jugular venous distension: no JVD Rate: regular rate Rhythm: regular rhythm Heart sounds: S1 normal heart sound present and S2 normal heart sound present GI: Inspection: No distended Palpation (GI): Soft to palpation and nontender Auscultation: normal bowel sounds Neuro: General: patient oriented x3, moves all extremities and no focal motor deficits Extrem: General: Yes no pedal edema Objective Data Labs CBC & Chem 7: 12/25/21 21:39 12/25/21 05:47 Labs: Laboratory Results - last 24 hr 12/25/21 12/25/21 05:47 05:47 WBC 10.6 RBC 3.24 L Hgb 10.8 L Hct 31.6 L MCV 97.5 MCH 33.3 H MCHC 34.2 RDW 12.6 Plt Count 341 MPV 10.7 Absolute Nucleated RBC 0.000 Nucleated RBC % (auto) 0.0 Sodium 141 Potassium 4.1 Chloride 107 Carbon Dioxide 23 Anion Gap 15 BUN 23 H Creatinine 1.34 Estim Creat Clear Calc 78.6 Estimated GFR 58 Random Glucose 109 Calcium 9.4 Microbiology Microbiology Results: Microbiology 11/28/21 06:06 Blood - Venous Blood Culture - Final No growth after 5 days. 11/28/21 06:06 Blood - Venous Blood Culture - Final No growth after 5 days. Procedures Date of Service Date of Service: 12/25/21 Assessment & Plan Assessment and plan (1) Acute renal failure due to rhabdomyolysis: Status: Acute Plan #) NEHA, with anuria now non-oliguric Acute Kidney Injury consistent with rhabdomyolysis and dense ATN with delayed recovery Remains HD dependent for now; Currently on HD per MWF schedule. Cr trending down No need for HD now If cr continues to improve- permcath removed Blood pressure needs to be maintained at goal;? C/W rest of current management Time Spent With Patient Time: Total time spent is greater than 50% in coordination of care (as documented) at patient's floor/unit and/or counseling patient: Progress Note: Quality Stroke Does the patient have a stroke diagnosis?: No
--- NOTE | 2021-12-25 13:42 | P.PNIM_ITS ---
Subjective Subjective Date of Service: 12/25/21 Interval History: seen and examined this morning Awaiting placement No significant change in status, no overnight events No specific complaints this morning, still with ongoing right leg discomfort Review of Systems Review of Systems: Yes all other systems are reviewed and are negative Constitutional Constitutional: Denies chills and Denies fever(s) Cardiovascular Cardiovascular: Denies chest pain, Denies palpitations and Denies dyspnea Respiratory Respiratory: Denies cough and Denies dyspnea Gastrointestinal Gastrointestinal: Denies abdominal pain Endocrine Endocrine: Denies palpitations Physical Exam Vital Signs: Vital Signs: Last Vital Signs Temp 98.5 F 12/25/21 11:46 Pulse 94 12/25/21 11:46 Resp 20 12/25/21 11:46 BP 128/75 12/25/21 11:46 Pulse Ox 97 12/25/21 11:46 O2 Del Method 12/25/21 11:46 O2 Flow Rate 99 12/21/21 15:41 BMI result Body Mass Index 31.8 Const: General: cooperative, comfortable, no acute distress, alert and awake Nutritional Appearance: average body habitus Orientation/consciousness: patient oriented x3 Resp: Effort & Inspection: normal respiratory effort and able to speak in complete sentences Auscultation: clear to auscultation bilaterally Cardio: Rate: regular rate Heart sounds: S1 normal heart sound present and S2 normal heart sound present GI: Inspection: No distended Palpation (GI): Soft to palpation and nontender Neuro: General: patient oriented x3 and CN's II-XI intact bilaterally Extrem: General: Yes no pedal edema Objective Data Active Medications Acetaminophen (Acetaminophen 325 Mg Tablet) 650 mg PO Q8H PRN PRN Reason: Pain, Mild (Pain Scale 1-3) Last Admin: 12/25/21 08:59 Dose: 650 mg Documented By: UMANG-RIVLA Acetaminophen/Butalbital/Caffeine (Butalb/Acetamin/Caff 50/325/40 Tablet) 1 tab PO BID PRN PRN Reason: Headache Last Admin: 12/19/21 10:15 Dose: 1 tab Documented By: UMANG-SOFFA Acetaminophen/Butalbital/Caffeine (Butalb/Acetamin/Caff 50/325/40 Tablet) 1 tab PO Q6H PRN PRN Reason: Migraine Headache Last Admin: 12/19/21 17:43 Dose: 1 tab Documented By: SHRUTHI Amlodipine Besylate (Amlodipine Besylate 10 Mg Tablet) 10 mg PO DAILY [facility]; Protocol Last Admin: 12/25/21 08:58 Dose: 10 mg Documented By: RODNEY Comments: BP-142/85 Hydralazine HCl (Hydralazine Hcl 25 Mg Tablet) 25 mg PO TID [facility]; Protocol Last Admin: 12/25/21 08:57 Dose: 25 mg Documented By: RODNEY Comments: BP-142/ Metoprolol Tartrate (Metoprolol Tartrate 25 Mg Tablet) 25 mg PO BID [facility]; Protocol Last Admin: 12/25/21 08:57 Dose: 25 mg Documented By: RODNEY Comments: BP-142/ Mirtazapine (Mirtazapine 15 Mg Tablet) 15 mg PO BEDTIME [facility] Last Admin: 12/24/21 20:25 Dose: 15 mg Documented By: CASTILM Neomycin/Polymyxin/Bacitracin (Neomy/Polymyx/Bacit/Ointment 14 Gm Tube) 1 gm TOPICAL DAILY [facility]; Protocol Last Admin: 12/25/21 09:02 Dose: Not Given Documented By: RODNEY Non-Admin Reason: WOUND HEALED Nitroglycerin (Nitroglycerin 0.4 Mg Tab.Subl) 0.4 mg SUBLINGUAL Q5MX3 PRN PRN Reason: Chest Pain Last Admin: 12/05/21 00:47 Dose: 0.4 mg Documented By: SATHISH Comments: ch pain Ondansetron HCl (Ondansetron Hcl 4 Mg/2 Ml Vial) 4 mg IVPUSH Q8H PRN PRN Reason: Nausea and Vomiting Last Admin: 12/14/21 06:37 Dose: 4 mg Documented By: BRUCE Pharmacy Consult (Consult Rx Perform Med Rec) 1 each MISCELLANE ONCE PRN PRN Reason: Consult order Sodium Chloride (0.9 % Sodium Chloride Flush 3 Ml Syringe) 3 ml IVFLUSH QSHIFT [facility] Last Admin: 12/25/21 08:58 Dose: 3 ml Documented By: RODNEY Labs CBC & Chem 7: 12/25/21 05:47 12/25/21 05:47 Labs: Laboratory Results - last 24 hr 12/25/21 12/25/21 05:47 05:47 MCV 97.5 MCH 33.3 H MCHC 34.2 RDW 12.6 Plt Count 341 MPV 10.7 Absolute Nucleated RBC 0.000 Nucleated RBC % (auto) 0.0 Anion Gap 15 Estim Creat Clear Calc 78.6 Estimated GFR 58 Random Glucose 109 Calcium 9.4 Assessment and Plan (1) Hip pain, right: Status: Acute Plan 46 years old male with PMH of smoking, alcoholism who presents to the hospital after being found altered in his shower after using heroin.? NEHA d/t ATN from [facility]--and required short term dialysis, Cr is down to 2.29 which is not far from his baseline PermCath removed d/c sodium bicarb Right Hip/leg pain Initial CT scan showing multiple abnormalities with enlargement of surrounding tissue and fluids along multiple facial planes Concerning for possible myositis, joint infection seen by orthopedics - re-eval yesterday, no official note written but they report pain likely result of myositis/idiopathic inflammation of the posterior thigh and no further imaging is necessary at this time seen by ID, no fever to indicate infection and blood cultures negative - rec to d/c abx physical therapy following Migraine prn fioricet Depression, no SI seen by Psych 12/16, started on Remron Acute on chronic anemia Hemoglobin stable positive occult blood Iron stores within normal GI input appreciated, no need for intervention at this point, can be followed as outpatient elective colonoscopy Monitor CBC Epistaxis resolved Hyponatremia Resolved follow BMP Hyperkalemia Resolved will d/c daily lokelma follow BMP RUE pain and swelling. Improved CT initially showing subcutaneous swelling concerning for muscle injury or infection pain likely from reperfusion injury per Ortho US neg for DVT Hypertension Started on amlodipine and hydralazine, and metoprolol and overall better Aspiration pneumonia Finished treatment with IV zosyn On room air Toxic metabolic encephalopathy, resolved Secondary to heroin abuse Addiction team following DVT PPX - SCDs attending - dr. galloway Need for inpatient : physical therapy recommending STR. bed search for SNF Quality Stroke Does the patient have a stroke diagnosis?: No VTE Prior VTE?: No VTE Risk Level:: Medical - moderate - high VTE Device Contraindication: Treatment Not Indicated VTE Drug Contraindication: N/A - Med Ordered
[2021-12-25 15:49] VITALS: BP 136/87; PULSE 89; RESP 18; O2SAT 99
[2021-12-25 19:33] VITALS: BP 143/96; PULSE 99; RESP 18; TEMP 36.6; O2SAT 100
[2021-12-25] MEDS: Mirtazapine 15 MG TABLET PO (20:21)
--- NOTE | 2021-12-25 21:26 | PM.EVENT ---
Event Note Date of Service: 12/25/21 Event Note: pts venous doppler does show non-obstructing superficial basilic vein thrombis. Given proximity to deep veins, will anticoagulate
[2021-12-25 21:49] LABS: Hematocrit 31.3 % (42.0-52.0); Hemoglobin 10.5 g/dl (14.0-18.0); Mean Corpuscular HGB Conc 33.5 g/dl (31.0-36.0); Mean Corpuscular Hemoglobin 32.8 pg (27.0-33.0); Mean Corpuscular Volume 97.8 fL (80.0-98.0); Mean Platelet Volume 10.6 fL (9.4-12.4); Platelet Count 339 X10*3/uL (160-400); Red Cell Distribution Width 12.6 % (11.0-16.0); White Blood Count 12.1 X10*3/uL (4.8-10.8)
[2021-12-25 21:58] LABS: INTERNATIONAL NORM RATIO 1.1 (0.9-1.1); Prothrombin Time 12.1 SEC (10.0-13.1)
[2021-12-25 22:01] LABS: Partial Thromboplastin Time 29.9 SEC (26.0-36.4)
[2021-12-25] MEDS: Enoxaparin Sodium 100 MG/ML SYRINGE 90 MG SUBCUT (22:21)
[2021-12-25 23:50] VITALS: BP 129/79; PULSE 93; RESP 18; TEMP 36.6; O2SAT 100
[2021-12-26 03:50] VITALS: BP 120/79; PULSE 87; RESP 18; TEMP 36.7; O2SAT 99
[2021-12-26 06:55] VITALS: BP 142/85; PULSE 92; RESP 18; TEMP 36.6; O2SAT 100
[2021-12-26] MEDS: hydrALAZINE HCl 25 MG TABLET PO ×3 (08:18→20:30)
[2021-12-26] MEDS: Metoprolol Tartrate 25 MG TABLET PO ×2 (08:18→20:30)
[2021-12-26] MEDS: amLODIPine Besylate 10 MG TABLET PO (08:18)
[2021-12-26] MEDS: 0.9 % Sodium Chloride Flush 3 ML SYRINGE IVFLUSH ×3 (08:19→20:32)
[2021-12-26] MEDS: NeoMY/Polymyx/Bacit/Ointment 14 GM Tube TOPICAL (08:28)
--- NOTE | 2021-12-26 09:47 | P.PNIM_ITS ---
Subjective Subjective Date of Service: 12/26/21 Interval History: seen and examined this morning Awaiting placement No significant change in status, no overnight events No specific complaints this morning, still with ongoing right leg discomfort but improving Physical Exam Vital Signs: Vital Signs: Last Vital Signs Temp 97.8 F 12/26/21 06:55 Pulse 92 12/26/21 06:55 Resp 18 12/26/21 06:55 BP 142/85 H 12/26/21 06:55 Pulse Ox 100 12/26/21 06:55 O2 Del Method 12/26/21 06:55 O2 Flow Rate 99 12/21/21 15:41 BMI result Body Mass Index 31.8 Const: Other: General: AO X 3, no acute distress Resp: CTA bilateral CVS: S1,S2,RRR GI: +BS, NT, no distention Skin: No rash Neuro: motor grossly intact Psych: appropriate affect Objective Data Active Medications Acetaminophen (Acetaminophen 325 Mg Tablet) 650 mg PO Q8H PRN PRN Reason: Pain, Mild (Pain Scale 1-3) Last Admin: 12/25/21 08:59 Dose: 650 mg Documented By: RODNEY Acetaminophen/Butalbital/Caffeine (Butalb/Acetamin/Caff 50/325/40 Tablet) 1 tab PO BID PRN PRN Reason: Headache Last Admin: 12/19/21 10:15 Dose: 1 tab Documented By: SHRUTHI Acetaminophen/Butalbital/Caffeine (Butalb/Acetamin/Caff 50/325/40 Tablet) 1 tab PO Q6H PRN PRN Reason: Migraine Headache Last Admin: 12/19/21 17:43 Dose: 1 tab Documented By: SHRUTHI Amlodipine Besylate (Amlodipine Besylate 10 Mg Tablet) 10 mg PO DAILY [facility]; Protocol Last Admin: 12/26/21 08:18 Dose: 10 mg Documented By: ALETHEA Enoxaparin Sodium (Enoxaparin Sodium 100 Mg/Ml Syringe) 90 mg 1 mg/kg (90 mg) SUBCUT Q12H [facility] Last Admin: 12/25/21 22:21 Dose: 90 mg Documented By: HIEN Hydralazine HCl (Hydralazine Hcl 25 Mg Tablet) 25 mg PO TID [facility]; Protocol Last Admin: 12/26/21 08:18 Dose: 25 mg Documented By: ALETHEA Metoprolol Tartrate (Metoprolol Tartrate 25 Mg Tablet) 25 mg PO BID [facility]; Protocol Last Admin: 12/26/21 08:18 Dose: 25 mg Documented By: ALETHEA Mirtazapine (Mirtazapine 15 Mg Tablet) 15 mg PO BEDTIME [facility] Last Admin: 12/25/21 20:21 Dose: 15 mg Documented By: HIEN Neomycin/Polymyxin/Bacitracin (Neomy/Polymyx/Bacit/Ointment 14 Gm Tube) 1 gm TOPICAL DAILY [facility]; Protocol Last Admin: 12/26/21 08:28 Dose: 1 gm Documented By: ALETHEA Nitroglycerin (Nitroglycerin 0.4 Mg Tab.Subl) 0.4 mg SUBLINGUAL Q5MX3 PRN PRN Reason: Chest Pain Last Admin: 12/05/21 00:47 Dose: 0.4 mg Documented By: SATHISH Comments: ch pain Ondansetron HCl (Ondansetron Hcl 4 Mg/2 Ml Vial) 4 mg IVPUSH Q8H PRN PRN Reason: Nausea and Vomiting Last Admin: 12/14/21 06:37 Dose: 4 mg Documented By: BRUCE Pharmacy Consult (Consult Rx Perform Med Rec) 1 each MISCELLANE ONCE PRN PRN Reason: Consult order Sodium Chloride (0.9 % Sodium Chloride Flush 3 Ml Syringe) 3 ml IVFLUSH QSHIFT [facility] Last Admin: 12/26/21 08:19 Dose: 3 ml Documented By: ALETHEA Labs CBC & Chem 7: 12/25/21 21:39 12/25/21 05:47 Labs: Laboratory Results - last 24 hr 12/25/21 12/25/21 21:39 21:39 MCV 97.8 MCH 32.8 MCHC 33.5 RDW 12.6 Plt Count 339 MPV 10.6 Absolute Nucleated RBC 0.000 Nucleated RBC % (auto) 0.0 PT 12.1 INR 1.1 APTT 29.9 Assessment and Plan (1) Hip pain, right: Status: Acute Plan 46 years old male with PMH of smoking, alcoholism who presents to the hospital after being found altered in his shower after using heroin.? NEHA d/t ATN from [facility] with peak Cr of 12--and required short term dialysis, last Creatinine 1.34 on 12/25, PermCath removed Right Hip/leg pain Initial CT scan showing multiple abnormalities with enlargement of surrounding tissue and fluids along multiple facial planes Concerning for possible myositis, joint infection seen by orthopedics - melissa yesterday, no official note written but they report pain likely result of myositis/idiopathic inflammation of the posterior thigh and no further imaging is necessary at this time seen by ID, no fever to indicate infection and blood cultures negative - rec to d/c abx physical therapy following Migraine prn fioricet Depression, no SI seen by Psych 12/16, started on Remron Acute on chronic anemia Hemoglobin stable positive occult blood Iron stores within normal GI input appreciated, no need for intervention at this point, can be followed as outpatient elective colonoscopy Monitor CBC Epistaxis resolved Hyponatremia Resolved follow BMP Hyperkalemia Resolved RUE pain and swelling. Improved CT initially showing subcutaneous swelling concerning for muscle injury or infection pain likely from reperfusion injury per Ortho US neg for DVT Hypertension on amlodipine and hydralazine, and metoprolol and overall better Aspiration pneumonia Finished treatment with IV zosyn On room air Toxic metabolic encephalopathy, resolved Secondary to heroin abuse Addiction team following DVT PPX - SCDs attending - dr. galloway Need for inpatient : physical therapy recommending STR. bed search for [facility] Quality Stroke Does the patient have a stroke diagnosis?: No VTE Prior VTE?: No VTE Risk Level:: Medical - moderate - high VTE Device Contraindication: Treatment Not Indicated VTE Drug Contraindication: N/A - Med Ordered
--- NOTE | 2021-12-26 10:04 | MHC.CM.PN ---
Addendum entered by Jeanine Sen 12/26/21 12:46: Further updates sent to snf referrals. Patient now on lovenox No need for HD anymore. Original Note: [facility] UPDATED. CASE MANAGEMENT STILL FOLLOWING
[2021-12-26] MEDS: Enoxaparin Sodium 100 MG/ML SYRINGE 90 MG SUBCUT ×2 (11:13→21:37)
[2021-12-26 11:14] VITALS: BP 130/64; PULSE 89; RESP 18; TEMP 36.6; O2SAT 98
--- NOTE | 2021-12-26 12:51 | P.CDIC_ITS ---
CDI Concurrent Query Documentation Clarification: PHYSICIAN'S DOCUMENTATION REQUEST Date of Query: 12/26/21 1251 Patient Name: Ángel Castaneda Admit Date: 11/28/21 Dear Doctor, A review of the medical record indicates additional documentation may be needed. Please review below and update the documentation accordingly. Risk Factors/Clinical Indicators/Treatments Per event note 12/25/21: venous doppler does show non-obstructing superficial basilic vein thrombis. Given proximity to deep veins, will anticoagulate Treated with SQ Lovenox Based on the above, could you clarify in the Progress Notes the appropriate diagnosis, if significant, that supports the above abnormalities and additional evaluation, monitoring, and/or treatment rendered: * Based on the above clinical indicator, could you provide an associated diagnosis and laterality that supports this finding * Other (please specify) * Unable to determine Use of terms such as suspected, likely, concern for, or probable (associated with a specific diagnosis that is being evaluated, monitored, or treated as if it exists) are acceptable and can be coded in the inpatient setting, when documented at the time of discharge. Thank you, Jenise Alas RN Extension: [phone] Please use your independent medical judgment in providing your response. THIS QUERY IS PART OF THE PERMANENT MEDICAL RECORD Provider Response: Other Other Diagnosis: left
[2021-12-26 15:40] VITALS: BP 124/79; PULSE 104; RESP 18; TEMP 36.2; O2SAT 99
[2021-12-26 20:00] VITALS: BP 137/87; PULSE 106; RESP 16; TEMP 36.2; O2SAT 99
[2021-12-26] MEDS: Mirtazapine 15 MG TABLET PO (20:30)
[2021-12-26] MEDS: Acetaminophen 325 MG TABLET 650 MG PO (20:30)
[2021-12-27] VITALS (7 sets, daily range): BP systolic 113–144; BP diastolic 71–95; PULSE 89–97; RESP 16–18; TEMP 36.2–37; O2SAT 99–100
[2021-12-27] MEDS: Metoprolol Tartrate 25 MG TABLET PO ×2 (07:45→21:16)
[2021-12-27] MEDS: amLODIPine Besylate 10 MG TABLET PO (07:45)
[2021-12-27] MEDS: hydrALAZINE HCl 25 MG TABLET PO ×3 (07:45→21:16)
[2021-12-27] MEDS: 0.9 % Sodium Chloride Flush 3 ML SYRINGE IVFLUSH ×2 (07:53→15:34)
--- NOTE | 2021-12-27 10:11 | HO.PM.IMPN ---
Subjective Subjective Date of Service: 12/27/21 Physical Exam Vital Signs: Vital Signs: Last Vital Signs Temp 98.1 F 12/27/21 07:45 Pulse 91 12/27/21 07:45 Resp 18 12/27/21 07:45 BP 132/83 12/27/21 07:45 Pulse Ox 100 12/27/21 07:45 O2 Del Method 12/27/21 07:45 O2 Flow Rate 99 12/21/21 15:41 BMI result Body Mass Index 31.8 Objective Data Active Medications Acetaminophen (Acetaminophen 325 Mg Tablet) 650 mg PO Q8H PRN PRN Reason: Pain, Mild (Pain Scale 1-3) Last Admin: 12/26/21 20:30 Dose: 650 mg Documented By: HIEN Acetaminophen/Butalbital/Caffeine (Butalb/Acetamin/Caff 50/325/40 Tablet) 1 tab PO BID PRN PRN Reason: Headache Last Admin: 12/19/21 10:15 Dose: 1 tab Documented By: SHRUTHI Acetaminophen/Butalbital/Caffeine (Butalb/Acetamin/Caff 50/325/40 Tablet) 1 tab PO Q6H PRN PRN Reason: Migraine Headache Last Admin: 12/19/21 17:43 Dose: 1 tab Documented By: SHRUTHI Amlodipine Besylate (Amlodipine Besylate 10 Mg Tablet) 10 mg PO DAILY [facility]; Protocol Last Admin: 12/27/21 07:45 Dose: 10 mg Documented By: AMINTA Enoxaparin Sodium (Enoxaparin Sodium 100 Mg/Ml Syringe) 90 mg 1 mg/kg (90 mg) SUBCUT Q12H [facility] Last Admin: 12/26/21 21:37 Dose: 90 mg Documented By: HIEN Hydralazine HCl (Hydralazine Hcl 25 Mg Tablet) 25 mg PO TID [facility]; Protocol Last Admin: 12/27/21 07:45 Dose: 25 mg Documented By: AMINTA Metoprolol Tartrate (Metoprolol Tartrate 25 Mg Tablet) 25 mg PO BID [facility]; Protocol Last Admin: 12/27/21 07:45 Dose: 25 mg Documented By: AMINTA Mirtazapine (Mirtazapine 15 Mg Tablet) 15 mg PO BEDTIME [facility] Last Admin: 12/26/21 20:30 Dose: 15 mg Documented By: HIEN Neomycin/Polymyxin/Bacitracin (Neomy/Polymyx/Bacit/Ointment 14 Gm Tube) 1 gm TOPICAL DAILY [facility]; Protocol Last Admin: 12/26/21 08:28 Dose: 1 gm Documented By: ALETHEA Nitroglycerin (Nitroglycerin 0.4 Mg Tab.Subl) 0.4 mg SUBLINGUAL Q5MX3 PRN PRN Reason: Chest Pain Last Admin: 12/05/21 00:47 Dose: 0.4 mg Documented By: SATHISH Comments: ch pain Ondansetron HCl (Ondansetron Hcl 4 Mg/2 Ml Vial) 4 mg IVPUSH Q8H PRN PRN Reason: Nausea and Vomiting Last Admin: 12/14/21 06:37 Dose: 4 mg Documented By: BRUCE Pharmacy Consult (Consult Rx Perform Med Rec) 1 each MISCELLANE ONCE PRN PRN Reason: Consult order Sodium Chloride (0.9 % Sodium Chloride Flush 3 Ml Syringe) 3 ml IVFLUSH QSHIFT [facility] Last Admin: 12/27/21 07:53 Dose: 3 ml Documented By: AMINTA Labs CBC & Chem 7: 12/25/21 21:39 12/25/21 05:47 Labs: Laboratory Results - last 24 hr 12/26/21 21:15 PT 12.0 INR 1.0 Assessment and Plan (1) Hip pain, right: Status: Acute Plan 46 years old male with PMH of smoking, alcoholism who presents to the hospital after being found altered in his shower after using heroin.? NEHA d/t ATN from [facility] with peak Cr of 12--and required short term dialysis, last Creatinine 1.34 on 12/25, PermCath removed Right Hip/leg pain Initial CT scan showing multiple abnormalities with enlargement of surrounding tissue and fluids along multiple facial planes Concerning for possible myositis, joint infection seen by orthopedics - re-eval yesterday, no official note written but they report pain likely result of myositis/idiopathic inflammation of the posterior thigh and no further imaging is necessary at this time seen by ID, no fever to indicate infection and blood cultures negative - rec to d/c abx physical therapy following Migraine prn fioricet Depression, no SI seen by Psych 12/16, started on Remron Acute on chronic anemia Hemoglobin stable positive occult blood Iron stores within normal GI input appreciated, no need for intervention at this point, can be followed as outpatient elective colonoscopy Monitor CBC Epistaxis resolved Hyponatremia Resolved follow BMP Hyperkalemia Resolved RUE pain and swelling. Improved CT initially showing subcutaneous swelling concerning for muscle injury or infection pain likely from reperfusion injury per Ortho US neg for DVT, but left basilic vein superficial clot--on lovnox Hypertension on amlodipine and hydralazine, and metoprolol and overall better Aspiration pneumonia Finished treatment with IV zosyn On room air Toxic metabolic encephalopathy, resolved Secondary to heroin abuse Addiction team following DVT PPX - SCDs attending - dr. galloway Need for inpatient : physical therapy recommending STR. bed search for [facility] Quality Stroke Does the patient have a stroke diagnosis?: No VTE Prior VTE?: No VTE Risk Level:: Medical - moderate - high VTE Device Contraindication: Treatment Not Indicated VTE Drug Contraindication: N/A - Med Ordered
[2021-12-27] MEDS: Enoxaparin Sodium 100 MG/ML SYRINGE 90 MG SUBCUT ×2 (11:01→21:16)
[2021-12-27] MEDS: NeoMY/Polymyx/Bacit/Ointment 14 GM Tube TOPICAL (11:01)
[2021-12-27] MEDS: Mirtazapine 15 MG TABLET PO (21:17)
[2021-12-28] VITALS (7 sets, daily range): BP systolic 124–144; BP diastolic 73–88; PULSE 81–100; RESP 16–18; TEMP 36.3–36.8; O2SAT 97–100
[2021-12-28] MEDS: 0.9 % Sodium Chloride Flush 3 ML SYRINGE IVFLUSH ×3 (00:29→17:18)
[2021-12-28] MEDS: Metoprolol Tartrate 25 MG TABLET PO ×2 (10:00→22:09)
[2021-12-28] MEDS: amLODIPine Besylate 10 MG TABLET PO (10:00)
[2021-12-28] MEDS: hydrALAZINE HCl 25 MG TABLET PO ×3 (10:00→22:09)
[2021-12-28] MEDS: Enoxaparin Sodium 100 MG/ML SYRINGE 90 MG SUBCUT ×2 (10:00→22:10)
[2021-12-28] MEDS: Acetaminophen 325 MG TABLET 650 MG PO (10:07)
[2021-12-28] MEDS: NeoMY/Polymyx/Bacit/Ointment 14 GM Tube TOPICAL (10:07)
--- NOTE | 2021-12-28 11:13 | HO.PM.IMPN ---
Subjective Subjective Date of Service: 12/28/21 Interval History: Awaiting placement, no new issues. Improving ambulation. Review of Systems No fever or chill, weakness in legs. Physical Exam Vital Signs: Vital Signs: Last Vital Signs Temp 97.8 F 12/28/21 08:00 Pulse 90 12/28/21 08:00 Resp 17 12/28/21 08:00 BP 135/84 12/28/21 08:00 Pulse Ox 98 12/28/21 08:00 O2 Del Method 12/28/21 08:00 O2 Flow Rate 99 12/21/21 15:41 BMI result Body Mass Index 31.8 Const: Other: General: AO X 3, no acute distress Resp: CTA bilateral CVS: S1,S2,RRR GI: +BS, NT, no distention Skin: No rash Neuro: motor grossly intact Psych: appropriate affect Objective Data Active Medications Acetaminophen (Acetaminophen 325 Mg Tablet) 650 mg PO Q8H PRN PRN Reason: Pain, Mild (Pain Scale 1-3) Last Admin: 12/28/21 10:07 Dose: 650 mg Documented By: ARYAN Acetaminophen/Butalbital/Caffeine (Butalb/Acetamin/Caff 50/325/40 Tablet) 1 tab PO BID PRN PRN Reason: Headache Last Admin: 12/19/21 10:15 Dose: 1 tab Documented By: SHRUTHI Acetaminophen/Butalbital/Caffeine (Butalb/Acetamin/Caff 50/325/40 Tablet) 1 tab PO Q6H PRN PRN Reason: Migraine Headache Last Admin: 12/19/21 17:43 Dose: 1 tab Documented By: SHRUTHI Amlodipine Besylate (Amlodipine Besylate 10 Mg Tablet) 10 mg PO DAILY [facility]; Protocol Last Admin: 12/28/21 10:00 Dose: 10 mg Documented By: ARYAN Enoxaparin Sodium (Enoxaparin Sodium 100 Mg/Ml Syringe) 90 mg 1 mg/kg (90 mg) SUBCUT Q12H [facility] Last Admin: 12/28/21 10:00 Dose: 90 mg Documented By: ARYAN Hydralazine HCl (Hydralazine Hcl 25 Mg Tablet) 25 mg PO TID [facility]; Protocol Last Admin: 12/28/21 10:00 Dose: 25 mg Documented By: ARYAN Metoprolol Tartrate (Metoprolol Tartrate 25 Mg Tablet) 25 mg PO BID [facility]; Protocol Last Admin: 12/28/21 10:00 Dose: 25 mg Documented By: ARYAN Mirtazapine (Mirtazapine 15 Mg Tablet) 15 mg PO BEDTIME [facility] Last Admin: 12/27/21 21:17 Dose: 15 mg Documented By: ALETHEA Neomycin/Polymyxin/Bacitracin (Neomy/Polymyx/Bacit/Ointment 14 Gm Tube) 1 gm TOPICAL DAILY [facility]; Protocol Last Admin: 12/28/21 10:07 Dose: 1 gm Documented By: ARYAN Nitroglycerin (Nitroglycerin 0.4 Mg Tab.Subl) 0.4 mg SUBLINGUAL Q5MX3 PRN PRN Reason: Chest Pain Last Admin: 12/05/21 00:47 Dose: 0.4 mg Documented By: SATHISH Comments: ch pain Ondansetron HCl (Ondansetron Hcl 4 Mg/2 Ml Vial) 4 mg IVPUSH Q8H PRN PRN Reason: Nausea and Vomiting Last Admin: 12/14/21 06:37 Dose: 4 mg Documented By: BRUCE Pharmacy Consult (Consult Rx Perform Med Rec) 1 each MISCELLANE ONCE PRN PRN Reason: Consult order Sodium Chloride (0.9 % Sodium Chloride Flush 3 Ml Syringe) 3 ml IVFLUSH QSHIFT [facility] Last Admin: 12/28/21 10:01 Dose: 3 ml Documented By: ARYAN Labs CBC & Chem 7: 12/25/21 21:39 12/25/21 05:47 Assessment and Plan (1) Hip pain, right: Status: Acute Plan 46 years old male with PMH of smoking, alcoholism who presents to the hospital after being found altered in his shower after using heroin.? [facility]--and required short term dialysis, last Creatinine 1.34 on 12/25, PermCath removed Right Hip/leg pain Initial CT scan showing multiple abnormalities with enlargement of surrounding tissue and fluids along multiple facial planes Concerning for possible myositis, joint infection seen by orthopedics - re-eval yesterday, no official note written but they report pain likely result of myositis/idiopathic inflammation of the posterior thigh and no further imaging is necessary at this time seen by ID, no fever to indicate infection and blood cultures negative - rec to d/c abx physical therapy following, ambulate as tolerated with her walker Migraine prn fioricet Depression, no SI seen by Psych 12/16, started on Remron Acute on chronic anemia Hemoglobin stable positive occult blood Iron stores within normal GI input appreciated, no need for intervention at this point, can be followed as outpatient elective colonoscopy Monitor CBC Epistaxis resolved Hyponatremia Resolved follow BMP Hyperkalemia Resolved RUE pain and swelling. Improved CT initially showing subcutaneous swelling concerning for muscle injury or infection pain likely from reperfusion injury per Ortho US neg for DVT, but left basilic vein superficial clot--on lovnox Hypertension on amlodipine and hydralazine, and metoprolol and overall better Aspiration pneumonia Finished treatment with IV zosyn On room air Toxic metabolic encephalopathy, resolved Secondary to heroin abuse Addiction team following DVT PPX - SCDs attending - dr. galloway Need for inpatient : physical therapy recommending STR. bed search for SNF, if hip pain improves he may be able to be discharge to [facility] Quality Stroke Does the patient have a stroke diagnosis?: No VTE Prior VTE?: No VTE Risk Level:: Medical - moderate - high VTE Device Contraindication: Treatment Not Indicated VTE Drug Contraindication: N/A - Med Ordered
--- NOTE | 2021-12-28 11:31 | MHC.CM.PN ---
Addendum entered by Jeanine Sen 12/28/21 13:24: SECOND ATTEMPT TO CONTACT RN @ [phone] SUCCESSFUL RN STATES THAT SHE IS IN THE MIDDLE OF AN EMERGENCY AND WILL CALL THIS SOCIAL MEDIA MARKETING ANALYST BACK. PATIENT AWARE AND IN AGREEMENT WITH PLAN. HE NOW HAS CARE HOME LIST WITH CONTACT NUMBERS PATIENT TOLD THAT HE CAN USE ONE OF THE [facility]. PATIENT ALSO INFORMED OF BARRIERS TO RECEIVING A BED OFFER. Original Note: CALL TO THE [facility] [place] ([phone]) THEY CAN ACCOMMODATE PATIENT WITH WALKER WHO IS UNABLE TO CLIMB ONTO A BUNK; HOWEVER, THEY HAVE NO MALE BEDS TODAY THEY REQUEST THAT WE CALL BACK TOMORROW CALL TO [facility] WHO DO HAVE A BED TODAY AND ASKS THAT WE SPEAK WITH RN ([phone]) ABOUT MAKING POSSIBLE ACCOMMODATIONS FOR A MALE WHO IS UNABLE TO CLIMB ONTO A BUNK. MESSAGE LEFT FOR RN ALONG WITH CONTACT NUMBER FOR THIS SOCIAL MEDIA MARKETING ANALYST CARE HOME LIST TO BE GIVEN TO PATIENT TO FOLLOW UP
--- NOTE | 2021-12-28 16:13 | MHC.CM.PN ---
THIS SWEATBAND SHAPER SPOKE WITH BERNARD REGALADO OF [facility]. [phone] ALL QUESTIONS WERE ANSWERED THERE IS CONCERN FOR HIS INABILITY TO CLIMB ONTO A TOP BUNK BUT THEY WILL DISCUSS THIS CASE TO COME UP WITH A PLAN FOR PATIENT. PATIENT WILL NEED ALL MEDS FILLED PRIOR TO COMING IN HE IS AGREEABLE TO BEING COVID VACCINATED AND TESTED PRIOR TO DC MD AWARE AND REQUEST SENT FOR J&J ORDER TO BE PLACED. PATIENT ALSO AWARE THAT FACILITY WILL PERFORM A WARRANT CHECK PRIOR TO ARRIVAL. 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 FACILITY RN SABINE IS HOPING PATIENT CAN CONTINUE TO WORK ON HIS ABILITY TO BE ABLE TO HOIST SELF UP TO A TOP BUNK IF NEEDED BUT AGAIN, SABINE WILL DISCUSS WITH STAFF POSSIBILITY OF NOT HAVING TO DO SO. CASE MANAGEMENT TO FOLLOW UP ON Sunday12/30/21 PER DISCUSSION WITH SABINE AND POSSIBLE DC TO [facility] SUNDAY
[2021-12-28] MEDS: Mirtazapine 15 MG TABLET PO (22:09)
[2021-12-29] VITALS (7 sets, daily range): BP systolic 116–135; BP diastolic 60–89; PULSE 80–100; RESP 17–20; TEMP 36.4–37.2; O2SAT 98–100
[2021-12-29] MEDS: hydrALAZINE HCl 25 MG TABLET PO ×3 (09:02→20:31)
[2021-12-29] MEDS: Metoprolol Tartrate 25 MG TABLET PO ×2 (09:02→20:31)
[2021-12-29] MEDS: amLODIPine Besylate 10 MG TABLET PO (09:02)
[2021-12-29] MEDS: 0.9 % Sodium Chloride Flush 3 ML SYRINGE IVFLUSH ×2 (09:02→15:23)
[2021-12-29] MEDS: Enoxaparin Sodium 100 MG/ML SYRINGE 90 MG SUBCUT ×2 (09:03→20:31)
--- NOTE | 2021-12-29 09:10 | HO.PM.IMPN ---
Subjective Subjective Date of Service: 12/29/21 Interval History: Awaiting placement, no new issues. Improving ambulation. Review of Systems No fever or chill, weakness in legs. Physical Exam Vital Signs: Vital Signs: Last Vital Signs Temp 98.5 F 12/29/21 08:00 Pulse 86 12/29/21 08:00 Resp 18 12/29/21 08:00 BP 121/60 12/29/21 08:00 Pulse Ox 99 12/29/21 08:00 O2 Del Method 12/29/21 08:00 O2 Flow Rate 99 12/21/21 15:41 BMI result Body Mass Index 31.8 Const: Other: General: AO X 3, no acute distress Resp: CTA bilateral CVS: S1,S2,RRR GI: +BS, NT, no distention Skin: No rash Neuro: motor grossly intact Psych: appropriate affect Objective Data Active Medications Acetaminophen (Acetaminophen 325 Mg Tablet) 650 mg PO Q8H PRN PRN Reason: Pain, Mild (Pain Scale 1-3) Last Admin: 12/28/21 10:07 Dose: 650 mg Documented By: ARYAN Acetaminophen/Butalbital/Caffeine (Butalb/Acetamin/Caff 50/325/40 Tablet) 1 tab PO BID PRN PRN Reason: Headache Last Admin: 12/19/21 10:15 Dose: 1 tab Documented By: SHRUTHI Acetaminophen/Butalbital/Caffeine (Butalb/Acetamin/Caff 50/325/40 Tablet) 1 tab PO Q6H PRN PRN Reason: Migraine Headache Last Admin: 12/19/21 17:43 Dose: 1 tab Documented By: SHRUTHI Amlodipine Besylate (Amlodipine Besylate 10 Mg Tablet) 10 mg PO DAILY [facility]; Protocol Last Admin: 12/29/21 09:02 Dose: 10 mg Documented By: OSVALDO Enoxaparin Sodium (Enoxaparin Sodium 100 Mg/Ml Syringe) 90 mg 1 mg/kg (90 mg) SUBCUT Q12H [facility] Last Admin: 12/29/21 09:03 Dose: 90 mg Documented By: OSVALDO Hydralazine HCl (Hydralazine Hcl 25 Mg Tablet) 25 mg PO TID [facility]; Protocol Last Admin: 12/29/21 09:02 Dose: 25 mg Documented By: OSVALDO Metoprolol Tartrate (Metoprolol Tartrate 25 Mg Tablet) 25 mg PO BID [facility]; Protocol Last Admin: 12/29/21 09:02 Dose: 25 mg Documented By: OSVALDO Mirtazapine (Mirtazapine 15 Mg Tablet) 15 mg PO BEDTIME [facility] Last Admin: 12/28/21 22:09 Dose: 15 mg Documented By: ANNI Neomycin/Polymyxin/Bacitracin (Neomy/Polymyx/Bacit/Ointment 14 Gm Tube) 1 gm TOPICAL DAILY [facility]; Protocol Last Admin: 12/28/21 10:07 Dose: 1 gm Documented By: ARYAN Nitroglycerin (Nitroglycerin 0.4 Mg Tab.Subl) 0.4 mg SUBLINGUAL Q5MX3 PRN PRN Reason: Chest Pain Last Admin: 12/05/21 00:47 Dose: 0.4 mg Documented By: SATHISH Comments: ch pain Ondansetron HCl (Ondansetron Hcl 4 Mg/2 Ml Vial) 4 mg IVPUSH Q8H PRN PRN Reason: Nausea and Vomiting Last Admin: 12/14/21 06:37 Dose: 4 mg Documented By: BRUCE Pharmacy Consult (Consult Rx Perform Med Rec) 1 each MISCELLANE ONCE PRN PRN Reason: Consult order Sodium Chloride (0.9 % Sodium Chloride Flush 3 Ml Syringe) 3 ml IVFLUSH QSHIFT [facility] Last Admin: 12/29/21 09:02 Dose: 3 ml Documented By: OSVALDO Labs CBC & Chem 7: 12/25/21 21:39 12/25/21 05:47 Assessment and Plan (1) Hip pain, right: Status: Acute Plan 46 years old male with PMH of smoking, alcoholism who presents to the hospital after being found altered in his shower after using heroin.? NEHA d/t ATN from [facility] with peak Cr of 12--and required short term dialysis, last Creatinine 1.34 on 12/25, PermCath removed Right Hip/leg pain Initial CT scan showing multiple abnormalities with enlargement of surrounding tissue and fluids along multiple facial planes Concerning for possible myositis, joint infection seen by orthopedics - re-eval yesterday, no official note written but they report pain likely result of myositis/idiopathic inflammation of the posterior thigh and no further imaging is necessary at this time seen by ID, no fever to indicate infection and blood cultures negative - rec to d/c abx physical therapy following, he is incrementally tolerating ambulation prn fioricet Depression, no SI seen by Psych 12/16, started on Remron Acute on chronic anemia Hemoglobin stable positive occult blood Iron stores within normal GI input appreciated, no need for intervention at this point, can be followed as outpatient elective colonoscopy Monitor CBC Epistaxis resolved HypOnatremia Resolved follow BMP Hyperkalemia Resolved RUE pain and swelling. Improved CT initially showing subcutaneous swelling concerning for muscle injury or infection pain likely from reperfusion injury per Ortho US neg for DVT, but left basilic vein superficial clot--on lovnox ? transition to eliquis Hypertension on amlodipine and hydralazine, and metoprolol and overall better Aspiration pneumonia Finished treatment with IV zosyn On room air Toxic metabolic encephalopathy, resolved Secondary to heroin abuse Addiction team following DVT PPX - SCDs Need for inpatient : physical therapy recommending STR. bed search for SNF, if hip pain improves [facility] may [facility] Quality Stroke Does the patient have a stroke diagnosis?: No VTE Prior VTE?: No VTE Risk Level:: Medical - moderate - high VTE Device Contraindication: Treatment Not Indicated VTE Drug Contraindication: N/A - Med Ordered
--- NOTE | 2021-12-29 11:41 | MHC.CM.PN ---
Addendum entered by Ludy Cerda 12/29/21 13:42: Received call back from [facility]- they are willing to review pt, received application form, assisting patient w/ completion. 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- Spoke w/ DON no male beds for a bottom bunk [address] [facility]- No beds Latasha Foster- No male beds [facility]- Left for Naina in [facility]- Sent referral via fax @ [phone] Original Note: Pt needs J&J vaccine prior to d/c, communicated to @ anastasia.
[2021-12-29] MEDS: Mirtazapine 15 MG TABLET PO (20:31)
[2021-12-30 03:47] VITALS: BP 119/80; PULSE 86; RESP 18; TEMP 36.9; O2SAT 97
[2021-12-30 05:47] LABS: Hematocrit 33.1 % (42.0-52.0); Hemoglobin 11.2 g/dl (14.0-18.0); Mean Corpuscular HGB Conc 33.8 g/dl (31.0-36.0); Mean Corpuscular Hemoglobin 33.2 pg (27.0-33.0); Mean Corpuscular Volume 98.2 fL (80.0-98.0); Mean Platelet Volume 10.7 fL (9.4-12.4); Platelet Count 367 X10*3/uL (160-400); Red Blood Count 3.37 X10*6/uL (4.60-5.80); Red Cell Distribution Width 12.7 % (11.0-16.0); White Blood Count 13.9 X10*3/uL (4.8-10.8)
[2021-12-30 07:25] VITALS: BP 127/84; PULSE 95; RESP 18; TEMP 37.2; O2SAT 97
[2021-12-30] MEDS: Enoxaparin Sodium 100 MG/ML SYRINGE 90 MG SUBCUT (09:52)
[2021-12-30] MEDS: 0.9 % Sodium Chloride Flush 3 ML SYRINGE IVFLUSH (09:52)
[2021-12-30] MEDS: hydrALAZINE HCl 25 MG TABLET PO (09:52)
[2021-12-30] MEDS: NeoMY/Polymyx/Bacit/Ointment 14 GM Tube TOPICAL (09:52)
[2021-12-30] MEDS: amLODIPine Besylate 10 MG TABLET PO (09:52)
[2021-12-30] MEDS: Metoprolol Tartrate 25 MG TABLET PO (09:52)
[2021-12-30 11:17] VITALS: BP 122/76; PULSE 101; RESP 19; TEMP 36.9; O2SAT 99
--- NOTE | 2021-12-30 13:11 | MHC.CM.PN ---
PATIENT TO DC TO [facility] VIA [facility]SPORT [address] REQUEST MADE PATIENT MEDS TO BE SENT TO [facility] [place] WHICH IS [address] FROM THE SKILLED NURSING RN TO BE MADE AWARE OF PLAN.
--- NOTE | 2021-12-30 13:39 | PM.DS ---
DS: Providers Provider Date of Service: 12/30/21 Date of admission: 11/28/21 11:39 Primary care physician: [facility] Consults: 11/28/21 11:42 Addiction Medicine Routine Consulting Provider: Swathi Teixeira Reason for consultation: Heroin usage, fall Consult to Nephrology Routine Consulting Provider: Alvarado Hughes Reason for consultation: NEHA, Rhabdo 11/29/21 10:24 Consult to Orthopedics Routine Consulting Provider: Jennifer Parker Reason for consultation: RUE pain, swelling, concern for impending compartment 11/29/21 12:54 Consult to Vascular Surgery Routine Consulting Provider: Nicola Eli Reason for consultation: RUE swelling, parasthesia, concern of impending compartment Has provider been notified: Yes 11/30/21 08:37 Consult to Infectious Diseases Routine Consulting Provider: Nicole Puckett Reason for consultation: abnormal Arm, Hip CT edema, fall, infx? Myositis ? 12/12/21 08:03 Consult to Gastroenterology Routine Consulting Provider: Morris Resendez Reason for consultation: Drop in Hb, +ve occult blood 12/16/21 10:50 Consult to Psychiatry Routine Consulting Provider: Psych Covering Reason for consultation: depression Has provider been notified: No 12/22/21 15:28 Consult to Orthopedics Routine Consulting Provider: Vanessa Gomez Reason for consultation: persistent right hip pain, follow up Has provider been notified: No DS: Diagnosis Discharge Diagnosis (1) Hip pain, right: Status: Acute DS: Summary Hospital Course Hospital Course: Admission HPI from 11/28 Chief Complaint: Fall, overdose A 46 years old male with PMH of smoking, alcoholism who presents to the hospital after being found altered in his shower after using heroin.? The patient reports that he has been clean for almost 10 years but his daughter was killed recently and he was feeling sore about this we had to use.? He does not recall much about holding but he remember that happening in his shower.? Could not recall hitting the floor.? When he was found by EMS he received Narcan and brought to the hospital in altered mentation and combative mood. He is reporting right hip and elbow pain.? Images were negative for any acute fracture. Chest images concerning for possible aspiration, infection or CHF. He will be admitted for further evaluation and treatment. 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 Initial management consited of aggressive IV fluid but did not improve renal function and so had to be initiated on dialysis, hospital course further complicated episodes of epistaxis, difficult to control blood pressure, Hyponatremia, Hyperkalemia and superficial basilic vein thrombosis and Depression NEHA due to ATN from rhabdomylsis with peak Cr of 12 on 12/05 and had permacath inserted at at that time ad started on dialysis.. His last dialysis was December 16 at that time Creatine was 4. His creatinine has since steadily treanded down with most recent of 1.34 on 12/25 and making normal urine. Permacath has been removed and no longer needs dialysis Right Hip/leg pain Initial CT scan showing multiple abnormalities with enlargement of surrounding tissue and fluids along multiple facial planes Concerning for possible myositis, joint infection seen by orthopedics - re-eval yesterday, no official note written but they report pain likely result of myositis/idiopathic inflammation of the posterior thigh and no further imaging is necessary at this time seen by ID, no fever to indicate infection and blood cultures negative - rec to d/c abx physical therapy following, he is incrementally tolerating ambulation. He was having difficulty ambulating and PT has worked with him and now is able to ambulate decently with the help of walker Depression, no SI seen by Psych 12/16, started on Remron Acute on chronic anemia Hemoglobin stable positive occult blood Iron stores within normal GI input appreciated, no need for intervention at this point, can be followed as outpatient elective colonoscopy Monitor CBC Epistaxis resolved HypOnatremia--resolved Hyperkalemia due to renal failure, resolved. RUE pain and swelling. CT initially showing subcutaneous swelling concerning for muscle injury or infection pain likely from reperfusion injury per Ortho US neg for DVT, but left basilic vein superficial clot and was started on Lovenox and given that this is superficial vein will treat for a month and transitioning to eliquis at discharge Hypertension--Blood pressures were initially very high but and has been started on meds adjusted with good bloo pressure control. To continue amlodipine , hydralazine, and metoprolol and overall better Aspiration pneumonia--Treated with Zosyn and resolved Dispo: He will be going to longterm Time Spent with Patient Time attestation: Total time spent providing and/or coordinating discharge services: Discharge coordination time: Greater than 30 minutes Quality: Safe Use of Opioids Does Pt have an Active Cancer Diagnosis on the Problem List?: No Quality: Stroke Does the patient have a stroke diagnosis?: No Physical Exam Vital Signs: Vital Signs: Last Vital Signs Temp 98.4 F 12/30/21 11:17 Pulse 101 H 12/30/21 11:17 Resp 19 12/30/21 11:17 BP 122/76 12/30/21 11:17 Pulse Ox 99 12/30/21 11:17 O2 Del Method 12/30/21 11:17 O2 Flow Rate 99 12/21/21 15:41 BMI result Body Mass Index 31.8 DS: Data Data Completed and Pending Labs on day of discharge: Laboratory Results - last 24 hr 12/30/21 05:28 WBC 13.9 H RBC 3.37 L Hgb 11.2 L Hct 33.1 L MCV 98.2 H MCH 33.2 H MCHC 33.8 RDW 12.7 Plt Count 367 MPV 10.7 Absolute Nucleated RBC 0.000 Nucleated RBC % (auto) 0.0 Discharge Plan Discharge Anticipated Discharge Date/Time: 12/20/21 10:34 Patient Disposition: [facility] Discharge Diagnosis: Acute renal failure due to rhabdomylosis Referrals: [facility] [Primary Care Provider] - 1 Week Alvarado Hughes MD [Physician] - 1 Week Discharge Medications: New hydralazine 25 mg Tablet 25 mg PO TID Qty: 30 0RF Protocol: Hold for SBP< HOLD for SBP < : 90 amlodipine 10 mg Tablet 10 mg PO DAILY Qty: 30 0RF Protocol: Hold for SBP< HOLD for SBP < : 90 mirtazapine 15 mg Tablet 15 mg PO BEDTIME Qty: 30 0RF metoprolol tartrate 50 mg tablet 50 mg PO BID Qty: 60 0RF Eliquis 5 mg tablet 5 mg PO BID 21 Days Qty: 42 0RF Discontinued ibuprofen [Advil] 200 mg Tablet 400 mg PO Q6H PRN (Reason: Pain) Discharge Orders: Discharge Order (Routine); Ordered 12/30/21 Ordered By: [facility] Diet: Advance to usual diet Activity on Discharge: As tolerated Stand Alone Forms: Patient Portal Discharge page Care Plan Goals: Full recovery from a renal failure and rhabdomyolysis Health Concerns: acute on chronic renal failure, rhabdomyolysis, substance abuse, Plan of Treatment: take your medications as directed follow up with your kidney doctor, follow-up with your primary care doctor, avoid illicit drug use.. Do not take Motrin, Advil or any other over the counter pain medication without check with your Doctor Take Metoprolol, Hydralazine and Amlodipine for blood pressure Take Eliquis 5 mg twice daily for blood clot in arm Assessment: As above Patient Instructions: Low-Sodium Diet (GEN)
== END 2021-12-30 14:20 | disposition home or self-care (01) | DRG 816 ==
LOC: HO.ED 08:42 → HO.EDOVER 12:26 → HO.S3 14:53
PROVIDERS: Hospitalist; Internal Medicine; Internal Medicine Hypertension Specialist; Internal Medicine Nephrology; Nurse Practitioner Acute Care; Physician Assistant Medical; Radiology Diagnostic Radiology; Admitting Provider Student in an Organized Health Care Education/Training Program; Emergency Provider Student in an Organized Health Care Education/Training Program; Visit Provider Internal Medicine
PROC: 02HV33Z Insertion of Infusion Device into Superior Vena Cava, Percutaneous Approach (ICD-10-PCS; principal; 2021-11-29 14:30)
DX: T40.1X1A Poisoning by heroin, accidental (unintentional), initial encounter (principal); N17.0 Acute kidney failure with tubular necrosis; J69.0 Pneumonitis due to inhalation of food and vomit; G92.8 Other toxic encephalopathy; M60.003 Infective myositis, unspecified right leg; D72.829 Elevated white blood cell count, unspecified; M62.82 Rhabdomyolysis; E87.2 Acidosis; I10 Essential (primary) hypertension; R04.0 Epistaxis; G43.909 Migraine, unspecified, not intractable, without status migrainosus; D69.6 Thrombocytopenia, unspecified; E87.1 Hypo-osmolality and hyponatremia; F33.1 Major depressive disorder, recurrent, moderate; F43.21 Adjustment disorder with depressed mood; I82.612 Acute embolism and thrombosis of superficial veins of left upper extremity; F10.21 Alcohol dependence, in remission; R09.02 Hypoxemia; E87.5 Hyperkalemia; Z20.822 Contact with and (suspected) exposure to COVID-19; Z87.891 Personal history of nicotine dependence; Z79.01 Long term (current) use of anticoagulants; Z79.899 Other long term (current) drug therapy
CPT/HCPCS: 36415; 36556; 36558; 70450; 70486; 71250; 72125; 73090; 73200; 73502; 73700; 76775; 78580; 80048; 80051; 80053; 80076; 80307; 81001; 82009; 82077; 82247; 82248; 82272; 82310; 82550; 82595; 82947; 83010; 83520; 83540; 83605; 83615; 83880; 84100; 84300; 84484; 85007; 85025; 85027; 85045; 85379; 85610; 85730; 86021; 86038; 86039; 86160; 86704; 86706; 86803; 87040; 87340; 87635; 90999; 91303; 93005; 93971; 96361; 96365; 97110; 97116; 97140; 97162; 97530; 99152; 99153; 99285; A9540; C1752; C1769; J1650; J1940; J2270; J2405; J2543